=== PATIENT | female | born 1960 | race Caucasian/White ===

== ENCOUNTER 2024-04-04 06:35 | Emergency (ER) | payer MEDICARE, MEDICAID, SELFPAY ==
--- NOTE | ~2024-04-04 | XR_ITS ---
EXAMINATION: XR HIP 1 VIEW RIGHT WITH PELVIS CLINICAL INFORMATION: , rt hip pain COMPARISON: None available at the time of this dictation. TECHNIQUE: Frontal and lateral views of the hip acquired. , AP pelvis FINDINGS: There is no evidence of acute fracture or dislocation. There are mild degenerative arthritic changes of the hip evident by sclerotic changes of the acetabular roof and narrowing of the joint space. Mild degenerative changes of the symphysis pubis. Mild degenerative changes of the SI joints. Adjacent pubic rami are intact. Surrounding soft tissues are unremarkable. XR/XR hip RT w PEL1V IMPRESSION: Mild degenerative arthritis. . Electronically signed by: Tom Croona MD 04/04/2024 09:11 AM PHYLLIS
--- NOTE | ~2024-04-04 | XR_ITS ---
EXAMINATION: XR CHEST CLINICAL INFORMATION: Recent pneumonia follow-up COMPARISON: None available. TECHNIQUE: Frontal view of the chest was obtained. FINDINGS: Bilateral low lung volumes. Slight bibasilar atelectasis. No pneumothorax. Trachea is midline. Cardiac mediastinal silhouette is not enlarged. Tortuosity of the aorta. Trace left pleural effusion versus blunting of the left costophrenic recess. Osseous structures are intact. Soft tissues are unremarkable. XR/XR chest 1V IMPRESSION: 1. Bilateral low lung volumes. 2. Slight bibasilar atelectasis. 3. Trace left pleural effusion versus blunting of the left costophrenic recess. Electronically signed by: Evangelist Vega MD 04/04/2024 08:39 AM PHYLLIS
[2024-04-04 06:38] VITALS: BP 137/73; BP 140/97; PULSE 100; PULSE 98; RESP 16; TEMP 36.6; O2SAT 98; BMI 37.0
[2024-04-04 06:45] VITALS: BP 137/73; PULSE 92; RESP 16; TEMP 36.6; O2SAT 98
--- NOTE | 2024-04-04 06:54 | ED.GENADULT ---
HPI - General Adult General Chief complaint: General Medical Stated complaint: LEG PAIN/ WANTS CHEST XRAY Time Seen by Provider: 04/04/24 06:48 Source: patient and EMS Mode of arrival: EMS Limitations: no limitations History of Present Illness ED Provider: EVANGELISTA Colvin HPI narrative: This is a 63-year-old female history of anxiety, depression, paranoia presenting to the emergency department with multiple complaints she reports she has a headache diffuse in nature with light sensitivity and this headache has been going on for weeks she reports that started because she has not been sleeping for over a week. She states she is not sleeping because her home is invaded with ?black mold?. She states it is ?everywhere?. She states that she tried to go to her primary care provider for this she walked in and demanded to see her primary care however they would not see her that day. I explained to her she would likely has to make an appointment. She also states that she is having right hip pain this has been going on for a while, she reports because of the pain she started using a wheelchair. She is able to move her hip however. She thinks her hip pain is secondary to mold exposure. No recent falls or trauma. Also reporting that she wants a chest x-ray she reports she was recently hospitalized at [facility] for pneumonia, very vague as to when this happened and she reports she wants to make sure she is okay. Upon my history taking patient quite paranoid appears manic, she is not able to have linear speech she has tangential conversations. Denies suicidal and homicidal ideation. Denies hallucinations. Denies fevers, chills, falls, trauma, vision changes, dizziness, weakness, chest pain, shortness of breath, abdominal pain, nausea, vomiting, diarrhea. Related Data Allergies Allergy/AdvReac Type Severity Reaction Status Date / Time cephalexin Allergy Unknown Abdominal Verified 04/04/24 06:49 Pain codeine [CODEINE] Allergy Unknown GI UPSET Verified 04/04/24 06:49 Sulfa (Sulfonamide Allergy Unknown GI UPSET Verified 04/04/24 06:49 Antibiotics) [SULFA (SULFONAMIDE ANTIBIOTICS)] metronidazole [From FLAGYL] AdvReac Unknown GI UPSET Verified 04/04/24 06:49 Codeine Sulfate Allergy Unknown Abdominal Uncoded 04/04/24 06:49 Pain Hydrocodone Allergy Unknown Abdominal Uncoded 04/04/24 06:49 Pain MYCINS Allergy Unknown GI UPSET Uncoded 04/04/24 06:49 Oral mycins Allergy Unknown Gastrointestinal Uncoded 04/04/24 06:49 Upset Review of Systems Review of Systems: Yes all other systems are reviewed and are negative [facility] Past Medical History Attestation statement: The following information was validated with the patient. Source: old records reviewed and nursing notes reviewed Social History Social History Smoked in Last 30 Days: No Use of substances other than those prescribed or required for medical reasons: No Advance Directives: No Advance Directives Information Provided: Yes Do you have a plan to hurt others: No Plan Physical Exam ED Vital Signs: Vital Signs - 24 hr 04/04/24 06:38 04/04/24 06:45 04/04/24 08:08 Temperature 97.8 F 97.8 F 97.7 F Pulse Rate 98 92 95 Respiratory Rate 16 16 16 Blood Pressure 137/73 137/73 133/76 Pulse Oximetry 98 98 99 Oxygen Delivery Method Room Air Room Air Room Air BMI result Body Mass Index 37.0 vss Appearance: Alert.? Oriented X3.? No acute distress.? Head: Normocephalic, atraumatic, no step-offs or deformities Eyes: Pupils equal, round and reactive to light.? CVS: Normal heart rate and rhythm.? Pulses normal.? Respiratory: No respiratory distress.? Breath sounds normal.? Abdomen: Soft and nontender.? Skin: Skin warm and dry.? Normal skin color.? Normal skin turgor.? Extremities: No lower extremity edema.? No calf ttp. Negative Homans bilaterally. 4/5 strength to bilateral upper and lower extremities. Palpable pulses to bilateral lower extremities. Full range of motion to hip. Patient states however that she can not walk. Neuro: Oriented X 3.? No motor deficit.? No sensory deficit. CN 2-12 intact. Normal finger to nose, heel to briggs. Course Reevaluation(s) Reevaluation #1: CBC unremarkable. Chemistry no acute findings needing intervention. UA with no acute findings. Urine tox negative. Patient refusing head CT. She demands an x-ray of her hip she states she thinks the mold is making her hip hurt. I explained to her this is unlikely. Mild degenerative arthritis of the right hip otherwise no acute findings. She is freely moving her hip without difficulty. Normal neurovascular status at and below the level of the hip. Chest x-ray with bilateral low lung volumes. Slight bibasilar atelectasis. Trace left pleural effusions versus blunting of the left costophrenic recess. No respiratory complaints at this time breath sounds clear. Saturating well on room air. Patient very manic and paranoid. Will have care team and psych evaluate her. Time: 11:53 Reevaluation #2: At this time patient to be placed into physician observation to allow more time to be assessed by psych. Time: 11:59 Reevaluation #3: Patient was evaluated by psych who feel as though patient can be discharged home not a threat to self or others. Educated patient on diagnosis and treatment plan, answered all question, patient verbalizes understanding. At this time patient will be discharged home, advised to return with new or worsening symptoms. Educated on worrisome signs and symptoms and when to return. At this time I feel comfortable discharge home. Time: 12:14 Medications Administered Discontinued Medications Generic Name Dose Route Start Last Admin Trade Name Jessy PRN Reason Stop Dose Admin Acetaminophen 650 mg 04/04/24 07:24 04/04/24 07:35 Acetaminophen 325 Mg Tablet PO 04/04/24 07:25 650 mg ONCE ONE Administration Diphenhydramine HCl 50 mg 04/04/24 07:24 04/04/24 07:34 Diphenhydramine Hcl 25 Mg Capsule PO 04/04/24 07:25 50 mg ONCE ONE Administration Metoclopramide HCl 10 mg 04/04/24 07:24 04/04/24 07:35 Metoclopramide Hcl 10 Mg Tablet PO 04/04/24 07:25 10 mg ONCE ONE Administration Medical Decision Making Medical Decision Making [facility] Narrative: 0717 63 year old female presents w/ right leg pain ( atraumatic thinks its from black mold), not sleeping ( X 1 week), headache ( x1 week) . To note very bizzare affect. Requesting CXR states she recently had PNA no sx at this time however. PE- benign Hx and pe concerning for tonie. Some suspicion for OA of hip. Unliikely arterial, venous occlusion. No falls or trauma no signs of fx, dislocation, nv compromise. Normal breathsounds no sings of PNA, PE, ACS, ARDS. I do not suspect ICH, stroke, posterior stroke Plan- labs, imaging Differential Diagnosis Differential Diagnoses: The differential diagnosis associated with the presentation includes (Hx and pe concerning for tonie. Some suspicion for OA of hip. Unliikely arterial, venous occlusion. No falls or trauma no signs of fx, dislocation, nv compromise. Normal breathsounds no sings of PNA, PE, ACS, ARDS. I do not suspect ICH, stroke, posterior stroke) Admission/Observation Consideration of admission/observation: Escalation of care including admission/observation considered Lab Data MDM Lab Attestation statement: I reviewed the patient's lab results. 04/04/24 07:25 04/04/24 07:25 Labs: Lab Results 04/04/24 04/04/24 Range/Units 07:25 07:57 WBC 10.3 (4.8-10.8) X10*3/uL RBC 5.07 (4.20-5.50) X10*6/uL Hgb 14.7 (12.0-16.0) g/dl Hct 44.0 (37.0-47.0) % MCV 86.8 (80.0-98.0) fL MCH 29.0 (27.0-33.0) pg MCHC 33.4 (31.0-35.0) g/dl RDW 14.6 (11.0-16.0) % Plt Count 231 (160-400) X10*3/uL MPV 9.5 (9.4-12.3) fL Immature Gran % (Auto) 0.5 H (0.0-0.4) % Neut % (Auto) 84.9 H (45-73) % Lymph % (Auto) 7.5 L (20-40) % [place] % (Auto) 5.6 (2-11) % Eos % (Auto) 0.9 (0-4) % Baso % (Auto) 0.6 (0-2) % Lymph # (Auto) 0.8 L (1.2-4.9) X10*3/uL [place] # (Auto) 0.6 (0.1-1.2) X10*3/uL Eos # (Auto) 0.1 (0.0-0.4) X10*3/uL Baso # (Auto) 0.1 (0.0-0.2) X10*3/uL Abs Immat Gran (auto) 0.05 H (0.00-0.03) X10*3/uL Absolute Neuts (auto) 8.7 H (2.0-8.3) x10*3/uL Absolute Nucleated RBC 0.000 (0.0-0.012) X10*3/uL Nucleated RBC % (auto) 0.0 (0.0-0.2) /100WBC PT 12.7 H (10.9-12.4) SEC INR 1.1 (0.9-1.1) Sodium 140 (135-145) mmol/L Potassium 3.7 (3.3-5.1) mmol/L Chloride 106 (96-108) mmol/L Carbon Dioxide 24 (22-29) mmol/L Anion Gap 14 (12-20) BUN 11 (9-16) mg/dL Creatinine 0.81 (0.5-1.4) mg/dL Estim Creat Clear Calc 76.8 Estimated GFR > 60 Random Glucose 125 H (60-115) mg/dL Calcium 9.5 (8.4-10.2) mg/dL Magnesium 2.8 H (1.6-2.6) mg/dL Total Bilirubin 0.5 (0.0-1.0) mg/dL AST 20 (5-31) U/L ALT 15 (0-31) U/L Alkaline Phosphatase 87 (39-117) U/L Total Protein 6.9 (6.5-8.0) g/dL Albumin 3.9 (3.5-5.0) g/dL Urine Color Yellow Urine Appearance Clear Urine pH 7.0 (5.0-9.0) Ur Specific [place] 1.015 (1.005-1.025) Urine Protein Negative (Neg-Trace) mg/dL Urine Glucose (UA) Negative (Negative) mg/dL Urine Ketones Negative (Negative) mg/dL Urine Blood Negative (Negative) Urine Nitrite Negative (Negative) Ur Leukocyte Esterase Trace H (Negative) Urine RBC 0-2 (0-2) /HPF Urine WBC 0-5 (0-5) /HPF Ur Squamous Epith Cells 0-2 (0-2) /HPF Urine Bacteria None Seen (None Seen) Hyaline Casts 0-2 (0-2) /LPF Urine Opiates Screen Not Detected (Not Detect) Ur Buprenorphine Scrn Not Detected (Not Detect) ng/mL Ur Oxycodone Screen Not Detected (Not Detect) ng/mL Urine Methadone Screen Not Detected (Not Detect) ng/mL Urine Fentanyl Screen Not Detected (Not Detect) Ur Barbiturates Screen Not Detected (Not Detect) Ur Phencyclidine Scrn Not Detected (Not Detect) Ur Amphetamines Screen Not Detected (Not Detect) U Benzodiazepines Scrn Not Detected (Not Detect) Urine Cocaine Screen Not Detected (Not Detect) U Marijuana (THC) Screen Not Detected (Not Detect) Independent Interpretation I performed an independent interpretation of an: Plain X-Ray (XR/XR chest 1V IMPRESSION: 1. Bilateral low lung volumes. 2. Slight bibasilar atelectasis. 3. Trace left pleural effusion versus blunting of the left costophrenic recess. ) Interpretation: XR/XR hip RT w PEL1V IMPRESSION: Mild degenerative arthritis. Radiology Impression Discussion of test interpretation with radiology: I have reviewed the radiologist's reading. Tests considered The following testing was considered but not selected: No history of DVT or PE, not on blood thinners, no unilateral leg swelling, no calf tenderness negative Nellie bilaterally no indication for DVT study of bilateral lower extremities or right lower extremity. Unlikely arterial occlusion as patient has palpable pulses. Chronic Conditions Patient?s care impacted by: Other Critical Care Time Critical Care Time Critical Care Time: No Discharge Plan Discharge Clinical Impression: Headache, Paranoia, Hip pain, right Patient Disposition: Home, Self-Care Additional Instructions: Take your medications as prescribed. If you were prescribed antibiotics today, it is important that you take your medication to their entirety, do not skip any doses, do not finish them early. Follow-up with your primary care provider this week. Return to the emergency department with new or worsening symptoms. Such as fevers, chills, chest pain, shortness of breath, nausea, vomiting, dizziness, headache, vision changes, lethargy In case of emergency call 911 Please contact your landlord and speak to them about mold you can also reach out to the town. You can take ibuprofen every 6 hours Tylenol every 4 hours as needed for pain or discomfort in the right hip. Follow-up with your PCP. Nothing to be done about it acutely. RT w PEL1V IMPRESSION: Mild degenerative arthritis. XR/XR chest 1V IMPRESSION: 1. Bilateral low lung volumes. 2. Slight bibasilar atelectasis. 3. Trace left pleural effusion versus blunting of the left costophrenic recess. Electronically signed by: Evangelist Vega MD 04/04/2024 08:39 AM EST Referrals: Physician,Unknown J [Primary Care Provider] - 2 days Print Language: Swedish
[2024-04-04 07:31] LABS: MANUAL DIFF FLAG NO
[2024-04-04] MEDS: diphenhydrAMINE HCL 25 MG CAPSULE 50 MG PO (07:34)
[2024-04-04] MEDS: Metoclopramide HCl 10 MG TABLET PO (07:35)
[2024-04-04] MEDS: Acetaminophen 325 MG TABLET 650 MG PO (07:35)
[2024-04-04 07:41] LABS: Basophils Absolute Auto 0.1 X10*3/uL (0.0-0.2); Basophils Percent Auto 0.6 % (0-2); Eosinophils Absolute Auto 0.1 X10*3/uL (0.0-0.4); Eosinophils Percent Auto 0.9 % (0-4); Hemoglobin 14.7 g/dl (12.0-16.0); Imm Gran Abs Auto 0.05 X10*3/uL (0.00-0.03); Imm Gran Pct Auto 0.5 % (0.0-0.4); Lymphocytes Absolute Auto 0.8 X10*3/uL (1.2-4.9); Lymphocytes Percent Auto 7.5 % (20-40); Mean Corpuscular HGB Conc 33.4 g/dl (31.0-35.0); Mean Corpuscular Volume 86.8 fL (80.0-98.0); Mean Platelet Volume 9.5 fL (9.4-12.3); Monocytes Absolute Auto 0.6 X10*3/uL (0.1-1.2); Monocytes Percent Auto 5.6 % (2-11); Neutrophils Absolute Auto 8.7 x10*3/uL (2.0-8.3); Neutrophils Percent Auto 84.9 % (45-73); Platelet Count 231 X10*3/uL (160-400); Red Blood Count 5.07 X10*6/uL (4.20-5.50); Red Cell Distribution Width 14.6 % (11.0-16.0); White Blood Count 10.3 X10*3/uL (4.8-10.8)
[2024-04-04 07:45] LABS: INTERNATIONAL NORM RATIO 1.1 (0.9-1.1); Prothrombin Time 12.7 SEC (10.9-12.4)
[2024-04-04 07:50] LABS: Alanine Aminotransferase 15 U/L (0-31); Albumin Level 3.9 g/dL (3.5-5.0); Alkaline Phosphatase 87 U/L (39-117); Anion Gap 14 (12-20); Aspartate Amino Transferase 20 U/L (5-31); Bilirubin Total 0.5 mg/dL (0.0-1.0); Blood Urea Nitrogen 11 mg/dL (9-16); Calcium 9.5 mg/dL (8.4-10.2); Carbon Dioxide 24 mmol/L (22-29); Chloride 106 mmol/L (96-108); Creatinine Clr Calc Pharmacy 76.8; Estimated Glomerular Filt Rate > 60; Glucose Random 125 mg/dL (60-115); Magnesium 2.8 mg/dL (1.6-2.6); Potassium 3.7 mmol/L (3.3-5.1); Sodium 140 mmol/L (135-145); Total Protein 6.9 g/dL (6.5-8.0)
[2024-04-04 08:08] VITALS: BP 133/76; PULSE 95; RESP 16; TEMP 36.5; O2SAT 99
[2024-04-04 08:10] LABS: Appearance Urine Clear; Color Urine Yellow; Glucose Urine UA Negative (Negative); Leukocyte Esterase Urine Trace (Negative); Nitrite Urine Negative (Negative); Specific Gravity - Urine 1.015 (1.005-1.025); UMIC TRIGGER UACC YES; Urine Blood Negative (Negative); Urine Ketones Negative (Negative); Urine Protein Negative (Neg-Trace)
[2024-04-04 08:15] LABS: Bacteria Urine None Seen (None Seen); Hyaline Casts Urine 0-2 /LPF (0-2); RBC Urine 0-2 /HPF (0-2); Squamous Epithelial Cell Urine 0-2 /HPF (0-2); WBC Urine 0-5 /HPF (0-5)
[2024-04-04 08:28] LABS: Amphetamine Screen Urine Not Detected (Not Detect); Barbiturates, Urine Not Detected (Not Detect); Benzodiazepines Screen Urine Not Detected (Not Detect); Buprenorphine Scr Not Detected (Not Detect); Cannabinoid Screen Urine Not Detected (Not Detect); Cocaine Screen Urine Not Detected (Not Detect); Fentanyl, urine Not Detected (Not Detect); Methadone Screen, Urine Not Detected (Not Detect); Opiate Screen Urine Not Detected (Not Detect); Oxycodone Screen Urine Not Detected (Not Detect); Phencyclidine Screen Urine Not Detected (Not Detect)
[2024-04-04 12:19] VITALS: BP 133/76; PULSE 95; RESP 16; TEMP 36.5; O2SAT 99
--- NOTE | 2024-04-04 12:23 | PM.PSYCN ---
History of Present Illness Chief Complaint: LEG PAIN/ WANTS CHEST XRAY Diagnostics Vital Signs (24Hr): Vital Signs - 24 hr 04/04/24 06:38 04/04/24 06:45 04/04/24 08:08 Temperature 97.8 F 97.8 F 97.7 F Pulse Rate 98 92 95 Respiratory Rate 16 16 16 Blood Pressure 137/73 137/73 133/76 Pulse Oximetry 98 98 99 Oxygen Delivery Method Room Air Room Air Room Air 04/04/24 12:19 Temperature 97.7 F Pulse Rate 95 Respiratory Rate 16 Blood Pressure 133/76 Pulse Oximetry 99 Oxygen Delivery Method Room Air BMI result Body Mass Index 37.0 Labs 04/04/24 07:25 04/04/24 07:25 Labs: Laboratory Results - last 48 hr 04/04/24 04/04/24 07:25 07:57 WBC 10.3 RBC 5.07 Hgb 14.7 Hct 44.0 MCV 86.8 MCH 29.0 MCHC 33.4 RDW 14.6 Plt Count 231 MPV 9.5 Immature Gran % (Auto) 0.5 H Neut % (Auto) 84.9 H Lymph % (Auto) 7.5 L [place] % (Auto) 5.6 Eos % (Auto) 0.9 Baso % (Auto) 0.6 Lymph # (Auto) 0.8 L [place] # (Auto) 0.6 Eos # (Auto) 0.1 Baso # (Auto) 0.1 Abs Immat Gran (auto) 0.05 H Absolute Neuts (auto) 8.7 H Absolute Nucleated RBC 0.000 Nucleated RBC % (auto) 0.0 PT 12.7 H INR 1.1 Sodium 140 Potassium 3.7 Chloride 106 Carbon Dioxide 24 Anion Gap 14 BUN 11 Creatinine 0.81 Estim Creat Clear Calc 76.8 Estimated GFR > 60 Random Glucose 125 H Calcium 9.5 Magnesium 2.8 H Total Bilirubin 0.5 AST 20 ALT 15 Alkaline Phosphatase 87 Total Protein 6.9 Albumin 3.9 Urine Color Yellow Urine Appearance Clear Urine pH 7.0 Ur Specific [place] 1.015 Urine Protein Negative Urine Glucose (UA) Negative Urine Ketones Negative Urine Blood Negative Urine Nitrite Negative Ur Leukocyte Esterase Trace H Urine RBC 0-2 Urine WBC 0-5 Ur Squamous Epith Cells 0-2 Urine Bacteria None Seen Hyaline Casts 0-2 Urine Opiates Screen Not Detected Ur Buprenorphine Scrn Not Detected Ur Oxycodone Screen Not Detected Urine Methadone Screen Not Detected Urine Fentanyl Screen Not Detected Ur Barbiturates Screen Not Detected Ur Phencyclidine Scrn Not Detected Ur Amphetamines Screen Not Detected U Benzodiazepines Scrn Not Detected Urine Cocaine Screen Not Detected U Marijuana (THC) Screen Not Detected Imaging Radiology Impressions: ITS Impressions Chest X-Ray 04/04/24 06:54 IMPRESSION: 1. Bilateral low lung volumes. 2. Slight bibasilar atelectasis. 3. Trace left pleural effusion versus blunting of the left costophrenic recess. Electronically signed by: Evangelist Vega MD 04/04/2024 08:39 AM EST RP Hip/Pelvis X-Ray 04/04/24 08:58 IMPRESSION: Mild degenerative arthritis. . Electronically signed by: Tom Corona MD 04/04/2024 09:11 AM EST RP Medications Allergies Allergies Allergy/AdvReac Type Severity Reaction Status Date / Time cephalexin Allergy Unknown Abdominal Verified 04/04/24 06:49 Pain codeine [CODEINE] Allergy Unknown GI UPSET Verified 04/04/24 06:49 Sulfa (Sulfonamide Allergy Unknown GI UPSET Verified 04/04/24 06:49 Antibiotics) [SULFA (SULFONAMIDE ANTIBIOTICS)] metronidazole [From FLAGYL] AdvReac Unknown GI UPSET Verified 04/04/24 06:49 Codeine Sulfate Allergy Unknown Abdominal Uncoded 04/04/24 06:49 Pain Hydrocodone Allergy Unknown Abdominal Uncoded 04/04/24 06:49 Pain MYCINS Allergy Unknown GI UPSET Uncoded 04/04/24 06:49 Oral mycins Allergy Unknown Gastrointestinal Uncoded 04/04/24 06:49 Upset Assessment & Plan Assessment & Plan (1) Schizophrenia, paranoid type: Status: Acute Code(s): F20.0 - Paranoid schizophrenia Total time managing care of this patient today ____ minutes.
== END 2024-04-04 12:24 | disposition home or self-care (01) ==
PROVIDERS: Physician Assistant; Emergency Provider Emergency Medicine
DX: F20.0 Paranoid schizophrenia (principal); R51.9 Headache, unspecified; M25.551 Pain in right hip; R79.1 Abnormal coagulation profile
CPT/HCPCS: 36415; 71045; 73502; 80053; 80307; 81001; 83735; 85025; 85610; 99284; 99285; S9485

== ENCOUNTER → 2024-04-04 07:15 | Outpatient (BNV) | payer MEDICARE, MEDICAID, SELFPAY | PROVIDERS: Emergency Provider Emergency Medicine; Visit Provider Social Worker | DX: F20.0 Paranoid schizophrenia (principal) | CPT/HCPCS: 99285 ==

== ENCOUNTER 2024-11-04 20:07 | Emergency (ER) | payer MEDICARE, MEDICAID, SELFPAY ==
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
[2024-11-04 20:24] VITALS: BP 147/87; PULSE 91; RESP 21; TEMP 36.9; O2SAT 99; BMI 35.4
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
[2024-11-04 22:05] LABS: MANUAL DIFF FLAG NO
[2024-11-04 22:07] LABS: Basophils Absolute Auto 0.1 X10*3/uL (0.0-0.2); Basophils Percent Auto 0.7 % (0-2); Eosinophils Absolute Auto 0.4 X10*3/uL (0.0-0.4); Eosinophils Percent Auto 3.7 % (0-4); Hematocrit 32.3 % (37.0-47.0); Hemoglobin 10.8 g/dl (12.0-16.0); Imm Gran Abs Auto 0.05 X10*3/uL (0.00-0.03); Imm Gran Pct Auto 0.5 % (0.0-0.4); Lymphocytes Absolute Auto 1.2 X10*3/uL (1.2-4.9); Lymphocytes Percent Auto 12.4 % (20-40); Mean Corpuscular HGB Conc 33.4 g/dl (31.0-35.0); Mean Corpuscular Hemoglobin 30.5 pg (27.0-33.0); Mean Corpuscular Volume 91.2 fL (80.0-98.0); Mean Platelet Volume 8.6 fL (9.4-12.3); Monocytes Absolute Auto 0.7 X10*3/uL (0.1-1.2); Monocytes Percent Auto 7.1 % (2-11); Neutrophils Absolute Auto 7.1 x10*3/uL (2.0-8.3); Neutrophils Percent Auto 75.6 % (45-73); Platelet Count 269 X10*3/uL (160-400); Red Blood Count 3.54 X10*6/uL (4.20-5.50); Red Cell Distribution Width 14.6 % (11.0-16.0); White Blood Count 9.4 X10*3/uL (4.8-10.8)
[2024-11-04 22:22] LABS: Alanine Aminotransferase 9 U/L (0-31); Albumin Level 3.7 g/dL (3.5-5.0); Alkaline Phosphatase 76 U/L (39-117); Anion Gap 9 (12-20); Aspartate Amino Transferase 19 U/L (5-31); Bilirubin Total 1.1 mg/dL (0.0-1.0); Blood Urea Nitrogen 14 mg/dL (9-16); Calcium 8.2 mg/dL (8.4-10.2); Carbon Dioxide 25 mmol/L (22-29); Chloride 109 mmol/L (96-108); Creatinine Clr Calc Pharmacy 89.4; Estimated Glomerular Filt Rate > 60; Glucose Random 110 mg/dL (60-115); Magnesium 2.7 mg/dL (1.6-2.6); Potassium 3.4 mmol/L (3.3-5.1); Sodium 140 mmol/L (135-145); Total Protein 6.3 g/dL (6.5-8.0)
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
[2024-11-04 22:38] LABS: Prothrombin Time 11.7 SEC (10.9-12.4)
[2024-11-04] MEDS: Acetaminophen 325 MG TABLET 975 MG PO (22:39)
[2024-11-04] MEDS: oxyCODONE HCl Immed Release 5 MG TABLET 10 MG PO (22:39)
[2024-11-05 01:00] VITALS: BP 144/89; PULSE 93; RESP 16; TEMP 36.7; O2SAT 97
== END 2024-11-05 01:00 | disposition home or self-care (01) ==
PROVIDERS: Nurse Practitioner Family; Emergency Provider Emergency Medicine
DX: S89.92XA Unspecified injury of left lower leg, initial encounter (principal); V43.52XA Car driver injured in collision with other type car in traffic accident, initial encounter; L03.116 Cellulitis of left lower limb; M79.605 Pain in left leg; Y93.89 Activity, other specified; Y92.414 Local residential or business street as the place of occurrence of the external cause; Y99.9 Unspecified external cause status
CPT/HCPCS: 36415; 80053; 82550; 83735; 85025; 85610; 93971; 99284

== ENCOUNTER → 2024-11-04 21:27 | Outpatient (BNV) | payer MEDICARE, MEDICAID, SELFPAY | PROVIDERS: Emergency Provider Emergency Medicine; Visit Provider Radiology Diagnostic Radiology | DX: R22.42 Localized swelling, mass and lump, left lower limb (principal) | CPT/HCPCS: 93971 ==

== ENCOUNTER 2025-01-14 13:50 | Emergency (ER) | payer MEDICARE, MEDICAID, SELFPAY ==
[2025-01-14 14:00] VITALS: BP 165/92; PULSE 87; RESP 16; TEMP 36.8; O2SAT 99; BMI 35.4
[2025-01-14 14:10] VITALS: BP 190/120; PULSE 90; O2SAT 98
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
--- OUTSIDE RECORDS SUMMARY | 2025-01-14 14:33 | XMS_ITS | Clinical Summary ---
Author Organization [facility] Address [address] [place] [address] Phone Care Team Providers Care Enrollment Representative Name Role Phone Van Paige MD Primary Care Provider [phone] Allergies No known active allergies Immunizations Name Administration Dates Next Due Pfizer SARS-CoV-2 COVID-19, mRNA, LNP-S, preservative free 06/23/2020,06/02/2020 Social History Tobacco Use Types Packs/Day Years Used Date Smoking Tobacco: Never Assessed Comments Unknown Sex and Gender Information Value Date Recorded Sex Assigned at Not on file Legal Sex Female 8:26 PM EST Gender Identity Not on file Sexual Orientation Not on file Obstetrics History Last Filed Vital Signs Vital Sign Reading Time Taken Comments Blood Pressure 137/84 06/21/2024 1:04 PM EST Pulse 80 06/21/2024 1:04 PM EST Temperature 36.8 C (98.2 F) 06/21/2024 1:04 PM EST Respiratory Rate 18 06/21/2024 1:04 PM EST Oxygen Saturation 97% 06/21/2024 1:04 PM EST Inhaled Oxygen Concentration - - Weight 83.5 kg (184 lb) 06/21/2024 9:09 AM EST Height 160 cm (5' 3 ) 06/21/2024 9:09 AM EST Body Mass Index 32.59 06/21/2024 9:09 AM EST Plan of Treatment Health Maintenance Due Date Last Done Comments Breast Cancer Screening 1960 Pneumococcal Vaccine: 50+ Years (1 of 2 - PCV) 10/06/1978 Cervical Cancer Screening: Pap Smear 10/06/1980 Zoster Vaccines (1 of 2) 10/06/2009 RSV Immunization Adult Patients (1 - Risk 60-74 years 1-dose series) 2019 DTaP,Tdap,and Td Vaccines (2 - Td or Tdap) 03/02/2020 03/02/2010 Colorectal Cancer Screening: Colonoscopy 06/21/2023 Hepatitis C Screening 06/21/2023 Medicare Annual Wellness Visit 06/21/2023 Osteoporosis Screening (Bone Density Screening) 06/21/2023 Social Influencers of Health Screening 06/21/2023 COVID-19 Vaccine ( - season) 2024 06/23/2020, 06/02/2020 Depression Screening 05/27/2024 Falls Risk Assessment 10/06/2024 Influenza Vaccine (#1) 2025 04/05/2022, 2020 Hypertension/CHF/CAD Annual BMP Blood Test 06/21/2025 06/21/2024, 08/14/2023, 12/19/2022, Additional history exists Cholesterol Screening (Lipid Panel) 08/13/2028 08/14/2023 HIB Vaccines Aged Out No longer eligi ble based on patient's age to complete this topic HPV Vaccines Aged Out No longer eligi ble based on patient's age to complete this topic Hepatitis A Vaccines Aged Out No long er eligible based on patient's age to complete this topic Hepatitis B Vaccines Aged Out No long er eligible based on patient's age to complete this topic IPV Vaccines Aged Out No longer eligi ble based on patient's age to complete this topic MMR Vaccines Aged Out No longer eligi ble based on patient's age to complete this topic Meningococcal ACWY Vaccine Aged Out N o longer eligible based on patient's age to complete this topic Meningococcal B Vaccine Aged Out No l onger eligible based on patient's age to complete this topic RSV Immunization Patients Under 20 months Aged Out No longer eligible based on patient's age to complete this topic Varicella Vaccines Aged Out No longer eligible based on patient's age to complete this topic Procedures Procedure Name Priority Date/Time Associated Diagnosis Comments COMPREHENSIVE METABOLIC PANEL STAT 06/21/2024 10:46 AM EST from Last 3 Months or Most Recently Relevant to Health Maintenance Results * Comprehensive metabolic panel (06/21/2024 10:46 AM EST) Sodium 139 133 - 145 mmol/L LAB CHEMISTRY METHOD 06/21/2024 11:42 AM [facility] Potassium 4.2 3.5 - 5.5 mmol/L LAB CHEMISTRY METHOD 06/21/2024 11:42 AM [facility] Comment:Hemolysis present Chloride 110 96 - 110 mmol/L LAB CHEMISTRY METHOD 06/21/2024 11:42 AM [facility] CO2 25 21 - 32 mmol/L LAB CHEMISTRY METHOD 06/21/2024 11:42 AM [facility] Anion Gap 4 3 - 11 LAB CHEMISTRY METHOD 06/21/2024 11:42 AM [facility] Glucose 99 70 - 100 mg/dL LAB CHEMISTRY METHOD 06/21/2024 11:42 AM [facility] BUN 14 5 - 25 mg/dL LAB CHEMISTRY METHOD 06/21/2024 11:42 AM [facility] Creatinine 0.78 0.50 - 1.10 mg/dL LAB CHEMISTRY METHOD 06/21/2024 11:42 AM [facility] eGFR 85 >=60 mL/min/1. 73m2 LAB CHEMISTRY METHOD 06/21/2024 11:42 AM [facility] Comment:Calculation based on the Chronic Kidney Disease Epidemiology Collaboration (CKD-EPI) equation refit without adjustment for race. BUN/Creatinine Ratio 17.9 LAB CHEMISTRY METHOD 06/21/2024 11:42 AM [facility] Calcium 9.0 8.5 - 10.5 mg/dL LAB CHEMISTRY METHOD 06/21/2024 11:42 AM [facility] AST (SGOT) 16 10 - 42 unit/L LAB CHEMISTRY METHOD 06/21/2024 11:42 AM [facility] Comment:Hemolysis present ALT (SGPT) 17 10 - 60 unit/L LAB CHEMISTRY METHOD 06/21/2024 11:42 AM [facility] Alkaline Phosphatase 84 42 - 121 unit/L LAB CHEMISTRY METHOD 06/21/2024 11:42 AM [facility] Total Protein 6.7 6.0 - 8.0 g/dL LAB CHEMISTRY METHOD 06/21/2024 11:42 AM EST [facility] Albumin 3.6 3.2 - 5.0 g/dL LAB CHEMISTRY METHOD 06/21/2024 11:42 AM EST [facility] Total Bilirubin 0.6 0.0 - 1.4 mg/dL LAB CHEMISTRY METHOD 06/21/2024 11:42 AM EST [facility] Blood Venous blood specimen / Unknown Venipuncture / Unknown 06/21/2024 10:46 AM EST 06/21/2024 10:52 AM EST Byrontricia Ranjit Juares DO LAB BLOOD ORDERABLES Irena l Result [facility] [address] [place] [address], from Last 3 Months or Most Recently Relevant to Health Maintenance Insurance MEDICAID - [place] MEDICARE Care Teams Enrollment Representative Relationship Specialty Start Date End Date Van Paige MD [address] [place] [phone] PCP - General 09/25/23
--- OUTSIDE RECORDS SUMMARY | 2025-01-14 14:34 | XMS_ITS | Clinical Summary ---
Author Organization Formerly [facility] Address [address] [place] [address] Care Team Providers Care Meat Boner Name Role Phone Unavailable Primary Care Provider Unavailabl e Allergies No known active allergies Encounters Date Type Department Care Team Description 10/15/2024 10:30 PM EDT - 10/16/2024 2:56 AM EDT Emergency [facility] Emergency Department [address] [place] [address] Annika Keyes MD Hypothyroidism (Primary Dx); Headache; Abdominal pain Discharge Disposition: Home or Self Care 10/15/2024 Travel from Last 3 Months Social History Tobacco Use Types Packs/Day Years Used Date Smoking Tobacco: Never Assessed Comments Unknown Sex and Gender Information Value Date Recorded Sex Assigned at Female 10/15/2024 10:37 PM EDT Legal Sex Female 6:42 PM EST Gender Identity Female 10/15/2024 10:37 PM EDT Sexual Orientation Heterosexual (straight) 10/15 10:37 PM EDT Last Filed Vital Signs Vital Sign Reading Time Taken Comments Blood Pressure 142/86 10/15/2024 10:29 PM EDT Pulse 76 10/15/2024 10:29 PM EDT Temperature 37 C (98.6 F) 10/15/2024 10:29 PM EDT Respiratory Rate 16 10/15/2024 10:29 PM EDT Oxygen Saturation 100% 10/15/2024 10:29 PM EDT Inhaled Oxygen Concentration - - Weight - - Height - - Body Mass Index - - Plan of Treatment Health Maintenance Due Date Last Done Comments Hepatitis C Virus Screening 1960 HIV Screening 10/06/1972 DTaP/Tdap/Td Vaccines (1 - Tdap) 10/06/1978 Pap Smear (Ages 21-65) 10/06/1980 Mammogram 1999 Colonoscopy 10/06/2004 Pneumococcal Vaccines 50+ (1 of 1 - PCV) 10/06/2009 Zoster (Shingles) Vaccine (1 of 2) 10/06/2009 COVID-19 Vaccine (3 - 2023-2 5 season) 2024 06/23/2020, 06/02/2020 DXA Bone Density (Females,Ages 65 and older) 10/06/2024 Influenza Vaccine 12/25/2024 04/05/2022, 03/29/2021 RSV Vaccine 60 years and older and Patients (1 - 1-dose 75+ series) 10/06/2034 Hepatitis B Vaccines Aged Out No long er eligible based on patient's age to complete this topic Procedures Procedure Name Priority Date/Time Associated Diagnosis Comments TSH, HIGHLY SENSITIVE Routine 10/16/2024 1:34 AM EDT T4, FREE Routine 10/16/2024 1:34 AM EDT LIPASE STAT 10/16/2024 1:34 AM EDT HEPATIC FUNCTION PANEL STAT 10/16/2024 1:34 AM EDT BASIC METABOLIC PANEL STAT 10/16/2024 1:34 AM EDT COMPLETE BLOOD COUNT, WITH DIFFERENTIAL STAT 10/16/2024 1:34 AM EDT from Last 3 Months Results * Complete Blood Count, with Differential (10/16/2024 1:34 AM EDT) White Blood Cell Count 7.2 4.0 - 11.0 Thou/uL 10/16/2024 2:11 AM T [facility] Platelet Count 198 150 - 450 Thou/uL 10/16/2024 2:11 AM [facility] Hemoglobin 14.5 11.7 - 15.7 g/dL 10/16/2024 2:11 AM [facility] Hematocrit 43.5 35.0 - 47.0 % 10/16/2024 2:11 AM [facility] Red Blood Cell Count 4.87 4.00 - 5.40 Mil/uL 10/16/2024 2:11 AM [facility] MCV 89 80 - 100 fL 10/16/2024 2:11 AM [facility] MCH 29.8 27.0 - 31.0 pg 10/16/2024 2:11 AM [facility] MCHC 33.3 30.0 - 36.0 g/dL 10/16/2024 2:11 AM [facility] RDW 13.8 11.5 - 14.5 % 10/16/2024 2:11 AM [facility] MPV 8.9 7.5 - 12.5 fL 10/16/2024 2:11 AM [facility] Neutrophils Auto 63.0 % 10/17/19 2:11 AM [facility] Immature Granulocytes 0.1 % 10/16/2024 2:11 AM [facility] Lymphocytes Auto 23.2 % 10/17/19 2:11 AM [facility] Monocytes Auto 7.7 % 10/16/2024 2:11 AM [facility] Eosinophils Auto 5.0 % 10/17/19 2:11 AM [facility] Basophils Auto 1.0 % 10/16/2024 2:11 AM [facility] Abs Neutrophils Auto 4.55 2.00 - 7.50 Thou/uL 10/16/2024 2:11 AM [facility] Abs Immature Granulocytes 0.01 0.00 - 0.10 Thou/uL 10/16/2024 2:11 AM [facility] Abs Lymphocytes Auto 1.68 1.50 - 4.50 Thou/uL 10/16/2024 2:11 AM [facility] Abs Monocytes Auto 0.56 0.20 - 1.50 Thou/uL 10/16/2024 2:11 AM [facility] Abs Eosinophils Auto 0.36 0.00 - 0.70 Thou/uL 10/16/2024 2:11 AM [facility] Abs Basophils Auto 0.07 0.00 - 0.20 Thou/uL 10/16/2024 2:11 AM [facility] Blood Blood specimen / Unknown 10/16/2024 1:34 AM EDT 10/16/2024 1:58 AM EDT Francisco M Harman NAIDU LAB BLOOD ORDERABLES Final Re sult Performing Organization Address [facility] Co de Phone Number [address] [address], [address] [address] * (ABNORMAL) TSH, HIGHLY SENSITIVE (10/16/2024 1:34 AM EDT) TSH, Highly Sensitive 9.91(H) 0.27 - 4.20 mIU/L 10/16/2024 2:29 AM EDT [facility] 10/16/2024 1:34 AM EDT 10/16/2024 1:58 AM EDT Francisco Neves Harman NAIDU LAB BLOOD ORDERABLES Final Re sult Performing Organization Address [facility] Co de Phone Number [address] [address], [address] [address] * T4, FREE (10/16/2024 1:34 AM EDT) T4, Free 1.01 0.80 - 1.90 ng/dL 10/16/2024 2:29 AM EDT [facility] 10/16/2024 1:34 AM EDT 10/16/2024 1:58 AM EDT Francisco Neves Harman [place] LAB BLOOD ORDERABLES Final Re sult Performing Organization Address City/[facility] Co de Phone Number [address] [address], [address] [address] * (ABNORMAL) Lipase (10/16/2024 1:34 AM EDT) Lipase 61(H) 13 - 60 U/L 10/16/2024 2:29 AM EDT [facility] Blood Blood specimen / Unknown 10/16/2024 1:34 AM EDT 10/16/2024 1:58 AM EDT Francisco NAIDU LAB BLOOD ORDERABLES Final Re sult [address] [address], [address] [address] * Hepatic Function Panel (10/16/2024 1:34 AM EDT) Alkaline Phosphatase 85 32 - 122 U/L 10/16/2024 2:29 AM EDT [facility] Aspartate Aminotrans (AST) 22 10 - 50 U/L 10/16/2024 2:29 AM EDT [facility] Alanine Aminotrans (ALT) 17 10 - 50 U/L 10/16/2024 2:29 AM EDT [facility] Bilirubin, Total 0.3 0.2 - 1.0 mg/dL 10/16/2024 2:29 AM EDT [facility] Protein, Total 6.5 6.3 - 8.3 g/dL 10/16/2024 2:29 AM EDT [facility] Albumin 3.9 3.4 - 4.8 g/dL 10/16/2024 2:29 AM EDT [facility] Bilirubin, Direct 0.1 0 - 0.2 mg/dL 10/16/2024 2:29 AM EDT [facility] Globulin 2.6 1.5 - 3.9 g/dL 10/16/2024 2:29 AM EDT [facility] Albumin/Globulin Ratio 1.5 1.0 - 3.0 Ratio 10/16/2024 2:29 AM EDT [facility] Blood Blood specimen / Unknown 10/16/2024 1:34 AM EDT 10/16/2024 1:58 AM EDT Francisco NAIDU LAB BLOOD ORDERABLES Final Re sult [address] [address], [address] [address] * (ABNORMAL) Basic Metabolic Panel (10/16/2024 1:34 AM EDT) Glucose 101(H) 65 - 99 mg/dL 10/16/2024 2:29 AM [facility] Comment:Fasting: <100 mg/dL, Non-Fasting: <200 mg/dL (ADA 2005) Blood Urea Nitrogen (BUN) 16 8 - 21 mg/dL 10/16/2024 2:29 AM [facility] Creatinine 0.7 0.4 - 1.1 mg/dL 10/16/2024 2:29 AM [facility] eGFR >90 >59 10/16/2024 2:29 AM [facility] Comment:CKD-EPI (2020) in mL /min/1.73 sq meters. Sodium 141 136 - 145 mmol/L 10/16/2024 2:29 AM [facility] Potassium 3.7 3.4 - 5.3 mmol/L 10/16/2024 2:29 AM [facility] Chloride 105 98 - 107 mmol/L 10/16/2024 2:29 AM [facility] CO2 24 22 - 33 mmol/L 10/16/2024 2:29 AM [facility] Anion Gap 12 7 - 17 10/16/2024 2:29 AM [facility] Calcium 8.6(L) 8.7 - 10.5 mg/dL 10/16/2024 2:29 AM [facility] BUN/Creatinine Ratio 23 10.0 - 25.0 Ratio 10/16/2024 2:29 AM [facility] Blood Blood specimen / Unknown 10/16/2024 1:34 AM EDT 10/16/2024 1:58 AM EDT us Francisco NAIDU LAB BLOOD ORDERABLES Final Re sult [address] [address], [address] [address] from Last 3 Months Insurance MEDICARE PART A & B
--- OUTSIDE RECORDS SUMMARY | 2025-01-14 14:34 | XMS_ITS ---
Author Name [facility] Organization Unknown Results Test Name/Text Value Interpretation Date Range Source TSH SerPl DL<=0.005 mIU/L-aCnc 9.91 mIU/L Above high normal 10/16/2024 0.27 - 4.2 [facility] AST SerPl-cCnc 22.0 U/L 10/16/2024 10 - 50 [facility] T Bilirub SerPl-mCnc 0.3 mg/dL 10/16/2024 0.2 - 1 [facility] Prot SerPl-mCnc 6.5 g/dL 10/16/2024 6.3 - 8.[address] Bilirub Direct SerPl-mCnc 0.1 mg/dL 10/16/2024 0 - 0.2 [facility] ALP SerPl-cCnc 85.0 U/L 10/16/2024 32 - 122 [facility] T Albumin/Glob SerPl 1.5 Ratio 10/16/2024 1 - 3 [facility] ALT SerPl-cCnc 17.0 U/L 10/16/2024 10 - 50 [facility] T Albumin SerPl-mCnc 3.9 g/dL 10/16/2024 3.4 - 4.8 [facility] Globulin Ser Calc-mCnc 2.6 g/dL 10/16/2024 1.5 - 3.9 [facility] T4 Free SerPl-mCnc 1.01 ng/dL 10/16/2024 0.8 - 1.9 [facility] Lipase SerPl-cCnc 61.0 U/L Above high normal 10/16/2024 13 - 60 [facility] Creat SerPl-mCnc 0.7 mg/dL 10/16/2024 0.4 - 1.1 [facility] CO2 SerPl-sCnc 24.0 mmol/L 10/16/2024 22 - 33 [facility] Anion Gap Bld-sCnc 12.0 10/16/2024 7 - 17 [facility] Calcium SerPl-mCnc 8.6 mg/dL Below low normal 10/16/2024 8.7 - 10.5 [facility] Sodium SerPl-sCnc 141.0 mmol/L 10/16/2024 136 - 14 5 [facility] GFR/BSA.pred SerPlBld RBO-JEX-MjOHvx >90.0 10/16/2024 59 - [facility] Chloride SerPl-sCnc 105.0 mmol/L 10/16/2024 98 - 1 07 [facility] Potassium SerPl-sCnc 3.7 mmol/L 10/16/2024 3.4 - 5 .3 [facility] Glucose SerPl-mCnc 101.0 mg/dL Above high normal 10/16/2024 65 - 99 [facility] BUN/Creat SerPl 23.0 Ratio 10/16/2024 10 - 25 [facility] BUN SerPl-mCnc 16.0 mg/dL 10/16/2024 8 - [address] Hct VFr Bld Auto 43.5 % 10/16/2024 35 - 47 [facility] Imm Granulocytes/leuk NFr Bld Auto 0.1 % 10/16/2024 [facility] MCH RBC Qn Auto 29.8 pg 10/16/2024 27 - [address] Lymphocytes num Bld Auto 1.68 Thou/uL 10/16/2024 1.5 - 4.5 [facility] Neutrophils num Bld Auto 4.55 Thou/uL 10/16/2024 2 - 7.5 [facility] WBC num Bld Auto 7.2 Thou/uL 10/16/2024 4 - 11 [facility] Hgb Bld-mCnc 14.5 g/dL 10/16/2024 11.7 - 15.7 [facility] T Lymphocytes/leuk NFr Bld Auto 23.2 % 10/16/2024 [facility] Platelet num Bld Auto 198.0 Thou/uL 10/16/2024 150 - 450 [facility] RBC num Bld Auto 4.87 Mil/uL 10/16/2024 4 - 5.4 [facility] Monocytes num Bld Auto 0.56 Thou/uL 10/16/2024 0.2 - 1.5 [facility] Imm Granulocytes num Bld Auto 0.01 Thou/uL 10/16/2024 0 - 0.1 [facility] Neutrophils/leuk NFr Bld Auto 63.0 % 10/16/2024 [facility] MCV RBC Auto 89.0 fL 10/16/2024 80 - 100 [facility] Basophils/leuk NFr Bld Auto 1.0 % 10/16/2024 [facility] RDW RBC Auto-Rto 13.8 % 10/16/2024 11.5 - 14.5 [facility] MCHC RBC Auto-mCnc 33.3 g/dL 10/16/2024 30 - 36 [facility] Monocytes/leuk NFr Bld Auto 7.7 % 10/16/2024 [facility] Eosinophil/leuk NFr Bld Auto 5.0 % 10/16/2024 [facility] Basophils num Bld Auto 0.07 Thou/uL 10/16/2024 0 - 0.2 [facility] Eosinophil num Bld Auto 0.36 Thou/uL 10/16/2024 0 - 0.7 [facility] PMV Bld Auto 8.9 fL 10/16/2024 7.5 - 12.5 [facility] LIPASE 53.0 U/L Normal 09/17/2024 12 - 53 [facility] GFRE 67.0 Normal 09/17/2024 60 - [facility] AST (SGOT) 18.0 U/L Normal 09/17/2024 0 - 34 [facility] POTASSIUM SERUM 3.7 mmol/L Normal 09/17/2024 3.5 - 5.1 [facility] A/G RATIO 2.2 g/dL Normal 09/17/2024 [facility] GLUCOSE 95.0 mg/dL Normal 09/17/2024 74 - 106 [facility] BILIRUBIN,TOTAL 0.5 mg/dL Normal 09/17/2024 0.3 - 1.2 [facility] SODIUM 142.0 mmol/L Normal 09/17/2024 136 - 145 [facility] MH BUN/CREAT.RATIO 24.4 Normal 09/17/2024 [facility] GLOBULIN 1.9 g/dL Below low normal 09/17/2024 2.2 - 3.5 [facility] BUN 22.0 mg/dL Normal 09/17/2024 9 - 23 [facility] ALT (SGPT) 11.0 U/L Normal 09/17/2024 10 - 49 [facility] PROTEIN, TOTAL 6.1 g/dL Normal 09/17/2024 5.7 - 8.2 [facility] CO2 26.0 mmol/L Normal 09/17/2024 20 - 31 [facility] ALBUMIN 4.2 g/dL Normal 09/17/2024 3.2 - 4.8 [facility] CREATININE 0.9 mg/dL Normal 09/17/2024 0.55 - 1.02 [facility] CHLORIDE 109.0 mmol/L Above high normal 09/17/2024 98 - 107 [facility] ALKALINE PHOSPHATASE 76.0 U/L Normal 09/17/2024 45 - 129 [facility] PATIENT FASTING? UNKNOWN Normal 09/17/2024 [facility] EOSINOPHILS 4.0 % Normal 09/17/2024 0 - 6 [facility] WBC 8.4 K/uL Normal 09/17/2024 3.7 - 10.3 [facility] MPV 9.0 fL Normal 09/17/2024 8 - 12 [facility] ABSOLUTE BASO 0.1 K/uL Normal 09/17/2024 0 - 0.2 [facility] MMH RDW 13.1 % Normal 09/17/2024 11.1 - 13.3 [facility] HCT 45.4 % Normal 09/17/2024 36 - 46 [facility] HGB 15.1 g/dL Normal 09/17/2024 12.1 - 15.7 [facility] BASOPHILS 1.0 % Normal 09/17/2024 0 - 2 [facility] LYMPHS 20.0 % Normal 09/17/2024 16 - 50 [facility] IMMATURE GRANULOCYTES 0.0 % Normal 09/17/2024 0 - 0.4 5 [facility] MONOCYTES 10.0 % Normal 09/17/2024 0 - 12 [facility] ABSOLUTE NUCLEATED RBC 0.0 K/uL Normal 09/17/2024 0 - 0.012 [facility] MCHC 33.3 g/dL Normal 09/17/2024 31 - 36 [facility] NUCLEATED RBC 0.0 % Normal 09/17/2024 0 - 0.2 [facility]H ABSOLUTE GRANULOCYTES 5.4 K/uL Normal 09/17/2024 2.2 - 7 .3 [facility] ABSOLUTE EOS 0.3 K/uL Normal 09/17/2024 0 - 0.7 [facility] MH RBC 5.01 M/uL Normal 09/17/2024 4 - 5.4 [facility] PLATELET COUNT 195.0 K/uL Normal 09/17/2024 150 - 480 [facility] ABSOLUTE IMMATURE GRANULOCYTES 0.0 K/uL Normal 09/17/2024 0 - 0.3 [facility] ABSOLUTE MONOS 0.8 K/uL Normal 09/17/2024 0.2 - 1.5 [facility] MCH 30.0 PG Normal 09/17/2024 27 - 34 [facility] MCV 91.0 fL Normal 09/17/2024 83 - 102 [facility] GRANULOCYTES 65.0 % Normal 09/17/2024 23 - 78 [facility] ABSOLUTE LYMPHS 1.7 K/uL Normal 09/17/2024 1.5 - 4.9 [facility] Encounters Encounter Type Encounter Reason Primary Diagnosis Location Date Emergency Hypothyroidism, unspecified Hypothyroidism, unspecified [employer] 10/15/2024 Emergency ABD PAIN ABD PAIN Formerly [facility] 09/16/2024 Care Team Organization Name Specialty Phone Email Start Date End Da te [employer] 10/16/2024 11/14/2024 [employer] 10/16/2024 [facility] provided,No Primary Care 09/17/2024 12/08/2024 [facility]. No provided Primary Care 09/17/2024
--- OUTSIDE RECORDS SUMMARY | 2025-01-14 14:34 | XMS_ITS | Encounter Summary ---
Author Organization [facility] Address [address] [place] [address] Care Team Providers Care Tennis Net Maker Name Role Phone Van Paige Primary Care Provider [phone] Reason for Referral * MRI/CAT/PET Scan (Routine) - Pending Review Specialty Diagnoses / Procedures Referred By Contbrennon t Referred To Contact Radiology Procedures MRI Angiogram Head WO Contrast Henrik Nelson MD [address] [place] [address] Phone: tel: fax: Referral ID Status Reason Start Date Expiration Date V isits Requested Visits Authorized [id number] Pending Review 01/11/2025 07/13/2026 1 1 Encounter Details Date Type Department Care Team (Late st Contact Info) Description 01/13/2025 Orders Only [facility] Entrance A [address] [place] [id number] Henrik Nelson MD [address] [place] [id number] Social History Tobacco Use Types Packs/Day Years Used Date Smoking Tobacco: Never Smokeless Tobacco: Never Alcohol Use Standard Drinks/Week Comments No 0 (1 standard drink = 0.6 oz pur e alcohol) Comments No Sex and Gender Information Value Date Recorded Sex Assigned at Female 02/11/2024 9:02 PM EDT Legal Sex Female 6:22 AM EDT Gender Identity Female 02/11/2024 9:02 PM EDT Sexual Orientation Not on file Occupation Industry Job Start Date Job End Date Not on file Not on file Not on file Not on file documented as of this encounter Plan of Treatment Scheduled Orders Name Type Priority Associated Diagnoses Orde r Schedule MRI Angiogram Head WO Contrast Imaging Martin Routine 1 Occurrences starting 01/11/2025 until 02/11/2026 documented as of this encounter Visit Diagnoses Not on filedocumented in this encounter Additional Health Concerns Infection Onset Date Last Indicated Resolved Time Multidrug resistant organisms ESBL 08/09/20202020 documented as of this encounter Care Teams Tennis Net Maker Relationship Specialty Start Date End Date Van Paige PCP - General Family Medicine 10/18/23 documented as of this encounter
--- OUTSIDE RECORDS SUMMARY | 2025-01-14 14:34 | XMS_ITS | Clinical Summary ---
Author Organization [facility] Address [address] [place] [address] Care Team Providers Care Commutator Presser Name Role Phone Van Paige MD Primary Care Provider [phone] Allergies No known active allergies Medications Medication Sig Dispensed Refills Start Date End Date Status albuterol 108 (90 Base) MCG/ACT inhaler Inhale 2 puffs into the lungs every 6 (six) hours as needed. 0 03/20/2023 Active baclofen (LIORESAL) 20 MG tablet 0 08/30/2023 Active Cholecalciferol 25 MCG (1000 UT) capsule Take 1,000 Units by mouth. 0 10/03/2020 Active ciclesonide (Omnaris) 50 MCG/ACT nasal spray 0 Activ e cloNIDine (CATAPRES) tablet 0.1 mg 0 08/27/2023 Active DULoxetine (CYMBALTA) DR capsule 20 mg Take 1 capsule (20 mg total) by mouth. 0 09/18/2023 Active Advair Diskus 500-50 MCG/ACT AEPB 0 08/08/2023 Activ e gabapentin (NEURONTIN) 300 MG capsule TAKE 1 CAPSULE BY MOUTH AT BEDTIME-must keep appt 11/11/23 for additional refills. 0 01/16/2021 Active galcanezumab-gnlm (Emgality) 120 MG/ML injection INJECT MONTHLY UNDER THE SKIN FOR MIGRAINE 0 02/23/2023 Active levothyroxine (SYNTHROID) tablet 75 mcg Take 1 tablet (75 mcg total) by mouth. 0 05/18/2021 Active meclizine (ANTIVERT) 25 MG tablet 1 tablet (25 mg total) daily as needed. 0 12/13/2022 Active L-Lysine HCl 500 MG CAPS Take 2 tablets by mouth daily. 0 Active methylPREDNISolone (MEDROL DOSEPACK) 4 MG tablet 0 08/19/2023 Active nitrofurantoin, macrocrystal-monohy drate, (MACROBID) 100 MG capsule Take 1 capsule (100 mg total) by mouth 2 (two) times a day. 0 10/18/2023 Active omeprazole (PriLOSEC) 40 MG capsule 0 08/07/2021 Active rizatriptan (MAXALT) 10 MG tablet Take 1 tablet (10 mg total) by mouth daily as needed. 0 12/07/2022 01/25/2025 Active spironolactone (ALDACTONE) tablet 50 mg Take 1 tablet (50 mg total) by mouth. 0 06/02/2021 Active traZODone (DESYREL) 100 MG tablet 2 tablets (200 mg total). 0 03/06/2022 Active zolpidem (AMBIEN CR) 12.5 MG CR tablet Take 1 tablet (12.5 mg total) by mouth. 0 07/30/2023 Active Social History Tobacco Use Types Packs/Day Years Used Date Smoking Tobacco: Never Assessed Sex and Gender Information Value Date Recorded Sex Assigned at Not on file Gender Identity Not on file Sexual Orientation Not on file Job Start Date Occupation Industry Not on file Not on file Not on file Last Filed Vital Signs Vital Sign Reading Time Taken Comments Blood Pressure 143/99 10/24/2023 10:26 AM EDT Pulse 103 10/24/2023 10:26 AM EDT Temperature - - Respiratory Rate - - Oxygen Saturation - - Inhaled Oxygen Concentration - - Weight 108.9 kg (240 lb) 10/24/2023 10:26 AM EDT Height 160 cm (5' 3 ) 10/24/2023 10:26 AM EDT Body Mass Index 42.51 10/24/2023 10:26 AM EDT Plan of Treatment Health Maintenance Due Date Last Done Comments Hepatitis C Screening 1960 Depression Screening 1971 BMI Counseling 10/06/1977 Preventative Health Evaluation 10/06/1977 Cervical Cancer Screening (Pap Smear) 10/06/1980 Colon Cancer Screening (Colonoscopy) 10/06/2004 Breast Cancer Screening (Mammogram) 10/06/2009 Shingrix-Zoster Vaccine (1 o f 2) 10/06/2009 DTap / Tdap / Td (2 - Td or Tdap) 03/02/2020 03/02/2010 COVID-19 Vaccine (3 - 2023-2 5 season) 2024 06/23/2020, 06/02/2020 Fall Risk Assessment 10/06/2024 Osteoporosis Screening (DEXA Scan) 10/06/2024 Pneumococcal Vaccine (1 of 1 - PCV) 10/06/2024 Influenza Vaccine (#1) 2025 2, 03/29/2021 RSV Adult > 60+ Yrs or (1 - 1-dose 75+ series) 10/06/2034 Hepatitis B Vaccines Aged Out No long er eligible based on patient's age to complete this topic Pneumococcal Vaccine Aged Out No long er eligible based on patient's age to complete this topic RSV Ped < 20 months Aged Out No longe r eligible based on patient's age to complete this topic Care Teams Commutator Presser Relationship Specialty Start Date End Date Van Paige MD [address] [place] [address] PCP - General Family Medicine 09/25/23
--- OUTSIDE RECORDS SUMMARY | 2025-01-14 14:34 | XMS_ITS | Patient Health Record ---
Author Organization [facility] Address [address] [place] [address] Care Team Providers Care Advanced Manufacturing Associate Name Role Phone Sameer Hale Primary Care Provider Reason For Referral No Information Plan Of Treatment No Information Insurance Providers Payer Name Payer Address Payer Phone Subscriber Number Group Number Insured Name Patient Relationship to Insured Coverage Start Date Coverage End Date [facility] [address] [address] [place], [place] [id number] Angela Perez Self - patient is the insured
--- NOTE | 2025-01-14 15:45 | ED_ITS ---
HPI - General Adult General Chief complaint: General Medical Stated complaint: Headache +brain bleed in October,aggiated Time Seen by Provider: 01/14/25 15:07 Source: patient Mode of arrival: EMS Limitations: no limitations History of Present Illness ED Provider: Dr. Juares [facility] narrative: 64-year-old female history of migraine, schizophrenia presented hospital today for evaluation of headaches. Patient stated ?closed the curtain , ?do not open to light , ?I am living in a environment with black mold. ? Patient stated that her headache is chronic. It is associated with photophobia and similar to her migraine. When asked to describe it she stated she can not explain it. She is very nauseous. She is unable to eat. Denies any fever. Patient then went into a conversation about Biblical Job and his trials and Joni. 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 When asked what I can do for her today. Patient states I need a migraine cocktail and IV fluid. Related Data Allergies Allergy/AdvReac Type Severity Reaction Status Date / Time No Known Allergies Allergy Verified 01/14/25 14:07 Review of Systems 2 Review of Systems: Pertinent review of systems as mentioned in HPI. All other system otherwise negative. [facility] Past Medical History [facility] Narrative: Medical history as mentioned in HPI Social History Social History Smoked in Last 30 Days: No Use of substances other than those prescribed or required for medical reasons: No Advance Directives: No Advance Directives Information Provided: Yes Do you have a plan to hurt others: No Plan Physical Exam ED Exam Exam: General: Appears irritable and anxious Head: Normacephalic, atraumatic ENT: oral mucosa moist, neck supple, no tracheal deviation Cardiovascular: regular rate, regular rhythm, no murmurs, rubbing, gallops Respiratory: CTAB, no wheeze, rales, rhonchi Neurological: Awake and alert, no facial droop noted, no focal neurological deficit Skin: Warm and dry Psychiatric: Some tangential thoughts however it conversational, odd affect Vital Signs: Vital Signs - 24 hr 01/14/25 14:00 01/14/25 17:06 Temperature 98.3 F 98.1 F Pulse Rate 87 81 Respiratory Rate 16 16 Blood Pressure 165/92 H 157/82 H Pulse Oximetry 99 100 Oxygen Delivery Method Room Air Room Air BMI result Body Mass Index 35.4 Medications Administered Discontinued Medications Generic Name Dose Route Start Last Admin Trade Name Jessy PRN Reason Stop Dose Admin Diphenhydramine HCl 25 mg 01/14/25 16:02 01/14/25 16:54 Diphenhydramine Hcl 50 Mg/Ml Vial IVPUSH 01/14/25 16:03 25 mg ONCE ONE Administration Magnesium Sulfate 2 gm in 50 mls @ 25 mls/hr 01/14/25 16:02 01/14/25 16:57 Magnesium Sulfate/H2o IV 01/14/25 18:01 25 mls/hr ONCE ONE Administration Sodium Chloride 1,000 mls @ 999 mls/hr 01/14/25 16:15 01/14/25 18:13 Ns IV 01/14/25 17:15 Infused .Q1H1M KARTIK Infusion Ketorolac Tromethamine 15 mg 01/14/25 16:02 01/14/25 16:54 Ketorolac Tromethamine 15 Mg/Ml Vial IVPUSH 01/14/25 16:03 15 mg ONCE ONE Administration Metoclopramide HCl 10 mg 01/14/25 16:02 01/14/25 16:56 Metoclopramide Hcl 10 Mg/2 Ml Vial IVPUSH 01/14/25 16:03 10 mg ONCE ONE Administration Medical Decision Making Medical Decision Making MDM Narrative: 64-year-old female history of schizophrenia, migraines presented hospital today for evaluation of headaches for 10 months. We will plan to give patient a migraine cocktail here in including IV Reglan, IV Benadryl, IV fluid, Toradol and magnesium. Plan to be obtain basic lab work for patient. She does have an odd affect on exam. However this may be consistent with her history of schizophrenia. She states that she is concerned of black mold in her house. She is yelling out loud ?I can not be sitting like this She is irritable and verbally aggressive on exam. CBC chemistry will be obtained for screening laboratory. Patient does not appear to be acutely ill. No significant abnormality on patient lab work. Patient does appear to be comfortable on my exam. Patient will be discharged home. She is requesting to have her ingrown toenail clip by me. I shared with her that I do not clip toenails. 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 Patient will be discharged Differential Diagnosis Differential Diagnoses: The differential diagnosis associated with the presentation includes Migraine, anxiety, dehydration, nausea Lab Data MDM Lab Attestation statement: I reviewed the patient's lab results. 01/14/25 16:43 01/14/25 16:43 Labs: Lab Results 01/14/25 Range/Units 16:43 WBC 9.7 (4.8-10.8) X10*3/uL RBC 5.52 H D (4.20-5.50) X10*6/uL Hgb 16.0 D (12.0-16.0) g/dl Hct 46.4 D (37.0-47.0) % MCV 84.1 (80.0-98.0) fL MCH 29.0 (27.0-33.0) pg MCHC 34.5 (31.0-35.0) g/dl RDW 13.6 (11.0-16.0) % Plt Count 253 (160-400) X10*3/uL MPV 8.8 L (9.4-12.3) fL Immature Gran % (Auto) 0.4 (0.0-0.4) % Neut % (Auto) 92.3 H (45-73) % Lymph % (Auto) 4.8 L (20-40) % Roosevelt % (Auto) 2.2 (2-11) % Eos % (Auto) 0.0 (0-4) % Baso % (Auto) 0.3 (0-2) % Lymph # (Auto) 0.5 L (1.2-4.9) X10*3/uL Roosevelt # (Auto) 0.2 (0.1-1.2) X10*3/uL Eos # (Auto) 0.0 (0.0-0.4) X10*3/uL Baso # (Auto) 0.0 (0.0-0.2) X10*3/uL Abs Immat Gran (auto) 0.04 H (0.00-0.03) X10*3/uL Absolute Neuts (auto) 9.0 H (2.0-8.3) x10*3/uL Absolute Nucleated RBC 0.000 (0.0-0.012) X10*3/uL Nucleated RBC % (auto) 0.0 (0.0-0.2) /100WBC Smear Tech's Comments VERIFIED Sodium 142 (135-145) mmol/L Potassium 3.4 (3.3-5.1) mmol/L Chloride 108 (96-108) mmol/L Carbon Dioxide 23 (22-29) mmol/L Anion Gap 14 (12-20) BUN 10 (9-16) mg/dL Creatinine 0.60 (0.5-1.4) mg/dL Estim Creat Clear Calc 99.9 Estimated GFR > 60 Random Glucose 113 (60-115) mg/dL Calcium 9.1 D (8.4-10.2) mg/dL Total Bilirubin 0.6 (0.0-1.0) mg/dL AST 22 (5-31) U/L ALT 12 (0-31) U/L Alkaline Phosphatase 100 (39-117) U/L Total Protein 7.6 (6.5-8.0) g/dL Albumin 4.5 (3.5-5.0) g/dL Discharge Plan Discharge Clinical Impression: Migraine Qualifiers: Migraine type: unspecified Status migrainosus presence: without status migrainosus Intractability: not intractable Qualified Code(s): G43.909 - Migraine, unspecified, not intractable, without status migrainosus Patient Disposition: Home, Self-Care Additional Instructions: Follow up with podiatry office or primary care doctor in regards to your ingrown toe nail Referrals: [facility] [Provider Group, Podiatry] Print Language: Slovenian
[2025-01-14 16:55] LABS: Hematocrit 46.4 % (37.0-47.0); Hemoglobin 16.0 g/dl (12.0-16.0); Imm Gran Abs Auto 0.04 X10*3/uL (0.00-0.03); Imm Gran Pct Auto 0.4 % (0.0-0.4); Lymphocytes Absolute Auto 0.5 X10*3/uL (1.2-4.9); MANUAL DIFF FLAG SCAN; Mean Corpuscular HGB Conc 34.5 g/dl (31.0-35.0); Mean Corpuscular Hemoglobin 29.0 pg (27.0-33.0); Mean Corpuscular Volume 84.1 fL (80.0-98.0); NRBC Abs Auto 0.000 X10*3/uL (0.0-0.012); NRBC Pct Auto 0.0 /100WBC (0.0-0.2); Platelet Count 253 X10*3/uL (160-400); Red Blood Count 5.52 X10*6/uL (4.20-5.50); SCAN SMEAR FLAG 1; White Blood Count 9.7 X10*3/uL (4.8-10.8)
[2025-01-14] MEDS: Magnesium Sulfate/H2O 2 GM/50 ML PIGGYBACK IV (16:57)
[2025-01-14 17:06] VITALS: BP 157/82; PULSE 81; RESP 16; TEMP 36.7; O2SAT 100
[2025-01-14 17:07] LABS: Alanine Aminotransferase 12 U/L (0-31); Albumin Level 4.5 g/dL (3.5-5.0); Alkaline Phosphatase 100 U/L (39-117); Anion Gap 14 (12-20); Aspartate Amino Transferase 22 U/L (5-31); Blood Urea Nitrogen 10 mg/dL (9-16); Calcium 9.1 mg/dL (8.4-10.2); Carbon Dioxide 23 mmol/L (22-29); Chloride 108 mmol/L (96-108); Creatinine Clr Calc Pharmacy 99.9; Estimated Glomerular Filt Rate > 60; Potassium 3.4 mmol/L (3.3-5.1); Sodium 142 mmol/L (135-145); Total Protein 7.6 g/dL (6.5-8.0)
[2025-01-14 19:04] VITALS: BP 150/90; PULSE 103; RESP 16; TEMP 37.2; O2SAT 100
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
[2025-01-14 19:40] VITALS: BP 150/90; PULSE 103; RESP 16; TEMP 37.2; O2SAT 100
--- NOTE | 2025-01-14 19:40 | PC.NURSE ---
reviewed discharge instructions with pt. pt verbalized understanding, no sign of distress.
== END 2025-01-14 19:41 | disposition home or self-care (01) ==
PROVIDERS: Emergency Provider Student in an Organized Health Care Education/Training Program
DX: G43.909 Migraine, unspecified, not intractable, without status migrainosus (principal); H53.143 Visual discomfort, bilateral; Z79.899 Other long term (current) drug therapy
CPT/HCPCS: 36415; 80053; 85025; 96361; 96365; 96375; 99284; J1200; J1885; J2765; J3475

== ENCOUNTER 2025-02-24 02:44 | Emergency (ER) | payer MEDICARE, MEDICAID, SELFPAY ==
[2025-02-24 02:55] VITALS: BP 160/85; BP 178/106; PULSE 106; PULSE 81; RESP 20; TEMP 36.6; O2SAT 97; O2SAT 98; BMI 36.0
--- NOTE | 2025-02-24 03:35 | ED_ITS ---
HPI - General Adult General Chief complaint: General Medical Stated complaint: MIGRAINE/HASNT SLEPT IN 11 MONTHS Time Seen by Provider: 02/24/25 03:21 Source: patient Limitations: no limitations History of Present Illness ED Provider: Maricruz Loza PA-C HPI narrative: 64F with a past medical history significant for schizophrenia presents for evaluation of a headache. States it has has been present for as long as she can remember, just fluctuates in severity. Rates it a 9/10. Associated with photophobia and nausea. She states this is due to the mold in her home. States she has not slept in 11 months. Asking for a migraine cocktail. Related Data Previous Rx's ?Medication ?Instructions ?Recorded ketorolac 10 mg tablet 10 mg PO Q6H PRN pain #20 ta bs 02/24/25 prochlorperazine maleate 10 mg 10 mg PO Q8H PRN nausea and 02/24/25 tablet (Compazine) vomiting #10 tabs Allergies Allergy/AdvReac Type Severity Reaction Status Date / Time No Known Allergies Allergy Verified 02/24/25 02:59 Review of Systems Review of Systems: Unable to obtain as the patient is quite hostile and belligerent, not answering many of the questions while obtaining history, simply stating ?I need a migraine cocktail?. Yes all other systems are reviewed and are negative Constitutional: Constitutional: Reports difficulty sleeping and Reports headache(s) Eyes: Comments: Endorses photophobia ENT: Reports headache(s) Gastrointestinal: Gastrointestinal: Reports nausea and Denies vomiting Neurologic: Reports headache(s) Psychiatric: Psychiatric: Reports abnormal sleep pattern and Reports paranoia PMFSH Past Medical History Attestation statement: The following information was validated with the patient. Social History Social History Smoked in Last 30 Days: No Use of substances other than those prescribed or required for medical reasons: No Advance Directives: No Advance Directives Information Provided: Yes Do you have a plan to hurt others: No Plan Physical Exam ED Vital Signs: Vital Signs - 24 hr 02/24/25 02:55 02/24/25 05:18 Temperature 97.8 F 97.7 F Pulse Rate 81 81 Respiratory Rate 20 16 Blood Pressure 160/85 H 171/92 H Pulse Oximetry 98 97 Oxygen Delivery Method Room Air Room Air BMI result Body Mass Index 36.0 Const Other: Alert General: no acute distress, alert and awake Nutritional Appearance: obese Orientation/consciousness: patient oriented x3 HENMT Head: Yes normocephalic and Yes atraumatic Neck Neck: Yes full ROM and Yes no meningeal signs Resp Effort & Inspection: normal respiratory effort Cardio Other: Normal peripheral perfusion Rate: regular rate Rhythm: regular rhythm Skin Other: warm well perfused Neuro General: patient oriented x3, gait normal, no meningeal signs, no focal motor deficits and CN's II-XI intact bilaterally Psych Other: Hostile and belligerent Speech and movement: Normal speech and movement present Affect: Irritable affect present Attitude: Avoids eye contact (attititude/behavior) Thought content: Paranoid delusions present Course Course Course Narrative: I Maricruz Loza PA-C have personally performed the exam, history and assessment of the patient. Deisy RUDD helped to formulate the documentation Reevaluation(s) Reevaluation #1: Headache resolved, I will be sending the patient with the same medication she received in the emergency room, I have explained to her she can take the medications concurrently if she develops a headache again at home. Time: 05:21 Medications Administered Discontinued Medications Generic Name Dose Route Start Last Admin Trade Name Freq PRN Reason Stop Dose Admin Diphenhydramine HCl 25 mg 02/24/25 03:41 02/24/25 04:09 Diphenhydramine Hcl 25 Mg Capsule PO 02/24/25 03:42 25 mg ONCE ONE Administration Ketorolac Tromethamine 15 mg 02/24/25 03:41 02/24/25 04:09 Ketorolac Tromethamine 15 Mg/Ml Vial IM 02/24/25 03:42 15 mg ONCE ONE Administration Metoclopramide HCl 10 mg 02/24/25 04:02 02/24/25 04:09 Metoclopramide Hcl 10 Mg Tablet PO 02/24/25 04:03 10 mg ONCE ONE Administration Medical Decision Making Medical Decision Making MDM Narrative: 64F with a past medical history significant for schizophrenia presents for evaluation of a headache. States it has has been present for as long as she can remember, just fluctuates in severity. Rates it a 9/10. Associated with photophobia and nausea. She states this is due to the mold in her home. States she has not slept in 11 months. Asking for a migraine cocktail. Problem: Migraine, psychiatric illness History: Per patient I have considered the following diagnoses: migraine, tension headache, decompensated psychiatric illness, meningitis, intracranial hemorrhage Plan: Sadly, the patient has been seen in the emergency department for similar presentations on multiple occasions. Her presentation is often identical. We will give a migraine cocktail. Thought about meningitis, however there are no meningeal signs on exam, she is not febrile. Thought about intracranial hemorrhage, however her symptoms are consistent with her migraine, she has chronic headaches, there was no trauma, she is not on a blood thinner, she is neurologically intact. No indication for imaging or lab studies. Differential Diagnosis Differential Diagnoses: The differential diagnosis associated with the presentation includes See medical decision-making Admission/Observation Consideration of admission/observation: Escalation of care including admission/observation considered Not applicable Discharge Plan Discharge Clinical Impression: Migraine headache, Insomnia Patient Disposition: Home, Self-Care Instructions: Migraine Headache (ED), Insomnia (ED) Additional Instructions: You presented to the emergency room with a migraine headache. You were given a migraine cocktail, your headache resolved with treatment. I've provided you with some information to help with your insomnia. We encourage you to follow up with your PCP and your neurologist. If you develop another migraine type headache take the following medications together at the same time Compazine 10 mg Ketorolac 10 mg [id number] Benadryl 25 mg Prescriptions: New prochlorperazine maleate [Compazine] 10 mg tablet 10 mg PO Q8H PRN (Reason: nausea and vomiting) Qty: 10 0RF ketorolac 10 mg tablet 10 mg PO Q6H PRN (Reason: pain) Qty: 20 0RF Rx Instructions: maximum total duration of 5 days from all oral, intranasal, or parenteral f ormulations. The patient received an intramuscular dose of Toradol here in the emergency room Print Language: Polish
--- NOTE | 2025-02-24 03:41 | PC.NURSE ---
pt oob to bathroom
--- NOTE | 2025-02-24 03:55 | PC.NURSE ---
providers into assess pt.
--- OUTSIDE RECORDS SUMMARY | 2025-02-24 05:10 | XMS_ITS | Encounter Summary ---
Author Organization [facility] Address [address] [place] [address] Care Team Providers Care Business Job Titles Name Role Phone Shantel Kraft MD Primary Care Provider [phone] Naila Ventura NP Primary Care Provider [phone] Jannette Amezcua MD Primary Care Provider [phone] Marleen Vanessa MD Primary Care Provider [phone] Van Paige MD Primary Care Provider [phone] Reason for Visit * Reason Comments PT-1 Form Encounter Details Date Type Department Care Team (Late st Contact Info) Description 05/14/2018 Telephone [facility] Neurology [address] [phone] Henrik Douglas MD [address] [place] [address] PT-1 Form Social History Tobacco Use Types [...] Hardeep Zambrano - 05/14/2018 3:49 PM EST [facility] PT-1 Request PT-1 Form Summary Filling Hauler Weaving Name: [facility] Tracking #: [id number] Member Name: Angela Hicks Status: Authorized Request Type: New Form Created: 05/14/2018 1:17:00 PM Facility Location: Member Pickup Address: [address] [place] [address] jonokellie douglas md [address] [place] [address] [place] [address] Requested Service: - Neurological Explanation: - Medical [...] documented in this encounter Plan of Treatment Not on file documented as of this encounter Visit Diagnoses [...] documented as of this encounter Care Teams Business Job Titles Relationship Specialty Start Date End Date Shantel Kraft MD PCP - General Internal Medicine 05/09/18 09/09/18 Naila Ventura NP [address] [place] [id number] PCP - General Internal Medicine 09/10/18 08/04/19 Jannette Amezcua MD [address] [place] [id number] PCP - General Internal Medicine 08/05/19 02/28/21 Marleen Vanessa MD [address] [address] PCP - General Internal Medicine 06/27/21 11/19/24 Van Paige MD [address] [address] PCP - General Family Medicine 11/20/24 documented as of this encounter
--- OUTSIDE RECORDS SUMMARY | 2025-02-24 05:10 | XMS_ITS | Encounter Summary ---
Author Organization [facility] Address [address] [place] [address] Care Team Providers Care Assembly Person Name Role Phone Van Paige MD Primary Care Provider [phone] Encounter Details Date Type Department Care Team (Late st Contact Info) Description 02/08/2025 Minor Procedure/Test NON FC SA NON FC UNK Provider, Unknown Social History Tobacco Use Types Packs/Day Years Used Date Smoking Tobacco: Never Smokeless Tobacco: Never Alcohol Use Standard Drinks/Week Comments No 0 (1 standard drink = 0.6 oz pur e alcohol) PHQ-2 Answer Date Recorded PHQ-2 Score 3 02/15/2020 Intimate Partner Violence Answer Date R ecorded Fear of Current or Ex-Partner Not on file Emotionally Abused Not on file 01/04/2023 Physically Abused Not on file 01/04/2023 Sexually Abused Not on file 01/04/2023 Feel Safe at Home Not on file 01/04/2023 Comments No Sex and Gender Information Value Date Recorded Sex Assigned at Not on file Legal Sex Female 11:55 PM EDT Gender Identity Not on file Sexual Orientation Not on file Occupation Industry Job Start Date Job End Date disabled Not on file Not on file Not on file documented as of this encounter Plan of Treatment Not on file documented as of this encounter Goals Goal Patient Goal Type Associated Problems Recent Progress Patient-Stated? Author Blood Pressure < 140/90 Blood Pressure 122/84(2024 2:52 PM EDT) No Maira Kang, RESPIRATORY CARE TECHNICIAN Note: Above is your goal for blood pressure control. You may be able to prevent, reduce or eliminate the medication required for your blood pressure by regular measurement of your blood pressure at home, since home readings are often more reliable than measurements at the doctor s office. You can also improve your blood pressure by getting regular exercise, keeping a normal weight, reducing your sodium/salt intake to 2000 mg/day, reducing caffeine and by limiting your alcohol intake. Men should limit consumption to no more than 2 drinks per day (beer, wine, or mixed drinks) and women should limit to one drink per day. Follow the DASH diet, a diet low in fat, cholesterol, red meat, and sweets. It emphasizes fruits, vegetables, and low-fat dairy foods. The DASH diet also includes whole-grain products, fish, poultry, and nuts. documented as of this encounter Procedures * Due to [place] law, this organization might not be sharing negative HIV tests. Procedure Name Priority Date/Time Associated Diagnosis Comments MRI OF BRAIN W/WO CONTRAST 02/08/2025 MRI OF BRAIN W/WO CONTRAST 02/08/2025 documented in this encounter Results * Due to [place] law, this organization might not be sharing negative HIV tests. * MRI OF BRAIN W/WO CONTRAST (02/08/2025) 02/08/2025 Narrative 02/08/2025 Ordered by an unspecified provider. us Unknown Provider CONTRAST STUDY- OTHER Final Res ult * MRI OF BRAIN W/WO CONTRAST (02/08/2025) 02/08/2025 Narrative 02/08/2025 Ordered by an unspecified provider. us Unknown Provider CONTRAST STUDY- OTHER Final Res ult documented in this encounter Visit Diagnoses Not on filedocumented in this encounter Care Teams Assembly Person Relationship Specialty Start Date [place] [address] PCP - General Family Medicine 11/20/24 documented as of this encounter
--- OUTSIDE RECORDS SUMMARY | 2025-02-24 05:10 | XMS_ITS | Encounter Summary ---
Author Organization [facility] Address [address] [place] [address] Care Team Providers Care Belt Cutter Name Role Phone Shantel Kraft MD Primary Care Provider [phone] Naila Ventura NP Primary Care Provider [phone] Jannette Amezcua MD Primary Care Provider [phone] Marleen Vanessa MD Primary Care Provider [phone] Van Paige MD Primary Care Provider [phone] Encounter Details Date Type Department Care Team (Late st Contact Info) Description 06/24/2018 Orders Only [facility] [address] [place] [phone] Shantel Kraft MD [address] [place] [id number] Social History Tobacco Use Types Packs/Day Years [...] on file documented as of this encounter Progress Notes * Shantel Kraft MD - 06/25/2018 1:17 PM EST Juli, For some reason this came to me. I think this is yours. documented in this encounter Plan of Treatment Not on file documented as of this encounter Goals Goal Patient Goal Type Associated Problems Recent Progress Patient-Stated? Author Blood Pressure < 140/90 Blood Pressure 122/84(2024 2:52 PM EDT) Maira Beauchamp, [facility] Note: Above is your goal for blood [...] of this encounter Procedures * Due to [place] [employer] law, this organization might not be sharing negative HIV tests. Procedure Name Priority Date/Time Associated Diagnosis Comments VITAMIN D, 25-HYDROXY, TOTAL, IMMUNOASSAY Routine 06/24/2018 12:10 PM EST Vitamin D deficiency documented in this encounter Results * Due to [place] [employer] law, this organization might not be sharing negative HIV tests. * VITAMIN D, 25-HYDROXY, TOTAL, IMMUNOASSAY (06/24/2018 12:10 PM EST) Vitamin D, 25-OH, Total 42 30 - 100 ng/mL [employer] Comment: Vitamin D Status 25-OH Vitamin D: Deficiency: <20 ng/mL Insufficiency: 20 - 29 ng/mL Optimal: > or = 30 ng/mL For 25-OH Vitamin D testing on patients on D2-supplementation and patients for whom quantitation of D2 and D3 fractions is required, the QuestAssureD(TM) 25-OH VIT D, (D2,D3), LC/MS/MS is recommended: order code 60231 (patients >2yrs). For more information on this test, go to: http://education.[employer]/faq/JSV267 (This link is being provided for informational/educational purposes only.) 06/24/2018 12:1 0 PM EST 06/25/2018 12:05 AM EST Narrative Resulting Agency Comment [id number] us Juli [facility] Final Resu lt [facility] [address] [place] [address] documented in this encounter Visit Diagnoses Diagnosis Vitamin D deficiency documented in this encounter Additional Health Concerns Infection [...] documented as of this encounter Care Teams Belt Cutter Relationship Specialty Start Date End Date Shantel Kraft MD PCP - General Internal Medicine 05/09/18 09/09/18 Naila Ventura NP [address] [place] [address] PCP - General Internal Medicine 09/10/18 08/04/19 Jannette Amezcua MD [address] [place] [address] PCP - General Internal Medicine 08/05/19 02/28/21 Marleen Vanessa MD [address] [address] PCP - General Internal Medicine 06/27/21 11/19/24 Van Paige MD [address] [address] PCP - General Family Medicine 11/20/24 documented as of this encounter
--- OUTSIDE RECORDS SUMMARY | 2025-02-24 05:10 | XMS_ITS | Encounter Summary ---
Author Organization [facility] Address [address] [place] [address] Care Team Providers Care Mechanical Meter Tester Name Role Phone Shantel Kraft MD Primary Care Provider [phone] Naila Ventura NP Primary Care Provider [phone] Jannette Amezcua MD Primary Care Provider [phone] Marleen Vanessa MD Primary Care Provider [phone] Van Paige MD Primary Care Provider [phone] Encounter Details Date Type Department Care Team (Late st Contact Info) Description 06/24/2018 Orders Only [facility] Neurology [address] [facility] [address] [place] [address] Henrik Nelson MD [address] [place] [address] Social History Tobacco Use Types Packs/Day Years [...] Pressure 122/84(2024 2:52 PM EDT) Maira Beauchamp, [facility] Note: Above is your goal for blood [...] of this encounter Procedures * Due to [place] law, this organization might not be sharing negative HIV tests. Procedure Name Priority Date/Time Associated Diagnosis Comments CREATININE WITH GLOMERULAR FILTRATION RATE, ESTIMATED (EGFR) Routine 06/24/2018 12:10 PM EST Pain in extremity, unspecified extremity documented in this encounter Results * Due to [place] [employer] law, this organization might not be sharing negative HIV tests. * CREATININE WITH GLOMERULAR FILTRATION RATE, ESTIMATED (EGFR) (06/24/2018 12:10 PM EST) Creatinine 0.78 0.50 - 1.05 mg/dL [facility] Comment: For patients >49 years of age, the reference limit for Creatinine is approximately 13% higher for people identified as -Cambodian. EGFR 84 > OR = 60 mL/min/1. 73m2 [facility] GFR () 97 > OR = 60 mL/min/1. 73m2 [facility] 06/24/2018 12:1 0 PM EST 06/25/2018 12:05 AM EST Narrative [facility] - 06/25/2018 3:04 AM EST Please note that this estimated GFR does not include an adjustment for the patient's height or weight, and can therefore, be viewed as reliable only for patients with heights between 60 and 72 . More precise quantification using a 24-hour urine sample or height-based algorithm is recommended for patients outside of this range of height and for those individuals with more precise needs for GFR calculation. Resulting Agency Comment [id number] Henrik Nelson MD LAB SAME DAY RESULT Final Result [facility] [address] [place] [address] documented in this encounter Visit Diagnoses Diagnosis Pain in extremity, unspecified extremity documented in this encounter Additional Health Concerns [...] documented as of this encounter Care Teams Mechanical Meter Tester Relationship Specialty Start Date End Date Shantel Kraft MD PCP - General Internal Medicine 05/09/18 09/09/18 Naila Ventura NP [address] [place] [address] PCP - General Internal Medicine 09/10/18 08/04/19 Jannette Amezcua MD [address] [place] [address] PCP - General Internal Medicine 08/05/19 02/28/21 Marleen Vanessa MD [address] [address] PCP - General Internal Medicine 06/27/21 11/19/24 Van Paige MD [address] [address] PCP - General Family Medicine 11/20/24 documented as of this encounter
--- OUTSIDE RECORDS SUMMARY | 2025-02-24 05:10 | XMS_ITS | Encounter Summary ---
Author Organization [facility] Address [address] [place] [address] Care Team Providers Care Rigger Up Name Role Phone Shantel Kraft MD Primary Care Provider [phone] Naila Ventura NP Primary Care Provider [phone] Jannette Amezcua MD Primary Care Provider [phone] Marleen Vanessa MD Primary Care Provider [phone] Van Paige MD Primary Care Provider [phone] Encounter Details Date Type Department Care Team (Late st Contact Info) Description 06/24/2018 [facility] Only [facility] [address] [place] [phone] Juli Carey PA Social History Tobacco Use Types Packs/Day Years [...] as of this encounter Progress Notes * Juli Carey PA - 06/26/2018 1:20 PM EST Started on nitrofurantoin. She has sulfa allergy. * Juli Carey PA - 06/25/2018 6:33 PM EST See TM documented in this encounter Plan of Treatment Not on file documented as of this encounter Goals Goal Patient Goal Type Associated Problems Recent Progress Patient-Stated? Author Blood Pressure < 140/90 Blood Pressure 122/84(2024 2:52 PM EDT) Maira Beauchamp, [facility] Note: Above is your goal for [...] of this encounter Procedures * Due to [place] state law, this organization might not be sharing negative HIV tests. Procedure Name Priority Date/Time Associated Diagnosis Comments URINALYSIS, DIP ONLY STAT (All results called to provider) 06/24/2018 12:28 PM EST Urinary frequency CULTURE, URINE, ROUTINE Routine 06/24/2018 12:10 PM EST Urinary frequency CBC INCLUDES DIFFERENTIAL AND PLATELET COUNT Routine 06/24/2018 12:10 PM EST Abdominal pain, unspecified abdominal location THYROID STIMULATING HORMONE (TSH) WITH FREE T4 REFLEX, SERUM Routine 06/24/2018 12:10 PM EST Hypothyroidism, unspecified type URINALYSIS, MICROSCOPIC Routine 06/24/2018 12:10 PM EST Urinary frequency HEPATIC FUNCTION PANEL (ALT,AST,ALK PH,BILI'S,TP,ALB) Routine 06/24/2018 12:10 PM EST Abdominal pain, unspecified abdominal location LIPID PANEL WITH REFLEX TO DIRECT LDL Routine 06/24/2018 12:10 PM EST Hyperlipidemia, unspecified hyperlipidemia type BASIC METABOLIC PANEL WITH (GFR) Routine 06/24/2018 12:10 PM EST Hypertension, unspecified type Abdominal pain, unspecified abdominal location documented in this encounter Results * Due to [place] state law, this organization might not be sharing negative HIV tests. * (ABNORMAL) URINALYSIS, DIP ONLY ( SITE STAT ONLY) (06/24/2018 12:28 PM EST) COLOR (URINE) yellow [facility] (CLIA# [id number]) APPEARANCE (URINE) clear Clear [facility] (CLIA# [id number]) SPECIFIC GRAVITY 1.025 1.001 - 1.035 [facility] (CLIA# [id number]) PH (URINE) 6.0 5.0 - 8.0 [facility] (CLIA# [id number]) PROTEIN (URINE) negative Neg [facility] (CLIA# [id number]) GLUCOSE (URINE) negative Neg [facility] (CLIA# [id number]) Ketones (Urine) negative Neg [facility] (CLIA# [id number]) BILIRUBIN (URINE) negative Neg [facility] (CLIA# [id number]) BLOOD (URINE) negative Neg [facility] (CLIA# [id number]) Leukocyte esterase (Urine) 1+(A) Neg [facility] (CLIA# [id number]) NITRITE (URINE) negative Neg [facility] (CLIA# [id number]) Urine specimen (specimen) 06/24/2018 12:28 PM EST Narrative [facility] (CLIA# [id number]) - 06/24/2018 12:29 PM EST Micro and culture already ordered per provider. us [facility] SAME DAY RESULT Final Result Performing Organization Address City/[facility]/ZIP Co de Phone Number [facility] (CLIA# [id number]) [address] [place] [address] * (ABNORMAL) LIPID PANEL WITH REFLEX TO DIRECT LDL (06/24/2018 12:10 PM EST) Cholesterol 175 <200 mg/dL [facility] HDL Cholesterol 29(L) >50 mg/dL [facility] Triglyceride 209(H) <150 mg/dL [facility] LDL Cholesterol 113(H) mg/dL (calc) [facility] Comment: Reference range: <100 Desirable range <100 mg/dL for primary prevention; <70 mg/dL for patients with CHD or diabetic patients with > or = 2 CHD risk factors. LDL-C is now calculated using the Chidi-Tawanna calculation, which is a validated novel method providing better accuracy than the Friedewald equation in the estimation of LDL-C. Chidi PEREZ et al. HYACINTH. 2013;310(19): 9580-4024 (http://education.[employer].AllSchoolStuff.com/faq/FTM262) CHOL/HDL Ratio 6.0(H) <5.0 (calc) [facility] Cholesterol Non-HDL 146(H) <130 mg/dL (calc) [facility] Comment: For patients with diabetes plus 1 major ASCVD risk factor, treating to a non-HDL-C goal of <100 mg/dL (LDL-C of <70 mg/dL) is considered a therapeutic option. 06/24/2018 12:1 0 PM EST 06/25/2018 12:05 AM EST Narrative Resulting Agency Comment [id number] [facility] Final Resu lt Performing Organization Address City/[facility]/ZIP Co de Phone Number [facility] [address] [place] [address] * (ABNORMAL) THYROID STIMULATING HORMONE (TSH) WITH FREE T4 REFLEX, SERUM (06/24/2018 12:10 PM EST) FT4 1.6 0.8 - 1.8 ng/dL [facility] TSH 0.04(L) 0.40 - 4.50 mIU/L [facility] 06/24/2018 12:1 0 PM EST 06/25/2018 12:05 AM EST Narrative Resulting Agency Comment [id number] us [facility] Final Resu lt Performing Organization Address City/State/[facility] [[email or web address]] Co de Phone Number [facility] [address] [place] [address] * (ABNORMAL) CULTURE, URINE, ROUTINE (06/24/2018 12:10 PM EST) Bacteria culture (Urine) SEE NOTE(A) [facility] Comment: CULTURE, URINE, ROUTINE MICRO NUMBER: [id number] TEST STATUS: FINAL SPECIMEN SOURCE: URINE SPECIMEN QUALITY: ADEQUATE RESULT: 10,000-50,000 CFU/mL of Escherichia coli (ESBL) E.coli (ESBL) INT FUAD AMOX/CLAVULANATE I 16 AMPICILLIN R >=32 1 AMP/SULBACTAM R >=32 CEFAZOLIN R >=64 2 CEFEPIME R >=64 CEFTRIAXONE R >=64 CIPROFLOXACIN R >=4 ERTAPENEM S <=0.5 GENTAMICIN R >=16 IMIPENEM S <=0.25 LEVOFLOXACIN R >=8 NITROFURANTOIN S <=16 PIP/TAZOBACTAM I 64 TOBRAMYCIN R >=16 TRIMETHOPRIM/SULFA S <=20 ESBL RESULT: * 3 S=Susceptible I=Intermediate R=Resistant * = Not Tested NR = Not Reported NN = See Therapy Comments THERAPY COMMENTS Note 1: Extended spectrum beta-lactamase (ESBL) producing organisms demonstrate decreased activity with penicillins, cephalosporins and aztreonam. Note 2: For uncomplicated UTI caused by E. coli, K. pneumoniae or P. mirabilis: Cefazolin is susceptible if FUAD <32 mcg/mL and predicts susceptible to the oral agents cefaclor, cefdinir, cefpodoxime, cefprozil, cefuroxime, cephalexin and loracarbef. Note 3: The organism has been confirmed as an ESBL record producer. 06/24/2018 12:1 0 PM EST 06/25/2018 12:05 AM EST Narrative Resulting Agency Comment [id number] [facility] Final Resu lt Performing Organization Address [facility] [[email or web address]] Co de Phone Number [facility] [address] [place] [address] * (ABNORMAL) URINALYSIS, MICROSCOPIC (06/24/2018 12:10 PM EST) WBC (Urine) > OR = 60(A) < OR = 5 /HPF [facility] RBC (Urine Sed) 0-2 < OR = 2 /HPF [facility] Epithelial cells.squamous (Urine sed) NONE SEEN < OR = 5 /HPF [facility] Bacteria (Urine) NONE SEEN NONE SEEN /HPF [facility] Calcium oxalate crystals (Urine sed) MANY(A) NONE OR FEW /HPF [facility] Hyaline casts (Urine sed) NONE SEEN NONE SEEN /LPF [facility] 06/24/2018 12:1 0 PM EST 06/25/2018 12:05 AM EST Narrative Resulting Agency Comment [id number] [facility] SAME DAY RESULT Final Result Performing Organization Address [facility] de Phone Number [facility] [address] [place] [address] * HEPATIC FUNCTION PANEL (ALT,AST,ALK PH,BILI'S,TP,ALB) (06/24/2018 12:10 PM EST) Protein Total (Serum) 6.7 6.1 - 8.1 g/dL [facility] Albumin 4.4 3.6 - 5.1 g/dL [facility] Globulin 2.3 1.9 - 3.7 g/dL (calc) [facility] Albumin/Globulin 1.9 1.0 - 2.5 (calc) [facility] Bilirubin Total 0.4 0.2 - 1.2 mg/dL [facility] Bilirubin Direct 0.1 < OR = 0.2 mg/dL [facility] Bilirubin Indirect 0.3 0.2 - 1.2 mg/dL (calc) [facility] Alkaline phosphatase 79 33 - 130 U/L [facility] AST (SGOT) 16 10 - 35 U/L [facility] ALT (SGPT) 15 6 - 29 U/L [facility] 06/24/2018 12:1 0 PM EST 06/25/2018 12:05 AM EST Narrative Resulting Agency Comment [id number] us [facility] Final Resu lt Performing Organization Address City/[facility]/ZIP Co de Phone Number [facility] [address] [place] [address] * (ABNORMAL) BASIC METABOLIC PANEL WITH (GFR) (06/24/2018 12:10 PM EST) Pathologist [facility] Glucose 79 65 - 99 mg/dL [facility] Comment:Fasting reference in terval Urea Nitrogen Blood (BUN) 11 7 - 25 mg/dL [facility] Creatinine 0.78 0.50 - 1.05 mg/dL [facility] Comment: For patients >49 years of age, the reference limit for Creatinine is approximately 13% higher for people identified as -Albanian. EGFR 84 > OR = 60 mL/min/1 .73m2 [facility] GFR () 97 > OR = 60 mL/min/1 .73m2 [facility] BUN/Creatinine Ratio NOT APPLICABLE 6 - 22 (calc) [facility] Sodium 142 135 - 146 mmol/L [facility] Potassium 3.4(L) 3.5 - 5.3 mmol/L [facility] Chloride 111(H) 98 - 110 mmol/L [facility] Carbon dioxide 20 20 - 32 mmol/L [facility] Calcium 9.1 8.6 - 10.4 mg/dL [facility] 06/24/2018 12:1 0 PM EST [...] needs for GFR calculation. Resulting Agency Comment [id number] [facility] Final Resu lt Performing Organization Address City/[facility]/ZIP Co de Phone Number [facility] [address] [place] [address] * (ABNORMAL) CBC INCLUDES DIFFERENTIAL AND PLATELET COUNT (06/24/2018 12:10 PM EST) WBC 9.6 3.8 - 10.8 Thousand/u L [facility] RBC 4.44 3.80 - 5.10 Million/uL [facility] Hemoglobin 14.3 11.7 - 15.5 g/dL [facility] Hematocrit 40.4 35.0 - 45.0 % [facility] MCV 91.0 80.0 - 100.0 fL [facility] MCH 32.2 27.0 - 33.0 pg [facility] MCHC 35.4 32.0 - 36.0 g/dL [facility] RDW 13.9 11.0 - 15.0 % [facility] PLT 254 140 - 400 Thousand/u L [facility] MPV 10.1 7.5 - 12.5 fL [facility] Neutrophils # 6912 1500 - 7800 cells/uL [facility] Lymphocytes # 1459 850 - 3900 cells/uL [facility] Monocytes # 624 200 - 950 cells/uL [facility] Eosinophils # 509(H) 15 - 500 cells/uL [facility] Basophils # 96 0 - 200 cells/uL [facility] Neutrophils % 72 % [facility] Lymphocytes % 15.2 % [facility] Monocytes % 6.5 % [facility] Eosinophils % 5.3 % [facility] Basophils % 1.0 % [facility] 06/24/2018 12:1 0 PM EST 06/25/2018 12:05 AM EST Narrative Resulting Agency Comment [id number] [facility] SAME DAY RESULT Final Result Performing Organization Address City/State/[facility] [[email or web address]] Co de Phone Number [facility] [address] [place] [address] documented in this encounter Visit Diagnoses Diagnosis Abdominal pain, unspecified abdominal location Hypertension, unspecified type Urinary frequency Hypothyroidism, unspecified type Hyperlipidemia, unspecified hyperlipidemia type documented in this encounter Additional Health Concerns [...] documented as of this encounter Care Teams Rigger Up Relationship Specialty Start Date End Date Shantel Kraft MD PCP - General Internal Medicine 05/09/18 09/09/18 Naila Ventura NP [address] [place] [address] PCP - General Internal Medicine 09/10/18 08/04/19 Jannette Amezcua MD [address] [place] [address] PCP - General Internal Medicine 08/05/19 02/28/21 Marleen Vanessa MD [address] [address] PCP - General Internal Medicine 06/27/21 11/19/24 Van Paige MD [address] [address] PCP - General Family Medicine 11/20/24 documented as of this encounter
--- OUTSIDE RECORDS SUMMARY | 2025-02-24 05:10 | XMS_ITS | Data Portability ---
Author Organization [facility], [facility] Address [address] [place] [address] Assessment No assessment recorded. Plan of Treatment Reminders Order Date Submit Date Provider Last Modified By Organization Details Last Modified Time Details Appointments None recorded . Lab None recorded . Referral physical therapis t referral - [facility]an [facility] 2023 024 [email or web address] [facility] (Pawan Murillo), [address], [place], [address], 4 14:10:48 Procedures None recorded . Surgeries None recorded . Imaging None recorded . Medication Orders None recorded . Patient TargetsNo targets recorded. Patient InstructionsNo instructions recorded. Reason for Referral Physical Therapist Referral for Peroneal tendinitis bilateral ankle rehab Referring Physician: Lucita Aparicio, Orthopedic Surgery, [id number] Encounter Date: 09/30/2023 Problems Name Problem SNOMED Code Status Onset Date Resolution Date Notes Provider Name and Address Organization Details Recorded Time No complaints 961074766 Active Status : 'A'; Not Available [facility] 4 09:25:48 Osteoarthriti s of knee 549950494 Active 2023 Jacobo Armenta DPT [address], [place], [address] , [facility] 4 09:16:02 Problem Notes None recorded. Procedures Surgical History Date Name Laterality Status Provider Name and Address Organization Details Recorded Time 4 Ankle Lidocaine 1% Injection, Bilateral completed Lucita Aparicio PA-C [address], [place], [address], [facility] 09/30/2023 12:21:56 4 04215 Therapeutic Exercise (1:1) cancelled Jacobo Geovany, DPT [address], [place], [address], [facility] 09/11/2023 09:12:36 4 47485: Low complexity PT Eval cancelled Jacobowayne Armenta, DPT [address], [place], [address], [facility] 09/11/2023 09:12:40 4 G8417 BMI Above Upper Parameters, F/U Documented cancelled Jacobo Catlinda, DPT [address], [place], [address], [facility] 09/11/2023 09:12:25 4 G8427 Current Medication Documented cancelled Jacobo Geovany, DPT [address], [place], [address], [facility] 09/11/2023 09:12:33 Imaging Results None recorded. Procedure Notes None recorded. Medical Equipment None Reported. Allergies Allergen ID Allergen Name Allergen Category Reaction Reaction Severity Criticality Documentation Date Start Date Code Code System Note Provider Name and Address Organization Details Recorded Time 302331 erythromy zuleyka medicatio n Not available Not available Not available 01/01/2024 4053 RxNorm LIOR mcelroy [facility] 4 11:22:54 050243 Flagyl medicatio n Not available Not available Not available 01/01/202479427 6 RxNorm LIOR mcelroy [facility] 4 11:23:08 89225 codeine sulfate medicatio n Not available Not available Not available 07/29/20232022 44548 RxNorm Not Available [facility] 12:08:45 59650 Substance with sulfonami de structure and antibacte rial mechanism of action (substanc e) medicatio n Not available Not available Not available 07/29/20232022 07049 8003 SNOMED Not Available [facility] 12:08:45 Medications Name Sig Start Date Stop Date Status Note LastModified by Organization Details LastModified Time amoxicillin 500 mg capsule active Not Available Not Available Not Available terconazole 0.4 % vaginal cream INSERT 1 APPLICATO RFUL VAGINALLY EVERY NIGHT AT BEDTIME 09/29 completed Not Available Not Available Not Available clonidine HCl 0.1 mg tablet active Not Available Not Available Not Available oxybutynin chloride ER 15 mg tablet,exte nded release 24 hr active Not Available Not Available Not Available fluconazole 150 mg tablet TAKE 1 TABLET ONCE FOR 1 DOSE. TAKE IF NEEDED FOR CANDIDAL VULVOVAGI NITIS AFTER ANTIBIOTI C THERAPY active Not Available Not Available No t Available meloxicam 15 mg tablet active Not Available Not Available Not Available rizatriptan 10 mg tablet PLEASE SEE ATTACHED FOR DETAILED DIRECTION S active Not Available Not Available No t Available omeprazole 40 mg capsule,del ayed release TAKE 1 CAPSULE BY MOUTH EVERY DAY FOR GERD active Not Available Not Available No t Available baclofen 20 mg tablet active Not Available Not Available No t Available levothyroxi ne 75 mcg tablet active Not Available Not Available Not Available trazodone 100 mg tablet TAKE 3 TABLET AT NIGHT NEEDED. REDUCE DOSE TO 250MG WHEN NIGHTMARE S OCCUR. RESUME TO 300MG AFTER NIGHTMARE S RESLOVE active Not Available Not Available No t Available meclizine 25 mg tablet active Not Available Not Available Not Available baclofen 10 mg tablet TAKE 1 TABLET BY MOUTH EVERY 8 HOURS FOR PAIN active Not Available Not Available No t Available prednisone 50 mg tablet active Not Available Not Available Not Available Advair Diskus 250 mcg-50 mcg/dose powder for inhalation INHALE 1 PUFF INTO THE LUNGS TWICE DAILY active Not Available Not Available No t Available Advair Diskus 500 mcg-50 mcg/dose powder for inhalation INHALE 1 PUFF INTO THE LUNGS TWICE DAILY active Not Available Not Available No t Available gabapentin 300 mg capsule TAKE 1 CAPSULE BY MOUTH AT BEDTIME active Not Available Not Available No t Available diclofenac sodium 75 mg tablet,shana yed release TAKE 1 TABLET BY MOUTH TWICE DAILY DIRECTED active Not Available Not Available No t Available mirtazapine 15 mg tablet active Not Available Not Available Not Available methylpredn isolone 4 mg tablets in a dose pack FOLLOW PACKAGE DIRECTION S active Not Available Not Available No t Available albuterol sulfate HFA 90 mcg/actuati on aerosol inhaler INHALE 2 PUFFS INTO THE LUNGS EVERY 6 HOURS NEEDED FOR WHEEZING active Not Available Not Available No t Available ipratropium bromide 42 mcg (0.06 %) nasal spray USE 2 SPRAYS IN EACH NOSTRIL THREE TIMES DAILY active Not Available Not Available No t Available spironolact one 50 mg tablet active Not Available Not Available Not Available amoxicillin 875 mg-potassiu m clavulanate 125 mg tablet TAKE 1 TABLET BY MOUTH EVERY 12 HOURS FOR 10 DAYS 09/29 completed Not Available Not Available Not Available mirtazapine 7.5 mg tablet active Not Available Not Available Not Available nitrofurant oin monohydrate /macrocryst als 100 mg capsule TAKE 1 CAPSULE BY MOUTH TWICE A DAY active Not Available Not Available No t Available duloxetine 20 mg capsule,del ayed release active Not Available Not Available Not Available duloxetine 60 mg capsule,del ayed release TAKE ONE CAPSULE BY MOUTH EVERY DAY active Not Available Not Available No t Available [facility] 100,000 unit/gram topical powder active Not Available Not Available Not Available zolpidem ER 6.25 mg tablet,exte nded release,mul tiphase active Not Available Not Available Not Available zolpidem ER 12.5 mg tablet,exte nded release,mul tiphase TAKE 1 TABLET BY MOUTH EVERY NIGHT AT BEDTIME NEEDED active Not Available Not Available No t Available Aimovig Autoinjecto r 70 mg/mL subcutaneou s auto-inject or active Not Available Not Available Not Available Emgality Pen 120 mg/mL subcutaneou s pen injector INJECT MONTHLY UNDER THE SKIN FOR MIGRAINE active Not Available Not Available No t Available Aimovig Autoinjecto r 140 mg/mL subcutaneou s auto-inject or active Not Available Not Available Not Available Nurtec ODT 75 mg disintegrat ing tablet active Not Available Not Available N ot Available Paxlovid 300 mg (150 mg x 2)-100 mg tablets in a dose pack TAKE 3 TABLETS BY MOUTH TWICE DAILY DIRECTED ON DOSE PACK FOR 5 DAYS DO NOT TAKE WITH TRAZODONE WHILE TAKING THIS MEDICATIO N 05/06 /2024 completed Not Available Not Available Not Available Xdemvy 0.25 % eye drops active Not Available Not Available Not Available Vitals Date Recorded Body height Body mass index (BMI) Body weight Provider Name and Address Organization Details Last Updated DateTime 08/29/2023 160.02 cm 41.6 kg/m2 868197.21 g Christiano Bermeo PA-C [address] [place] [address], [address], [facility] 08/29/2023 15:29:16 Date Recorded Body height Body mass index (BMI) Body weight Provider Name and Address Organization Details Last Updated DateTime 09/11/2023 160.02 cm 41.6 kg/m2 225963.21 g Jacobo Armenta DPT [address], [address], [facility] 09/11/2023 09:11:16 Date Recorded Body height Body mass index (BMI) Body weight Provider Name and Address Organization Details Last Updated DateTime 09/30/2023 160.02 cm 41.6 kg/m2 151993.21 g Bita hernandez [facility] 09/30/2023 11:23:39 Social History None recorded. Functional Status None recorded. Mental Status None recorded. Family History Nothing Reported. Medical History No medical history recorded. Gynecological HistoryNo gynecological history recorded. Obstetrics History GPAL:G 0 P 0 0 0 0 Past Encounters Encounter ID Performer Location Encounter Start Date Encounter Closed Date Diagnosis/Indication Diagnosis SNOMED-CT Code Diagnosis ICD10 Code Diagnosis IMO Codes Diagnosis Note [id number] SONAL Holt [address] [place] [address] 08/29/2023 15:19:27 08/29/2023 15:57:37 Bilateral osteoarthritis of knees 2053817073 47419 M17.0 [id number] SONAL Patel [address] [place] [address] 09/30/2023 10:52:56 10/22/2023 15:43:05 Peroneal tendinitis 08563349 M76.70 Health Concerns Section Related Observation LastModified by Organization Detai ls LastModified Time None Recorded Concern Status LastModified by Organization Details LastModified Time None Recorded Advance Directives Directive None Recorded Payers Insurance Date Sequence Insurance Name Policy Number Policy Sotelo Covered Member ID Sotelo Member ID Guarantor Name 12/29/2023 1 [place] [employer] [employer] Angela Hicks [id number] Angela Hicks 12/29/2023 2 [place] [facility] Angela Hicks [id number] Angela Hicks Notes Date Note Type Note Provider Name and Address Organization Details Recorded Time 08/29/2023 text/html I am seeing the patient today under the supervision of Dr. Rick who was available but who did not see the patient.HPI:Colleen juarez returns for follow-up of bilateral knee arthritis. History is outlined by previous note. Last January gave her bilateral cortisone injections which helped her pain. She sewing some weakness in the legs. She does not complain of significant discomfort.Past family, medical, social history and review of systems has been reviewed, updated and is located in the patient s chart.Examination :The patient is well appearing and in no apparent distress. Alert and oriented x3. Gait is symmetric. No significant swelling, warmth, erythema in either knee. There is mild tenderness of the medial joint lines of the knees. Range of motion knees are full extension and flexion to 120 . 4/5 strength of the knees. Peripheral, vascular, lymphatic examination, skin, neurological, coordination, reflexes, sensation are within normal limits.Impression: Bilateral knee arthritisPlan:I reviewed the previous x-rays and diagnosed with the patient. We discussed conservative options for her knee arthritis. Activity modification discussed. P.r.n. NSAIDs can use. We discussed risks associated with NSAID use. We discussed role of further injection therapies. However, pain is not much of an issue for her currently. She more complains of weakness. We discussed all exercise program and formal physical therapy. I prescribed formal therapy for her. She will follow up as needed. Christiano Bermeo PA-C [address] [facility] [address], [place], [address], [facility] [place] 08/29/2023 15:56:59 09/30/2023 text/html I am seeing this patient under the supervision of Dr. Tan who was available but who did not see the patient.HPI: The patient presents for follow-up regarding with chronic worsening left ankle pain. Today c/o left posterior lateral ankle pain more localized to the peroneals and over the front medial aspect of the left ankle. Suffered a left ankle fracture of the distal fibular many years ago. We recall she is homeless. Currently now has an apartment where she is mostly sedentary. Worse with ambulation. The patient cannot obtain orthotics for financial reasons. Her insurance doesn't cover them.PFMSH, Meds and ROS reviewed, updated and signed by me, and is located in the patient's chart.PHYSICAL EXAMINATION: The patient is well appearing and in no apparent distress. Alert and oriented x 3. Increased BMI. Examination of her left ankle revealed mild edema about the lateral ankle with no evidence of erythema warmth. Minimally tender to palpation at the distal fibula. Tender across the tibiotalar joint and at the retrofibular groove/peroneal tendons on on the left. Nontender to palpation about the medial ankle or proximal fibula. Ankle motion limited due to discomfort. Calf soft, nontender. Sensation intact light touch in the left lower extremity. Feet well perfused with good pedal pulses.No new imagingIMPRESSION: Chronic left ankle synovitis previous healed distal fibula fracture with peroneal tendinitisPLAN: She would like to try an injection again for left side only today. After going over the risks and benefits, 1cc Celestone and 2cc Lidocaine 1% were administered at the _anterior medial portal site tibiotalar joint left side and peroneal tendon sheath using aseptic technique. The patient tolerated the procedure well. Post-injection precautions reviewed. Follow-up will be arranged 3 months. Lucita [facility]paricio [facility]-C [address] [facility] [address], [place], [address], [facility] 09/30/2023 12:29:52 OBGyn Episode No OBEpisode recorded.
--- OUTSIDE RECORDS SUMMARY | 2025-02-24 05:11 | XMS_ITS | Encounter Summary ---
Author Organization [facility] Address [address] [place] [address] Phone Care Team Providers Care Wood Treating Inspector Name Role Phone Marleen Vanessa MD Primary Care Provider [phone] Van Paige MD Primary Care Provider [phone] Van Paige MD Primary Care Provider [phone] Pcp, Not Required Primary Care Provider Unavaila ble Van Paige MD Primary Care Provider [phone] Van Paige MD Unavailable Reason for Visit * Reason Onset Date Comments Medication Refill 04/01/2023 Encounter Details Date Type Department Care Team (Late st Contact Info) Description 04/01/2023 Refill [facility] [address] [place] [address] Opal Boyle MA [email or web address] Medication Refill Social History Tobacco Use Types Packs/Day Years Used Date Smoking Tobacco: Never Smokeless Tobacco: Never Alcohol Use Standard Drinks/Week Comments No 0 (1 standard drink = 0.6 oz pur e alcohol) Education Answer Date Recorded Are you interested in more education? Not on nikolas e 09/21/2022 Are you concerned about learning? Not on file 09/21/2022 No 09/21/2022 No 09/21/2022 Digital Access Answer Date Recorded No 10/22/2022 No 10/22/2022 Reliable internet access at home? Not on file 10/22/2022 Device with a working camera? Not on file Comments No Sex and Gender Information Value Date Recorded Sex Assigned at Female 02/16/2024 10:23 PM EDT Legal Sex Female 6:33 AM EST Gender Identity Female 02/16/2024 10:23 PM EDT Sexual Orientation Straight 02/16/2024 10 :23 PM EDT documented as of this encounter Progress Notes * Opal Boyle MA - 04/01/2023 3:56 PM EST Pt walked requesting Advair 500/50 to be sent to her pharmacy [facility]. Please Advice documented in this encounter Plan of Treatment Not on file documented as of this encounter Visit Diagnoses Not on filedocumented in this encounter Additional Health Concerns Infection Onset Date Last Indicated Resolved Time CoV-Risk 02/17/2024 02/17/2024 02/28/2024 1:22 AM EDT CoV-Risk 08/10/2024 08/11/2024 08/22/2024 1:21 AM EDT Assessment Noted Time PHQ-2 Depression Total Score: 1 12/14/19 23 12:01 PM EDT documented as of this encounter Care Teams Wood Treating Inspector Relationship Specialty Start Date End Date Marleen Vanessa MD [address] [place] [phone] [email or web address] PCP - General Family Medicine 03/21/21 10/28/23 Van Paige MD [address] [place] [phone] [email or web address] PCP - General Family Medicine 10/29/23 10/31/23 Van Paige MD [address] [place] [phone] [email or web address] PCP - General Family Medicine 11/05/23 11/18/23 Pcp, Not Required [address] [place] [address] PCP - General 02/15/24 03/26/24 Van Paige MD [address] [place] [address] [address] [place] [address] [email or web address] PCP - General Family Medicine 03/27/24 Van Paige MD [address] [facility] [address] [place] [address] [email or web address] Insurance Assigned Provider 08/30/24 documented as of this encounter Additional Source Comments The information contained in this document represents components of the legal health record. It is not the complete legal health record.[facility]
--- OUTSIDE RECORDS SUMMARY | 2025-02-24 05:11 | XMS_ITS | Data Portability ---
Author Organization [facility] [place], [facility], [facility] Address [address] [place] [address] Care Team Providers Care Autism Teacher Name Role Phone GLADYS BRADLEY Primary Care Provider GLADYS BRADLEY Referring Provider JAYSON HOLLOWAY Primary Care Provider [phone] Assessment No assessment recorded. Plan of Treatment Reminders Order Date Submit Date Provider Last Modified By Organization Details Last Modified Time Details Appointments None record ed. Lab None record ed. Referral None record ed. Procedures None record ed. Surgeries None record ed. Imaging None record ed. Medication Orders None record ed. Patient TargetsNo targets recorded. Patient Instructions Encounter Date Encounter Id Patient Instructions Last Modified By Organization Details Last Modified Time 09/30/2023 [id number] I reviewed my findings with this pleasant patient. I performed a slant back procedure to the distal medial border of the bilateral second digit nails. I applied bilateral bacitracin dressings. I advised her to soak her feet in warm water with epsom salts. She will avoid tight fitting shoes and socks. She may wear a toe spacer in the first interspace to reduce pressure on the medial nail border. She will monitor the toes for any signs of infection. I do not currently see any signs of infection so I am not starting her on antibiotics. The patient will follow up in 1-2 weeks for further evaluation, or sooner if needed. The patient was comfortable with this plan and all questions were answered. [email or web address] Not available 09/30/2023 14:54:49 10/15/2023 [id number] ingrown toenail: care instructions [email or web address] Not available 10/15/2023 12:25:24 Reason for Referral None Reported. Problems Name Problem SNOMED Code Status Onset Date Resolution Date Notes Provider Name and Address Organization Details Recorded Time Arthritis 3654661 Active 2018 Tara mcelroy MA - [facility], [facility] 9 10:56:31 Asthma 149364420 Active 2018 Tara mcelroy, MA - [facility], [facility] 9 10:56:36 Blood coagulation disorder 85368324 Active 2018 Tara mcelroy, MA - [facility], [facility] 9 10:56:54 Blood pressure above reference range 84077516 Active 2018 Tara mcelroy, MA - [facility], [facility] 9 10:57:03 Cholesterol/hi gh density lipoprotein ratio above reference range 888764461 Active 2018 Tara mcelroy MA - [facility], [facility] 9 10:57:12 Migraine 60834913 Active 2018 Tarakellie mcelroy, MA - [facility], [facility] 9 10:57:18 Fibromyalgia 902766153 Active 2018 Tara mcelroy, MA - [facility], [facility] 9 10:57:26 Problem Notes None recorded. Procedures Surgical History Date Name Laterality Status Provider Name and Address Organization Details Recorded Time 4 Nail Debridement completed BOBBY GRONDIN DPM [address], [phone], [facility], [facility] 10/15/2023 12:25:06 4 Temporary Nail Removal completed BOBBY GRONDIN DPM [address], [address], [facility], [facility] 10/15/2023 12:23:44 4 Nail Debridement completed BOBBY GRONDIN DPM [address], [address], [facility], [facility] 08/09/2023 13:58:19 3 Nail Debridement completed BOBBY GRONDIN DPM [address], [address], [facility], [facility] 05/22/2023 13:25:20 3 Nail Debridement completed BOBBY GRONDIN DPM [address], [address], [facility] [place], [facility] 03/20/2023 13:51:22 3 Nail Debridement completed BOBBY GRONDIN DPM [address], [address], [facility] [place], [facility] 01/11/2023 13:48:38 3 Temporary Nail Removal completed BOBBY GRONDIN DPM [address], [address], [facility] [place], [facility] 01/11/2023 13:51:10 3 Nail Debridement completed BOBBY GRONDIN DPM [address], [address], [facility] [place], [facility] 11/02/2022 13:35:07 3 Nail Debridement completed BOBBY GRONDIN DPM [address], [address], [facility] [place], [facility] 08/15/2022 13:21:34 2 Nail Debridement completed BOBBY GRONDIN DPM [address], [address], [facility] [place], [facility] 04/06/2022 14:11:11 2 Nail Debridement completed BOBBY GRONDIN DPM [address], [address], [facility] [place], [facility] 12/26/2021 10:01:57 2 Nail Debridement completed BOBBY GRONDIN DPM [address], [address], [facility] [place], [facility] 07/25/2021 11:07:51 1 Nail Debridement completed BOBBY GRONDIN DPM [address], [address], [facility] [place], [facility] 05/16/2021 12:07:07 1 Nail Debridement completed BOBBY GRONDIN DPM [address], [address], [facility] [place], [facility] 01/16/2021 11:06:12 0 Nail Debridement completed BOBBY GRONDIN DPM [address], [address], [facility] [place], [facility] 12/21/2019 12:07:09 0 Nail Debridement completed BOBBY GRONDIN DPM [address], [address], [facility] [place], [facility] 07/03/2019 11:58:50 9 Nail Debridement completed BOBBYSHIVAM ZELAYANDIN DPM [address], [address], [facility] [place], [facility] 04/22/2019 11:10:38 9 Nail Debridement completed BOBBYSHIVAM ZELAYANDIN DPM [address], [address], [facility] [place], [facility] 01/27/2019 11:49:56 9 Temporary Nail Removal completed BOBBYSHIVAM ZELAYANDIN DPM [address], [address], [facility] [place], [facility] 01/27/2019 11:52:52 open reduction of nasal fracture completed Tara Mueller [facility] [place], [facility] 01/27/2019 10:58:42 Ankle arthroscopy/patience christopher completed Tara Mueller [facility] [place], [facility] 01/27/2019 10:58:55 repair of uterus completed Tara Mueller [facility] [place], [facility] 01/27/2019 10:59:16 Imaging Results None recorded. Procedure Notes None recorded. Medical Equipment None Reported. Allergies Allergen ID Allergen Name Allergen Category Reaction Reaction Severity Criticality Documentation Date Start Date Code Code System Note Provider Name and Address Organization Details Recorded Time 90393 codeine medicatio n Not available Not available Not available 01/27/2019 2670 RxNorm Tara mcelroy [facility] 9 10:55:40 09223 Substance with sulfonami de structure and antibacte rial mechanism of action (substanc e) medicatio n Not available Not available Not available 01/27/2019 09161 8003 SNOMED Tara mcleroy [facility] 9 10:55:48 29161 epinephri ne medicatio n chest pain Not available Not available 01/27/2019 3992 RxNorm Tara mcelroy [facility] 9 10:56:14 Medications Name Sig Start Date Stop Date Status Note LastModified by Organization Details LastModified Time amoxicillin 500 mg capsule active Not Available Not Available Not Available buspirone 5 mg tablet active Not Available Not Available No t Available terconazole 0.4 % vaginal cream INSERT 1 APPLICATO RFUL VAGINALLY EVERY NIGHT AT BEDTIME active Not Available Not Available No t Available clonidine HCl 0.1 mg tablet active Not Available Not Available Not Available oxybutynin chloride ER 15 mg tablet,exte nded release 24 hr active Not Available Not Available Not Available naproxen 375 mg tablet active Not Available Not Available Not Available haloperidol 5 mg tablet active Not Available Not Available Not Available tizanidine 2 mg tablet TAKE 1 TABLET BY MOUTH EVERY NIGHT active Not Available Not Available No t Available trazodone 50 mg tablet active Not Available Not Available Not Available oxybutynin chloride ER 10 mg tablet,exte nded release 24 hr active Not Available Not Available Not Available tizanidine 4 mg tablet active Not Available Not Available Not Available fluconazole 150 mg tablet TAKE 1 TABLET BY MOUTH FOR 1 DOSE. MAY REPEAT IN 72 HOURS IF SYMPTOMS PERSIST active Not Available Not Available No t Available hydrochloro thiazide 50 mg tablet active Not Available Not Available No t Available ketotifen 0.025 % (0.035 %) eye drops active Not Available Not Available No t Available cephalexin 250 mg capsule active Not Available Not Available Not Available Nystop 100,000 unit/gram topical powder APPLY TWICE DAILY FOR 21 DAYS . USE AFTER DONE WITH KETOCONAZ OLE MEDICAITO N active Not Available Not Available No t Available meloxicam 15 mg tablet active Not Available Not Available Not Available ondansetron HCl 4 mg tablet active Not Available Not Available Not Available prednisone 20 mg tablet TAKE 2 TABLETS BY MOUTH EVERY DAY WITH FOOD OR MILK FOR 5 DAYS active Not Available Not Available No t Available rizatriptan 10 mg tablet active Not Available Not Available Not Available gabapentin 400 mg capsule TAKE 1 CAPSULE BY MOUTH EVERY NIGHT AT BEDTIME FOR MOOD active Not Available Not Available No t Available olanzapine 5 mg tablet TAKE 3 TABLETS BY MOUTH EVERY NIGHT AT BEDTIME FOR RACING THOUGHTS active Not Available Not Available No t Available tiagabine 4 mg tablet active Not Available Not Available No t Available olanzapine 10 mg tablet active Not Available Not Available Not Available meclizine 12.5 mg tablet TAKE 1 TABLET BY MOUTH TWICE DAILY NEEDED FOR DIZZINESS active Not Available Not Available No t Available ciprofloxac in 500 mg tablet 12/21 completed Not Available Not Available Not Available omeprazole 40 mg capsule,del ayed release TAKE 1 CAPSULE BY MOUTH EVERY DAY FOR GERD active Not Available Not Available No t Available olanzapine 7.5 mg tablet active Not Available Not Available Not Available triamcinolo ne acetonide 0.1 % topical cream active Not Available Not Available Not Available spironolact one 25 mg tablet active Not Available Not Available Not Available lamotrigine 25 mg tablet TAKE 2 TABLETS BY MOUTH DAILY FOR MOOD active Not Available Not Available No t Available baclofen 20 mg tablet active Not Available Not Available No t Available levothyroxi ne 75 mcg tablet TAKE 1 TABLET BY MOUTH EVERY DAY AT 6 AM active Not Available Not Available No t Available ciclopirox 8 % topical solution APPLY TO THE AFFECTED TOENAILS BY TOPICAL ROUTE ONCE DAILY PREFERABL Y AT BEDTIME OR 8 HOURS BEFORE WASHING 2021 active Not Available Not Available Not Avai lable levothyroxi ne 100 mcg tablet active Not Available Not Available Not Available tamsulosin 0.4 mg capsule TAKE ONE CAPSULE BY MOUTH EVERY DAY FRO HYPERTENS ION active Not Available Not Available No t Available trazodone 100 mg tablet active Not Available Not Available Not Available lorazepam 2 mg tablet active Not Available Not Available No t Available meclizine 25 mg tablet active Not Available Not Available Not Available baclofen 10 mg tablet TAKE 1 TABLET BY MOUTH EVERY 8 HOURS FOR PAIN active Not Available Not Available No t Available flunisolide 25 mcg (0.025 %) nasal spray active Not Available Not Available Not Available erythromyci n 5 mg/gram (0.5 %) eye ointment active Not Available Not Available Not Available trazodone 150 mg tablet TAKE 1 TABLET BY MOUTH EVERY NIGHT AT BEDTIME FOR SLEEP active Not Available Not Available No t Available triamcinolo ne acetonide 0.1 % topical ointment active Not Available Not Available Not Available buspirone 10 mg tablet active Not Available Not Available Not Available clotrimazol e-betametha sone 1 %-0.05 % topical cream APPLY ONE APPLICATI ON EXTERNAL THREE TIMES A DAY FOR 14 DAYS active Not Available Not Available No t Available prednisone 50 mg tablet active Not Available Not Available Not Available polymyxin B sulfate 10,000 unit-trimet hoprim 1 mg/mL eye drops INT 1 GTT BOTH EYES QID FOR DRY EYES active Not Available Not Available No t Available ibuprofen 400 mg tablet active Not Available Not Available Not Available Advair Diskus 250 mcg-50 mcg/dose powder for inhalation INHALE 1 PUFF INTO THE LUNGS TWICE DAILY active Not Available Not Available No t Available Advair Diskus 500 mcg-50 mcg/dose powder for inhalation INHALE 1 PUFF INTO THE LUNGS TWICE DAILY active Not Available Not Available No t Available trazodone 300 mg tablet active Not Available Not Available Not Available gabapentin 300 mg capsule TAKE 1 CAPSULE BY MOUTH AT BEDTIME active Not Available Not Available No t Available omeprazole 20 mg capsule,del ayed release active Not Available Not Available Not Available diclofenac sodium 75 mg tablet,shana yed release TAKE 1 TABLET BY MOUTH TWICE DAILY DIRECTED active Not Available Not Available No t Available olanzapine 15 mg tablet active Not Available Not Available Not Available hydrochloro thiazide 25 mg tablet TAKE 1 TO 2 TABLETS BY MOUTH ONCE DAILY active Not Available Not Available No t Available mupirocin 2 % topical ointment active Not Available Not Available Not Available zolpidem 5 mg tablet TAKE 1 TABLET (5 MG TOTAL) BY MOUTH NIGHTLY AT BEDTIME NEEDED. active Not Available Not Available No t Available furosemide 20 mg tablet active Not Available Not Available Not Available mirtazapine 15 mg tablet active Not Available Not Available Not Available sodium chloride 0.9 % intravenous solution active Not Available Not Available Not Available metoprolol succinate ER 25 mg tablet,exte nded release 24 hr active Not Available Not Available Not Available azelastine 137 mcg (0.1 %) nasal spray active Not Available Not Available Not Available zolpidem 10 mg tablet TAKE 1 TABLET BY MOUTH EVERY DAY AT BEDTIME NEEDED FOR INSOMNIA active Not Available Not Available No t Available methylpredn isolone 4 mg tablets in [...] Not Available Not Available No t Available ketoconazol e 2 % topical cream APPLY THIN LAYER TOPICALLY TO THE AFFECTED AREA TWICE DAILY FOR 21 DAYS active Not Available Not Available No t Available fluocinonid e 0.05 % topical cream active Not Available Not Available Not Available clotrimazol e 1 % topical cream active Not Available Not Available Not Available doxycycline hyclate 100 mg tablet PLEASE SEE ATTACHED FOR DETAILED DIRECTION S active Not Available Not Available No t Available spironolact one 50 mg tablet active Not Available Not Available Not Available amoxicillin 875 mg-potassiu m clavulanate 125 mg tablet TAKE 1 TABLET BY MOUTH EVERY 12 HOURS FOR 10 DAYS 12/21 completed Not Available Not Available Not Available olanzapine 5 mg disintegrat ing tablet active Not Available Not Available N ot Available neomycin-po lymyxin-hyd rocort 3.5 mg-10,000 unit/mL-1 % ear drops,susp active Not Available Not Available N ot Available ertapenem 1 gram solution for injection active Not Available Not Available No t Available ciclopirox 0.77 % topical cream active Not Available Not Available Not Available cholestyram ine (with sugar) 4 gram powder for susp in a packet active Not Available Not Available Not Available memantine 10 mg tablet active Not Available Not Available Not Available mirtazapine 7.5 mg tablet TAKE 1 TABLET BY MOUTH EVERY NIGHT AT BEDTIME FOR SLEEP active Not Available Not Available No t Available nitrofurant oin monohydrate /macrocryst als 100 mg capsule active Not Available Not Available Not Available duloxetine 20 mg capsule,del ayed release active Not Available Not Available Not Available duloxetine 60 mg capsule,del ayed release TAKE ONE CAPSULE BY MOUTH EVERY DAY active Not Available Not Available No t Available eszopiclone 2 mg tablet active Not Available Not Available Not Available ramelteon 8 mg tablet active Not Available Not Available No t Available zolpidem ER 6.25 mg tablet,exte nded release,mul tiphase active Not Available Not Available Not Available zolpidem ER 12.5 mg tablet,exte nded release,mul tiphase TAKE 1 TABLET BY MOUTH EVERY NIGHT AT BEDTIME NEEDED active Not Available Not Available No t Available Omnaris 50 mcg nasal spray active Not Available Not Available Not Available diclofenac 1 % topical gel APPLY 2 GRAMS TOPICALLY TO THE AFFECTED AREA FOUR TIMES DAILY active Not Available Not Available No t Available memantine 28 mg capsule sprinkle,ex tended release 24hr active Not Available Not Available Not Available Belsomra 10 mg tablet TAKE 1 TABLET BY MOUTH AT BEDTIME. TAKE WITHIN 30 MINUTES OF GOING TO BEDTIME. active Not Available Not Available No t Available Aimovig Autoinjecto r 70 mg/mL subcutaneou s auto-inject or active Not Available Not Available Not Available Emgality Pen 120 mg/mL subcutaneou s pen injector INJECT MONTHLY UNDER THE SKIN FOR MIGRAINE active Not Available Not Available No t Available Aimovig Autoinjecto r 140 mg/mL subcutaneou s auto-inject or active Not Available Not Available Not Available [facility] ODT 75 mg disintegrat ing tablet active Not Available Not Available N ot Available Paxlovid 300 mg (150 mg x 2)-100 mg tablets in a dose pack TAKE 3 TABLETS BY MOUTH TWICE DAILY DIRECTED ON DOSE PACK FOR 5 DAYS DO NOT TAKE WITH TRAZODONE WHILE TAKING THIS MEDICATIO N active Not Available Not Available No t Available Vitals Date Recorded Body height Body mass index (BMI) Body weight Provider Name and Address Organization Details Last Updated DateTime 10/15/2023 160.02 cm 42.5 kg/m2 391592.17 g Magaly Lima MA [employer] [facility] 10/15/2023 11:34:31 Date Recorded Body height Body mass index (BMI) Body weight Provider Name and Address Organization Details Last Updated DateTime 03/20/2023 160.02 cm 42.5 kg/m2 915030.17 g Magaly [facility]ima [facility] [place] 03/20/2023 13:27:08 Social History Question Answer Notes LastModified by [email or web address] Details LastModified Time Tobacco Smoking Status Never Smoker Tara mcelroy MA - [facility] [place], [facility] 01/27/2019 10:58:20 Which Illicit Or Recreational Drugs Have You Used? None Information not available 01/11/2020 Marital Status Single [email or web address] Informatio n not available 01/27/2019 What Was The Date Of Your Most Recent Tobacco Screening? 01/11/2020 Information not available 01/11/2020 How Much Tobacco Do You Smoke? No [email or web address] Information not available 01/27/2019 How Many Years Have You Smoked Tobacco? 0 Information not available 12/21/2019 Sex: Unknown Functional Status Question Answer Note LastModified by [email or web address] Details LastModified Time What is your level of alcohol consumption? None [email or web address] Information not available 01/27/2019 Do you or have you ever used smokeless tobacco? Never used smokeless tobacco [email or web address] Information not available 01/27/2019 What is your occupation? disabled [email or web address] Information not available 01/27/2019 Do you or have you ever used e-cigarettes or vape? Never used electronic cigarettes [email or web address] Information not available 01/27/2019 Mental Status None recorded. Family History Relationship Description Onset Age of this Age Resolved Age Notes LastModified by Organization Details LastModified Time Mother Arthritis [email or web address] Not availa ble 01/27/2019 10:57:37 Maternal Grandmother Stroke in the puerperium [email or web address] Not available 07/2018 10:57:47 Paternal Grandmother Heart disease [email or web address] Not available 01/27 10:58:00 Paternal Grandmother Blood pressure outside reference range Not available 01/27 10:58:14 Medical History Condition Response Coronary Artery Disease N Dyslipidemia N Gout N Hernia N Artificial Joints N Thyroid Problems N Lung Disease N Pacemaker N Anemia N Edema N Back Pain N Deep Vein Thrombosis N Varicose Veins N Diabetes N Bleeding Disorder Y Arthritis Y Seizures/Epilepsy N Blood Clot N Tuberculosis N AIDS/HIV N Lino Bite N Cancer N Stroke N Asthma Y Leg or Foot Ulcers N Raynaud's Disease N Substance Abuse N Peripheral Vascular Disease N Polio N Hepatitis N Liver Disease N Organ Transplant N Heart Disease N Rheumatoid Arthritis N Pulmonary Embolism N Headaches Y Foot Deformity N Fibromyalgia Y Dialysis N Hypertension N Osteoporosis N Kidney Disease N Gynecological HistoryNo gynecological history recorded. Obstetrics History GPAL:G 0 P 0 0 0 0 Past Encounters Encounter ID Performer Location Encounter Start Date Encounter Closed Date Diagnosis/Indication Diagnosis SNOMED-CT Code Diagnosis ICD10 Code Diagnosis IMO Codes Diagnosis Note [id number] BOBBY WILLIAM DPM [facility]_Main_ Office [address] [place] [phone] 01/27/2019 10:02:24 01/27/2019 13:29:09 Ingrowing toenail 361367553 L60.0 Peripheral vascular disease 161402787 I70.91 Onychomycosis 213166557 B35.1 Pain in toe 231373099 M7 9.674 M79.675 [id number] BOBBY WILLIAM DPM [facility]Main_ Office [address] [place] [phone] 04/22/2019 10:42:58 04/22/2019 11:08:32 Peripheral vascular disease 103988256 I70.91 Onychomycosis 193096350 B35.1 Pain in toe 427829705 M7 9.674 M79.675 [id number] [facility] [address] [place] [id number] 07/03/2019 11:09:27 07/03/2019 12:00:52 Peripheral vascular disease 847039930 I70.91 Onychomycosis 465993638 B35.1 Pain in toe 612015167 M7 9.674 M79.675 [id number] [facility] [address] [place] [id number] 07/24/2019 10:31:06 07/24/2019 11:21:28 Peripheral vascular disease 969274189 I70.91 Onychomycosis 305607059 B35.1 Pain in toe 393325916 M7 9.674 M79.675 [id number] [facility] [address] [place] [id number] 12/21/2019 11:05:09 12/21/2019 11:38:50 Peripheral vascular disease 668788613 I70.91 Onychomycosis 869595150 B35.1 Pain in toe 618132537 M7 9.674 M79.675 Ingrowing toenail 392891 009 L60.0 [id number] [facility] [address] [place] [id number] 01/11/2020 11:06:22 01/11/2020 11:26:59 Peripheral vascular disease 203372149 I70.91 Pain in toe 685545800 M7 9.674 M79.675 Ingrowing toenail 581776 009 L60.[id number] [address] 01/16/2021 10:42:18 01/16/2021 11:29:32 Peripheral vascular disease 707596203 I70.91 Onychomycosis 180916564 B35.1 Pain in toe 354434910 M7 9.674 M79.[id number] [address] 02/17/2021 14:04:46 02/17/2021 17:23:57 Peripheral vascular disease 133342690 I70.91 Plantar fa sciitis of left foot 1647728322 4689995 M72.2 Pain in left foot 376151 1757 29646 M79.672 [id number] [address] 05/16/2021 11:52:04 05/16/2021 18:44:48 Peripheral vascular disease 921559776 I70.91 Onychomycosis 403200253 B35.1 Pain in toe 947168710 M7 9.674 M79.[id number] [address] 06/14/2021 13:54:08 06/14/2021 14:44:43 Ingrowing toenail 574780674 L60.0 Peripheral vascular disease 438091031 I70.91 Pain in toe 800809659 M7 9.675 [id number] BOBBY GARCIANDIN DPM [place] [facility] [address] [place] [id number] 07/25/2021 10:27:32 07/25/2021 11:03:23 Peripheral vascular disease 360680044 I70.91 Onychomycosis 292248515 B35.1 Pain in toe 372322045 M7 9.674 M79.675 [id number] BOBBY GARCIANDIN DPM [place] [facility] [address] [place] [id number] 12/26/2021 09:30:35 12/26/2021 21:09:52 Peripheral vascular disease 415710765 I70.91 Onychomycosis 127575953 B35.1 Pain in toe 804280619 M7 9.674 M79.675 [id number] BOBBY GARCIANDIN DPM [facility] [address] [place] [address] 64967-889 6 04/06/2022 13:37:55 04/06/2022 16:13:52 Peripheral vascular disease [id number] I70.91 Onychomycosis 828151644 B35.1 Pain in toe 172747325 M7 9.674 M79.675 [id number] BOBBY GARCIANDIN DPM [facility] [address] [place] [address] 92934-966 6 05/01/2022 11:34:13 05/01/2022 18:08:25 Ingrowing toenail 819173957 L60.0 Peripheral vascular disease 787144520 I70.91 Pain in toe 746693056 M7 9.675 [id number] BOBBY GARCIANDIN DPM [facility] [address] [place] [address]37-542 6 06/08/2022 09:20:11 06/08/2022 14:26:20 Ingrowing toenail 946797579 L60.0 Mild ingrown second digit nails, distal medial nail borders. Peripheral vascular disease 573234761 I70.91 Pain in toe 060761547 M7 9.675 [id number] BOBBY GARCIANDIN DPM [facility] [address] [place] [address] 78593-092 6 08/15/2022 12:46:28 08/15/2022 16:25:19 Peripheral vascular disease 808565335 I70.91 Onychomycosis 914119751 B35.1 Pain in toe 633407964 M7 9.674 M79.675 71048 BOBBY GROVTIN [address] [address] 6 09/05/2022 15:10:34 09/05/2022 16:13:47 Ingrowing toenail 721707474 L60.0 Mild ingrown left second digit nail, distal medial nail border. Pain of to e of left foot 3538830217 08127 M79.675 Open wound of foot 14199 3008 S91.312A [address] 9[address]16-985 6 09/19/2022 14:08:19 09/19/2022 15:31:58 Contusion of right foot 4369046795 7013905 S90.31XA Pain of to e of right foot 3232225959 86144 M79.[address] [address]102-523 6 10/08/2022 10:43:57 10/08/2022 15:00:36 Contusion of right foot 4855422746 2380856 S90.31XA Pain of to e of right foot 4918745250 30478 M79.674 Pain of to e of left foot 5725492514 34014 M79.[id number] [address]772-100 6 11/02/2022 13:10:42 11/02/2022 14:07:01 Peripheral vascular disease 237535373 I70.91 Onychomycosis 520133219 B35.1 Pain in toe 350477256 M7 9.674 M79.675 [id number] [facility] [address] [address] 6 12/21/2022 11:09:15 12/21/2022 17:37:46 Ingrowing toenail 250657388 L60.0 Mild ingrown left second digit nail, distal medial nail border. Pain of to e of left foot 6755024880 94770 M79.675 [id number] BOBBY WILLIAM [facility] [address] [place] [address] 26[address]-223 6 01/11/2023 13:16:32 01/11/2023 17:09:22 Peripheral vascular disease 276303239 I70.91 Onychomycosis 897597355 B35.1 Pain in toe 767615419 M7 9.674 M79.675 Ingrowing toenail 403204 009 L60.0 Ingrown bilateral second digit nail, distal medial nail border. [id number] BOBBY LADDIN [address] [address]72-[address] 6 03/20/2023 13:06:18 03/20/2023 17:49:23 Pain in toe 994093914 M79.674 M79.675 Peripheral vascular disease 396010160 I70.91 Onychomycosis 584265164 B35.1 [id number] BOBBY LADDIN [address] [address]70-213 6 05/22/2023 13:04:12 05/22/2023 18:08:28 Peripheral vascular disease 711339222 I70.91 Onychomycosis 192353841 B35.1 Pain in toe 512728920 M7 9.674 M79.675 [id number] BOBBY LADDIN [facility] [address] [place] [address] 38[address]-756 6 08/09/2023 13:25:44 08/09/2023 16:10:58 Peripheral vascular disease 470603662 I70.91 Onychomycosis 988963030 B35.1 Pain in toe 849886540 M7 9.674 M79.675 [id number] BOBBY LADDIN [address] [address]69-892 6 09/30/2023 14:23:45 09/30/2023 17:44:08 Ingrowing toenail 692593630 L60.0 Ingrown bilateral second digit nail, distal medial nail border. Pain in toe 418713227 M7 9.674 M79.675 Peripheral vascular disease 991016009 I70.91 Onychomycosis 899250413 B35.1 [id number] BOBBY WILLIAM DPM [facility] [address] [facility] [address] [place] [address] 10/15/2023 11:21:14 10/15/2023 19:50:00 Peripheral vascular disease 280013336 I70.91 Onychomycosis 975661486 B35.1 Pain in toe 306239443 M7 9.674 M79.675 Ingrowing toenail 653256 009 L60.0 Ingrown bilateral second digit nail medial nail borders. Health Concerns Section Related Observation LastModified by Organization Detai ls LastModified Time None Recorded Concern Status LastModified by Organization Details LastModified Time None Recorded Advance Directives Directive None Recorded Payers Insurance Date Sequence Insurance Name Policy Number Policy Sotelo Covered Member ID Sotelo Member ID Guarantor Name 08/08/2022 1 [facility] (MEDICARE REPLACEMENT /ADVANTAGE - [place]) [id number] Angela Hicks [id number] Angela Hicks 01/30/2025 1 [place] [employer] Angela Neves Kurt [id number] Angela Hicks 12/30/2021 1 [place] [employer] Angela M Kurt [id number] Angela Hicks 01/30/2025 2 [place] [facility] Angela Neves Kurt [id number] Angela Hicks Notes Date Note Type Note Provider Name and Address Organization Details Recorded Time 03/20/2023 text/html ROS as noted in the HPI Angela presents today for her foot exam and nail care. She states that both of her second digit nails have been bothering her. BOBBY WILLIAM DPM [address] [place] [address], [phone], [facility], [facility] 03/20/2023 13:51:51 05/22/2023 text/html ROS as noted in the HPI Angela presents today for her foot evaluation and nail care. She states that she has been having some pain in both of her second digit nails. BOBBY WILLIAM DPM [address], [address], [facility], [facility] 05/22/2023 13:25:46 08/09/2023 text/html ROS as noted in the [facility] Angela presents today for her foot evaluation and nail care. She states that she has been doing well but both of her second digit nails have been sore. BOBBY WILLIAM DPM [address], [address], [facility], [facility] 08/09/2023 13:58:44 09/30/2023 text/html Ingrown NailReported by Josse presents today for evaluation of pain in both of her second digit nails. She states that she has been having pain in both of her second digit nails for the past few weeks. She points to the medial nail borders of both second digit nails as being the main areas of pain. Sh has not treated them with anything at this time. BOBBY WILLIAM DPM [address], [address], [facility] [place], [employer] 09/30/2023 14:55:05 10/15/2023 text/html ROS as noted in the [facility] Angela presents today for her foot exam and nail care. She states that both of her second digit nails have been sore. She is requesting that both second digits are anesthetized to have the medial nail borders full removed today. BOBBY WILLIAM DPM [address], [address], [facility], [facility] 10/15/2023 12:26:37 OBGyn Episode No OBEpisode recorded.
--- OUTSIDE RECORDS SUMMARY | 2025-02-24 05:11 | XMS_ITS | Patient Health Record ---
Author Organization [facility] Address [address] [place] [address] Care Team Providers Care Cancer Genetics Assistant Name Role Phone Sameer Hale Primary Care Provider [phone] Reason For Referral No Information Plan Of Treatment No Information Insurance Providers Payer Name Payer Address Payer Phone Subscriber Number Group Number Insured Name Patient Relationship to Insured Coverage Start Date Coverage End Date [facility] [address] [address] [place], [place] [id number] Angela Perez Self - patient is the insured
--- OUTSIDE RECORDS SUMMARY | 2025-02-24 05:11 | XMS_ITS | Clinical Summary ---
Author Organization [facility] Address [address] [place] [address] Care Team Providers Care Bundle Collector Name Role Phone Unavailable Primary Care Provider Unavailabl e Allergies No known active allergies Social History Tobacco Use Types Packs/Day Years [...] Health Maintenance Due Date Last Done Comments Advance Care Planning 1960 Hepatitis C Virus Screening 1960 HIV Screening 10/06/1972 DTaP/Tdap/Td Vaccines (1 - Tdap) 10/06/1978 Pap Smear (Ages 21-65) 10/06/1980 Mammogram 1999 Colonoscopy 10/06/2004 Pneumococcal Vaccines 50+ (1 of 1 - PCV) 10/06/2009 Zoster (Shingles) Vaccine (1 of 2) 10/06/2009 DXA Bone Density (Females,Ages 65 and older) 10/06/2024 Influenza Vaccine 12/25/2024 04/05/2022, 03/29/2021 COVID-19 Vaccine (3 - 2024-2 6 season) 2025 06/23/2020, 06/02/2020 RSV Vaccine 60 years and older and Patients (1 - 1-dose 75+ series) 10/06/2034 Hepatitis B Vaccines Aged Out No long er eligible based on patient's age to complete this topic Insurance MEDICARE PART A & B
--- OUTSIDE RECORDS SUMMARY | 2025-02-24 05:11 | XMS_ITS | Encounter Summary ---
Author Organization [facility] Address [address] [place] [address] Care Team Providers Care Nitrocellulose Maker Name Role Phone Naila Ventura NP Primary Care Provider [phone] Jannette Amezcua MD Primary Care Provider [phone] Marleen Vanessa MD Primary Care Provider [phone] Van Paige MD Primary Care Provider [phone] Encounter Details Date Type Department Care Team (Late st Contact Info) Description 02/11/2019 Orders Only [facility] [address] [place] [phone] Dhara Rob MD [address] [place] [address] Social History Tobacco Use Types Packs/Day Years [...] 122/84(2024 2:52 PM EDT) No Maira Kang, FBI INVESTIGATOR Note: Above is your goal for blood [...] of this encounter Procedures * Due to [place] docBeat law, this organization might not be sharing negative HIV tests. Procedure Name Priority Date/Time Associated Diagnosis Comments CBC INCLUDES DIFFERENTIAL AND PLATELET COUNT Routine 02/11/2019 2:49 PM EDT Fatigue, unspecified type Hypothyroidism, unspecified type THYROID STIMULATING HORMONE (TSH) WITH FREE T4 REFLEX, SERUM Routine 02/11/2019 2:49 PM EDT Fatigue, unspecified type Hypothyroidism, unspecified type MAGNESIUM, SERUM Routine 02/11/2019 2:49 PM EDT Fatigue, unspecified type Hypothyroidism, unspecified type CORTISOL, BASELINE SPECIMEN, SERUM Routine 02/11/2019 2:49 PM EDT Fatigue, unspecified type Hypothyroidism, unspecified type BASIC METABOLIC PANEL WITH (GFR) Routine 02/11/2019 2:49 PM EDT Fatigue, unspecified type Hypothyroidism, unspecified type documented in this encounter Results * Due to [place] docBeat law, this organization might not be sharing negative HIV tests. * CORTISOL, BASELINE SPECIMEN, SERUM (02/11/2019 2:49 PM EDT) Cortisol 8.8 mcg/dL [facility] Comment: Reference Range: For 8 a.m.(7-9 a.m.) Specimen: 4.0-22.0 Reference Range: For 4 p.m.(3-5 p.m.) Specimen: 3.0-17.0 * Please interpret above results accordingly * 02/11/2019 2:49 PM EDT 02/12/2019 12:15 AM EDT Narrative Resulting Agency Comment [id number] Dhara Rob MD LABORATORY Final Result Performing Organization Address City/[facility]/ZIP Co de Phone Number [facility] [address] [place] [address] * THYROID STIMULATING HORMONE (TSH) WITH FREE T4 REFLEX, SERUM (02/11/2019 2:49 PM EDT) Pathologist [facility] TSH 1.99 0.40 - 4.50 mIU/L [facility] 02/11/2019 2:49 PM EDT 02/12/2019 12:15 AM EDT Narrative Resulting Agency Comment [id number] Dhara Rob MD LABORATORY Final Result Performing Organization Address [facility] de Phone Number [facility] [address] [place] [address] * CBC INCLUDES DIFFERENTIAL AND PLATELET COUNT (02/11/2019 2:49 PM EDT) Pathologist [facility] WBC 7.6 3.8 - 10.8 Thousand/u L [facility] RBC 4.63 3.80 - 5.10 Million/uL [facility] Hemoglobin 13.8 11.7 - 15.5 g/dL [facility] Hematocrit 40.4 35.0 - 45.0 % [facility] MCV 87.3 80.0 - 100.0 fL [facility] MCH 29.8 27.0 - 33.0 pg [facility] MCHC 34.2 32.0 - 36.0 g/dL [facility] RDW 13.7 11.0 - 15.0 % [facility] PLT 279 140 - 400 Thousand/u L [facility] MPV 9.6 7.5 - 12.5 fL [facility] Neutrophils # 5472 1500 - 7800 cells/uL [facility] Lymphocytes # 1239 850 - 3900 cells/uL [facility] Monocytes # 509 200 - 950 cells/uL [facility] Eosinophils # 312 15 - 500 cells/uL [facility] Basophils # 68 0 - 200 cells/uL [facility] Neutrophils % 72 % [facility] Lymphocytes % 16.3 % [facility] Monocytes % 6.7 % [facility] Eosinophils % 4.1 % [facility] Basophils % 0.9 % [facility] 02/11/2019 2:49 PM EDT 02/12/2019 12:15 AM EDT Narrative Resulting Agency Comment [id number] Dhara Rob MD LAB SAME DAY RESULT Final Result Performing Organization Address [facility]/ZIP Co de Phone Number [facility] [address] [place] [address] * (ABNORMAL) MAGNESIUM, SERUM (02/11/2019 2:49 PM EDT) Magnesium 2.7(H) 1.5 - 2.5 mg/dL [facility] 02/11/2019 2:49 PM EDT 02/12/2019 12:15 AM EDT Narrative Resulting Agency Comment [id number] Dhara Rob MD LABORATORY Final Result Performing Organization Address [facility] de Phone Number [facility] [address] [place] [address] * BASIC METABOLIC PANEL WITH (GFR) (02/11/2019 2:49 PM EDT) Glucose 92 65 - 99 mg/dL [facility] Comment:Fasting reference in terval Urea Nitrogen Blood (BUN) 21 7 - 25 mg/dL [facility] Creatinine 0.86 0.50 - 1.05 mg/dL [facility] Comment: For patients >49 years of age, the reference limit for Creatinine is approximately 13% higher for people identified as -Malian. EGFR 74 > OR = 60 mL/min/1 .73m2 [facility] GFR () 86 > OR = 60 mL/min/1 .73m2 [facility] BUN/Creatinine Ratio NOT APPLICABLE 6 - 22 (calc) [facility] Sodium 141 135 - 146 mmol/L [facility] Potassium 3.7 3.5 - 5.3 mmol/L [facility] Chloride 108 98 - 110 mmol/L [facility] Carbon dioxide 24 20 - 32 mmol/L [facility] Calcium 8.8 8.6 - 10.4 mg/dL [facility] 02/11/2019 2:49 PM EDT 02/12/2019 12:15 AM EDT Narrative [facility] - 02/12/2019 6:31 AM EDT Please note that this estimated GFR does [...] needs for GFR calculation. Resulting Agency Comment [id number] Dhara Rob MD LABORATORY Final Result [facility] [address] [place] [address] documented in this encounter Visit Diagnoses Diagnosis Fatigue, unspecified type Hypothyroidism, unspecified type documented in this encounter Additional Health [...] documented as of this encounter Care Teams Nitrocellulose Maker Relationship Specialty Start Date End Date Naila Ventura NP [address] [place] [address] PCP - General Internal Medicine 09/10/18 08/04/19 Jannette Amezcua MD [address] [place] [address] PCP - General Internal Medicine 08/05/19 02/28/21 Marleen Vanessa MD [address] [address] PCP - General Internal Medicine 06/27/21 11/19/24 Van Paige MD [address] [address] PCP - General Family Medicine 11/20/24 documented as of this encounter
--- OUTSIDE RECORDS SUMMARY | 2025-02-24 05:11 | XMS_ITS | Encounter Summary ---
Author Organization [facility] Address [address] [place] [address] [place] [address] Phone Care Team Providers Care Associate Professor Of Economics Name Role Phone Marleen Vanessa MD Primary Care Provider [phone] [facility] Unavailable [phone] Van Paige MD Primary Care Provider Van Paige MD Primary Care Provider Pcp, Not Required Primary Care Provider Unavaila ble Van Paige MD Primary Care Provider [phone] Van Paige MD Unavailable Encounter Details Date Type Department Care Team (Late st Contact Info) Description 08/16/2021 Transcribe Orders [facility] [address] [place] [address] Marleen Vanessa MD [address] [place] [address], [address] [place] [address] Social History Tobacco Use Types Packs/Day Years [...] PM EDT documented as of this encounter Plan of Treatment Not on file documented as of this encounter Visit Diagnoses Not on filedocumented in this encounter Additional Health Concerns Infection Onset Date Last Indicated Resolved Time CoV-Risk 02/17/2024 02/17/2024 02/28/2024 1:22 AM EDT CoV-Risk 08/10/2024 08/11/2024 08/22/2024 1:21 AM EDT documented as of this encounter Care Teams Associate Professor Of Economics Relationship Specialty Start Date End Date Marleen Vanessa MD [address] [place] [address] 7 [place] [phone] [email or web address] PCP - General Family Medicine 03/21/21 10/28/23 Van Paige MD [address] [place] [address] [place] [address] [email or web address] PCP - General Family Medicine 10/29/23 10/31/23 Van Paige MD [address] [place] [address] [place] [phone] [email or web address] PCP - General Family Medicine 11/05/23 11/18/23 Pcp, Not Required [address] [place] [address] PCP - General 02/15/24 03/26/24 Van Paige MD [address] [place] [address] [place] [address] PCP - General Family Medicine 03/27/24 Laureen Richards, [address] [address] [email or web address] [facility] Social Work 08/30/21 09/24/21 Van Paige MD [address] [place] [address] [place] [phone] [email or web address] Insurance Assigned Provider 08/30/24 documented as of this encounter Additional Source Comments The information contained in this document represents components of the legal health record. It is not the complete legal health record.[facility]
--- OUTSIDE RECORDS SUMMARY | 2025-02-24 05:11 | XMS_ITS | Clinical Summary ---
Author Organization [facility] Address [address] [place] [address] Care Team Providers Care Veneer Puller Name Role Phone No, Pcp MD Primary Care Provider Unavailabl e Allergies No known active allergies Social History Tobacco Use Types Packs/Day Years Used Date Smoking Tobacco: Never Assessed Comments Unknown Sex and Gender Information Value Date Recorded Sex Assigned at Not on file Legal Sex Female 8:29 PM EDT Gender Identity Not on file Sexual Orientation Not on file Last Filed Vital Signs Vital Sign Reading Time Taken Comments Blood Pressure 173/98 02/22/2024 11:21 PM EDT Pulse 78 02/22/2024 11:21 PM EDT Temperature 36.5 C (97.7 F) 02/22/2024 11:21 PM EDT Respiratory Rate 18 02/22/2024 11:21 PM EDT Oxygen Saturation 98% 02/22/2024 11:21 PM EDT Inhaled Oxygen Concentration - - Weight - - Height - - Body Mass Index - - Plan of Treatment Health Maintenance Due Date Last Done Comments Bone Density (DXA) Scan 1960 MEDICARE INITIAL PHYSICAL (IPPE) 1960 HEPATITIS C SCREENING 10/06/1976 PNEUMOCOCCAL VACCINE: 50+ YEARS (1 of 2 - PCV) 10/06/1978 MAMMOGRAM 1999 COLONOSCOPY (CRC) 10/06/2004 COLORECTAL CANCER SCREENING (CRC) 10/06/2004 CT COLONOGRAPHY (CRC) 10/06/2004 FIT-DNA (CRC) 10/06/2004 FIT/iFOBT (CRC) 10/06/2004 SIGMOIDOSCOPY (CRC) 10/06/2004 ZOSTER VACCINE (1 of 2) 10/06/2009 RSV IMMUNIZATION (1 - Risk 60-74 years 1-dose series) 2019 DTAP/TDAP/TD VACCINES (2 - T d or Tdap) 03/02/2020 03/02/2010 INFLUENZA VACCINE (#1) 2024 2, 03/29/2021 COVID-19 IMMUNIZATION ( season) 2025 06/23/2020, 06/02/2020 IPV VACCINES Aged Out No longer eligi ble based on patient's age to complete this topic MENINGOCOCCAL B VACCINE Aged Out No l onger eligible based on patient's age to complete this topic Insurance MEDICARE PART A AND B [facility] Care Teams Veneer Puller Relationship Specialty Start Date End Date NoMaricarmen MD No Address [place] [address] PCP - General Internal Medicine 02/22/24
--- OUTSIDE RECORDS SUMMARY | 2025-02-24 05:11 | XMS_ITS | Encounter Summary ---
Author Organization [facility] Address [address] [place] [address] [place] [address] Phone Care Team Providers Care Take Up Supervisor Name Role Phone Marleen Vanessa MD Primary Care Provider [phone] [facility] Unavailable Van Paige MD Primary Care Provider Van Paige MD Primary Care Provider Pcp, Not Required Primary Care Provider Unavaila ble Van Paige MD Primary Care Provider Van Paige MD Unavailable Encounter Details Date Type Department Care Team (Late st Contact Info) Description 08/17/2021 Ancillary Orders [facility] [address] [place] [address] Marleen Vanessa MD [address] [facility], [address] [place] [address] [email or web address] Chronic bronchitis, unspecified chronic bronchitis type Social History Tobacco Use Types Packs/Day Years [...] documented as of this encounter Visit Diagnoses Diagnosis Chronic bronchitis, unspecified chronic bronchitis type documented in this encounter Additional Health Concerns Infection Onset Date Last Indicated Resolved Time CoV-Risk 02/17/2024 02/17/2024 02/28/2024 1:22 AM EDT CoV-Risk 08/10/2024 08/11/2024 08/22/2024 1:21 AM EDT documented as of this encounter Care Teams Take Up Supervisor Relationship Specialty Start Date End Date Marleen Vanessa MD [address] [place] [address] 7 [place] [phone] [email or web address] PCP - General Family Medicine 03/21/21 10/28/23 Van Paige MD [address] [place] [address] [place] [address] [email or web address] PCP - General Family Medicine 10/29/23 10/31/23 Van Paige MD [address] [place] [address] [place] [address] [email or web address] PCP - General Family Medicine 11/05/23 11/18/23 Pcp, Not Required [address] [place] [address] PCP - General 02/15/24 03/26/24 Van Paige MD [address] [place] [address] [place] [address] [email or web address] PCP - General Family Medicine 03/27/24 Laureen Richards, [address] [address] [email or web address] Work 08/30/21 09/24/21 Van Paige MD [address] [place] [address] [place] [address] [email or web address] Insurance Assigned Provider 08/30/24 documented as of this encounter Additional Source Comments The information contained in this document represents components of the legal health record. It is not the complete legal health record.[facility]
--- OUTSIDE RECORDS SUMMARY | 2025-02-24 05:11 | XMS_ITS | Encounter Summary ---
Author Organization [facility] Address [address] [place] [address] Care Team Providers Care Manager Community Outreach Name Role Phone Marleen Vanessa MD Primary Care Provider [phone] Van Paige MD Primary Care Provider [phone] Encounter Details Date Type Department Care Team ([facility] st Contact Info) Description 10/15/2023 Orders Only [facility] Neurology [address] [facility] [address] [place] [address] Henrik Nelson MD [address] [place] [address] Social History Tobacco Use Types Packs/Day Years [...] as of this encounter Miscellaneous Notes * Result Encounter Note - Henrik Nelson MD - 10/15/2023 4:25 PM EDT Elevated WBC,abnormal UA, culture is pending; she likely has UTI, pl let her know and fax to PCP; PCP may consider starting antibiotics pending culture report and modify treatment once results are available. I do not prescribe antibiotics for UTI * Result Encounter Note - Anjali Miller RN - 10/15/2023 4:25 PM EDT See 10/16/23 tm patient informed and info faxed as requested * Result Encounter Note - Henrik Nelson MD - 10/15/2023 4:[address] inform urine culture confirms UTI, needs antibiotics from PCP please call PCPs office and let them know.. [place] - pl also fax the report to PCP. l. FUP is as planned. * Result Encounter Note - Anjali Miller RN - 10/15/2023 4:25 PM EDT See 10/16/23 tm's results were faxed to PCP - on antibiotics documented in this encounter Plan of Treatment Not on file documented as of this encounter Goals Goal Patient Goal Type Associated Problems Recent Progress Patient-Stated? Author Blood Pressure < 140/90 Blood Pressure 122/84(2024 2:52 PM EDT) Maira Beauchamp, [facility] Note: Above is your goal for [...] of this encounter Procedures * Due to [place] [employer] law, this organization might not be sharing negative HIV tests. Procedure Name Priority Date/Time Associated Diagnosis Comments URINALYSIS DIP W/ REFLEX TO MICROSCOPIC+CULTURE Routine 10/15/2023 4:25 PM EDT Abnormal finding on MRI of brain CULTURE, URINE, ROUTINE Routine 10/15/2023 4:25 PM EDT CBC INCLUDES DIFFERENTIAL AND PLATELET COUNT Routine 10/15/2023 4:25 PM EDT Abnormal finding on MRI of brain URINALYSIS, MICROSCOPIC Routine 10/15/2023 4:25 PM EDT BASIC METABOLIC PANEL WITH (GFR) Routine 10/15/2023 4:25 PM EDT Abnormal finding on MRI of brain documented in this encounter Results * Due to [place] [employer] law, this organization might not be sharing negative HIV tests. * (ABNORMAL) CULTURE, URINE, ROUTINE (10/15/2023 4:25 PM EDT) Bacteria culture (Urine) SEE NOTE(A) [employer] Comment: CULTURE, URINE, ROUTINE Micro Number: [id number] Test Status: Final Specimen Source: Urine Specimen Quality: Adequate Result: Greater than 100,000 CFU/mL of Escherichia coli E.coli INT FUAD AMOX/CLAVULANATE S 8 AMPICILLIN R >=32 AMP/SULBACTAM I 16 CEFAZOLIN NR <=4 2 CEFEPIME S <=1 CEFTAZIDIME S <=1 CEFTRIAXONE S <=1 CIPROFLOXACIN S <=0.25 GENTAMICIN S <=1 IMIPENEM S <=0.25 LEVOFLOXACIN S <=0.12 NITROFURANTOIN S <=16 PIP/TAZOBACTAM S <=4 TOBRAMYCIN S <=1 TRIMETHOPRIM/SULFA R >=320 S=Susceptible I=Intermediate R=Resistant * = Not Tested NR = Not Reported NN = See Therapy Comments THERAPY COMMENTS Note 1: For infections other than uncomplicated UTI caused by E. coli, K. pneumoniae or P. mirabilis: Cefazolin is resistant if FUAD > or = 8 mcg/mL. (Distinguishing susceptible versus intermediate for isolates with FUAD < or = 4 mcg/mL requires additional testing.) Note 2: For uncomplicated UTI caused by E. coli, K. pneumoniae or P. mirabilis: Cefazolin is susceptible if FUAD <32 mcg/mL and predicts susceptible to the oral agents cefaclor, cefdinir, cefpodoxime, cefprozil, cefuroxime, cephalexin and loracarbef. 10/15/2023 4:25 PM EDT 10/16/2023 2:45 AM EDT Henrik Nelson MD LABORATORY Fin al Result [facility] [address] [place] [address] * (ABNORMAL) URINALYSIS, MICROSCOPIC (10/15/2023 4:25 PM EDT) WBC (Urine) 10-20(A) < OR = 5 /HPF [facility] RBC (Urine Sed) NONE SEEN < OR = 2 /HPF [facility] Epithelial cells.squamous (Urine sed) 0-5 < OR = 5 /HPF [facility] Bacteria (Urine) MANY(A) NONE SEEN /HPF [facility] Hyaline casts (Urine sed) NONE SEEN NONE SEEN /LPF [facility] Service comment 01 See Below [facility] Comment: This urine was analyzed for the presence of WBC, RBC, bacteria, casts, and other formed elements. Only those elements seen were reported. 10/15/2023 4:25 PM EDT 10/16/2023 2:45 AM EDT Henrik Nelson MD LAB SAME DAY RESULT Final Result Performing Organization Address [facility] de Phone Number [facility] [address] [place] [address] * BASIC METABOLIC PANEL WITH (GFR) (10/15/2023 4:25 PM EDT) Glucose 74 65 - 99 mg/dL [facility] Comment:Fasting reference in terval Urea Nitrogen Blood (BUN) 17 7 - 25 mg/dL [facility] Creatinine 0.86 0.50 - 1.05 mg/dL [facility] EGFR 75 > OR = 60 mL/min/1. 73m2 [facility] BUN/Creatinine Ratio SEE NOTE: (calc) [facility] Comment: Not Reported: BUN and Creatinine are within reference range. Sodium 139 135 - 146 mmol/L [facility] Potassium 4.3 3.5 - 5.3 mmol/L [facility] Chloride 101 98 - 110 mmol/L [facility] Carbon dioxide 27 20 - 32 mmol/L [facility] Calcium 9.6 8.6 - 10.4 mg/dL [facility] 10/15/2023 4:25 PM EDT 10/16/2023 2:45 AM EDT Narrative [facility] - 10/16/2023 7:05 AM EDT Please note that this estimated [...] needs for GFR calculation. Resulting Agency Comment [id number] Henrik Nelson MD LABORATORY Fin al Result Performing Organization Address [facility] Co de Phone Number [facility] [address] [place] [address] * (ABNORMAL) CBC INCLUDES DIFFERENTIAL AND PLATELET COUNT (10/15/2023 4:25 PM EDT) WBC 13.5(H) 3.8 - 10.8 Thousand/u L [facility] RBC 5.50(H) 3.80 - 5.10 Million/uL [facility] Hemoglobin 16.3(H) 11.7 - 15.5 g/dL [facility] Hematocrit 49.6(H) 35.0 - 45.0 % [facility] MCV 90.2 80.0 - 100.0 fL [facility] MCH 29.6 27.0 - 33.0 pg [facility] MCHC 32.9 32.0 - 36.0 g/dL [facility] RDW 14.5 11.0 - 15.0 % [facility] PLT 325 140 - 400 Thousand/u L [facility] MPV 9.8 7.5 - 12.5 fL [facility] Neutrophils # 99364(H) 1500 - 7800 cells/uL [facility] Lymphocytes # 1836 850 - 3900 cells/uL [facility] Monocytes # 1107(H) 200 - 950 cells/uL [facility] Eosinophils # 135 15 - 500 cells/uL [facility] Basophils # 108 0 - 200 cells/uL [facility] Neutrophils % 76.4 % [facility] Lymphocytes % 13.6 % [facility] Monocytes % 8.2 % [facility] Eosinophils % 1.0 % [facility] Basophils % 0.8 % [facility] 10/15/2023 4:25 PM EDT 10/16/2023 2:45 AM EDT Narrative Resulting Agency Comment [id number] Henrik Nelson MD LAB SAME DAY RESULT Final Result Performing Organization Address City/State/[facility] Co de Phone Number [facility] [address] [place] [address] * (ABNORMAL) URINALYSIS DIP W/ REFLEX TO MICROSCOPIC+CULTURE (10/15/2023 4:25 PM EDT) Color (Urine) YELLOW YELLOW [facility] Appearance (Urine) CLEAR CLEAR [facility] Specific gravity (Urine) 1.018 1.001 - 1.035 [facility] pH (Urine) 6.0 5.0 - 8.0 [facility] Glucose (Urine) NEGATIVE NEGATIVE [facility] Bilirubin (Urine) NEGATIVE NEGATIVE [facility] Ketones (Urine) NEGATIVE NEGATIVE [facility] Hemoglobin (Urine) NEGATIVE NEGATIVE [facility] Protein (Urine) NEGATIVE NEGATIVE [facility] Nitrite (Urine) POSITIVE(A) NEGATIVE [facility] Leukocyte esterase (Urine) 1+(A) NEGATIVE [facility] 10/15/2023 4:25 PM EDT 10/16/2023 2:45 AM EDT Narrative Resulting Agency Comment [id number] us Henrik Nelson MD LABORATORY Fin al Result Performing Organization Address City/State/[facility] Co de Phone Number [facility] [address] [place] [address] documented in this encounter Visit Diagnoses Diagnosis Abnormal finding on MRI of brain Nonspecific (abnormal) findings on radiological and other examination of skull and head documented in this encounter Care Teams Manager Community Outreach Relationship Specialty Start Date End Date Marleen Vanessa MD [address] [address] PCP - General Internal Medicine 06/27/21 11/19/24 Van Paige MD [address] [address] PCP - General Family Medicine 11/20/24 documented as of this encounter
--- OUTSIDE RECORDS SUMMARY | 2025-02-24 05:11 | XMS_ITS | Encounter Summary ---
Author Organization [facility] Address [address] [place] [address] Care Team Providers Care Office Mover Name Role Phone Naila Ventura NP Primary Care Provider [phone] Jannette Amezcua MD Primary Care Provider [phone] Marleen Vanessa MD Primary Care Provider [phone] Van Paige MD Primary Care Provider [phone] Reason for Visit * Reason Comments Sinus Problem Headache Sinusitis Encounter Details Date Type Department Care Team (Late st Contact Info) Description 05/21/2019 Telephone [facility] [address] [place] [id number] Naila Ventura NP [address] [place] [phone] Sinus Problem ; Headache ; Sinusitis Social History Tobacco Use Types Packs/Day Years Used Date Smoking Tobacco: Never Smokeless Tobacco: Never Alcohol Use Standard Drinks/Week Comments No 0 (1 standard drink = 0.6 oz pur e alcohol) PHQ-2 Answer Date Recorded PHQ-2 Score 0 02/16/2019 Comments No Sex and Gender Information Value Date Recorded Sex Assigned at Not on file Legal Sex Female 11:55 PM EDT Gender Identity Not on file Sexual Orientation Not on file Occupation Industry Job Start Date Job End Date disabled Not on file Not on file Not on file documented as of this encounter Miscellaneous Notes * Telephone Encounter - Abbi Stafford LPN - 05/21/2019 4:54 PM EST I left a message for the pt to return my call. * Telephone Encounter - Naila Ventura NP - 05/21/2019 4:50 PM EST Okay for an antibiotic. She has multiple allergies. Please find out if she can take doxycycline or is there another antibiotic that she generally uses. * Telephone Encounter - Abbi Stafford LPN - 05/21/2019 4:12 PM EST Disposition/Plan: Message to provider for orders. PLEASE ADVISE on pt asking if PCP can send in an antibiotic for her or if an xray is necessary. . Chief complaint: Patient, Angela Hicks 58 y.o. 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 Onset: a few day(s) ago Emergent/urgent: none Associated symptoms/ROS: rhinorrhea - green, facial discomfort- frontal present for a few day(s), cough/chest congestion, fatigue, and headache LMP: N/A Pertinent hx: hx of asthma Allergies: Cephalosporins; Chlorpheniramine-hydrocodone; Clindamycin; Codeine; Environmental; Epinephrine; Erythromycin; Flagyl [metronidazole]; Food; Hc tussive; Mold; Penicillins; Sulfa antibiotics; Sulfasalazine; and Troleandomycin ;details for food: Hazelnuts Current home tx: none Effectiveness of current home tx: n/a * Telephone Encounter - Brayden Peace - 05/21/2019 1:34 PM EST Pt calling asking to come in tomorrow for sinus xray States she is having a flare up on right side of face down to her jaw- Also having headache Asking for call back before 4:30 confirmed call back number Please advise documented in this encounter Plan of Treatment Not on file documented as of this encounter Goals Goal Patient Goal Type Associated Problems Recent Progress Patient-Stated? Author Blood Pressure < 140/90 Blood Pressure 122/84(2024 2:52 PM EDT) Maira Beauchamp, [facility] Note: Above is your goal for [...] and nuts. documented as of this encounter Visit Diagnoses [...] documented as of this encounter Care Teams Office Mover Relationship Specialty Start Date End Date Naila Ventura NP [address] [place] [address] PCP - General Internal Medicine 09/10/18 08/04/19 Jannette Amezcua MD [address] [place] [address] PCP - General Internal Medicine 08/05/19 02/28/21 Marleen Vanessa MD [address] [address] PCP - General Internal Medicine 06/27/21 11/19/24 Van Paige MD [address] [address] PCP - General Family Medicine 11/20/24 documented as of this encounter
--- OUTSIDE RECORDS SUMMARY | 2025-02-24 05:11 | XMS_ITS | Clinical Summary ---
Author Organization [facility] Address [address] [place] [address] Phone Care Team Providers Care Sensor Specialist Name Role Phone Van Paige MD Primary Care Provider [phone] Van Paige MD Unavailable Allergies Active Allergy Reactions Criticality Noted Date Comments Cephalosporins 05/12/2012 Clindamycin Nausea And Vomiting 12/10/2016 Codeine Nausea And Vomiting 11/30/2016 Severe upset stomach per pt Epinephrine Other (See Comments),Angina High 12/10/2016 tachycardia Erythromycin Nausea And Vomiting 12/10/2016 GI distress Metronidazole Nausea And Vomiting 11/30/2016 Upset stomach per pt Mold 01/19/2016 Penicillins 10/27/2020 Per outside records Sulfa (Sulfonamide Antibiotics) 09/23/2017 Sulfasalazine Nausea And Vomiting 11/30/2016 Upset stomach per pt Tree Nuts 01/19/2016 Hazelnuts Troleandomycin Nausea And Vomiting 12/01/2016 Severe stomach upset per pt Medications ibuprofen (MOTRIN) 600 mg tablet (To-Go) Take 1 tablet by mouth every 6 hours as needed for pain. 08/11/2024 Active Active Problems Patient Care Coordination No te Formatting of this note migh t be different from the original. Please do not reschedule with Divya Rocha Problem Noted Date Diagnosed Date Numbness 04/06/2024 Assessment & Plan (04/06/2024 4:28 PM EST): Difficult to do accurate MSK/neuro assessment. Sounds like radiculopathy. Will get XR of low back and start a burst of prednisone. She reports she stopped most of her medications but it is unclear what she is currently taking. No contraindication to current steroid burst. 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 On physical exam, patient does have blepharitis over both upper eyelids. She suggested that we send in a medication called Xdemvy to specific pharmacy in [place] that has agreed to cover the cost for the patient. A prescription was printed and faxed to the pharmacy as requested by the patient. Overactive bladder 07/17/2023 Assessment & Plan (10/31/2023 12:16 AM EDT): Patient has history of overactive bladder and is recovering from her recent UTI. Patient would like to have a repeat urine test to see if the antibiotic worked as she has recently finished a course of Macrobid and fluconazole. Personal history of tobacco use 07/17/2023 Peripheral venous insufficiency 05/15/2023 PND (paroxysmal nocturnal dyspnea) 03/19/2023 Vertigo 06/27/2021 12/13/2022 Overview (12/18/2022): [place] [facility] Dr Candido Woodward (12/2020): I explained the patient I suspect that her vertigo and dizziness are multifactorial. ENG testing cannot be done because of her multiple psychiatric medications which can affect the results. It may be that some of this is medication side effect. MRI scan has already been ordered by Dr. Nelson, her neurologist. I ordered an audiogram for assessment of her tinnitus and vertigo. She may benefit from vestibular rehabilitation therapy. She is amenable to this. Physical medicine consultation was requested. I discussed with her dietary triggers of vertigo and recommend avoidance of these. The list was given to the patient and reviewed with her: Vertigo Counseling: Avoid Salt, MSG (MonoSodium Gultamate - Present in [place] food and some prepared foods, such as frozen dinners, frozen vegetables and frozen appetizers.), caffeine, alcohol, sharp cheeses and chocolate. Follow Up: After audiogram. Vestibular rehabilitation therapy consultation requested. Patient will follow up with Dr. Nelson after her MRI scan. Assessment & Plan (12/18/2022 10:04 AM EDT): Reviewed chart. Angela has a lengthy history of vertigo. Has consulted with ENT in 2020, recommended vestibular PT. I have recently placed a referral to vestibular PT which will be done via Di starting in Dec 2022. Tinnitus, bilateral 06/27/2021 12/13/2022 Sensorineural hearing loss (SNHL), bilateral 05/202112/13/2022 Other headache syndrome 06/09/2021 Assessment & Plan (12/18/2022 10:10 AM EDT): See migraines Assessment & Plan (06/09/2021 10:47 PM EST): Keep well-hydrated. Avoid noise, loud music and other known triggers. Keep a diary of headaches to look for patterns. Class 3 severe obesity due t o excess calories with serious comorbidity and body mass index (BMI) of 40.0 to 44.9 in adult 06/09/2021 Assessment & Plan (06/09/2021 10:39 PM EST): Portion control. She reports about 50 pounds gain since she [facility] [place] [facility] where she gets unhealthy food . Limit concentrated sugars, saturated fats and calories in the diet. Keep well-hydrated. If unable to achieve expected goal consider formal dietary/nutritional support. Intrinsic eczema 05/18/2021 Vitamin D deficiency 10/03/2020 Calcification of aorta 02/09/2020 Overview (10/27/2020): See 12/07/2019 cxr: Calcification of the thoracic aorta. Other constipation 09/27/2019 Overview (09/27/2019): History of IBS with constipation per patient reports worsened by change in routine diet. Assessment & Plan (10/20/2019 11:01 AM EDT): Ongoing issue, reports hx of IBS-C. Received mag citrate and fleets enema here at her request. Now c/o moving bowels regularly but with some straining. Of note she has refused miralax the past 3 days. -encouraged her to take a 1/2 dose of miralax 8.5 g today -cont colace bid prn -would avoid using mag citrate unless the above meds are ineffective. Venous stasis dermatitis of left lower extremity 09/16/2019 Overview (09/16/2019): 09/16/19: 1+ pitting edema b/l lower legs with hyperpigmentation of R briggs c/w venous stasis. Pt attributes her venous stasis dermatitis to mold exposure. She was advised to ambulate every couple of hours and elevate feet when sitting for prolonged periods. Assessment & Plan (09/25/2019 9:34 AM EDT): stable Assessment & Plan (10/05/2019 10:46 AM EDT): Encouraged elevation and ambulation Housing situation unstable 09/15/2019 Overview (09/15/2019): 09/14: Pt was in a skilled nursing prior to COVID admission, refuses to return d/t concern that she was exposed to mold, attributes many of her physical/health complaints to mold exposure. CM trying to arrange for pt to go to [facility] for recovering Covid pts, pt refuses, states she cannot live in a group setting, cannot share a bathroom. Pt was advised that we will do our best, but may have limited options for placement at this time. Needs CM f/u. Assessment & Plan (06/09/2021 10:50 PM EST): Patient [place] about [place] at the [place] [facility] she stayed in [place] and understands limitations in getting independent housing due to lack of income. Assessment & Plan (09/25/2019 9:34 AM EDT): Biggest challenge. Reports mold exposure at prior residence. Will not move back to prior facitlity. Per pt history has had chronic housing issues. Confrontation relationships with family and is not able to live with any of them. Pt reports multiple formal complaints filled with state over prior homes and shelters for various reasons - mold, unsanitary conditions per pt. Reports inability to tolerate loud sounds/light. Pt states she should never have been sent to this facility but is also unwilling to leave at this point. 09/22 COVID + Rpt COVID testing sched 09/25 Assessment & Plan (10/21/2019 11:31 AM EDT): Ongoing issue. CM is following. Pt was in a skilled nursing prior to COVID admission, refuses to return d/t concern that she was exposed to mold, attributes many of her physical/health complaints to mold exposure. CM trying to arrange for pt [facility] for recovering Covid pts, pt refuses, states she cannot live in a group setting, cannot share a bathroom. Unfortunately, she has no other options. [facility] in [place] ([phone]) will accept Angela back once she has 2 neg swabs. 10/20: covid swab 10/19 - px refused - thinks it will be positive. CM waiting to hear if skilled nursing will accept her w/o covid test. COVID-19 09/12/2019 Overview (09/13/2019): Admitted to [facility] from ED 09/03, xray showed opacity in left lung lower and mid lobe. Treated with Ceftriaxone and Doxycycline, completed course. Was given course of Hydroxychloroquine x 5 days. Required oxygen during part of her hospital stay, was on RA by time of discharge. Assessment & Plan (09/17/2019 9:05 AM EDT): Appears resolved Assessment & Plan (10/20/2019 11:00 AM EDT): Stable. Remains afebrile, on RA. Has cleared PT. Has had multiple positive covid swabs here. Will need 2 neg swabs in order to discharge to a skilled nursing or congregate living. [ ] f/u covid swab 10/19 Edema of lower extremity 10/11/2018 Mold exposure 03/28/2018 Essential hypertension 10/30/2017 Assessment & Plan (12/27/2020 9:12 AM EDT): RF sent to local pharmacy. Assessment & Plan (09/17/2019 9:06 AM EDT): controlled Assessment & Plan (10/19/2019 11:49 AM EDT): Stable, well controlled. Continue current meds, though not clear why she is on spironolactone alone as opposed to a more commonly used antihypertensive -cont spironolactone 50 mg daily Assessment & Plan (11/14/2017 1:30 PM EDT): Her blood pressure is normal today. She independently decided to stop her HCTZ and double her spironolactone. We will need to monitor her potassium levels and her blood pressure Assessment & Plan (10/30/2017 1:36 PM EDT): Continue HCTZ. Await prior records. Allergic rhinitis 10/30/2017 Assessment & Plan (11/14/2017 1:32 PM EDT): We'll do prior authorization for Omnaris Anxiety disorder 10/30/2017 Assessment & Plan (12/27/2020 9:10 AM EDT): Continue Buspar 10mg BID. This was decreased from TID as her QHS dose worsened her insomnia. Depression 10/30/2017 Fibromyalgia 10/30/2017 Assessment & Plan (10/31/2023 12:13 AM EDT): Patient has history of fibromyalgia and has seen rheumatology in the past for it. Assessment & Plan (06/09/2021 10:46 PM EST): Based on the patient's history, physical, and review of the available laboratory and imaging results, I believe that fibromyalgia is the most accurate diagnosis. There is no evidence of an inflammatory arthritis or other connective tissue disease in this case. We discussed the diagnosis of fibromyalgia, its natural history, and treatment. Specifically, we discussed that treatment requires many interventions and recognition that we are often unable to get patients completely pain free. Management of fibromyalgia requires patient engagement to address any underlying depression, anxiety, or sleep disorder. Further, patients are encouraged to engage in regular physical activity. Some studies have suggested that Shin Chi is effective. Other physical activity may including water-based aerobics, cane, biking, swimming, gentle yoga, Pilates etc. In terms of pharmacotherapy, there are many options, including tricyclic antidepressants, duloxetine, gabapentin or pregabalin, and cyclobenzaprine as well as other similar medications to those listed. In this case, the patient might try to focus on nonpharmacologic measures since she reports sensitivity to medications. She would benefit from reading book written by Dr Carlos Stearns [facility] describing mindfulness approach to deal with chronic pain related to fibromyalgia She recalls participating in the past and workshops organized by him in [place] in late Assessment & Plan (02/02/2021 10:50 AM EDT): Worsening fibromyalgia. Refer to rheumatology. Hyperlipidemia 10/30/2017 Assessment & Plan (10/31/2023 12:11 AM EDT): Patient has history of hyperlipidemia and her latest lipid profile obtained in July shows a total cholesterol of 261 with an LDL of 188. Based on guidelines, she should be started on cholesterol medication but patient is very hesitant to use statins. It has been documented in the chart that she has refused statin therapy in the past. Lab Results Component Value Date CHOL 261 (H) 08/14/2023 HDL 41 08/14/2023 LDL 188 (H) 08/14/2023 TRIG 162 (H) 08/14/2023 CHOLHDL 6.4 (H) 08/14/2023 Assessment & Plan (12/18/2022 10:11 AM EDT): Due for repeat lipid check. She has refused statin therapy in the past. Assessment & Plan (10/30/2017 1:36 PM EDT): Labs ordered. She states she will not take a statin even if the cholesterol is high Hypothyroid 10/30/2017 Assessment & Plan (10/31/2023 12:12 AM EDT): TSH Date Value Ref Range Status 08/14/2023 2.24 0.27 - 4.20 uIU/mL Final Patient has history of hypothyroidism and does take 75 mcg of levothyroxine daily. Her latest TSH was in the normal range. Plan is for patient to continue taking the medication as prescribed. Assessment & Plan (12/18/2022 10:09 AM EDT): Will recheck TSH today. Assessment & Plan (10/05/2019 10:35 AM EDT): Stable on levothyroxine Assessment & Plan (11/14/2017 1:32 PM EDT): The plan is to continue her on the 100 g levothyroxine. Recheck TSH today Assessment & Plan (10/30/2017 1:36 PM EDT): Continue levothyroxine. Labs ordered Insomnia 10/30/2017 Overview (09/11/2021): Poor sleep due to PTSD, also has OMAR and declines CPAP. Assessment & Plan (08/02/2022 2:03 PM EST): Willing to start trazodone at 300mg per her request. Will defer adding zyprexa unless the trazodone is inadequate for sleep due to polypharmacy. Assessment & Plan (02/02/2021 10:49 AM EDT): Stop Trazodone d/t dizziness. Trial Rozerem 8mg QHS PRN. Side effects reviewed. Assessment & Plan (12/27/2020 9:11 AM EDT): Improved with stopping QHS dose of Buspar. Zyprexa has been causing drowsiness, which helps her sleep. She is no longer on Ambien. Urinary incontinence 10/30/2017 Personality disorder 10/30/2017 Assessment & Plan (01/20/2021 4:09 PM EDT): Advised close monitoring of changes in mood. Will decrease to 10mg,. If no change in dizziness, would recommend increasing back to 15mg daily. Assessment & Plan (10/21/2019 11:31 AM EDT): Ongoing issue. Remains delusional, perseverative, tangential and convinced we are exposing her to black mold here and at her last skilled nursing. Wants to live alone. Refusing to eat certain foods b/c fear of mold and it being unhealthy: She will not accept Ensure or glucerna supplementation due to the chemicals and toxins in them. Psychiatry has been following. Started on Haldol and Ativan prn here by Psychiatry but has declined to take these. Psych did add olanzapine 7.5 mg nightly on 09/28 and she has been accepting of this. -f/u Psych recs -cont olanzapine 7.5 mg nightly 10/20: stable Assessment & Plan (10/30/2017 1:34 PM EDT): Complex patient with apparent psychiatric and medical comorbidities. My overwhelming impression is of a personality disorder, likely borderline. I recommended a referral to psychiatrist which she refused. She does not show signs of being unsafe with herself or others. Intertrigo 09/24/2017 Overview (09/13/2019): Uses powder under breasts as needed. Assessment & Plan (10/20/2019 11:04 AM EDT): Worse. C/o itching under breasts and in inguinal folds. Reports that the miconazole 2% is no longer working. She has tried nystatin powder in the past without relief and does not want this. Requests Tinactin rx. --start Tinactin powder Assessment & Plan (09/24/2017 11:01 AM EDT): No yeast/bacteria on wet mount; culture sent Cervical spondylosis 12/10/2016 Assessment & Plan (06/09/2021 10:41 PM EST): Carefully continue proper posture, neck support during the day and night time. Avoid prolonged bending or extending in her neck. Use cooling pack as needed for increasing pain. Gentle, regular ROM, stretching and muscle strengthening exercises Consider gentle massage Irritable bowel syndrome 12/10/2016 Assessment & Plan (06/09/2021 10:48 PM EST): 8 4-5 smaller meals daily rather than 2-3 larger ones. Proper hydration and fiber content in her daily diet PTSD (post-traumatic stress disorder) 12/10/2016 Mild intermittent asthma without complication Overview (09/11/2021): chronic bronchitis as well. Managed via Dr Diaz, recently reduced advair from 500 to 250 + as needed albuterol. Assessment & Plan (09/17/2019 9:06 AM EDT): controlled Assessment & Plan (10/19/2019 11:47 AM EDT): Stable, remains asymptomatic. She reports she was cured of this. -cont albuterol prn Assessment & Plan (10/30/2017 1:35 PM EDT): Refilled current inhalers, seems to be stable. Referred to pulmonology per her request Migraine 12/01/2016 Overview (12/18/2022): Used to see Sheba Teixeira NP at [facility] in [place]. Now Dr Nelson at [facility]. Long and complex hx of migraine/chronic daily headache. Assessment & Plan (12/18/2022 10:09 AM EDT): Given Angela's headaches are so extensive, prevalent, and complex, I defer all headache management to her neurologist, who has an MRI pending. She has also asked for a third(?, likely more than this) opinion with Dr Rinaldi in the area as she cannot get ahold of Dr Michelle's office in [place]. She has cPTSD, is on many medications, and is just recently on a higher dose of aimovig with ongoing headaches and so I am not sure the current plan is going to help much. Assessment & Plan (08/02/2022 2:02 PM EST): 2/2 no sleep and recent sleep med trials. rx'd sleep med as noted above and she is working w/ her neurologist on migraine tx. She is taking prednisone to break the migraine, I've rx'd fluconazole to take as needed if pred gives her a yeast infection. Assessment & Plan (10/18/2019 9:50 AM EDT): Pt uses fioricet prn with good effect. 10/17/19: Reporting PAYNE that started last night which is somewhat relieved with Fioricet. Wearing her sunglasses today. Denies any fever, vomiting, changes in speech, gait, or mood. 10/18/19: PAYNE resolved this morning. No longer wearing her sunglasses. Chronic bronchitis 11/30/2016 GERD (gastroesophageal reflux disease) 7 Overview (10/30/2017): Overview: Dr. Dickinson Assessment & Plan (12/18/2022 10:12 AM EDT): Has new onset pain in stomach which is different from her usual GERD, despite omeprazole. Also has nausea. Recommend fresh GI eval [facility]. She agrees. Assessment & Plan (06/09/2021 10:47 PM EST): Avoid late, large, spicy meals. Keep headboard elevated at 45 angle for nighttime. Assessment & Plan (10/05/2019 10:32 AM EDT): Stable on PPI. 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 I informed Angela that I will need documentation from the [place] [facility] directly regarding what they are looking for in a letter, if this letter is not accepted by the [facility] [place] [facility]. OMAR (obstructive sleep apnea) 11/30/2016 Overview (09/11/2021): Followed by Dr Diaz, pt would never use cpap per office notes Assessment & Plan (10/31/2023 12:10 AM EDT): Patient follows with a specialist for sleep medicine. Has an appointment scheduled in November. Peripheral neuropathy 11/30/2016 Hx of smoking 05/12/2012 Resolved Problems Problem Noted Date Diagnosed Date Resolved Date Prediabetes 02/13/2023 04/01/2023 Cough 10/03/2022 04/01/2023 Assessment & Plan (10/03/2022 11:29 AM EDT): Angela presents for an ongoing cough-8 weeks now. I will have her go for an x-ray and I will update her with the results. I will start her on an antibiotic if there is pneumonia present. I wrote for prednisone burst-to be taken as directed and side effects discussed. I also advised her to take [id number] cough suppressant at night as needed. She will call if her symptoms get worse at which point she should follow-up with her PCP. Advised her to continue with her inhalers as directed. She will call if there are any other issues or concerns. She understands and agrees. Snoring 08/28/2021 08/02/2022 Daytime sleepiness 08/28/2021 3 Left foot pain 10/16/2019 08/02/2022 Assessment & Plan (10/20/2019 11:04 AM EDT): Ongoing issue. She c/o tendonitis in her ankles, L>R. Saw PT yesterday. -cont PT -cont voltaren gel prn Tinea corporis 09/15/2019 10/02/2019 Assessment & Plan (09/25/2019 9:33 AM EDT): improving Cont antifungal crm Assessment & Plan (09/27/2019 10:41 AM EDT): 09/15/19: Developed itchy rash on upper abdomen overnight, itch improved with cold compresses. Pt reports antifungal cream has been ineffective. Fluocinonide topical was ordered ON and pt to begin using today once received from [facility]. 09/16/19: Reports rash no longer itchy, did not need fluocinonide cream this morning. Rash appears more deeply erythematous today with annular appearance and central clearing, 3 distinct patches noted. Pt reports she tried miconazole cream for a couple of days with no effect. Ketoconazole cream ordered, advised to apply BID and discussed may take a few weeks for rash to resolve. OK to use fluocinonide prn for itch with the ketoconazole. 09/18/19: Rash unchanged, ketoconazole cream was delivered, but pt has not started using yet. Advised to begin using BID until rash is gone. OK to use small amount of fluocinonide with the ketoconazole if rash is itchy, advised that steroid cream alone will make rash worse. 09/21/19: Rash and itching improved, patient instructed to continue ketoconazole. 09/23/19: Pt states that itching has resolved. Still applying ketoconazole. Rash on abdomen appears improved. 09/26: improved with Ketoconazole denies pruritis. Leg cramping 09/15/2019 10/02/2019 Assessment & Plan (09/28/2019 9:04 AM EDT): 09/15/19: Pt reports woke with leg cramps, resolved now. Pt attributes to not currently taking her magnesium supplement. Reports she is drinking water throughout the day, adds pink salt to her water to help retain fluid, as she believes mold exposure at most recent residence causes her to lose fluid. No recent magnesium results, but reviewed mild magnesium elevation at 2.7 in Jan 2019. 09/27: Left leg cramps/pain upon waking. States has resolved. Attributes to Mold exposure. UTI (urinary tract infection) 09/13/2019 09/25/2019 Assessment & Plan (09/17/2019 9:05 AM EDT): Finish course keflex - will add 2nd dose diflucan tomorrow Assessment & Plan (09/19/2019 12:00 PM EDT): UA = 3+ Leuk, 1+ Ki Started Keflex 250 mg po q6h x 5d 1st dose 09/14/19 09/14/19-starting keflex today;diflucan pre and post abx per pt s request. 09/15/19: Pt reports no further dysuria or urgency. Will continue Keflex with second dose of diflucan due 09/17 with last dose of Keflex. 09/18/19: Will finish Keflex today, UTI sxs resolved. Will need second dose of diflucan with last dose of Keflex today. 09/19/19: treatment completed. Denies sx. Using bedside commode. Blood coagulation disorder 01/27/2019 0 09/07/2024 Elevated ratio of cholestero l to high density lipoprotein (HDL) 01/27/2019 12/13/2022 Finding of above normal blood pressure 01/27/2019 05/02/2021 Chronic obstructive lung disease 03/28/2018 12/13/2022 Noncompliance with medication regimen 11/14/2017 08/02/2022 Assessment & Plan (11/14/2017 1:30 PM EDT): She stopped her hydrochlorothiazide 50 mg and doubled her spironolactone without consulting. She was informed of the risk of hyperkalemia especially because she has at least sometimes been taking a potassium supplement. 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 Bipolar disorder 12/26/2016 11/24/2017 Bipolar disorder 12/26/2016 08/02/2022 Assessment & Plan (01/20/2021 4:09 PM EDT): Advised close monitoring of changes in mood. Will decrease to 10mg,. If no change in dizziness, would recommend increasing back to 15mg daily. Assessment & Plan (12/27/2020 9:10 AM EDT): Started on Zyprexa 15mg QHS by inpatient psychiatrist. Encouraged pt to find outpatient psychiatrist for ongoing management given her complex history. Will obtain records from [facility]. Osteoarthritis 12/10/2016 05/02/2021 Memory impairment 11/30/2016 09/07/2024 Overview (10/30/2017): Overview: On namenda, prescriped by neurologist in [place] who she hasn't seen in a while Assessment & Plan (10/30/2017 1:37 PM EDT): I recommend she see a neurologist. I listed multiple options for referrals and she states she dislikes all of them. She refuses referral. I do not see the indication for Namenda, she will need to see a neurologist if she wants to restart it Tachycardia 11/30/2016 09/25/2019 Osteoarthritis of lumbar spine 01/28/2014 08/02/2022 Overview (10/27/2020): Chronic back pain Assessment & Plan (06/09/2021 10:43 PM EST): Joint protection, energy conservation. Gentle, regular exercise routine after warm pack versus warm shower. Avoid falls, injuries, overuse bending, stooping, heavy lifting, sudden turns. Work diligently on bringing her body weight into an ideal range for her height. He may benefit from topical cream such as Arnica, Biofreeze, Aspercreme versus medicated patches such as salonpas, icy hot patch 2-3 times daily and if necessary at bedtime x 3 weeks. Obesity, unspecified 05/12/2012 021 Fibromyositis 09/12/2009 12/13/2022 Asthma 03/07/2007 05/02/2021 Overview (10/27/2020): Stable on inhalers Myalgia and myositis 03/07/2007 023 Overview (10/27/2020): IMO update Tachycardia 03/07/2007 09/07/2024 Overview (10/27/2020): 11/04 30 day loop recorder did not show any evidence of any arrhythmias despite multiple pt submissions, Max HR was 112 BPM 11/04 30 day loop recorder did not show any evidence of any arrhythmias despite multiple pt submissions, Max HR was 112 BPM Encounters Date Type Department Care Team Description 12/08/2024 Telephone [employer] [facility] [address] [place] [address], [place] [id number] Van Paige MD Appointment from Last 3 Months Immunizations Immunization Administration Dates Next Due COVID-19 (Pre-03/18) Pfizer Vaccine, mRNA, PF ,06/02/2020 Influenza Quadrivalent Preservative Free IM 03/27,03/29/2021 Tdap 03/02/2010 Social History Tobacco Use Types Packs/Day Years Used Date Smoking Tobacco: Never Smokeless Tobacco: Never Tobacco Cessation:Counseling Given: Not Answered Alcohol Use Standard Drinks/Week Comments No 0 (1 standard drink = 0.6 oz pur e alcohol) Education Answer Date Recorded Are you interested in more education? Not on nikolas e 09/21/2022 Are you concerned about learning? Not on file 09/21/2022 No 09/21/2022 No 09/21/2022 Food Answer Date Recorded Within the past 6 months we worried whether our food would run out before we got money to buy more. Never True 10/20/2024 Within the past 6 months the food we bought just didn't last and we didn't have enough money to get more. Never True Residential Stability Answer Date Recor ded What is your housing situation today? I have [place] [place] 10/20/2024 How many times have you moved in the past 12 sat ths? One time 10/20/2024 Paying for Meds Answer Date Recorded Do you have trouble paying for medicines? No 10/20/2024 Paying Utility Bills Answer Date Record ed Do you have trouble paying your heating or elect ricity bill? No 10/20/2024 Transportation Answer Date Recorded Has the lack of transportati on kept you from medical appointments or from getting medications? No 10/20/2024 Digital Access Answer Date Recorded No 10/20/2024 Yes 10/20/2024 Do you have reliable internet access at home? Ye s 10/20/2024 Do you have a device (e.g., phone, tablet, computer) with a working camera? Yes 10/20/2024 Intimate Partner Violence Answer Date R ecorded Are you denied basic needs s uch as food, clothing, or medical care? No 10/20/2024 In the past 12 months have y ou been in a relationship with a person who hurts, threatens, or tries to control you? No 10/20/2024 Are you denied basic needs s uch as food, clothing, or medical care? No 10/20/2024 In the past 12 months have y ou been in a relationship with a person who hurts, threatens, or tries to control you? No 10/20/2024 Comments No Sex and Gender Information Value Date Recorded Sex Assigned at Female 02/16/2024 10:23 PM EDT Legal Sex Female 6:33 AM EST Gender Identity Female 02/16/2024 10:23 PM EDT Sexual Orientation Straight 02/16/2024 10 :23 PM EDT Last Filed Vital Signs Vital Sign Reading Time Taken Comments Blood Pressure 150/91 10/21/2024 1:26 AM EDT Pulse 79 10/21/2024 1:26 AM EDT Temperature 35.9 C (96.7 F) 10/21/2024 1:28 AM EDT Respiratory Rate 17 10/21/2024 1:26 AM EDT Oxygen Saturation 100% 10/21/2024 1:26 AM EDT Inhaled Oxygen Concentration - - Weight 91.1 kg (200 lb 14.4 oz) 025 10:47 PM EDT Height 160 cm (5' 2.99 ) 10/20/2024 10: 47 PM EDT Body Mass Index 35.6 10/20/2024 10:47 PM EDT Plan of Treatment Health Maintenance Due Date Last Done Comments HIV ONE-TIME SCREENING (18-65 YEARS) 10/06/1977 PNEUMOCOCCAL VACCINES (50+ years) (1 of 2 - PCV) 10/06/1978 MAMMOGRAM 1999 COLOGUARD 10/06/2004 COLONOSCOPY 10/06/2004 COLORECTAL CANCER SCREENING 10/06/2004 FIT TEST 10/06/2004 FOBT 10/06/2004 SIGMOIDOSCOPY 10/06/2004 VIRTUAL COLONOSCOPY 10/06/2004 ZOSTER VACCINES (1 of 2) 10/06/2009 RSV VACCINE (1 - Risk 60-74 years 1-dose series) 2019 Adult Td,Tdap Booster 03/02/2020 03/02/2010 OSTEOPOROSIS SCREENING INITIAL (ONE-TIME) 10/06/2024 DEPRESSION SCREENING 10/28/2024 10/29/2023 INFLUENZA VACCINE (#1) 2024 04/05/2022, 2020 COVID-19 VACCINE ( - season) 2025 06/23/2020, 06/02/2020 BLOOD PRESSURE 03/31/2025 09/28/2024 SCREENING FOR DIABETES 09/29/2027 09/28/2024, 2023 LIPID PANEL 08/13/2028 08/14/2023, 11/25, 05/12/2018, Additional history exists HEPATITIS C SCREENING Completed 08/25/2018, 019 SMOKING STATUS SCREENING (Once After 26 Yrs) Completed 09/28/2024 HEPATITIS A VACCINES Aged Out No long er eligible based on patient's age to complete this topic HIB VACCINES Aged Out No longer eligi ble based on patient's age to complete this topic MENINGOCOCCAL VACCINES (ACWY) Aged Out No longer eligible based on patient's age to complete this topic MENINGOCOCCAL VACCINES (B) Aged Out N o longer eligible based on patient's age to complete this topic Medical Devices Not on file Procedures Procedure Name Priority Date/Time Associated Diagnosis Comments LIPID PANEL Routine 08/14/2023 11:51 AM EDT Mixed hyperlipidemia Other specified hypothyroidism from Last 3 Months or Most Recently Relevant to Health Maintenance Results * (ABNORMAL) Lipid panel (08/14/2023 11:51 AM EDT) HDL 41 mg/dL [facility] Comment: Interpretation <40 mg/dL: Low HDL cholesterol (major risk factor for CHD) Greater than or equal to 60 mg/dL: High HDL cholesterol ( negative risk factor for CHD) HDL - cholesterol is affected by a number of factors, e.g. smoking, excerise, hormones, sex and age. CHOLESTEROL 261(H) 0 - 240 mg/dL [facility] TRIGLYCERIDES 162(H) 30 - 160 mg/dL [facility] LDL 188(H) 50 - 129 mg/dL [facility] Comment: LDL levels in terms of risk for coronary heart disease: <100 mg/dL: Optimal 100-129 mg/dL: Near or above optimal 130-159 mg/dL: Borderline high 160-189 mg/dL: High >190 mg/dL: Very High CARDIAC RISK RATIO 6.4(H) 3.3 - 4.4 C [facility] Blood 08/14/2023 11:5 1 AM EDT 08/14/2023 11:54 AM EDT us Marleen Vanessa MD LAB BLOOD ORDERABLES Irena hurt Result [address] [id number] from Last 3 Months or Most Recently Relevant to Health Maintenance Insurance [address] [place] [id number] MEDICARE PART A & B MEDICARE PART A & B MEDICARE PART A & B [address] [place] [id number] MEDICARE PART A & B MEDICARE PART A & B MEDICARE PART A & B [address] [place] [address] MEDICARE PART A & B MEDICARE PART A & B MEDICARE PART A & B Advance Directives For more information, please contact: [phone] (9AM - 5PM [facility], Saturday-Saturday) * Full Code (Confirmed) (Latest Code Status on File) Date Activated Date Inactivated Comments 09/12/2019 9:46 PM Question Answer Comments Code Status Confirmed With: Patient Care Teams Sensor Specialist Relationship Specialty Start Date End Date Van Paige MD [address] [facility] [address] [place] [address] [email or web address] PCP - General Family Medicine 03/27/24 Van Paige MD [address] [facility] [address] [place] [address] [email or web address] Insurance Assigned Provider 08/30/24 Additional Source Comments The information contained in this document represents components of the legal health record. It is not the complete legal health record.[facility]
--- OUTSIDE RECORDS SUMMARY | 2025-02-24 05:11 | XMS_ITS | Encounter Summary ---
Author Organization [facility] Address [address] [place] [phone] Phone Care Team Providers Care Shoulder Joiner Name Role Phone Pcp, Not Required Primary Care Provider Unavaila ble Van Paige MD Primary Care Provider [phone] Van Paige MD Unavailable Encounter Details Date Type Department Care Team (Late st Contact Info) Description 02/16/2024 Procedure [facility] Emergency Department, [facility] [address] [place] [address] Social History Tobacco Use Types Packs/Day Years [...] with a working camera? Not on file Intimate Partner Violence Answer Date R ecorded Are you denied basic needs s uch as food, clothing, or medical care? No 02/15/2024 In the past 12 months have y ou been in a relationship with a person who hurts, threatens, or tries to control you? No 02/15/2024 Are you denied basic needs s uch as food, clothing, or medical care? No 02/15/2024 In the past 12 months have y ou been in a relationship with a person who hurts, threatens, or tries to control you? No 02/15/2024 Comments No Sex and Gender Information Value Date Recorded Sex Assigned at Female 02/16/2024 10:23 PM EDT Legal Sex Female 6:33 AM EST Gender Identity Female 02/16/2024 10:23 PM EDT Sexual Orientation Straight 02/16/2024 10 :23 PM EDT documented as of this encounter Functional Status * Calculated C-SSRS Risk Score (Lifetime/Recent) Answer Date of Assessment Author No Risk Indicated 02/16/2024 10:07 PM EDT Lj Laura RN * [place] Suicide Severity Rating Scale (Screener/Recent Self-Report) Question Answer Date of Assessment Author 1. Wish to be (Past 1 Month) No 02/16/2024 10:07 PM EDT Lj Laura RN 2. Non-Specific Active Suicidal Thoughts (Past 1 Month) No 02/16/2024 10:07 PM EDT Lj Laura RN 6. Suicidal Behavior (Lifetime) No 02/16/2024 10:07 PM EDT Lj Laura RN documented as of this encounter Plan of Treatment Not on file documented as of this encounter Visit Diagnoses Not on filedocumented in this encounter Additional Health Concerns Infection Onset Date Last Indicated Resolved Time CoV-Risk 02/17/2024 02/17/2024 02/28/2024 1:22 AM EDT CoV-Risk 08/10/2024 08/11/2024 08/22/2024 1:21 AM EDT Assessment Noted Time PHQ-2 Depression Total Score: 0 10/29/19 1:56 PM EDT documented as of this encounter Care Teams Shoulder Joiner Relationship Specialty Start Date End Date Pcp, Not Required [address] [place] [id number] PCP - General 02/15/24 03/26/24 Van Paige MD [address] [facility] [address] [place] [phone] [email or web address] PCP - General Family Medicine 03/27/24 Van Paige MD [address] [facility] [address] [place] [phone] [email or web address] Insurance Assigned Provider 08/30/24 documented as of this encounter Additional Source Comments The information contained in this document represents components of the legal health record. It is not the complete legal health record.[facility]
--- OUTSIDE RECORDS SUMMARY | 2025-02-24 05:11 | XMS_ITS | Encounter Summary ---
Author Organization [facility] Address [address] [place] [address] Care Team Providers Care Special Needs Child Caregiver Name Role Phone Jannette Amezcua MD Primary Care Provider [phone] Marleen Vanessa MD Primary Care Provider [phone] Van Paige MD Primary Care Provider [phone] Encounter Details Date Type Department Care Team (Late st Contact Info) Description 11/19/2019 Orders Only [facility] Neurology [address] [facility] [address] [place] [address] Henrik Nelson MD [address] [place] [address] Social History Tobacco Use Types Packs/Day Years [...] file Not on file Not on file COVID-19 Exposure Response Date Recorded In the last month, have you been in contact with someone who was confirmed or suspected to have Coronavirus / COVID-19? No / Unsure 11/19/2019 1:59 PM EDT documented as of this encounter Progress Notes * Henrik Nelson MD - 11/19/2019 2:[address] call and inform the lab for inflammation is normal. FUP is as planned. * Gisell Simpson RN - 11/19/2019 2:04 PM EDT See tms documented in this encounter Plan of Treatment [...] of this encounter Procedures * Due to [place] state law, this organization might not be sharing negative HIV tests. Procedure Name Priority Date/Time Associated Diagnosis Comments C-REACTIVE PROTEIN (CRP) - INFLAMMATION Routine 11/19/2019 2:04 PM EDT Chronic intractable headache, unspecified headache type ERYTHROCYTE SEDIMENTATION RATE (ESR) Routine 11/19/2019 2:04 PM EDT Chronic intractable headache, unspecified headache type documented in this encounter Results * Due to [place] state law, this organization might not be sharing negative HIV tests. * ERYTHROCYTE SEDIMENTATION RATE (ESR), [place] (11/19/2019 2:04 PM EDT) Sedimentation Rate [place] (ESR) 14 < OR = 30 mm/h [facility] 11/19/2019 2:04 PM EDT 11/20/2019 1:38 AM EDT Narrative Resulting Agency Comment [id number] Henrik Nelson MD LAB SAME DAY RESULT Final Result [facility] [address] [place] [address] * C-REACTIVE PROTEIN (CRP) - INFLAMMATION (11/19/2019 2:04 PM EDT) C reactive protein 5.0 <8.0 mg/L [facility] 11/19/2019 2:04 PM EDT 11/20/2019 1:38 AM EDT Narrative Resulting Agency Comment [id number] Henrik Nelson MD LABORATORY Fin al Result Performing Organization Address City/[facility]/ZIP Co de Phone Number [facility] [address] [place] [address] documented in this encounter Visit Diagnoses Diagnosis Chronic intractable headache, unspecified headache type documented in this encounter Additional Health Concerns Infection Onset Date Last Indicated Resolved Time COVID-19 Rule-Out 02/24/2020 02/24/2020 07/11/2020 8:12 PM EST COVID-19 Rule-Out 02/25/2020 02/25/2020 02/26/2020 5:11 PM EDT COVID-19 Rule-Out 03/01/2020 03/01/2020 03/03/2020 12:13 PM EDT COVID-19 Rule-Out 03/08/2020 03/08/2020 03/08/2020 7:00 PM EDT COVID-19 Rule-Out 03/09/2020 03/09/2020 03/09/2020 2:21 PM EDT COVID-19 Rule-Out 03/23/2020 03/23/202003/24/2020 7:16 AM EDT COVID-19 Rule-Out 08/10/2020 08/10/2020 08/10/2020 6:30 AM EDT documented as of this encounter Care Teams Special Needs Child Caregiver Relationship Specialty Start Date End Date Jannette Amezcua MD [address] [place] [address] PCP - General Internal Medicine 08/05/19 02/28/21 Marleen Vanessa MD [address] [address] PCP - General Internal Medicine 06/27/21 11/19/24 Van Paige MD [address] [address] PCP - General Family Medicine 11/20/24 documented as of this encounter
--- OUTSIDE RECORDS SUMMARY | 2025-02-24 05:11 | XMS_ITS | Clinical Summary ---
Author Organization [facility] Address [address] [place] [address] Care Team Providers Care Conical Mixer Name Role Phone Van Paige MD Primary Care Provider [phone] Allergies Active Allergy Reactions Criticality Noted Date Comments Cephalosporins 05/12/2012 Chlorpheniramine-Hydrocodo ne Chlorphen-phenyleph- hydrocodon per outside record Clindamycin Nausea/GI Upset Vomiting and abdominal pain per outside record Codeine 01/19/2016 Environmental 01/19/2016 Pollen, mold, dust, dander Epinephrine Tachycardia per outside record Erythromycin 01/19/2016 All mycins Metronidazole 01/19/2016 Food 01/19/2016 Hazelnuts Hc Tussive 05/12/2012 Mold 01/19/2016 Penicillins Per outside records Sulfa Antibiotics 01/19/2016 Oral drugs Sulfasalazine Nausea/GI Upset And vomiting per outside record Troleandomycin Nausea/GI Upset And vomiting per outside record Medications * This document contains information received from the source organization and may not represent a complete record from that organization. Artificial Saliva (Biotene Dry Mouth Moisturizing) Solution Take 1 application by mouth if needed 0 Active Cholecalciferol (VITAMIN D-3) 25 MCG (1000 UT) capsule Take one capsule (1,000 Units total) by mouth 1 (one) time each day 1 Active Levothyroxine Sodium (SYNTHROID, LEVOTHROID) 75 MCG tablet Take 75 mcg by mouth 1 Active Omeprazole (PriLOSEC) [address] capsule 2 Active Oxybutynin Chloride (DITROPAN-XL) 15 MG 24 hr tablet Take 15 mg by mouth 1 Active Spironolactone (ALDACTONE) 50 MG tablet Take 50 mg by mouth 1 (one) time each day 2 Active Baclofen (LIORESAL) 20 MG tablet 20 mg if needed. 4 Active Meclizine HCl (ANTIVERT) 25 MG tablet 25 mg if needed. 3 Active Atogepant (Qulipta) 30 MG TabIndications: Intractable chronic migraine without aura and without status migrainosus Take 1 tablet by mouth 1 (one) time each day. 30 tablet 1 4 Active Additional Information Patient not taking.Reported on 11/20/2024 Gabapentin (NEURONTIN) 300 MG capsule take 1 capsule by mouth at bedtime. 30 capsule 3 4 Active Additional Information Patient not taking.Reported on 11/20/2024 Rizatriptan Benzoate (MAXALT) 10 MG tabletIndicatio ns:Intractable chronic migraine without aura and without status migrainosus Take one tablet (10 mg total) by mouth 1 (one) time if needed for migraine May repeat in 2 hours if unresolved. Do not exceed 30 mg in 24 hours.. 9 tablet 5 4 01/26/20 25 Additional Information Patient not taking.Reported on 11/20/2024 Active Problems Problem Noted Date Diagnosed Date Intractable chronic migraine without aura and without status migrainosus 03/26/2022 Vertigo 06/27/2021 Imbalance 06/27/2021 Sensorineural hearing loss (SNHL), bilateral 05/2021 Tinnitus, bilateral 06/27/2021 Vitamin D deficiency 10/03/2020 Calcification of aorta 02/09/2020 Overview (02/09/2020): See 12/07/2019 cxr: Calcification of the thoracic aorta. Hypothyroidism 02/11/2019 Overview (11/19/2019): 11/19/2019 Pharmacologically managed on Levothyroxine 75 mcg. Check TSH today. Noncompliance with medication regimen 11/14/2017 Overview (06/09/2018): Last Assessment & Plan: She stopped her hydrochlorothiazide 50 mg and doubled her spironolactone without consulting. She was informed of the risk of hyperkalemia especially because she has at least sometimes been taking a potassium supplement. She will go for follow-up labs today Anxiety disorder 10/30/2017 Overview (02/11/2019): On med prn Chronic fatigue syndrome 10/30/2017 Hyperlipidemia 10/30/2017 Overview (02/11/2019): Declines statin Personality disorder 10/30/2017 Overview (06/09/2018): Last Assessment & Plan: Complex patient with apparent psychiatric and medical comorbidities. My overwhelming impression is of a personality disorder, likely borderline. I recommended a referral to psychiatrist which she refused. She does not show signs of being unsafe with herself or others. Urinary incontinence 10/30/2017 Overview (02/11/2019): On med Varicose veins of both legs with edema 8 Overview (06/09/2018): Last Assessment & Plan: We'll complete PT 1 form. Hopefully records will be sent from vascular after she sees them Bipolar disorder 12/26/2016 IBS (irritable bowel syndrome) 12/10/2016 Overview (11/19/2019): 11/19/2019 Predominantly constipation. Manages with diet. Will utilize colace as needed. Continue. PTSD (post-traumatic stress disorder) 12/10/2016 GERD (gastroesophageal reflux disease) 7 Overview (11/19/2019): 11/19/2019 Pharmacologically managed on Omeprazole 40 mg daily. Continue. OMAR (obstructive sleep apnea) 11/30/2016 Overview (02/11/2019): On CPAP Peripheral neuropathy 11/30/2016 Overview (02/11/2019): On Gabapentin Insomnia 01/19/2016 Fibromyalgia 01/28/2014 Overview (02/11/2019): chronic Osteoarthritis of lumbar spine 01/28/2014 Overview (02/11/2019): Chronic back pain HTN (hypertension) 05/12/2012 Overview (11/19/2019): 11/19/2019 Pharmacologically managed on Spironolactone 50 mg daily. BP controlled in the office today. Check CMP today. Continue. Obesity, unspecified 05/12/2012 Resolved Problems Problem Noted Date Diagnosed Date Resolved Date Mold exposure 03/28/2018 02/15/2020 Hypokalemia 10/31/2017 09/30/2020 Overview (11/19/2019): 11/19/2019 Check CMP today. 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 Otherwise no significant exacerbations. Continue. Chronic bronchitis 11/30/2016 1 Pain in extremity 11/09/2016 09/30/2020 Paresthesia 02/09/2016 02/11/2019 Overview (02/11/2019): On Gabapentin Chronic migraine 01/19/2016 09/30/2020 Overview (02/24/2021): Stable on med prn Memory impairment 01/19/2016 09/30/2020 Overview (07/28/2018): On namenda in the past Tachycardia 05/12/2012 09/30/2020 Overview (06/09/2018): Overview: 11/04 30 day loop recorder did not show any evidence of any arrhythmias despite multiple pt submissions, Max HR was 112 BPM Encounters Date Type Department Care Team Description 02/09/2025 Telephone [facility] Neurology [address] [place] [address] Henrik Nelson MD Results (MRI) 02/08/2025 Minor Procedure/Test NON FC SA NON FC UNK Provider, Unknown 12/02/2024 Telephone [facility] Neurology [address] [facility] [address] [place] [address] Henrik Nelson MD FYI 11/30/2024 Telephone [facility] Neurology [address] [facility] [address] [place] [address] Henrik Nelson MD Imaging Study (MRI/MRA) from Last 3 Months Immunizations Immunization Administration Dates Next Due COVID-19, mRNA (Pfizer Pre F all 2022) Monovalent, 30 mcg/0.3 ml 06/23/2020,06/02/2020 Influenza,injectable,quad,Prsrv Fr 04/05/2022, Tdap 03/02/2010 Family History Medical History Relation Name Comments Heart Disorder Father elderly Hypertension Mother Other Mother Parkinsons Relation Name Status Comments Father Mother Alive Social History Tobacco Use Types Packs/Day Years [...] Sign Reading Time Taken Comments Blood Pressure 122/84 11/20/2024 2:52 PM EDT Pulse 102 11/20/2024 2:52 PM EDT Temperature 36.4 C (97.5 F) 10/29/2020 1:31 PM EDT Respiratory Rate 16 10/29/2020 1:31 PM EDT Oxygen Saturation 98% 10/29/2020 1:31 PM EDT Inhaled Oxygen Concentration - - Weight 113 kg (250 lb) 01/15/2023 8:52 AM EDT Height 155.6 cm (5' 1.25 ) 11/19/2019 12:52 PM E DT Body Mass Index 46.85 11/19/2019 12:52 PM EDT Plan of Treatment Health Maintenance Due Date Last Done Comments Mammogram/Breast Imaging 1999 Colon Cancer Screening 10/06/2004 Pneumococcal 50+ years (1 of 1 - PCV) 10/06/2009 Zoster (Shingrix) (1 of 2) 10/06/2009 RSV (1 - Risk 60-74 years 1-dose series) 2019 DTaP/Tdap/Td (2 - Td or Tdap) 03/02/2020 03/02/2010 Bone Density 10/06/2024 COVID-19 Vaccine (3 - season) 2025 06/23/2020, 06/02/2020 Influenza (#1) 2025 04/05/2022, 07/2020, 04/08/2020 Eye/Retina Exam Discontinued 03/30/2015 Hepatitis C Screening Completed 08/25/2018, 019 LDL Cholesterol Discontinued 08/14/2023, 07/26, 12/19/2022, Additional history exists EKG Discontinued 09/28/2024, 05/28, 07/27/2019, Additional history exists Chest Imaging Discontinued 10/28/2024, 06/0 08/2024, 10/28/2024, Additional history exists HPV Vaccine (No Doses Required) Completed Hep A Aged Out No longer eligi ble based on patient's age to complete this topic Hep B Aged Out No longer eligi ble based on patient's age to complete this topic Hib Aged Out No longer eligi ble based on patient's age to complete this topic Meningococcal ACWY Aged Out No longer eligible based on patient's age to complete this topic Pap Smear Discontinued Zoster (Zostavax) Discontinued Goals Goal Patient Goal Type Associated Problems Recent Progress Patient-Stated? Author Blood Pressure < 140/90 Blood Pressure 122/84(2024 2:52 PM EDT) Maira Beauchamp, [employer] Note: Above is your goal for blood [...] includes whole-grain products, fish, poultry, and nuts. Procedures * Due to [place] state law, this organization might not be sharing negative HIV tests. Procedure Name Priority Date/Time Associated Diagnosis Comments MRI OF BRAIN W/WO CONTRAST 02/08/2025 MRI OF BRAIN W/WO CONTRAST 02/08/2025 LIPID PANEL WITH REFLEX TO DIRECT LDL Routine 09/30/2020 10:20 AM EDT Calcification of aorta XR CHEST PORTABLE 1 VW 03/09/2020 2:11 PM EDT HEPATITIS C ANTIBODY W/REFLEX TO HCV RNA, QUANTITATIVE PCR Routine 08/25/2018 6:55 PM EDT EKG-USE ONLY IN READYMED/OCC MED/CARDIO Routine 06/04/2018 10:42 AM EST Hypokalemia from Last 3 Months or Most Recently Relevant to Health Maintenance Results * Due to [place] state law, this organization might not be sharing negative HIV tests. * MRI OF BRAIN W/WO CONTRAST (02/08/2025) Only the most recent of2 resultswithin the time period is included. 02/08/2025 Narrative 02/08/2025 Ordered by an unspecified provider. us Unknown Provider CONTRAST STUDY- OTHER Final Res ult * (ABNORMAL) LIPID PANEL WITH REFLEX TO DIRECT LDL (09/30/2020 10:20 AM EDT) Cholesterol 215(H) <200 mg/dL [facility] HDL Cholesterol 52 > OR = 50 mg/dL [facility] Triglyceride 107 <150 mg/dL [facility] LDL Cholesterol 141(H) mg/dL (calc) [facility] Comment: Reference range: [...] LDL-C. Chidi PEREZ et al. HYACINTH. 2013;310(19): 4705-6128 (http://education.[employer]/faq/JMY539) CHOL/HDL Ratio 4.1 <5.0 (calc) [facility] Cholesterol Non-HDL 163(H) <130 mg/dL (calc) [facility] Comment: For patients with diabetes plus 1 major ASCVD risk factor, treating to a non-HDL-C goal of <100 mg/dL (LDL-C of <70 mg/dL) is considered a therapeutic option. 09/30/2020 10:2 0 AM EDT 09/30/2020 5:35 PM EDT Narrative Resulting Agency Comment [id number] us Jannette Amezcua MD LABORATORY Final Result [facility] [address] [place] [address] * XR CHEST PORTABLE 1 VW (03/09/2020 2:11 PM EDT) Anatomical Region Laterality Modality Other 03/09/2020 2:11 PM EDT Narrative 03/09/2020 2:11 PM EDT COMPARISON: 03/08/2020 FINDINGS: Lines/Tubes/Devices: Telemetry leads project over the thorax. Lungs: The lungs are markedly hypoaerated. There are patchy bibasilar airspace opacities, most notable in the left lower lobe. Pleura: No pleural effusion or pneumothorax. Heart and Mediastinum: The cardiac and mediastinal contours are normal for technique. Bones: The included skeleton is unchanged. IMPRESSION: Hypoaerated lungs with bibasilar airspace opacities that may represent atelectasis or aspiration/pneumonia in the appropriate clinical context. [id number] Procedure Note [facility], Unknown Provider - 03/09/2020 COMPARISON: 03/08/2020 FINDINGS: Lines/Tubes/Devices: Telemetry leads project over the thorax. Lungs: The lungs are markedly hypoaerated. There are patchy bibasilarairspace opacities, most notable in the left lower lobe. Pleura: No pleural effusion or pneumothorax. Heart and Mediastinum: The cardiac and mediastinal contours are normal fortechnique. Bones: The included skeleton is unchanged. IMPRESSION: Hypoaerated lungs with bibasilar airspace opacities that may representatelectasis or aspiration/pneumonia in the appropriate clinical context. [id number] us Unknown Provider [facility] Final Resu lt * HEPATITIS C ANTIBODY W/REFLEX TO HCV RNA, QUANTITATIVE PCR (08/25/2018 6:55 PM EDT) Hepatitis C virus Ab NON-REACTI VE NON-REACT SNADRA [facility] Hepatitis C virus Ab Signal/Cutoff 0.01 <1.00 [facility] Comment: HCV antibody was non-reactive. There is no laboratory evidence of HCV infection. In most cases, no further action is required. However, if recent HCV exposure is suspected, a test for HCV RNA (test code 66077) is suggested. For additional information please refer to http://education.[employer]/faq/DXH74k0 (This link is being provided for informational/ educational purposes only.) 08/25/2018 6:55 PM EDT Narrative [facility] - 08/26/2018 3:40 PM EDT [facility] Received Date: us Unknown Provider [facility] LABORATORY Final Resu lt Performing Organization Address [facility] Co de Phone Number [facility] [employer] [address] [place] [address] * EKG-USE ONLY IN READYMED/OCC MED/CARDIO OR AGE <18 (06/04/2018 10:42 AM EST) VENTRICULAR RATE 61 BPM MUS E EKG SYSTEM ATRIAL RATE 61 BPM MUSE EKG SYSTEM P-R INTERVAL 136 ms MUSE EK G SYSTEM QRS DURATION 78 ms MUSE EK G SYSTEM QT 434 ms MUSE EKG SYSTEM QTC 436 ms MUSE EKG SYSTEM P AXIS 11 degrees MUSE EKG SYSTEM R AXIS 10 degrees MUSE EKG SYSTEM T AXIS 50 degrees MUSE EKG SYSTEM EKG INTERPRETATION Normal sinus rhythm Normal ECG No previous ECGs available Confirmed by KYLIE PACHECO ([id number]) on 06/04/2018 12:38:44 PM MUSE EKG SYSTEM 06/04/2018 10:4 2 AM EST 06/04/2018 12:38 PM EST us Glenn [facility] CARDIOVASCULAR-WITH INBSKT RTG F inal Result Performing Organization Address City/[facility] Co de Phone Number MUSE EKG SYSTEM from Last 3 Months or Most Recently Relevant to Health Maintenance Insurance MEDICARE PART B MEDICAID MEDICARE PART B Care Teams Conical Mixer Relationship Specialty Start Date End Date Van Paige MD [address] [address] PCP - General Family Medicine 11/20/24
--- OUTSIDE RECORDS SUMMARY | 2025-02-24 05:11 | XMS_ITS | Encounter Summary ---
Author Organization [facility] Address [address] [place] [phone] Phone Care Team Providers Care Bottle Inspector Name Role Phone Marleen Vanessa MD Primary Care Provider [phone] Van Paige MD Primary Care Provider [phone] Van Paige MD Primary Care Provider [phone] Pcp, Not Required Primary Care Provider Unavaila ble Van Paige MD Primary Care Provider [phone] Van Paige MD Unavailable Encounter Details Date Type Department Care Team (Late st Contact Info) Description 07/26/2023 Procedure Pass [facility] Endoscopy Admitting Dept Virtual Department [address] [place] [address] [phone] Social History Tobacco Use Types Packs/Day Years [...] Time PHQ-2 Depression Total Score: 1 12/14/19 12:01 PM EDT documented as of this encounter Care Teams Bottle Inspector Relationship Specialty Start Date End Date Marleen Vanessa MD [address] [place] [address] JOSE MARTIN [place] [phone] [email or web address] PCP - General Family Medicine 03/21/21 10/28/23 Van Paige MD [address] [place] [address] JOSE MARTIN [place] [phone] [email or web address] PCP - General Family Medicine 10/29/23 10/31/23 Van Paige MD [address] [place] [address] JOSE MARTIN [place] [phone] [email or web address] PCP - General Family Medicine 11/05/23 11/18/23 Pcp, Not Required [address] [place] [address] PCP - General 02/15/24 03/26/24 Van Paige MD [address] [place] [address] JOSE MARTIN [place] [phone] [email or web address] PCP - General Family Medicine 03/27/24 Van Paige MD [address] [place] [address] JOSE MARTIN [place] [phone] [email or web address] Insurance Assigned Provider 08/30/24 documented as of this encounter Additional Source Comments The information contained in this document represents components of the legal health record. It is not the complete legal health record.[facility]
--- OUTSIDE RECORDS SUMMARY | 2025-02-24 05:11 | XMS_ITS | Encounter Summary ---
Author Organization [facility] Address [address] [place] [address] [place] [address] Phone Care Team Providers Care Graphic Design Assistant Name Role Phone Van Paige MD Primary Care Provider Van Paige MD Unavailable Reason for Visit * Reason Onset Date Comments Appointment 12/08/2024 Encounter Details Date Type Department Care Team ([facility] st Contact Info) Description 12/08/2024 Telephone [facility] [address] [place], [place] [phone] Van Paige MD [address] [facility] [address] [place] [address] [email or web address] Appointment Social History Tobacco Use Types Packs/Day Years [...] your housing situation today? I have concepcion sing 10/20/2024 How many times have you moved [...] as of this encounter Progress Notes * Femi Corbin - 12/08/2024 1:44 PM EDT Pt called to rescheduled her discharge follow up appt on 12/09, she take sthe bus and the heat willbe too much for her. She is asking to reschedule to earlier in the day, or for tor [id number]. Pt declined an AM appt on 12.15 and other PM appts. Please contact and advise. See 11/18 REDtriage encounter. Central Support [employer] (Please do not reply to this user; this inbox is not monitored.) Thank you. documented in this encounter Plan of Treatment Not on file documented as of this encounter Visit Diagnoses Not on filedocumented in this encounter Additional Health Concerns Assessment Noted Time PHQ-2 Depression Total Score: 0 10/29/19 1:56 PM EDT documented as of this encounter Care Teams Graphic Design Assistant Relationship Specialty Start Date End Date Van Paige MD [address] [facility] [address] [place] [address] PCP - General Family Medicine 03/27/24 Van Paige MD [address] [facility] [address] [place] [address] Insurance Assigned Provider 08/30/24 documented as of this encounter Additional Source Comments The information contained in this document represents components of the legal health record. It is not the complete legal health record.[facility]
--- OUTSIDE RECORDS SUMMARY | 2025-02-24 05:11 | XMS_ITS | Encounter Summary ---
Author Organization [facility] Address [address] [place] [address] Care Team Providers Care Director Cpg Name Role Phone Naila Ventura NP Primary Care Provider [phone] Jannette Amezcua MD Primary Care Provider [phone] Marleen Vanessa MD Primary Care Provider [phone] Van Paige MD Primary Care Provider [phone] Encounter Details Date Type Department Care Team (Late st Contact Info) Description 02/11/2019 Orders Only [facility] [address] [place] [phone] Juli Carey PA Social History Tobacco Use [...] Progress Notes * Juli Carey PA - 02/12/2019 7:55 AM EDT Forwarding result to PCP documented in this encounter Plan of Treatment Not on file documented as of this encounter Goals Goal Patient Goal Type Associated Problems Recent Progress Patient-Stated? Author Blood Pressure < 140/90 Blood Pressure 122/84(2024 2:52 PM EDT) aMira Beauchamp, [facility] Note: Above is your goal for blood [...] encounter Procedures * Due to [place] state law, this organization might not be sharing negative HIV tests. Procedure Name Priority Date/Time Associated Diagnosis Comments POTASSIUM, SERUM Routine 02/11/2019 2:49 PM EDT Hypokalemia documented in this encounter Results * Due to [place] [employer] law, this organization might not be sharing negative HIV tests. * POTASSIUM, SERUM (02/11/2019 2:49 PM EDT) Potassium 3.8 3.5 - 5.3 mmol/L [facility] 02/11/2019 2:49 PM EDT 02/12/2019 12:14 AM EDT Narrative Resulting Agency Comment [id number] Juli [facility] SAME DAY RESULT Final Result [facility] [address] [place] [address] documented in this encounter Visit Diagnoses Diagnosis Hypokalemia Hypopotassemia documented in this encounter Additional Health Concerns [...] documented as of this encounter Care Teams Director Cpg Relationship Specialty Start Date End Date Naila Ventura NP [address] [place] [id number] PCP - General Internal Medicine 09/10/18 08/04/19 Jannette Amezcua MD [address] [place] [id number] PCP - General Internal Medicine 08/05/19 02/28/21 Marleen Vanessa MD [address] [address] PCP - General Internal Medicine 06/27/21 11/19/24 Van Paige MD [address] [address] PCP - General Family Medicine 11/20/24 documented as of this encounter
--- OUTSIDE RECORDS SUMMARY | 2025-02-24 05:11 | XMS_ITS | Encounter Summary ---
Author Organization [facility] Address [address] [place] [address] Care Team Providers Care Lamp Tester And Inspector Name Role Phone Jannette Amezcua MD Primary Care Provider [phone] Marleen Vanessa MD Primary Care Provider [phone] Van Paige MD Primary Care Provider [phone] Reason for Visit * Reason Comments Follow Up Encounter Details Date Type Department Care Team (Late st Contact Info) Description 10/16/2019 Telephone [facility] Neurology [address] [address] Henrik Nelson MD [address] [place] [address] Follow Up Social History Tobacco Use Types Packs/Day Years [...] encounter Miscellaneous Notes * Telephone Encounter - Thais Whittaker RN - 10/26/2019 9:39 AM EDT Gave exact message below from Dr. Contreras. Angela understands the plan below and thanked Dr. Contreras for being so concerned. NEW PROBLEM: Had nerve block in past for Sciatica per patient. Still having sx of sciatica; left side; midway between her hip and knee. Left side started 2 months ago when she was leaning over her bed to change sheet. She believes it's definitely sciatica and intermittent at that time. Recent symptoms left side worsening. Has nerve block when age 31. Asking if she should get a nerve block? She would be willing to have physical therapy. She is not currently taking anything for the pain. She takes Naproxen for her headaches and when taking this the sciatica pain is still there. At one time she was taking Fioricet for the pain of sciatica and said did not help. Please advise. * Telephone Encounter - Gisell Simpson RN - 10/23/2019 9:29 AM EDT Pt is to call back * Telephone Encounter - Thais Whittaker RN - 10/22/2019 12:04 PM EDT Ca#1; left vm for patient to return call. * Telephone Encounter - Henrik Nelson MD - 10/22/2019 10:06 AM EDT When she calls back, please inform: I reviewed [facility] admission records. Her (patient) coronavirus PCR was positive, hence she was diagnosed with COVID-19. She was diagnosed with pneumonia secondary to key virus which was treated. Her treating physicians will contact other doctors if they need more information. Me calling them and discussing further especially when I did not make a referral or send her there, is not acceptableand hence I apologize I can not make the call. I am unable to influence their management plan. As for getting a new PCP, she will have to call [facility] and ask. I am sorry I cant be of much help. I wish her and her mother well. * Telephone Encounter - Gisell Simpson RN - 10/22/2019 9:16 AM EDT FYI: Pt has been in the [facility] in [place]. She has been there for 5 1/2 weeks States the doctor is not beliving her that mold can cross the blood - brain barrier and is trying to put her on depakote She is asking that Dr Nelson call the doctor there. She will call back with the phone number She is asking for a referral [facility]. They are giving her Olansoprine for sleep. 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 She is upset that she is not on a mold free diet while she is there. States the food is giving her diarrhea She is afraid that the mold is going to kill her States she is going to be homeless once discharged because she cannot go back to the house she was living in due to mold States she was in [facility] with fungal pneumonia caused by mold and they treated her with antibiotic which will not cure the fungal pneumonia- notes are in epic. Her mother is in [facility] with COVID and not doing well. She is upset with this as well. Spent several minutes on the phone with her * Telephone Encounter - Gisell Simpson RN - 10/21/2019 10:38 AM EDT 2nd Message left for patient to return my call. * Telephone Encounter - Anjali Miller RN - 10/16/2019 4:55 PM EDT LMOM for call back * Telephone Encounter - Francy Maldonado - 10/16/2019 4:30 PM EDT Angela is in a field house in [place] and they are trying to give her psych pills. She's desperate fora call back. Call vikash documented in this encounter Plan of Treatment Not on file documented as of this encounter Goals Goal Patient Goal Type Associated Problems Recent Progress Patient-Stated? Author Blood Pressure < 140/90 Blood Pressure 122/84(2024 2:52 PM EDT) Maira Beauchamp, [facility] Note: Above is your goal for blood [...] documented as of this encounter Care Teams Lamp Tester And Inspector Relationship Specialty Start Date End Date Jannette Amezcua MD [address] [place] [id number] PCP - General Internal Medicine 08/05/19 02/28/21 Marleen Vanessa MD [address] [address] PCP - General Internal Medicine 06/27/21 11/19/24 Van Paige MD [address] [address] PCP - General Family Medicine 11/20/24 documented as of this encounter
--- OUTSIDE RECORDS SUMMARY | 2025-02-24 05:11 | XMS_ITS | Encounter Summary ---
Author Organization [facility] Address [address] [place] [address] [place] [address] Phone Care Team Providers Care White Sugar Syrup Operator Name Role Phone Van Paige MD Primary Care Provider [phone] Van Paige MD Unavailable Reason for Visit * Reason Onset Date Comments Leg Pain 03/27/2024 Red Call Encounter Details Date Type Department Care Team ([facility] st Contact Info) Description 03/27/2024 Nurse Triage [address] [address] Van Paige MD [address] [place] [address] [address] [place] [address] [email or web address] Leg Pain (Red Call) Social History Tobacco Use Types Packs/Day Years [...] as of this encounter Progress Notes * Van Paige MD - 03/30/2024 3:28 PM EST Please see general practice note in chart from November 20, 2023 informing patient that I will not be her PCP moving forward. It should have been switched in the computer at that time (and it was) but itlooks like somebody switched it back to me without my knowledge on March 27. Please advise. * Alanna Myers RN - 03/30/2024 2:53 PM EST Nurse Triage Encounter Note Reason for Triage Angela Hicks contacted office for Leg Pain Red Call Spoke with Angela, she c/o Right leg/hip pain, fell 2 weeks ago, lost balance in parking lot, fell onbutt, now has to move in a special way to get in & out of the car. Needs a new PT1 form as well. Appointment scheduled for 04/[address] Paige. Call Disposition Schedule Visit With 3 Business Days Disposition Comments: Patient/caregiver understands and will follow disposition: Yes Initial Symptom Screening and Assessment IA Symptom Onset More than a week Symptom Pattern Constant/continuous Aggravating factors or triggers Fall Extremities Neck/Back Symptoms (Musculoskeletal) Musculoskeletal Symptoms Joint pain; Mobility problems Musculoskeletal Injury? Yes Did you fall? Yes Date 03/16/24 Recurrant symptom or condition? No Does the pain radiate to elsewhere? No Weakness? No Numbness or loss of sensation? No Care Advice Patient/Caregiver understands and will follow care advice?: Yes, plans to follow advice Leg [id number] Alanna Myers RN Mon Mar 30, 2024 03:09 PM Disposition and First Aid SEE IN OFFICE WITHIN 3 DAYS: * You need to be examined. * Let me give you an appointment. Leg Pain - General Care Advice REASSURANCE AND EDUCATION - LEG PAIN: * Usually leg pain is not serious. You have told me that there is no redness, numbness, or swelling. * Causes of leg pain can include a strained muscle, a forgotten minor injury, and tendonitis. * Here is some care advice that should help. PAIN MEDICINES: * For pain relief, you can take either acetaminophen, ibuprofen, or naproxen. * They are kkha-kef-ihmyuam (OTC) pain drugs. You can buy them at the drugstore. * ACETAMINOPHEN - REGULAR STRENGTH TYLENOL: Take 650 mg (two 325 mg pills) by mouth every 4 to 6 hours as needed. Each Regular Strength Tylenol pill has 325 mg of acetaminophen. The most you should take each day is 3,250 mg (10 pills a day). * ACETAMINOPHEN - EXTRA STRENGTH TYLENOL: Take 1,000 mg (two 500 mg pills) every 8 hours as needed.Each Extra Strength Tylenol pill has 500 mg of acetaminophen. The most you should take each day is 3,000 mg (6 pills a day). * IBUPROFEN (E.G., MOTRIN, ADVIL): Take 400 mg (two 200 mg pills) by mouth every 6 hours. The most you should take each day is 1,200 mg (six 200 mg pills), unless your doctor has told you to take more. * NAPROXEN (E.G., ALEVE): Take 220 mg (one 220 mg pill) by mouth every 8 to 12 hours as needed. Youmay take 440 mg (two 220 mg pills) for your first dose. The most you should take each day is 660 mg(three 220 mg pills a day), unless your doctor has told you to take more. CALL BACK IF: * Moderate pain (e.g., limping) lasts more than 3 days * Mild pain lasts more than 7 days * Signs of infection occur (e.g., spreading redness, warmth, fever) * You become worse Muscle Strain and Overuse USE A COLD PACK FOR PAIN: * Put a cold pack or an ice bag (wrapped in a moist towel) on the area for 20 minutes. * Repeat in 1 hour, then every 4 hours while awake. * Continue this for the first 48 hours (2 days). * This will help decrease pain. * Caution: avoid frostbite. USE HEAT ON AREA AFTER 48 HOURS: * If pain or swelling last more than 48 hours (2 days), then use heat on the area. * Use a heat pack, heating pad, or warm wet washcloth. * Do this for 10 minutes three times a day. * This will help increase blood flow and improve healing. * Caution: Burn. Do not sleep on a heating pad. REST: * You should try to avoid any exercise or activity that caused this pain for the next 3 days. PAIN MEDICINES: * For pain relief, you can take either acetaminophen, ibuprofen, or naproxen. * They are oygr-bsi-icimssv (OTC) pain drugs. You can buy them at the drugstore. * ACETAMINOPHEN - REGULAR STRENGTH TYLENOL: Take 650 mg (two 325 mg pills) by mouth every 4 to 6 hours as needed. Each Regular Strength Tylenol pill has 325 mg of acetaminophen. The most you should take each day is 3,250 mg (10 pills a day). * ACETAMINOPHEN - EXTRA STRENGTH TYLENOL: Take 1,000 mg (two 500 mg pills) every 8 hours as needed.Each Extra Strength Tylenol pill has 500 mg of acetaminophen. The most you should take each day is 3,000 mg (6 pills a day). * IBUPROFEN (E.G., MOTRIN, ADVIL): Take 400 mg (two 200 mg pills) by mouth every 6 hours. The most you should take each day is 1,200 mg (six 200 mg pills), unless your doctor has told you to take more. * NAPROXEN (E.G., ALEVE): Take 220 mg (one 220 mg pill) by mouth every 8 to 12 hours as needed. Youmay take 440 mg (two 220 mg pills) for your first dose. The most you should take each day is 660 mg(three 220 mg pills a day), unless your doctor has told you to take more. CALL BACK IF: * Moderate pain (e.g., limping) lasts more than 3 days * Mild pain lasts more than 7 days * You become worse Patient will call back with additional questions or if symptoms change or worsen Alanna Myers RN Reason for Disposition and Assessment Reason for Disposition MODERATE pain (e.g., interferes with normal activities, limping) and present > 3 days Protocols used: Leg Dwep-IMIJE-VS * Jennifer Madera - 03/30/2024 12:28 PM EST Pt reached out please call pt at [phone]. [employer] Support Mortgage Lender (Please do not reply to this user; this inbox is not monitored.) Thank you. * Charlie Joe RN - 03/30/2024 9:07 AM EST Pt left message, requesting call back. * Omar Hernandez RN - 03/27/2024 4:32 PM EDT Left message with Angela * Ta Collins - 03/27/2024 4:02 PM EDT Pt stated that she is currently using a temporary phone, and is reachable at [phone]. Pt requested a call back and disconnected. Central Support Mortgage Lender (Please do not reply to this user; this inbox is not monitored.) Thank you. * Ta Collins - 03/27/2024 3:48 PM EDT Telephone Triage and Same-day Visit Scheduling Is this the first time the patient is calling in about this: yes or no or NA: No A. If note, ensure your TE is attached to the first TE message by adding an addendum. When the TE message is within 2 weeks of the call. Chief Complaint: Leg Pain Onset of symptom:Time; days: 1.5 weeks Comments: Pt stated that she is experiencing a shooting pain in her leg. Pt stated that she would need another PT1 form to attend any appt. Pt stated numerous other issues regarding recent health issues. Pt stated she also needs other paperwork completed. Patient Request: Appt [facility] Call Center CSS Agent (Please do not reply to this user, as this inbox is not monitored.) Thank you, documented in this encounter Plan of Treatment Not on file documented as of this encounter Visit Diagnoses Not on filedocumented in this encounter Additional Health Concerns Infection Onset Date Last Indicated Resolved Time CoV-Risk 08/10/2024 08/11/2024 08/22/2024 1:21 AM EDT Assessment Noted Time PHQ-2 Depression Total Score: 0 10/29/19 1:56 PM EDT documented as of this encounter Care Teams White Sugar Syrup Operator Relationship Specialty Start Date End Date Van Paige MD [address] [facility] [address] [place] [address] [email or web address] PCP - General Family Medicine 03/27/24 Van Paige MD [address] [facility] [address] [place] [address] [email or web address] Insurance Assigned Provider 08/30/24 documented as of this encounter Additional Source Comments The information contained in this document represents components of the legal health record. It is not the complete legal health record.[facility]
--- OUTSIDE RECORDS SUMMARY | 2025-02-24 05:11 | XMS_ITS | Clinical Summary ---
Author Organization [facility] Address [address] [place] [address] Care Team Providers Care Family Service Worker Name Role Phone Van Paige MD Primary Care Provider [phone] Allergies No known active allergies Medications Medication [...] (PriLOSEC) 40 MG capsule 0 08/07/2021 Active spironolactone (ALDACTONE) tablet 50 mg Take 1 tablet (50 mg total) by mouth. 0 06/02/2021 Active traZODone (DESYREL) 100 MG tablet 2 tablets (200 mg total). 0 03/06/2022 Active zolpidem (AMBIEN CR) 12.5 MG CR tablet Take 1 tablet (12.5 mg total) by mouth. 0 07/30/2023 Active rizatriptan (MAXALT) 10 MG tablet Take 1 tablet (10 mg total) by mouth daily as needed. 0 12/07/2022 01/25/2025 Social History Tobacco Use Types Packs/Day Years [...] (2 - Td or Tdap) 03/02/2020 03/02/2010 Fall Risk Assessment 10/06/2024 Osteoporosis Screening (DEXA Scan) 10/06/2024 Pneumococcal Vaccine (1 of 1 - PCV) 10/06/2024 COVID-19 Vaccine (3 - 2024-2 6 season) 2025 06/23/2020, 06/02/2020 Influenza Vaccine (#1) 2025 2, 03/29/2021 RSV [...] age to complete this topic Care Teams Family Service Worker Relationship Specialty Start Date End Date Van Paige MD [address] [place] [address] PCP - General Family Medicine 09/25/23
--- OUTSIDE RECORDS SUMMARY | 2025-02-24 05:11 | XMS_ITS | Encounter Summary ---
Author Organization [facility] Address [address] [place] [address] Phone Care Team Providers Care Shoe Worker Name Role Phone Van Paige MD Primary Care Provider Van Paige MD Unavailable Encounter Details Date Type Department Care Team ([facility] st Contact Info) Description 04/09/2024 Telephone [facility] [address] [place], [place] [id number] Dustin Garcia [place] [address] [place] [address] [email or web address] Social History Tobacco Use Types Packs/Day Years [...] documented as of this encounter Care Teams Shoe Worker Relationship Specialty Start Date End Date Van Paige MD [address] [facility] [address] [place] [address] [email or web address] PCP - General Family Medicine 03/27/24 Van Paige MD [address] [facility] [address] [place] [address] [email or web address] Insurance Assigned Provider 08/30/24 documented as of this encounter Additional Source Comments The information contained in this document represents components of the legal health record. It is not the complete legal health record.[facility]
--- OUTSIDE RECORDS SUMMARY | 2025-02-24 05:11 | XMS_ITS | Encounter Summary ---
Author Organization [facility] Address [address] [place] [address] Care Team Providers Care Sql Analyst Name Role Phone Naila Ventura NP Primary Care Provider [phone] Jannette Amezcua MD Primary Care Provider [phone] Marleen Vanessa MD Primary Care Provider [phone] Van Paige MD Primary Care Provider [phone] Encounter Details Date Type Department Care Team (Late st Contact Info) Description 07/27/2019 Orders Only [facility] [address] [place] [address] Naila Ventura NP [address] [place] [address] Social History Tobacco Use Types Packs/Day Years [...] EDT) Maira Beauchamp, [facility] Note: Above is your goal for blood [...] as of this encounter Visit Diagnoses Diagnosis Palpitations documented in this encounter Additional Health Concerns [...] documented as of this encounter Care Teams Sql Analyst Relationship Specialty Start Date End Date Naila Ventura NP [address] [place] [address] PCP - General Internal Medicine 09/10/18 08/04/19 Jannette Amezcua MD [address] [place] [address] PCP - General Internal Medicine 08/05/19 02/28/21 Marleen Vanessa MD [address] [id number] PCP - General Internal Medicine 06/27/21 11/19/24 Van Paige MD [address] [address] PCP - General Family Medicine 11/20/24 documented as of this encounter
--- OUTSIDE RECORDS SUMMARY | 2025-02-24 05:11 | XMS_ITS | Clinical Summary ---
Author Organization [facility] Address [address] [place] [address] Care Team Providers Care Jack Machine Operator Name Role Phone Van Paige Primary Care Provider [phone] Allergies Active Allergy Reactions Criticality Noted Date Comments Cephalosporins Unknown 05/12/2012 Eipafckty-Vldfehrku-Ljnca codon Unknown 05/12/2012 Clindamycin Nausea And Vomiting,Abdominal Pain,Indigestion,Vo miting 12/10/2016 Codeine Nausea And Vomiting,Abdominal Pain,Indigestion,Vo miting 11/30/2016 Severe upset stomach per pt Epinephrine Other (see comments),Tachycard ia 12/10/2016 tachycardia tachycardia Erythromycin Nausea And Vomiting 12/10/2016 GI distress GI distress Macrolide Antibiotics Nausea And Vomiting 12/01 Severe stomach upset per pt Metronidazole Abdominal Pain,Nausea,Vomitin g,Nausea And Vomiting 11/30/2016 Upset stomach per pt Mold Other (see comments) 03/13/2018 Upset stomach per pt. No Known Drug Allergies Unknown 05/12/2012 Penicillins Unknown 05/01/2018 Sulfa (Sulfonamide Antibiotics) Nausea,Nausea And Vomiting 05/12/2012 Upset stomach per pt Sulfasalazine Nausea And Vomiting 11/30/2016 Upset stomach per pt Upset stomach per pt Troleandomycin Nausea And Vomiting 12/01/2016 Severe stomach upset per pt Severe stomach upset per pt Medications * This document contains information received from the source organization and may not represent a complete record from that organization. triamcinolone acetonide (KENALOG) 0.1% creamIndications :Eczema, unspecified type Apply topically to the affected area 2 times a day. 85.2 g 1 8 Active senna (SENOKOT) 8.6 mg tablet Take 2 tablets (17.2 mg total) by mouth daily. 0 Active polyethylene glycol 3350 (MIRALAX) 17 gram packet Take 1 packet (17 g total) by mouth daily. Mix powder in 4 to 8 oz of water, juice, coffee, or tea. 0 Active miconazole 2% powder Apply topically to the affected area 2 times a day as needed for itching (rash). 0 Active lamoTRIgine (LaMICtal) 25 mg tablet Take 2 tablets (50 mg total) by mouth daily. 0 Active docusate sodium (COLACE) 100 mg capsule Take 1 capsule (100 mg total) by mouth 2 times a day. 0 Active acetaminophen (TYLENOL) 325 mg tablet Take 2 tablets (650 mg total) by mouth every 6 hours as needed for fever or pain. 0 Active levothyroxine (SYNTHROID, LEVOTHROID) 75 mcg tablet Take 1 tablet (75 mcg total) by mouth daily. 0 Active omeprazole (PriLOSEC) 20 mg capsule Take 20 mg by mouth daily. Active busPIRone (BUSPAR) 5 mg tablet Take 5 mg by mouth 3 times a day. Active melatonin 3 mg tablet Take 6 mg by mouth nightly. Active tamsulosin (FLOMAX) 0.4 mg capsule Take 0.4 mg by mouth nightly. Active traZODone (DESYREL) 150 mg tablet Take 150 mg by mouth nightly as needed for sleep (anxiety). Active ibuprofen (MOTRIN) 400 mg tablet Take 400 mg by mouth daily as needed for pain. Active simethicone (MYLICON) 80 mg chewable tablet Chew and swallow 80 mg by mouth every 8 hours as needed for flatulence. Active bisacodyL (DULCOLAX) 10 mg suppository Insert 10 mg into the rectum daily as needed for constipation. Active levETIRAcetam (KEPPRA) 500 mg tablet Take 1 tablet (500 mg total) by mouth 2 times a day for 6 days. 12 tablet 5 Active Active Problems Problem Noted Date Diagnosed Date SAH (subarachnoid hemorrhage) 10/28/2024 Assessment & Plan (10/28/2024 12:15 AM EDT): [facility] with small R frontal lobe SAH, no midline shift -NSGY c/s -rCTH 6 hrs -Keppra per NSGY recs -Completion panel II imaging Neck abrasion 10/28/2024 Assessment & Plan (10/28/2024 12:16 AM EDT): Seatbelt sign present, negative FAST -Completion panel II -CTA neck UTI due to extended-spectrum beta lactamase (ESBL) producing Escherichia coli 08/10/2020 Assessment & Plan (08/10/2020 12:39 AM EDT): 08/10/2020 Patient presents from [facility] for resistant UTI. Patient stated that a few days prior while at [place], she developed dysuria with no associated frequency or abdominal pain. She had a urinalysis performed there and was discharged to [facility]. She states she was called and informed that her urinalysis grew ESBL. Per review of paperwork, patient had urine culture performed 08/07 that showed positive nitrite, 3+ LE, 1+ bacteria, 27 WBC. Culture grew ESBL E.coli, resistant to all penicillin, cephalosporins, and aztreonam. Culture also grew <10,000 streptococcus. UA here showed positive nitrite, 3+ LE, 142 WBC and moderate bacteria. She was started on IV Meropenem -Continue IV Meropenem -Follow Urinary Cx -Tylenol PRN fever -ID Consult Abnormal urinalysis 08/09/2020 Assessment & Plan (08/10/2020 12:00 AM EDT): 08/09/2020 Patient presents from [facility] for resistant UTI. Patient stated that a few days prior while at [place], she developed dysuria with no associated frequency or abdominal pain. She had a urinalysis performed there and was discharged to [facility]. She states she was called and informed that her urinalysis grew ESBL. Per review of paperwork, patient had urine culture performed 08/07 that showed positive nitrite, 3+ LE, 1+ bacteria, 27 WBC. Culture grew ESBL E.coli, resistant to all penicillin, cephalosporins, and aztreonam. Culture also grew <10,000 streptococcus. UA here showed positive nitrite, 3+ LE, 142 WBC and moderate bacteria. She was started on IV Meropenem -Continue IV Meropenem -Follow Urinary Cx -Tylenol PRN fever -ID Consult Bipolar disorder 08/09/2020 Assessment & Plan (08/10/2020 12:39 AM EDT): 08/09/2020 Patient has a history of Bipolar disorder on Lamictal 50 mg daily, Buspar 5 mg TID -Continue Lamictal 50 mg daily -Continue Buspar 5 mg TID Urinary retention 03/13/2020 Assessment & Plan (08/10/2020 12:42 AM EDT): 08/10/2020 Patient has a history of urinary retention on Flomax 0.4 mg nightly -Continue Flomax 0.4 mg nightly Assessment & Plan (03/23/2020 7:06 PM EDT): Patient with overractive bladder on oxybutynin. 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 Required straight caths and pina placement on 03/12. Likely as patient has been in bed and not been up to bedpan given her malignant catatonia. Patient had L-spine MRI obtained 03/17 that was unremarkable and could not explain urinary retention. Her pina was removed 03/22, however several hours later she had not yet voided, though had no urge and failed bed anderson attempts. A follow up bladder scan revealed >700cc urine in bladder that was drained with straight cath once. She began to have spontaneous voids with bladder scan <200cc (03/23) - Monitor urinary retention -If 3 straight caths required, will insert pina (1 so far) -Flomax 0.4 once daily. - as condition improves will encourage out of bed to chair and commode with assistance Weakness 03/08/2020 Assessment & Plan (03/23/2020 7:05 PM EDT): Patient presented with weakness and AMS. Rigidity and clonus on exam initially. Given benzos with steady improvement. Still with some LE weakness and rigidity but improved compared to admission. Patient had MRI L-spine 03/17 with readings that could not explain weakness. She stopped the remainder of her exam C-spine, Brain for discomfort. Neurology consulted for continued lower extremity weakness and felt this is likely explained best by ongoing malignant catatonia however also recommend completing work up with MRI cervical spine without contrast. Psychiatry however felt symptoms could not be explained by improving catatonia. Symptoms improving with PT. - MRI C-spine - DJD with no evidence of cord compression. - PT eval Anxiety 01/28/2014 Assessment & Plan (08/10/2020 12:41 AM EDT): 08/09/2020 Patient has a history of Anxiety on Trazodone 150 mg nightly PRN, Buspar 5 mg TID -Continue Trazodone PRN -Continue Buspar 5 mg TID Migraine headache 01/28/2014 Assessment & Plan (03/18/2020 7:30 PM EDT): Patient with long hx of migraines for which she takes fioricet prn. Initially without PAYNE. Did develop very mild PAYNE, bilateral, no photophobia, neck stiffness, changes in vision, nausea, vomiting on 03/13/20 - will attempt to avoid fioricet - consider tylenol first line, motrin second line Obesity 01/28/2014 Osteoarthritis of lumbar spine 01/28/2014 Asthma 01/28/2014 Assessment & Plan (08/10/2020 12:40 AM EDT): 08/09/2020 Patient has a history of Asthma -Maintain O2 sats >92% Assessment & Plan (06/08/2018 6:27 PM EST): Likely COPD. Pt concerned for mold exposure, will discuss with her landlord Encouraged to keep PFT appointment as scheduled on 05/22/19. Follow up with pulmonary. Esophageal reflux 01/28/2014 Assessment & Plan (08/10/2020 12:39 AM EDT): 08/09/2020 Patient has a history of GERD on Prilosec 20 mg daily -Continue Prilosec 20 mg daily Hypothyroidism 01/28/2014 Assessment & Plan (08/09/2020 11:50 PM EDT): 08/09/2020 Patient has a history of Hypothyroidism on Levothyroxine 75 mcg daily -Continue Levothyroxine 75 mcg daily Assessment & Plan (03/13/2020 6:53 PM EDT): Chronic issue on synthroid 75mcg daily. TSH wnl - cont home med Assessment & Plan (06/08/2018 6:18 PM EST): Stable at this time. Continue with levothyroxine 100 mcg 1 tablet p.o. daily Hypertension 01/28/2014 Assessment & Plan (08/10/2020 12:38 AM EDT): 08/09/2020 Patient has a history of HTN previously on Spironolactone 50 mg daily. No longer on any AntiHTN medications -Monitor VS Q4H Assessment & Plan (03/13/2020 6:51 PM EDT): Patient has a history of HTN on spironolactone 50mg daily. Unclear why she is aldactone; possibly hx of hypokalemia. - cont spironolactone - monitor BMP Assessment & Plan (06/08/2018 6:17 PM EST): Continue on spironolactone as ordered. Potassium rich food is encouraged. Fibromyalgia 01/28/2014 Allergic rhinitis 01/11/2014 Myalgia and myositis 10/13/2012 Overweight 10/13/2012 Resolved Problems Problem Noted Date Diagnosed Date Resolved Date Encephalopathy 03/11/2020 03/24/2020 Assessment & Plan (03/22/2020 7:09 PM EDT): Patient with a history of severe depression presented with AMS, rigidity in setting of increasing zyprexa and trazodone doses. Initially concern for NMS vs serotonin syndrome vs malignant catatonia. Encephalitis/meningitis felt to be less likely. CT head negative on arrival. Covered empirically for meningitis/encephalitis initially. Given ativan in ED with improvement of rigidity. Admitted to neuro ICU. LP without findings consistent with infectious process with normal protein, normal glucose, and 1 WBC. Vit B12, folate, TSH wnl. CSF syphilis negative. EEG with diffuse slowing; no epileptiform activity noted. Continued on ativan scheduled with steady improvement in mental status and rigidity. Etiology felt to be 2/2 malignant catatonia, Now resolved with Section 12 status ended on 03/22/2020. Patient is medically clear for discharge and is awaiting social work and case management recommendations. - Continue ativan 1mg BID PO - Lamotrigine 50 daily - Trazadone 50 mg qhs plus 50 mg prn insomnia. - Negative HSV PCR for spinal fluid - MRI brain L-, C-spines w/ w/o contrast - neg for any actie findings. - neuro has since signed off - Encourage PO intake - psych following - PT involved Cholelithiasis 03/11/2020 03/24/2020 Assessment & Plan (03/13/2020 6:52 PM EDT): RUQ shows large gallstone impacted adjacent to the gallbladder neck resulting in mild distention of the gallbladder lumen. No abd complaints and exam benign. LFT's stable - Monitor abdominal symptoms - Regular diet - likely outpatient follow up for consideration of cholecystectomy Positive blood culture 03/11/202003/24 Assessment & Plan (03/11/2020 5:43 PM EDT): 03/08 blood cultures growing Staph epi in 1/2 bottles. Likely contaminant. No signs of infection. - No antibiotics indicated at this time Encounters Date Type Department Care Team Description 02/06/2025 Orders Only [facility] [address] [place] [address] Henrik Nelson MD 02/06/2025 Orders Only [facility] [address] [facility] [place] [address] Henrik Nelson MD Nontraumatic subarachnoid hemorrhage, unspecified (HCC) 01/13/2025 Orders Only [facility] [address] [facility] [place] [address] Henrik Nelson MD 01/13/2025 Orders Only [facility] Entrance A [address] [place] [address] Henrik Nelson MD Nontraumatic subarachnoid hemorrhage, unspecified (HCC) 01/13/2025 Orders Only [facility] Entrance A [address] [place] [address] Henrik Nelson MD 01/13/2025 Orders Only [facility] Entrance A [address] [place] [address] Henrik Nelson MD Nontraumatic subarachnoid hemorrhage, unspecified (HCC) 11/24/2024 Telephone [facility] [address] [place] [address] [phone] Shannon Zuñiga MD PhD from Last 3 Months Immunizations Immunization Administration Dates Next Due Influenza, Injectable, Quadr ivalent, Preservative Free 03/19/2020(Deferred: Patient Refused) Family History Medical History Relation Name Comments Coronary artery disease Father Depression Father Heart failure Father Hypertension Father Hyperlipidemia Mother Relation Name Status Comments Father Mother Social History Tobacco Use Types Packs/Day Years [...] Sign Reading Time Taken Comments Blood Pressure 102/65 10/28/2024 7:00 AM EDT Pulse 79 10/28/2024 8:02 AM EDT Temperature 36.7 C (98.1 F) 10/28/2024 8:02 AM EDT Respiratory Rate 17 10/28/2024 8:02 AM EDT Oxygen Saturation 98% 10/28/2024 8:02 AM EDT Inhaled Oxygen Concentration - - Weight 82.6 kg (182 lb) 02/10/2024 12:10 AM EDT Height 160 cm (5' 3 ) 08/10/2020 2:24 AM EDT Body Mass Index 32.24 08/10/2020 2:24 AM EDT Plan of Treatment Health Maintenance Due Date Last Done Comments Cologuard 1959 Colon Cancer Screening 1959 Colonoscopy 1959 FOBT / Fit Test 1959 HIV Screening 1959 HPV and Pap Smear 1959 Sigmoidoscopy 1959 Pneumococcal Vaccine: 50+ Years (1 of 2 - PCV) 10/06/1978 Mammogram 1999 Cervical Cancer Screening 01/20/2008 Pap Smear 01/20/2008 01/19/2005 Osteoporosis Screening 10/06/2009 Zoster Vaccines (1 of 2) 10/06/2009 RSV Vaccine (60+ years old and patients) (1 - Risk 60-74 years 1-dose series) 2019 DTaP,Tdap,and Td Vaccines (2 - Td or Tdap) 03/02/2020 03/02/2010 Alcohol/Substance Use Screening 05/27/2024 Depression Screening and Follow-Up 05/27/2024 Health Care Proxy Review 05/27/2024 Social Drivers of Health Annual Screening 05/27/2024 COVID-19 Vaccine ( season) 2025 06/23/2020, 06/02/2020 Influenza Vaccine (#1) 2025 , 03/29/2021, 04/08/2020 Basic Metabolic Panel 10/27/2025 10/27/2024 , 10/16/2024, 09/28/2024, Additional history exists Hepatitis C Screening Completed 08/25/2018 Hepatitis B Vaccines Aged Out No long er eligible based on patient's age to complete this topic Procedures * Due to [place] state law, this organization might not be sharing negative HIV tests. Procedure Name Priority Date/Time Associated Diagnosis Comments BASIC METABOLIC PANEL STAT 10/27/2024 11:49 PM EDT HEPATITIS C ANTIBODY W/REFLEX TO HCV RNA, QUANTITATIVE PCR STAT 08/25/2018 6:55 PM EDT PAP NO HPV, CONVERSION Routine 01/19/2005 10:40 AM EDT from Last 3 Months or Most Recently Relevant to Health Maintenance Results * Due to [place] state law, this organization might not be sharing negative HIV tests. * (ABNORMAL) Basic Metabolic Panel (10/27/2024 11:49 PM EDT) NA 138 135 - 145 mmol/L 10/28/2024 12:23 AM EDT [facility] K 4.1 3.5 - 5.3 mmol/L 10/28/2024 12:23 AM EDT [facility] Cl 107 98 - 107 mmol/L 10/28/2024 12:23 AM EDT [facility] CO2 21(L) 22 - 32 mmol/L 10/28/2024 12:23 AM EDT [facility] BUN 24(H) 7 - 23 mg/dL 10/28/2024 12:23 AM EDT [facility] Creatinine 0.83 0.50 - 1.20 mg/dL 10/28/2024 12:23 AM EDT [facility] Glucose 111(H) 65 - 99 mg/dL 10/28/2024 12:23 AM EDT [facility] Calcium 8.6 8.6 - 10.5 mg/dL 10/28/2024 12:23 AM EDT [facility] Anion Gap 10 5 - 15 10/28/2024 12:23 AM EDT [facility] eGFR 78 >=60 mL/min/1. 73m2 10/28/2024 12:23 AM EDT [facility] Comment:The estimated glomer ular filtration rate (eGFR) is calculated using a new formula developed by the NKF-ASN task force to eliminate race-based correction factors. The new formula uses serum/plasma creatinine, age, and gender to determine eGFR. A value below 60mls/min might indicate kidney disease and will be flagged. For additional information, see John et al, Am J Kidney Dis. 2021;79(2):268- 288, A Unifying Approach for GFR estimation: Recommendations of the NKF-ASN Task Force on Reassessing the Inclusion of Race in Diagnosing Kidney Disease . Blood Structure of peripheral vein / Unknown Venipuncture / Unknown 10/27/2024 11:49 PM EDT 10/27/2024 11:49 PM EDT Cecilia Cuellar MD LAB BLOOD ORDERABLES Final Re sult Performing Organization Address [facility]/ZIP Co de Phone Number [facility] [address] [place] [address], * Hepatitis C Antibody w/Reflex to HCV RNA, Quantitative PCR (08/25/2018 6:55 PM EDT) Hepatitis C Antibody NON-REACT SANDRA NON-REACT SANDRA 08/26/2018 3:40 PM EDT [facility] Signal To Cut-Off 0.01 <1.00 08/26/2018 3:40 PM EDT [facility] Comment: HCV antibody was non-reactive. There is no laboratory evidence of HCV infection. In most cases, no further action is required. However, if recent HCV exposure is suspected, a test for HCV RNA (test code 00804) is suggested. For additional information please refer to http://education.MobileSpaces/faq/CZO22l9 (This link is being provided for informational/ educational purposes only.) Blood specimen (specimen) Structure of peripheral vein / Unknown Venipuncture / Unknown 08/25/2018 6:55 PM EDT 08/25/2018 7:02 PM EDT Narrative [facility] - 08/26/2018 3:40 PM EDT [facility] Received Date: Alden Omer MD LAB BLOOD ORDERABLES Final R esult Performing Organization Address City/[facility]/ZIP Co de Phone Number SANDRO YAN [address] [place] [address] [address] Floor, [place] [address], [place] [phone] [facility] [address], [place] [address], * Pap no HPV (01/19/2005 10:40 AM EDT) Path Procedure TPGA ([id number]) 1 Edited by: [id number] LETHA [facility] Specimen Labeled As: 1 CERVICAL/ENDOCERVI DIANA CYTO MATERIAL - Edited by: [id number] NESHARE [facility] Diagnosis ThinPrep Pap Test Adequacy: Satisfactory for evaluation Interpretation: Negative for Intraepithelial Lesion or Malignancy Remarks/Recommenda tions: This is the result of a screening test with an inherent, but low, probability of false negative interpretation. Additional studies may be indicated in spite of a normal Pap test result. This Pap test was examined by the [facility], [employer], [place], [place]. This report was signed out at the [facility]. Edited by: [id number] NIKKI [facility] Gynecologic Clinical Data Specimen source:, THINPREP (CERVICAL ONLY) [facility] Gynecologic Clinical Data First date of LMP:, 4 MONTHS [facility] Gynecologic Clinical Data Months/years post menopause:, Y [facility] Marker 1 KELECHI GONZALES [facility] Marker 2 NILM,NILM [facility] Cc Results To JODEE BENJAMIN [id number] [facility] Signature REPORT SIGNED: KELECHI ALEMAN 01/24/05 [facility] Sign Out Audit KELECHI ALEMAN [id number] [place] [place] [id number] [facility] Cytology / Unknown 10:40 AM EDT 01/22/2005 10:40 AM EDT us Gisell Ceballos MD LAB HISTORICAL RESULTS Final Result [facility] [address] [place] [id number], from Last 3 Months or Most Recently Relevant to Health Maintenance Additional Health Concerns Infection Onset Date Last Indicated Multidrug resistant organisms ESBL 08/09/2020 08/09/2020 Insurance MEDICARE [employer]BI[employer] MEDICARE Advance Directives Documents on File Type Date Recorded Patient Automation Lead Expl anation MOLST/POLST 08/10/2020 8:18 AM 03-25-2020 MOLST/POLST 03/28/2020 4:09 PM 02/26/20 Health Care Proxy 03/15/2020 3:05 PM 02/25 * Full Code (Latest Code Status on File) Date Activated Date Inactivated Comments 08/10/2020 12:35 AM 08/12/2020 1:24 PM * Full Code Date Activated Date Inactivated Comments 03/09/2020 1:04 PM 03/24/2020 9:16 PM * Presumed Full Code Date Activated Date Inactivated Comments 03/08/2020 11:12 PM 03/09/2020 1:04 PM Healthcare Agents on File Name Relationship Healthcare Agent [facility] Zaki Hicks [facility] Health Care Agent Care Teams Jack Machine Operator Relationship Specialty Start Date End Date Van Paige PCP - General Family Medicine 10/18/23
--- OUTSIDE RECORDS SUMMARY | 2025-02-24 05:11 | XMS_ITS | Clinical Summary ---
Author Organization [facility] Address [address] [place] [address] Phone Care Team Providers Care Railroad Car Truck Builder Name Role Phone Van Paige MD Primary Care Provider [phone] Allergies No known active allergies Immunizations Immunization Administration Dates Next Due Pfizer SARS-CoV-2 COVID-19, [...] 06/21/2023 Social Influencers of Health Screening 06/21/2023 Depression Screening 05/27/2024 Falls Risk Assessment 10/06/2024 COVID-19 Vaccine (3 - season) 2025 06/23/2020, 06/02/2020 Influenza Vaccine (#1) 2025 04/05/2022, 2020 Hypertension/CHF/CAD [...] mmol/L LAB CHEMISTRY METHOD 06/21/2024 11:42 AM [facility] Potassium 4.2 3.5 - 5.5 mmol/L LAB CHEMISTRY METHOD 06/21/2024 11:42 AM [facility] Comment:Hemolysis present Chloride 110 96 - 110 mmol/L LAB CHEMISTRY METHOD 06/21/2024 11:42 AM [facility] CO2 25 21 - 32 mmol/L LAB CHEMISTRY METHOD 06/21/2024 11:42 AM [facility] Anion Gap 4 3 - 11 LAB CHEMISTRY METHOD 06/21/2024 11:42 AM [facility] Glucose 99 70 - 100 mg/dL LAB CHEMISTRY METHOD 06/21/2024 11:42 AM [facility] BUN 14 5 - 25 mg/dL LAB CHEMISTRY METHOD 06/21/2024 11:42 AM [facility] Creatinine 0.78 0.50 - 1.10 mg/dL LAB CHEMISTRY METHOD 06/21/2024 11:42 AM [facility] eGFR 85 >=60 mL/min/1. 73m2 LAB CHEMISTRY METHOD 06/21/2024 11:42 AM [facility] Comment:Calculation based on the Chronic Kidney Disease Epidemiology Collaboration (CKD-EPI) equation refit without adjustment for race. BUN/Creatinine Ratio 17.9 LAB CHEMISTRY METHOD 06/21/2024 11:42 AM [facility] Calcium 9.0 8.5 - 10.5 mg/dL LAB CHEMISTRY METHOD 06/21/2024 11:42 AM [facility] AST (SGOT) 16 10 - 42 unit/L LAB CHEMISTRY METHOD 06/21/2024 11:42 AM [facility] Comment:Hemolysis present ALT (SGPT) 17 10 - 60 unit/L LAB CHEMISTRY METHOD 06/21/2024 11:42 AM [facility] Alkaline Phosphatase 84 42 - 121 unit/L LAB CHEMISTRY METHOD 06/21/2024 11:42 AM [facility] Total Protein 6.7 6.0 - 8.0 g/dL LAB CHEMISTRY METHOD 06/21/2024 11:[address] [facility] Albumin 3.6 3.2 - 5.0 g/dL LAB CHEMISTRY METHOD 06/21/2024 11:[address] [facility] Total Bilirubin 0.6 0.0 - 1.4 mg/dL LAB CHEMISTRY METHOD 06/21/2024 11:42 AM EST [facility] Blood Venous blood specimen / Unknown Venipuncture / Unknown 06/21/2024 10:46 AM EST 06/21/2024 10:52 AM EST Byrontricia Ranjit Juares DO LAB BLOOD ORDERABLES Irena l Result [facility] [address] [place] [address], from Last 3 Months or Most Recently Relevant to Health Maintenance Insurance MEDICAID - [place] MEDICARE Care Teams Railroad Car Truck Builder Relationship Specialty Start Date End Date Van Paige MD [address] [place] [id number] PCP - General 09/25/23
--- OUTSIDE RECORDS SUMMARY | 2025-02-24 05:11 | XMS_ITS | Encounter Summary ---
Author Organization [facility] Address [address] [place] [address] Care Team Providers Care Terminal Superintendent Name Role Phone Ary Brunner MD Primary Care Provider [phone] Shantel Kraft MD Primary Care Provider [phone] Naila Ventura NP Primary Care Provider [phone] Jannette Amezcua MD Primary Care Provider [phone] Marleen Vanessa MD Primary Care Provider [phone] Van Paige MD Primary Care Provider [phone] Encounter Details Date Type Department Care Team ([facility] st Contact Info) Description 02/09/2016 Orders Only [facility] Neurology [address] [facility] [address] [place] [address] Henrik Nelson MD [address] [place] [address] Social History Tobacco Use Types Packs/Day Years [...] as of this encounter Progress Notes * Anita Hansen - 03/05/2016 1:06 PM EDTQuick Note: . * Henrik Nelson MD - 02/13/2016 5:50 PM EDTQuick Note: PL FAX THIS RESULT TO PCP * Henrik Nelson MD - 02/10/2016 4:29 PM EDTQuick Note: Pl fax this rusult to PCP documented in this encounter Plan of Treatment Not on file documented as of this encounter Procedures * Due to [place] [employer] law, this organization might not be sharing negative HIV tests. Procedure Name Priority Date/Time Associated Diagnosis Comments SYPHILIS (FTA) ANTIBODY CASCADING REFLEX TO RPR/TITER (*PREFERRED SCREEN*) Routine 02/09/2016 1:59 PM EDT Paresthesia IMMUNOFIXATION, SERUM Routine 02/09/2016 1:59 PM EDT Paresthesia THYROID STIMULATING HORMONE (TSH) WITH FREE T4 REFLEX, SERUM Routine 02/09/2016 1:59 PM EDT Paresthesia FOLATE, SERUM Routine 02/09/2016 1:59 PM EDT Paresthesia VITAMIN B12 (CYANOCOBALAMIN), SERUM Routine 02/09/2016 1:59 PM EDT Paresthesia documented in this encounter Results * Due to [place] [employer] law, this organization might not be sharing negative HIV tests. * SYPHILIS (FTA) ANTIBODY CASCADING REFLEX TO RPR/TITER (*PREFERRED SCREEN*) (02/09/2016 1:59 PM EDT) Treponema pallidum Ab NEGATIVE NEGATIVE [facility] Comment: {T. PALLIDUM AB {[id number]) No antibodies to T. pallidum (the agent causing syphilis) were detected in the specimen. This result, however, does not exclude very recent T. pallidum infection; testing of a second specimen, collected 2-4 weeks after this specimen, is recommended if the index of suspicion for recent infection is high. 02/09/2016 1:59 PM EDT 02/09/2016 10:34 PM EDT Narrative Resulting Agency Comment [id number] Henrik Nelson MD LABORATORY Fin al Result Performing Organization Address [facility] de Phone Number [facility] [address] [place] [address] * IMMUNOFIXATION, SERUM (02/09/2016 1:59 PM EDT) Interpretation SEE NOTE [facility] Comment: {INTERPRETATION {[id number]) Normal pattern. No monoclonal proteins detected. 02/09/2016 1:59 PM EDT 02/09/2016 10:34 PM EDT Narrative Resulting Agency Comment [id number] Henrik Nelson MD LABORATORY Fin al Result Performing Organization Address [facility] de Phone Number [facility] [address] [place] [address] * (ABNORMAL) THYROID STIMULATING HORMONE (TSH) WITH FREE T4 REFLEX, SERUM (02/09/2016 1:59 PM EDT) FT4 1.4 0.8 - 1.8 ng/dL [facility] Comment:{T4, FREE {[id number]) TSH 0.36(L) 0.40 - 4.50 mIU/L [facility] Comment:{TSH W/REFLEX TO FT4 {[id number]) 02/09/2016 1:59 PM EDT 02/09/2016 10:34 PM EDT Narrative Resulting Agency Comment [id number] Henrik Nelson MD LABORATORY Fin al Result Performing Organization Address [facility]/ZIP Co de Phone Number [facility] [address] [place] [address] * FOLATE, SERUM (02/09/2016 1:59 PM EDT) Folate >24.0 ng/mL [facility] Comment: {FOLATE, SERUM {[id number]) Reference Range Low: <3.4 Borderline: 3.4-5.4 Normal: >5.4 02/09/2016 1:59 PM EDT 02/09/2016 10:34 PM EDT Narrative Resulting Agency Comment [id number] Henrik Nelson MD LABORATORY Fin al Result Performing Organization Address City/[facility] Co de Phone Number [facility] [address] [place] [address] * VITAMIN B12 (CYANOCOBALAMIN), SERUM (02/09/2016 1:59 PM EDT) Vitamin B12 (Cobalamins) 877 200 - 1100 pg/mL [facility] Comment:{VITAMIN B12 {[id number]) 02/09/2016 1:59 PM EDT 02/09/2016 10:34 PM EDT Narrative Resulting Agency Comment [id number] Henrik Nelson MD LABORATORY Fin al Result Performing Organization Address City/[facility] Co de Phone Number [facility] [address] [place] [address] documented in this encounter Visit Diagnoses Diagnosis Paresthesia Disturbance of skin sensation documented in this encounter Additional Health Concerns [...] documented as of this encounter Care Teams Terminal Superintendent Relationship Specialty Start Date End Date Ary Brunner MD [address] [address] PCP - General Internal Medicine 09/14/15 01/28/18 Shantel Kraft MD [address] [address] PCP - General Internal Medicine 05/09/18 09/09/18 Naila Ventura NP [address] [place] [address] PCP - General Internal Medicine 09/10/18 08/04/19 Jannette Amezcua MD [address] [place] [address] PCP - General Internal Medicine 08/05/19 02/28/21 Marleen Vanessa MD [address] [address] PCP - General Internal Medicine 06/27/21 11/19/24 Van Paige MD [address] [address] PCP - General Family Medicine 11/20/24 documented as of this encounter
--- OUTSIDE RECORDS SUMMARY | 2025-02-24 05:12 | XMS_ITS | Encounter Summary ---
Author Organization [facility] Address [address] [place] [address] Care Team Providers Care Silk Examiner Name Role Phone Marleen Vanessa MD Primary Care Provider [phone] Van Paige MD Primary Care Provider [phone] Encounter Details Date Type Department Care Team (Late st Contact Info) Description 11/29/[address] [facility] Neurology [address] [facility] [address] [place] [address] Henrik Nelson MD [address] [place] [address] Social History Tobacco Use Types Packs/Day Years Used Date Smoking Tobacco: Never Smokeless Tobacco: Never Alcohol Use Standard Drinks/Week Comments No 0 (1 standard drink = 0.6 oz pur e alcohol) PHQ-2 Answer Date Recorded PHQ-2 Score 3 02/15/2020 Comments No Sex and Gender Information Value [...] Encounter Note - Henrik Nelson MD - 11/29/2022 3:19 PM EDT Stable kidney functions. FUP is as planned. Please fax results to PCP * Result Encounter Note - Anjali Miller RN - 11/29/2022 3:19 PM EDT Lab work faxed to PCP * Result Encounter Note - Anjali Miller RN - 11/29/2022 3:19 PM EDT See 12/05/22 tm documented in this encounter Plan of Treatment Not on file documented as of this encounter Goals Goal Patient Goal Type Associated Problems Recent Progress Patient-Stated? Author Blood Pressure < 140/90 Blood Pressure 122/84(2024 2:52 PM EDT) Maira Beauchamp, [facility] Note: Above is your goal for blood [...] this encounter Procedures * Due to [place] state law, this organization might not be sharing negative HIV tests. Procedure Name Priority Date/Time Associated Diagnosis Comments CBC INCLUDES DIFFERENTIAL AND PLATELET COUNT Routine 11/29/2022 3:19 PM EDT Paresthesia CREATINE KINASE (CK), SERUM Routine 11/29/2022 3:19 PM EDT Elevated CPK ALDOLASE Routine 11/29/2022 3:19 PM EDT Elevated CPK COMPREHENSIVE METABOLIC PANEL WITH GFR Routine 11/29/2022 3:19 PM EDT Paresthesia documented in this encounter Results * Due to [place] state law, this organization might not be sharing negative HIV tests. * (ABNORMAL) CREATINE KINASE (CK), SERUM (11/29/2022 3:19 PM EDT) CPK 180(H) 29 - 143 U/L [facility] 11/29/2022 3:19 PM EDT 11/29/2022 9:47 PM EDT Narrative Resulting Agency Comment [id number] Henrik Nelson MD LAB SAME DAY RESULT Final Result Performing Organization Address [facility] de Phone Number [facility] [address] [place] [address] * ALDOLASE (11/29/2022 3:19 PM EDT) Aldolase 6.0 <=8.1 U/L [facility] 11/29/2022 3:19 PM EDT 11/29/2022 9:47 PM EDT Narrative Resulting Agency Comment [id number] Henrik Nelson MD LABORATORY Fin al Result Performing Organization Address [facility] de Phone Number [facility] [address] [place] [address] * (ABNORMAL) CBC INCLUDES DIFFERENTIAL AND PLATELET COUNT (11/29/2022 3:19 PM EDT) WBC 9.0 3.8 - 10.8 Thousand/u L [facility] RBC 5.13(H) 3.80 - 5.10 Million/uL [facility] Hemoglobin 14.2 11.7 - 15.5 g/dL [facility] Hematocrit 43.2 35.0 - 45.0 % [facility] MCV 84.2 80.0 - 100.0 fL [facility] MCH 27.7 27.0 - 33.0 pg [facility] MCHC 32.9 32.0 - 36.0 g/dL [facility] RDW 15.7(H) 11.0 - 15.0 % [facility] PLT 270 140 - 400 Thousand/u L [facility] MPV 9.5 7.5 - 12.5 fL [facility] Neutrophils # 7056 1500 - 7800 cells/uL [facility] Lymphocytes # 1233 850 - 3900 cells/uL [facility] Monocytes # 630 200 - 950 cells/uL [facility] Eosinophils # 18 15 - 500 cells/uL [facility] Basophils # 63 0 - 200 cells/uL [facility] Neutrophils % 78.4 % [facility] Lymphocytes % 13.7 % [facility] Monocytes % 7.0 % [facility] Eosinophils % 0.2 % [facility] Basophils % 0.7 % [facility] 11/29/2022 3:19 PM EDT 11/29/2022 9:47 PM EDT Narrative Resulting Agency Comment [id number] Henrik Nelson MD LAB SAME DAY RESULT Final Result [facility] [address] [place] [address] * (ABNORMAL) COMPREHENSIVE METABOLIC PANEL WITH GFR (11/29/2022 3:19 PM EDT) Glucose 87 65 - 99 mg/dL [facility] Comment:Fasting reference in terval Urea Nitrogen Blood (BUN) 15 7 - 25 mg/dL [facility] Creatinine 1.10(H) 0.50 - 1.05 mg/dL [facility] EGFR 56(L) > OR = 60 mL/min/1. 73m2 [facility] Comment: The eGFR is based on the CKD-EPI 2020 equation. To calculate the new eGFR from a previous Creatinine or Cystatin C result, go to https://www.kidney.org/professionals/ kdoqi/gfr%5Fcalculator BUN/Creatinine Ratio 14 6 - 22 (calc) [facility] Sodium 136 135 - 146 mmol/L [facility] Potassium 3.8 3.5 - 5.3 mmol/L [facility] Chloride 100 98 - 110 mmol/L [facility] Carbon dioxide 26 20 - 32 mmol/L [facility] Calcium 9.2 8.6 - 10.4 mg/dL [facility] Protein Total (Serum) 7.2 6.1 - 8.1 g/dL [facility] Albumin 4.3 3.6 - 5.1 g/dL [facility] Globulin 2.9 1.9 - 3.7 g/dL (calc) [facility] Albumin/Globulin 1.5 1.0 - 2.5 (calc) [facility] Bilirubin Total 0.5 0.2 - 1.2 mg/dL [facility] Alkaline phosphatase 63 37 - 153 U/L [facility] AST (SGOT) 27 10 - 35 U/L [facility] ALT (SGPT) 31(H) 6 - 29 U/L [facility] 11/29/2022 3:19 PM EDT 11/29/2022 9:47 PM EDT Narrative [facility] - 11/30/2022 2:53 AM EDT Please note that this estimated [...] needs for GFR calculation. Resulting Agency Comment [id number] us Henrik Nelson MD LABORATORY Fin al Result [facility] [address] [place] [address] documented in this encounter Visit Diagnoses Diagnosis Paresthesia Disturbance of skin sensation Elevated CPK Other nonspecific abnormal serum enzyme levels documented in this encounter Care Teams Silk Examiner Relationship Specialty Start Date End Date Marleen Vanessa MD [address] [address] PCP - General Internal Medicine 06/27/21 11/19/24 Van Paige MD [address] [address] PCP - General Family Medicine 11/20/24 documented as of this encounter
--- OUTSIDE RECORDS SUMMARY | 2025-02-24 05:12 | XMS_ITS | Encounter Summary ---
Author Organization [facility] Address [address] [place] [address] Care Team Providers Care Special Machine Operator Name Role Phone Marleen Vanessa MD Primary Care Provider [phone] Van Paige MD Primary Care Provider [phone] Encounter Details Date Type Department Care Team ([facility] st Contact Info) Description 06/19/2021 Telephone CALL CENTER [facility] [address] [place] [address] Henrik Nelson MD [address] [place] [address] Social History Tobacco Use Types Packs/Day Years [...] 122/84(2024 2:52 PM EDT) No Maira Kang, [employer] Note: Above is your goal for blood [...] on filedocumented in this encounter Care Teams Special Machine Operator Relationship Specialty Start Date End Date Marleen Vanessa MD [address] [address] PCP - General Internal Medicine 06/27/21 11/19/24 Van Paige MD [address] [address] PCP - General Family Medicine 11/20/24 documented as of this encounter
--- OUTSIDE RECORDS SUMMARY | 2025-02-24 05:12 | XMS_ITS | Encounter Summary ---
Author Organization [facility] Address [address] [place] [address] Care Team Providers Care Guard Dance Hall Name Role Phone Marleen Vanessa MD Primary Care Provider [phone] Van Paige MD Primary Care Provider Encounter Details Date Type Department Care Team (Late st Contact Info) Description 08/15/2021 Orders Only [facility] Neurology [address] [facility] [address] [place] [address] Henrik Nelson MD [address] [place] [address] Social History Tobacco Use Types Packs/Day Years [...] Miscellaneous Notes * Result Encounter Note - Gisell Simpson RN - 08/15/2021 3:02 PM EDT Please review * Result Encounter Note - Henrik Nelson MD - 08/15/2021 3:[address] call and inform minimally elevated muscle enzymes. Should drink plenty of fluids. take baclofen as. FUP is as planned. documented in this encounter Plan of Treatment Not on file documented as of this encounter Goals Goal Patient Goal Type Associated Problems Recent Progress Patient-Stated? Author Blood Pressure < 140/90 Blood Pressure 122/84(2024 2:52 PM EDT) Maira Beauchamp [facility] Note: Above is your goal for [...] of this encounter Procedures * Due to [employer] law, this organization might not be sharing negative HIV tests. Procedure Name Priority Date/Time Associated Diagnosis Comments VENIPUNCTURE Routine 08/15/2021 3:02 PM EDT Leg pain, bilateral documented in this encounter Results * Due to [place] [employer] law, this organization might not be sharing negative HIV tests. * (ABNORMAL) CREATINE KINASE (CK), SERUM (08/15/2021 3:02 PM EDT) CPK 188(H) 29 - 143 U/L [facility] 08/15/2021 3:02 PM EDT 08/16/2021 2:56 AM EDT Narrative Resulting Agency Comment [id number] us Henrik Nelson MD LAB SAME DAY RESULT Final Result [facility] [address] [place] [address] documented in this encounter Visit Diagnoses Diagnosis Leg pain, bilateral Pain in limb documented in this encounter Care Teams Guard Dance Hall Relationship Specialty Start Date End Date Marleen Vanessa MD [address] [address] PCP - General Internal Medicine 06/27/21 11/19/24 Van Paige MD [address] [address] PCP - General Family Medicine 11/20/24 documented as of this encounter
--- OUTSIDE RECORDS SUMMARY | 2025-02-24 05:12 | XMS_ITS | Encounter Summary ---
Author Organization [facility] Address [address] [place] [address] Care Team Providers Care Wax Pumper Name Role Phone Naila Ventura NP Primary Care Provider [phone] Jannette Amezcua MD Primary Care Provider + [phone] Marleen Vanessa MD Primary Care Provider [phone] Van Paige MD Primary Care Provider [phone] Reason for Visit * Reason Comments E-prescribing Refill Request Encounter Details Date Type Department Care Team (Late st Contact Info) Description 11/09/2018 Refill [facility] [address] [place] [phone] Naila Ventura NP [address] [place] [phone] E-prescribing Refill Request Social History Tobacco Use Types Packs/Day Years [...] encounter Miscellaneous Notes * Telephone Encounter - Jacobo Ramirez MA - 11/10/2018 11:57 AM EDT Any special requests or concerns? none Faxed/E-prescribed medication renewal request(s) for Angela Hicks 58 y.o. female received [employer]. Verified and Confirmed pharmacy for patient. Last CPE with this specialty: 10/02/2018 Last OV with this specialty: 10/02/2018 Next OV: Future Appointments Date Time Provider Department Phone 12/22/18 1:00 PM Maira Aguilar MD [facility] [address] 04/03/19 10:45 AM Henrik Nelson MD [facility] [address] Pertinent lab results: No labs suggested for any medication orders signed or pended in this encounter. Refresh if any orders changed. Allergies: Cephalosporins; Chlorpheniramine-hydrocodone; Clindamycin; Codeine; Environmental; Epinephrine; Erythromycin; Flagyl [metronidazole]; Food; Hc tussive; Mold; Penicillins; Sulfa antibiotics; Sulfasalazine; and Troleandomycin ;details for food: Hazelnuts BP Readings from Last 1 Encounters: 10/02/18 104/70 Patient Active Problem List Diagnosis Date Noted ??? Mold exposure 03/28/2018 ??? Noncompliance with medication regimen 11/14/2017 Last Assessment & Plan: She stopped her hydrochlorothiazide 50 mg and doubled her spironolactone without consulting. She was informed of the risk of hyperkalemia especially because she has at least sometimes been taking a potassium supplement. She will go for follow-up labs today ??? Hypokalemia 10/31/2017 Last Assessment & Plan: According to patient at this time she is only taking spironolactone 50 mg and is not taking HCTZ orpotassium supplement ??? Anxiety disorder 10/30/2017 ??? Allergic rhinitis 10/30/2017 Last Assessment & Plan: We'll do prior authorization for Omnaris ??? Chronic fatigue syndrome 10/30/2017 ??? Depression 10/30/2017 ??? Herniation of cervical intervertebral disc without myelopathy 10/30/2017 ??? Hyperlipidemia 10/30/2017 Last Assessment & Plan: Labs ordered. She states she will not take a statin even if the cholesterol is high ??? Hypothyroid 10/30/2017 Last Assessment & Plan: The plan is to continue her on the 100 ??g levothyroxine. Recheck TSH today ??? Personality disorder (HCC) 10/30/2017 Last Assessment & Plan: Complex patient with apparent psychiatric and medical comorbidities. My overwhelming impression is of a personality disorder, likely borderline. I recommended a referral to psychiatrist which she refused. She does not show signs of being unsafe with herself or others. ??? Sinusitis, chronic 10/30/2017 ??? Urinary incontinence 10/30/2017 ??? Varicose veins of both legs with edema 10/30/2017 Last Assessment & Plan: We'll complete PT 1 form. Hopefully records will be sent from vascular after she sees them ??? Bipolar disorder (HCC) 12/26/2016 ??? Cervical spondylosis 12/10/2016 ??? IBS (irritable bowel syndrome) 12/10/2016 ??? PTSD (post-traumatic stress disorder) 12/10/2016 ??? Asthma 12/01/2016 Overview: Followed by Dr. Aguilar Eldridge for chronic bronchitis as well. ??? Chronic bronchitis (HCC) 11/30/2016 ??? GERD (gastroesophageal reflux disease) 11/30/2016 Overview: Overview: Dr. Dickinson ??? OMAR (obstructive sleep apnea) 11/30/2016 Overview: Overview: ??? Peripheral neuropathy 11/30/2016 ??? Pain in extremity 11/09/2016 ??? Paresthesia 02/09/2016 ??? Chronic migraine 01/19/2016 ??? Memory impairment 01/19/2016 On namenda in the past ??? Insomnia 01/19/2016 ??? Fibromyalgia 01/28/2014 ??? Osteoarthritis of lumbar spine 01/28/2014 ??? HTN (hypertension) 05/12/2012 Overview: 11/04 echo revealed normal LVSF with EF 55-60%, diastolic dysfunction, trace aortic and mitral regurgitation ??? Obesity, unspecified 05/12/2012 ??? Tachycardia 05/12/2012 Overview: 11/04 30 day loop recorder did not show any evidence of any arrhythmias despite multiple pt submissions, Max HR was 112 BPM Current Outpatient Prescriptions on File Prior to Visit Medication Sig Dispense Refill ??? Olopatadine HCl (PATANOL) 0.1 % Solution Instill 1 drop in affected eye twice daily for allergic symptoms 1 Bottle 0 ??? Ciclesonide (OMNARIS) 50 MCG/ACT Suspension one spray each nostril daily 1 Inhaler 1 ??? Omeprazole 40 MG CAPSULE DELAYED RELEASE 1 CAPSULE DAILY 90 Cap 0 ??? Clotrimazole 1 % Cream Apply to affected area twice a day 60 g 1 ??? Econazole Nitrate 1 % Cream Apply to affected area twice daily as needed 30 g 0 ??? Naproxen Sodium 550 MG Tab 1 TABLET TWICE DAILY if needed. Take with food. 60 Tab 0 ??? Gabapentin 300 MG Cap 1 by mouth at bedtime, 30 Cap 0 ??? Spironolactone 50 MG Tab TAKE 1 TABLET BY MOUTH EVERY DAY IN THE MORNING 30 Tab 5 ??? Oxybutynin Chloride 15 MG TABLET SR 24 HR TAKE 1 TABLET BY MOUTH EVERY DAY 30 Tab 5 ??? Triamcinolone Acetonide 0.1 % Cream None Entered ??? Ondansetron HCl 4 MG Tab 1 tab as needed ??? Clotrimazole 1 % Cream Uses on ski when she gets an outbreak of fungas ??? Levothyroxine Sodium 75 MCG Tab 1 by mouth daily 30 Tab 3 ??? Fluticasone-Salmeterol (ADVAIR DISKUS) 500-50 MCG/DOSE AEROSOL POWDER, BREATH ACTIVATED Inhale 1 puff twice daily 1 Inhaler 0 ??? ALBUTEROL SULFATE 108 (90 BASE) MCG/ACT Aero Soln 1-2 puffs 4 x daily as needed for wheeze 1 Inhaler 0 documented in this encounter Plan of Treatment Not on file documented as of this encounter Goals Goal Patient Goal Type Associated Problems Recent Progress Patient-Stated? Author Blood Pressure < 140/90 Blood Pressure 122/84(2024 2:52 PM EDT) No Maira Kang, [facility] Note: Above is your goal for [...] documented as of this encounter Care Teams Wax Pumper Relationship Specialty Start Date End Date Naila Ventura NP [address] [place] [address] PCP - General Internal Medicine 09/10/18 08/04/19 Jannette Amezcua MD [address] [place] [address] PCP - General Internal Medicine 08/05/19 02/28/21 Marleen Vanessa MD [address] [address] PCP - General Internal Medicine 06/27/21 11/19/24 Van Paige MD [address] [address] PCP - General Family Medicine 11/20/24 documented as of this encounter
--- OUTSIDE RECORDS SUMMARY | 2025-02-24 05:12 | XMS_ITS | Encounter Summary ---
Author Organization [facility] Address [address] [place] [address] Care Team Providers Care Hull Builder Name Role Phone Jannette Amezcua MD Primary Care Provider [phone] Marleen Vanessa MD Primary Care Provider [phone] Van Paige MD Primary Care Provider [phone] Reason for Visit * Reason Onset Date Comments Labs/orders 01/20/2021 Creatinine Order for Radiology with Contrast Encounter Details Date Type Department Care Team (Late st Contact Info) Description 01/20/2021 Telephone CALL CENTER [facility] [address] [place] [address] Henrik Nelson MD [address] [place] [address] Labs/orders (Creatinine Order for Radiology with Contrast) Social History Tobacco Use Types Packs/Day Years [...] Telephone Encounter - Thais Whittaker RN - 01/20/2021 2:11 PM EDT Order signed. Confirm this is what you want please. Usually the order is sent to us. * Telephone Encounter - Colin Kashmir - 01/20/2021 2:03 PM EDT Henrik Nelson MD In compliance with established guidelines for the appropriate administration of intravenous contrast media during MRI studies, the Department of Radiology will require a Serum Creatinine within 30 days prior to the study date on all patients who meet the criteria. A creatinine order has been pended and attached for the patient in the appropriate time frame. Please sign the order. documented in this encounter Plan of Treatment Not on file documented as of this encounter Goals Goal Patient Goal Type Associated Problems Recent Progress Patient-Stated? Author Blood Pressure < 140/90 Blood Pressure 122/84(2024 2:52 PM EDT) Maira Beauchamp, [facility] Note: Above is your goal for [...] and nuts. documented as of this encounter Results * Due to [place] state law, this organization might not be sharing negative HIV tests. * CREATINE KINASE (CK), SERUM (01/24/2021 10:56 AM EDT) CPK 139 29 - 143 U/L [facility] 01/24/2021 10:5 6 AM EDT 01/24/2021 11:06 PM EDT Narrative Resulting Agency Comment [id number] Henrik Nelson MD LAB SAME DAY RESULT Final Result [facility] [address] [place] [address] documented in this encounter Visit Diagnoses Diagnosis Chronic intractable headache, unspecified headache type- Primary documented in this encounter Care Teams Hull Builder Relationship Specialty Start Date End Date Jannette Amezcua MD [address] [place] [address] PCP - General Internal Medicine 08/05/19 02/28/21 Marleen Vanessa MD [address] [address] PCP - General Internal Medicine 06/27/21 11/19/24 Van Paige MD [address] [address] PCP - General Family Medicine 11/20/24 documented as of this encounter
--- OUTSIDE RECORDS SUMMARY | 2025-02-24 05:12 | XMS_ITS | Encounter Summary ---
Author Organization [facility] Address [address] [place] [address] Care Team Providers Care Shopper Marketing Manager Name Role Phone Marleen Vanessa MD Primary Care Provider [phone] Van Paige MD Primary Care Provider [phone] Reason for Visit * Reason Comments Imaging Study Encounter Details Date Type Department Care Team (Late st Contact Info) Description 01/07/2023 [facility] [address] [facility] [address] [place] [address] Henrik Nelson MD [address] [place] [address] Imaging Study Social History Tobacco Use Types Packs/Day Years [...] encounter Miscellaneous Notes * Telephone Encounter - Anjali Miller RN - 01/22/2023 11:10 AM EDT Patient informed Advised to reschedule the MRI and let the office know when it is scheduled so PT 1 form can be filled out Last Saturday she went to [facility] in [facility] for migraine tx The treatment dulled the migraine Baclofen was prescribed which is causing dizziness Advised to stop baclofen because she is not tolerating it and dizziness increases her fall risk She has not picked up Emgality from the pharmacy * Telephone Encounter - Steffany Hutchins - 01/21/2023 4:58 PM EDT PT-1 Forms needs to be entered by the [place] team at least 72 hours prior to a patients appointment/test to process This MRI has been cancelled by the patient with radiology due to inconvienance /viewed in EPIC * Telephone Encounter - More Quirso NP - 01/21/2023 4:48 PM EDT Patient sees me for PAYNE and also sees Dr Dias * Telephone Encounter - Anjali Miller RN - 01/21/2023 4:46 PM EDT MA's can you please assist with this Patient last saw More Calles Please advise - * Telephone Encounter - Jennifer Velásquez - 01/21/2023 12:34 PM EDT Her pcp is an outside provider but the ordering physician is Dr. Nelson. I called PCP office they disconnected the call. Thank you, Jennifer Dial Radiology Benefit Coordinator Referral Management [id number] * Telephone Encounter - Concepcion Marsh LPN - 01/21/2023 12:06 PM EDT Not a patient at [facility] * Telephone Encounter - Delmy Estrada LPN - 01/07/2023 11:46 AM EDT Please send to pcp. This is not a [place] Pt. * Telephone Encounter - Jennifer Velásquez - 01/07/2023 11:36 AM EDT This patient has missed two scheduled appointments for an MRI due to the missing PT1 form being completed and sent for her transportation. Her next MRI is scheduled for 01/22/2023 at 11:15 for a 11:00 arrival. Thank you, Jennifer Dial Radiology Benefit Coordinator Referral Management [id number] documented in this encounter Plan of Treatment Not on file documented as of this encounter Goals Goal Patient Goal Type Associated Problems Recent Progress Patient-Stated? Author Blood Pressure < 140/90 Blood Pressure 122/84(2024 2:52 PM EDT) Maira Beauchamp, [facility] Note: Above is your goal for [...] on filedocumented in this encounter Care Teams Shopper Marketing Manager Relationship Specialty Start Date End Date Marleen Vanessa MD [address] [address] PCP - General Internal Medicine 06/27/21 11/19/24 Van Paige MD [address] [address] PCP - General Family Medicine 11/20/24 documented as of this encounter
--- OUTSIDE RECORDS SUMMARY | 2025-02-24 05:12 | XMS_ITS | Encounter Summary ---
Author Organization [facility] Address [address] [place] [address] Phone Care Team Providers Care Geodetic Survey Director Name Role Phone Marleen Vanessa MD Primary Care Provider [phone] Van Paige MD Primary Care Provider [phone] Van Paige MD Primary Care Provider [phone] Pcp, Not Required Primary Care Provider Unavaila ble Van Paige MD Primary Care Provider [phone] Van Paige MD Unavailable Encounter Details Date Type Department Care Team (Late st Contact Info) Description 10/19/2021 Telephone [facility] [address] [place], [place] [id number] Nancy Sotelo MA [email or web address] Social History Tobacco Use Types Packs/Day Years [...] documented as of this encounter Care Teams Geodetic Survey Director Relationship Specialty Start Date End Date Marleen Vanessa MD [address] [place] [address] [address] [place] [place] [address] PCP - General Family Medicine 03/21/21 10/28/23 Van Paige MD [address] [place] [address] [address] [place] [address] PCP - General Family Medicine 10/29/23 10/31/23 Van Paige MD [address] [place] [address] [address] [place] [address] PCP - General Family Medicine 11/05/23 11/18/23 Pcp, Not Required [address] [place] [address] PCP - General 02/15/24 03/26/24 Van Paige MD [address] [place] [address] [address] [place] [address] PCP - General Family Medicine 03/27/24 Van Paige MD [address] [place] [address] [address] [place] [address] Insurance Assigned Provider 08/30/24 documented as of this encounter Additional Source Comments The information contained in this document represents components of the legal health record. It is not the complete legal health record.[facility]
--- OUTSIDE RECORDS SUMMARY | 2025-02-24 05:12 | XMS_ITS | Encounter Summary ---
Author Organization [facility] Address [address] [place] [address] Care Team Providers Care Park Police Name Role Phone Marleen Vanessa MD Primary Care Provider [phone] Van Paige MD Primary Care Provider [phone] Encounter Details Date Type Department Care Team (Late st Contact Info) Description 06/27/2021 Orders Only CALL CENTER [facility] [address] [place] [address] Henrik Nelson MD [address] [place] [address] Social History Tobacco Use Types Packs/Day Years [...] Miscellaneous Notes * Result Encounter Note - Anjali Miller RN - 06/27/2021 11:22 AM EST Brain MRI with contrast ordered Ok to continue with this? TY * Result Encounter Note - Henrik Nelson MD - 06/27/2021 11:22 AM EST Ok to get brain MRI with contrast. Simon gonzalez fax this to PC; inform mildly impaired renal functions. * Result Encounter Note - Gisell Simpson RN - 06/27/2021 11:22 AM EST MRI scheduled for 07/05/21 Results sent to PCP documented in this encounter Plan of Treatment Not on file documented as of this encounter Goals Goal Patient Goal Type Associated Problems Recent Progress Patient-Stated? Author Blood Pressure < 140/90 Blood Pressure 122/84(2024 2:52 PM EDT) Maira Beauchamp, [facility] Note: Above is your goal for blood [...] this encounter Procedures * Due to [place] Zindigo law, this organization might not be sharing negative HIV tests. Procedure Name Priority Date/Time Associated Diagnosis Comments VENIPUNCTURE Routine 06/27/2021 11:22 AM EST Facial pain Chronic idiopathic anal pain documented in this encounter Results * Due to [place] Zindigo law, this organization might not be sharing negative HIV tests. * (ABNORMAL) CREATININE WITH GLOMERULAR FILTRATION RATE, ESTIMATED (EGFR) (06/27/2021 11:22 AM EST) Creatinine 1.09(H) 0.50 - 0.99 mg/dL [facility] Comment: For patients >49 years of age, the reference limit for Creatinine is approximately 13% higher for people identified as -Iraqi. EGFR 55(L) > OR = 60 mL/min/1. 73m2 [facility] GFR () 63 > OR = 60 mL/min/1. 73m2 [facility] 06/27/2021 11:2 2 AM EST 06/28/2021 4:03 AM EST Narrative [facility] - 06/28/2021 7:47 AM EST Please note that this estimated [...] needs for GFR calculation. Resulting Agency Comment [id number] us Henrik Nelson MD LAB SAME DAY RESULT Final Result [facility] [address] [place] [address] documented in this encounter Visit Diagnoses Diagnosis Facial pain Headache Chronic idiopathic anal pain Stenosis of rectum and anus documented in this encounter Care Teams Park Police Relationship Specialty Start Date End Date Marleen Vanessa MD [address] [address] PCP - General Internal Medicine 06/27/21 11/19/24 Van Paige MD [address] [address] PCP - General Family Medicine 11/20/24 documented as of this encounter
--- OUTSIDE RECORDS SUMMARY | 2025-02-24 05:12 | XMS_ITS | Encounter Summary ---
Author Organization [facility] Address [address] [place] [address] Care Team Providers Care Sandstone Splitter Name Role Phone Jannette Amezcua MD Primary Care Provider [phone] Marleen Vanessa MD Primary Care Provider [phone] Van Paige MD Primary Care Provider [phone] Encounter Details Date Type Department Care Team (Late st Contact Info) Description 01/24/2021 Orders Only CALL [facility]ENTER [facility] [address] [place] [address] Henrik Nelson MD [address] [place] [address] Social History Tobacco Use Types Packs/Day Years [...] Encounter Note - Henrik Nelson MD - 01/24/2021 10:56 AM EDT Normal. documented in this encounter Plan of Treatment Not on file documented as of this encounter Goals Goal Patient Goal Type Associated Problems Recent Progress Patient-Stated? Author Blood Pressure < 140/90 Blood Pressure 122/84(2024 2:52 PM EDT) Maira Beauchamp, [facility] Note: Above is your goal for [...] of this encounter Procedures * Due to [place] ActiveO law, this organization might not be sharing negative HIV tests. Procedure Name Priority Date/Time Associated Diagnosis Comments VENIPUNCTURE Routine 01/24/2021 10:56 AM EDT Chronic intractable headache, unspecified headache type documented in this encounter Results * Due to [place] ActiveO law, this organization might not be sharing negative HIV tests. * CREATINE KINASE (CK), SERUM (01/24/2021 10:56 AM EDT) CPK 139 29 - 143 U/L [facility] 01/24/2021 10:5 6 AM EDT 01/24/2021 11:06 PM EDT Narrative Resulting Agency Comment [id number] Henrik Nelson MD LAB SAME DAY RESULT Final Result Performing Organization Address City/State/[facility] Co de Phone Number [facility] [address] [place] [address] documented in this encounter Visit Diagnoses Diagnosis Chronic intractable headache, unspecified headache type documented in this encounter Care Teams Sandstone Splitter Relationship Specialty Start Date End Date Jannette Amezcua MD [address] [place] [address] PCP - General Internal Medicine 08/05/19 02/28/21 Marleen Vanessa MD [address] [address] PCP - General Internal Medicine 06/27/21 11/19/24 Van Paige MD [address] [address] PCP - General Family Medicine 11/20/24 documented as of this encounter
--- OUTSIDE RECORDS SUMMARY | 2025-02-24 05:12 | XMS_ITS | Patient Health Record ---
Author Organization [facility] Address [address] [facility] [address] [place] [address] Care Team Providers Care Diesel Fleet Mechanic Name Role Phone KENNEY CROFT Unavailable [phone] Reason For Referral No Information Plan Of Treatment No Information Insurance Providers Payer Name Payer Address Payer Phone Subscriber Number Group Number Insured Name Patient Relationship to Insured Coverage Start Date Coverage End Date MEDICARE [address] [place] [address] [id number] GAGLIAST RE, TAMARA Self - patient is the insured [facility] [address] [place] [address] [id number] GAGLIAST RE, TAMARA Self - patient is the insured
--- OUTSIDE RECORDS SUMMARY | 2025-02-24 05:12 | XMS_ITS | Encounter Summary ---
Author Organization [facility] Address [address] [place] [address] Care Team Providers Care Clerk Secretary Name Role Phone Marleen Vanessa MD Primary Care Provider [phone] Van Paige MD Primary Care Provider [phone] Encounter Details Date Type Department Care Team ([facility] st Contact Info) Description 06/19/2021 Telephone [facility] [address] [place] [address] Henrik Nelson MD [address] [place] [address] Social History Tobacco Use Types Packs/Day Years [...] encounter Miscellaneous Notes * Telephone Encounter - Gisell Simpson RN - 06/19/2021 12:47 PM EST fyi * Telephone Encounter - Toni Dong - 06/19/2021 12:43 PM EST Good Afternoon, Pt cancelled MRI BRAIN W AND W/O CONTRAST due to illness and will call back to reschedule. Thank you. Radiology Scheduling Department documented in this encounter Plan of Treatment Not on file documented as of this encounter Goals Goal Patient Goal Type Associated Problems Recent Progress Patient-Stated? Author Blood Pressure < 140/90 Blood Pressure 122/84(2024 2:52 PM EDT) Maira Beauchamp, [employer] [facility] Note: Above is your goal for blood [...] on filedocumented in this encounter Care Teams Clerk Secretary Relationship Specialty Start Date End Date Marleen Vanessa MD [address] [address] PCP - General Internal Medicine 06/27/21 11/19/24 Van Paige MD [address] [address] PCP - General Family Medicine 11/20/24 documented as of this encounter
--- OUTSIDE RECORDS SUMMARY | 2025-02-24 05:12 | XMS_ITS | Encounter Summary ---
Author Organization [facility] Address [address] [place] [address] Care Team Providers Care Block Inspector Name Role Phone Jannette Amezcua MD Primary Care Provider [phone] Marleen Vanessa MD Primary Care Provider [phone] Van Paige MD Primary Care Provider [phone] Encounter Details Date Type Department Care Team (Late st Contact Info) Description 09/30/2020 Orders Only [facility] [address] [place] [address] Jannette Amezcua MD [address] [place] [address] Social History Tobacco Use Types Packs/Day Years [...] have Coronavirus / COVID-19? No / Unsure 09/30/2020 9:50 AM EDT documented as of this encounter Miscellaneous Notes * Result Encounter Note - Jannette Amezcua MD - 09/30/2020 10:20 AM EDT Her labs shows anemia. We should repeat blood work in 3 weeks time to make sure it is improving. Cholesterol is high. I strongly recommend you take atorvastatin 20 mg daily. This will prevent plaque buildup in your arteries and reduce the future risk of heart attack and stroke. Other labs are normal/stable. Vitamin D levels are slightly low. Please take additional vitamin D 1000 international unit daily to see if it helps with her myalgia symptoms. Nothing concerning noted to explain your symptoms. Inform pt. If agreeable, call in atorvastatin 20 mg daily. Send letter. * Result Encounter Note - Jannette Amezcua MD - 09/30/2020 10:20 AM EDT Repeat CBC, folic acid, ferritin, iron/tibc in 3-4 weeks. * Result Encounter Note - Petty Villalba RN - 09/30/2020 10:20 AM EDT Tms initiated 10/03/20 documented in this encounter Plan of Treatment Not on file documented as of this encounter Goals Goal Patient Goal Type Associated Problems Recent Progress Patient-Stated? Author Blood Pressure < 140/90 Blood Pressure 122/84(2024 2:52 PM EDT) Maira Beauchamp, [facility] Note: Above is your goal [...] of this encounter Procedures * Due to [place] [employer] law, this organization might not be sharing negative HIV tests. Procedure Name Priority Date/Time Associated Diagnosis Comments CBC INCLUDES DIFFERENTIAL AND PLATELET COUNT Routine 09/30/2020 10:20 AM EDT Closed fracture of left ankle with routine healing, subsequent encounter Calcification of aorta THYROID STIMULATING HORMONE (TSH) WITH FREE T4 REFLEX, SERUM Routine 09/30/2020 10:20 AM EDT Acquired hypothyroidism Calcification of aorta VENIPUNCTURE Routine 09/30/2020 10:20 AM EDT Leg swelling HEMOGLOBIN A1C Routine 09/30/2020 10:20 AM EDT Calcification of aorta VITAMIN B12 (CYANOCOBALAMIN), SERUM Routine 09/30/2020 10:20 AM EDT Closed fracture of left ankle with routine healing, subsequent encounter Calcification of aorta VITAMIN D, 25-HYDROXY, TOTAL, IMMUNOASSAY Routine 09/30/2020 10:20 AM EDT Closed fracture of left ankle with routine healing, subsequent encounter Calcification of aorta LIPID PANEL WITH REFLEX TO DIRECT LDL Routine 09/30/2020 10:20 AM EDT Calcification of aorta COMPREHENSIVE METABOLIC PANEL WITH GFR Routine 09/30/2020 10:20 AM EDT Closed fracture of left ankle with routine healing, subsequent encounter Calcification of aorta documented in this encounter Results * Due to [place] [employer] law, this organization might not be sharing negative HIV tests. * (ABNORMAL) CBC INCLUDES DIFFERENTIAL AND PLATELET COUNT (09/30/2020 10:20 AM EDT) WBC 7.4 3.8 - 10.8 Thousand/u L [facility] RBC 3.86 3.80 - 5.10 Million/uL [facility] Hemoglobin 10.8(L) 11.7 - 15.5 g/dL [facility] Hematocrit 32.9(L) 35.0 - 45.0 % [facility] MCV 85.2 80.0 - 100.0 fL [facility] MCH 28.0 27.0 - 33.0 pg [facility] MCHC 32.8 32.0 - 36.0 g/dL [facility] RDW 15.2(H) 11.0 - 15.0 % [facility] PLT 280 140 - 400 Thousand/u L [facility] MPV 9.8 7.5 - 12.5 fL [facility] Neutrophils # 5520 1500 - 7800 cells/uL [facility] Lymphocytes # 969 850 - 3900 cells/uL [facility] Monocytes # 555 200 - 950 cells/uL [facility] Eosinophils # 296 15 - 500 cells/uL [facility] Basophils # 59 0 - 200 cells/uL [facility] Neutrophils % 74.6 % [facility] Lymphocytes % 13.1 % [facility] Monocytes % 7.5 % [facility] Eosinophils % 4.0 % [facility] Basophils % 0.8 % [facility] 09/30/2020 10:2 0 AM EDT 09/30/2020 5:35 PM EDT Narrative Resulting Agency Comment [id number] Jannette Amezcua MD LAB SAME DAY RESULT Final Re sult [facility] [address] [place] [address] * COMPREHENSIVE METABOLIC PANEL WITH GFR (09/30/2020 10:20 AM EDT) Glucose 98 65 - 99 mg/dL [facility] Comment:Fasting reference in terval Urea Nitrogen Blood (BUN) 14 7 - 25 mg/dL [facility] Creatinine 0.83 0.50 - 0.99 mg/dL [facility] Comment: For patients >49 years of age, the reference limit for Creatinine is approximately 13% higher for people identified as -[place]. EGFR 77 > OR = 60 mL/min/1 .73m2 [facility] GFR () 89 > OR = 60 mL/min/1 .73m2 [facility] BUN/Creatinine Ratio NOT APPLICABLE 6 - 22 (calc) [facility] Sodium 140 135 - 146 mmol/L [facility] Potassium 3.7 3.5 - 5.3 mmol/L [facility] Chloride 106 98 - 110 mmol/L [facility] Carbon dioxide 23 20 - 32 mmol/L [facility] Calcium 8.6 8.6 - 10.4 mg/dL [facility] Protein Total (Serum) 6.2 6.1 - 8.1 g/dL [facility] Albumin 3.9 3.6 - 5.1 g/dL [facility] Globulin 2.3 1.9 - 3.7 g/dL (calc) [facility] Albumin/Globulin 1.7 1.0 - 2.5 (calc) [facility] Bilirubin Total 0.4 0.2 - 1.2 mg/dL [facility] Alkaline phosphatase 69 37 - 153 U/L [facility] AST (SGOT) 13 10 - 35 U/L [facility] ALT (SGPT) 10 6 - 29 U/L [facility] 09/30/2020 10:2 0 AM EDT 09/30/2020 5:35 PM EDT Narrative [facility] - 09/30/2020 7:46 PM EDT Please note that this estimated GFR [...] needs for GFR calculation. Resulting Agency Comment [id number] Jannette Amezcua MD LABORATORY Final Result Performing Organization Address City/State/[facility] Co de Phone Number [facility] [address] [place] [address] * (ABNORMAL) LIPID PANEL WITH REFLEX TO [...] factors. LDL-C is now calculated using the Deniz calculation, which is a validated novel method providing better accuracy than the Friedewald equation in the estimation of LDL-C. Chidi SS et al. HYACINTH. 2013;310(19): 7850-3564 (http://education.brands4friends/faq/RQZ931) CHOL/HDL Ratio 4.1 <5.0 (calc) [facility] Cholesterol Non-HDL 163(H) <130 mg/dL (calc) [facility] Comment: For patients with diabetes plus 1 major ASCVD risk factor, treating to a non-HDL-C goal of <100 mg/dL (LDL-C of <70 mg/dL) is considered a therapeutic option. 09/30/2020 10:2 0 AM EDT 09/30/2020 5:35 PM EDT Narrative Resulting Agency Comment [id number] Jannette Amezcua MD LABORATORY Final Result Performing Organization Address [facility] de Phone Number [facility] [address] [place] [address] * HEMOGLOBIN A1C (09/30/2020 10:20 AM EDT) Hemoglobin A1C 4.9 <5.7 % of total Hgb [facility] Comment: For the purpose of screening for the presence of diabetes: <5.7% Consistent with the absence of diabetes 5.7-6.4% Consistent with increased risk for diabetes (prediabetes) > or =6.5% Consistent with diabetes This assay result is consistent with a decreased risk of diabetes. Currently, no consensus exists regarding use of hemoglobin A1c for diagnosis of diabetes in children. According to [place] Diabetes Association (ADA) guidelines, hemoglobin A1c <7.0% represents optimal control in non- diabetic patients. Different metrics may apply to specific patient populations. Standards of Medical Care in Diabetes(ADA). Estimated Average Glucose 97 mg/dL (calc) [facility] 09/30/2020 10:2 0 AM EDT 09/30/2020 5:35 PM EDT Narrative Resulting Agency Comment [id number] Jannette Amezcua MD LABORATORY Final Result [facility] [address] [place] [address] * THYROID STIMULATING HORMONE (TSH) WITH FREE T4 REFLEX, SERUM (09/30/2020 10:20 AM EDT) TSH 2.62 0.40 - 4.50 mIU/L [facility] 09/30/2020 10:2 0 AM EDT 09/30/2020 5:35 PM EDT Narrative Resulting Agency Comment [id number] Jannette Amezcua MD LABORATORY Final Result Performing Organization Address [facility] Co de Phone Number [facility] [address] [place] [address] * (ABNORMAL) VITAMIN D, 25-HYDROXY, TOTAL, IMMUNOASSAY (09/30/2020 10:20 AM EDT) Pathologist [facility] Vitamin D, 25-OH, Total 27(L) 30 - 100 ng/mL [facility] Comment: Vitamin D Status 25-OH Vitamin D: Deficiency: <20 ng/mL Insufficiency: 20 - 29 ng/mL Optimal: > or = 30 ng/mL For 25-OH Vitamin D testing on patients on D2-supplementation and patients for whom quantitation of D2 and D3 fractions is required, the QuestAssureD(TM) 25-OH VIT D, (D2,D3), LC/MS/MS is recommended: order code 50726 (patients >2yrs). COMMENT SEE NOTE [facility] Comment: See Note 1 Note 1 For additional information, please refer to http://education.brands4friends/faq/OGK868 (This link is being provided for informational/ educational purposes only.) 09/30/2020 10:2 0 AM EDT 09/30/2020 5:35 PM EDT Narrative Resulting Agency Comment [id number] Jannette Amezcua MD LABORATORY Final Result Performing Organization Address [facility] Co de Phone Number [facility] [address] [place] [address] * VITAMIN B12 (CYANOCOBALAMIN), SERUM (09/30/2020 10:20 AM EDT) Vitamin B12 (Cobalamins) 358 200 - 1100 pg/mL [facility] Comment: Please Note: Although the reference range for vitamin B12 is 200-1100 pg/mL, it has been reported that between 5 and 10% of patients with values between 200 and 400 pg/mL may experience neuropsychiatric and hematologic abnormalities due to occult B12 deficiency; less than 1% of patients with values above 400 pg/mL will have symptoms. 09/30/2020 10:2 0 AM EDT 09/30/2020 5:35 PM EDT Narrative Resulting Agency Comment [id number] Jannette Amezcua MD LABORATORY Final Result Performing Organization Address [facility] Co de Phone Number [facility] [address] [place] [address] * B-TYPE NATRIURETIC PEPTIDE (BNP) ([facility] (09/30/2020 10:20 AM EDT) Pathologist [facility] Natriuretic peptide.B 13 <100 pg/mL [facility] Comment: BNP levels increase with age in the general population with the highest values seen in individuals greater than 75 years of age. Reference: J. Am. Salvador. Cardiol. 2002; 40:976-982. 09/30/2020 10:2 0 AM EDT 09/30/2020 5:35 PM EDT Narrative Resulting Agency Comment [id number] Jannette Amezcua MD LAB SAME DAY RESULT Final Re sult Performing Organization Address City/[facility] Co de Phone Number [facility] [address] [place] [address] documented in this encounter Visit Diagnoses Diagnosis Leg swelling Swelling of limb Closed fracture of left ankle with routine healing, subsequent encounter Calcification of aorta Atherosclerosis of aorta Acquired hypothyroidism Unspecified hypothyroidism documented in this encounter Care Teams Block Inspector Relationship Specialty Start Date End Date Jannette Amezcua MD [address] [place] [address] PCP - General Internal Medicine 08/05/19 02/28/21 Marleen Vanessa MD [address] [address] PCP - General Internal Medicine 06/27/21 11/19/24 Van Paige MD [address] [address] PCP - General Family Medicine 11/20/24 documented as of this encounter
--- OUTSIDE RECORDS SUMMARY | 2025-02-24 05:12 | XMS_ITS | Encounter Summary ---
Author Organization [facility] Address [address] [place] [address] Care Team Providers Care Lace Paper Machine Operator Name Role Phone Naila Ventura NP Primary Care Provider [phone] Jannette Amezcua MD Primary Care Provider [phone] Marleen Vanessa MD Primary Care Provider [phone] Van Paige MD Primary Care Provider [phone] Encounter Details Date Type Department Care Team (Late st Contact Info) Description 09/10/2018 Orders Only [facility] [address] [place] [phone] Juli Carey PA Social History Tobacco Use [...] Progress Notes * Juli Carey PA - 09/11/2018 9:27 AM EDT See TM documented in this encounter Plan of Treatment Not on file documented as of this encounter Goals Goal Patient Goal Type Associated Problems Recent Progress Patient-Stated? Author Blood Pressure < 140/90 Blood Pressure 122/84(2024 2:52 PM EDT) Maira Beauchamp, [facility] Note: Above is your goal for [...] of this encounter Procedures * Due to [place] [employer] law, this organization might not be sharing negative HIV tests. Procedure Name Priority Date/Time Associated Diagnosis Comments TSH, 3RD GENERATION Routine 09/10/2018 1 2:09 PM EDT Hypothyroidism, unspecified type HEMOGLOBIN A1C Routine 09/10/2018 12:09 PM EDT Elevated glucose Screening for diabetes mellitus documented in this encounter Results * Due to [place] [employer] law, this organization might not be sharing negative HIV tests. * TSH, 3RD GENERATION (09/10/2018 12:09 PM EDT) TSH 0.88 0.40 - 4.50 mIU/L [facility] 09/10/2018 12:0 9 PM EDT 09/10/2018 10:11 PM EDT Narrative Resulting Agency Comment [id number] Juli [facility] Final Resu lt [facility] [address] [place] [address] * HEMOGLOBIN A1C (09/10/2018 12:09 PM EDT) Hemoglobin A1C 5.1 <5.7 % of total Hgb [facility] Comment: For the purpose of screening for the presence of diabetes: <5.7% Consistent with the absence of diabetes 5.7-6.4% Consistent with increased risk for diabetes (prediabetes) > or =6.5% Consistent with diabetes This assay result is consistent with a decreased risk of diabetes. Currently, no consensus exists regarding use of hemoglobin A1c for diagnosis of diabetes in children. According to [place] Diabetes Association (ADA) guidelines, hemoglobin A1c <7.0% represents optimal control in non- diabetic patients. Different metrics may apply to specific patient populations. Standards of Medical Care in Diabetes(ADA). Estimated Average Glucose 104 mg/dL (calc) [facility] 09/10/2018 12:0 9 PM EDT 09/10/2018 10:11 PM EDT Narrative Resulting Agency Comment [id number] us Juli [facility] Final Resu lt Performing Organization Address City/State/[facility] Co de Phone Number [facility] [address] [place] [address] documented in this encounter Visit Diagnoses Diagnosis Elevated glucose Other abnormal glucose Screening for diabetes mellitus Hypothyroidism, unspecified type documented in this encounter [...] documented as of this encounter Care Teams Lace Paper Machine Operator Relationship Specialty Start Date End Date Naila Ventura NP [address] [place] [address] PCP - General Internal Medicine 09/10/18 08/04/19 Jannette Amezcua MD [address] [place] [address] PCP - General Internal Medicine 08/05/19 02/28/21 Marleen Vanessa MD [address] [address] PCP - General Internal Medicine 06/27/21 11/19/24 Van Paige MD [address] [address] PCP - General Family Medicine 11/20/24 documented as of this encounter
[2025-02-24 05:18] VITALS: BP 171/92; PULSE 81; RESP 16; TEMP 36.5; O2SAT 97
[2025-02-24 05:35] VITALS: BP 165/85; PULSE 81; RESP 16; TEMP 36.7; O2SAT 96
--- NOTE | 2025-02-24 05:35 | PC.NURSE ---
reviewed discharge instructions with pt. pt verbalized understanding, no sign of distress, paper scripts given a discharge.
== END 2025-02-24 05:36 | disposition home or self-care (01) ==
PROVIDERS: Emergency Provider Emergency Medicine
DX: G43.909 Migraine, unspecified, not intractable, without status migrainosus (principal); G47.00 Insomnia, unspecified
CPT/HCPCS: 96372; 99284; J1885

== ENCOUNTER 2025-03-18 09:23 | Emergency (ER) | payer MEDICARE, MEDICAID, SELFPAY ==
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
--- NOTE | 2025-03-18 09:29 | ED_ITS ---
HPI - Headache General Chief Complaint: Headache Stated Complaint: MIGRAINE,MULTI W/ER VISITS PAST 2 W PER EMS Time Seen by Provider: 03/18/25 09:28 Source: patient, EMS, RN notes reviewed and old records reviewed Mode of arrival: EMS Limitations: no limitations History of Present Illness ED Provider: Kelly Louis PA-C HPI Narrative: Patient with PMH sig for schizophrenia paranoid type, insomnia, and migraines presenting to the ED for evaluation of headache that has been present for a year. She lives in a [place]. She was last seen here for headache three weeks ago here on 02/24/2025 and [facility] ED 2 weeks ago. While here she was given 25 mg PO diphenhydramine, 15 mg IM ketoralac, and metoclopramide 10 mg tablet. She was then given an RX for ketoralac and compazine. Patient is reporting today that her headache got worse yesterday due to worsening insomnia is not the worst she has ever experienced. She reports seeing a neurologist who placed her on a medication but she does not feel that is helping in any way because her insomnia has never addressed she feels more bothered by her insomnia rather than a headache itself. She is denying any SI HI or AVH. She has baseline light sensitivity. She denies any falls or trauma. She has no neck pain or back pain denying any respiratory symptoms no chest pain paresthesias or weakness no abdominal pain. She reports that she is eating and drinking and voiding regularly. She is without any visual changes. She expresses strong discussed with where she lives and feels that is the route of her problems but she is not homeless and has access to food and clothes and place a shower in safety. She has no fevers and no chills denying any dizziness no pain with neck movement or eye movement. This feels like the same headache that she always has no change. She reports last time in the ED the medicine we gave her helped but she was not able to find the prescription that we sent home for her. MD elicited complaint: migraine Location: band-like Severity: moderate Quality & Timing: aching Exacerbating factors: noise and other (light) Relieving factors: dark room and sleep Related Data Previous Rx's ?Medication ?Instructions ?Recorded ketorolac 10 mg tablet 10 mg PO Q6H PRN pain #20 ta bs 10/01/25 prochlorperazine maleate 10 mg 10 mg PO Q8H PRN nausea and 02/24/25 tablet (Compazine) vomiting #10 tabs ketorolac 10 mg tablet 10 mg PO Q6H PRN headache #2 0 tabs 03/18/25 prochlorperazine maleate 10 mg 10 mg PO Q8H PRN nausea and 03/18/25 tablet (Compazine) vomiting #10 tabs Allergies Allergy/AdvReac Type Severity Reaction Status Date / Time No Known Allergies Allergy Verified 03/18/25 09:39 Review of Systems Review of Systems: Yes all other systems are reviewed and are negative PMFSH Past Medical History Attestation statement: The following information was validated with the patient. Source: old records reviewed, nursing notes reviewed and other (EMS) Social History Social History Advance Directives: No Advance Directives Information Provided: No Physical Exam Exam: Exam: General: Appears in no acute distress, appears well nourished body habitus is obese, appears stated age. No septic or ill-appearing. Vitals reviewed normal, PMH/Social and Surgical hx reviewed including allergies and current medications. - reviewed for prior visits here and red as it pertains to similar chief complaint. Head: Normocephalic, no obvious trauma or skin lesions noted. Eyes: EOMI, PERRLA no photophobia ENMT: moist oral mucosa, uvula midline no trismus Neck: trachea midline no nuchal rigidity moves neck 50 degrees in each direction without any pain no midline tenderness step-offs or deformities of entire spine Cardiovascular: peripheral perfusion normal, Regular heart rate regular rhythm Respiratory: no respiratory distress Abdomen: nondistended Extremities: warm and moving without difficulty cap refill less than 3 seconds distal pulses 2+ Psych: Cooperative flat and depressed affect Neuro: Alert and oriented. Vital Signs: Vital Signs: Last Vital Signs Temp 97.6 F 03/18/25 09:34 Pulse 70 03/18/25 09:34 Resp 18 03/18/25 09:34 BP 163/117 H 03/18/25 09:34 Pulse Ox 97 03/18/25 09:34 O2 Del Method Room Air 03/18/25 09:34 BMI result Body Mass Index 36.1 Medications Administered Discontinued Medications Generic Name Dose Route Start Last Admin Trade Name Freq PRN Reason Stop Dose Admin Diphenhydramine HCl 25 mg 03/18/25 09:40 03/18/25 09:49 Diphenhydramine Hcl 25 Mg Capsule PO 03/18/25 09:41 25 mg ONCE ONE Administration Ketorolac Tromethamine 15 mg 03/18/25 09:40 03/18/25 09:50 Ketorolac Tromethamine 15 Mg/Ml Vial IM 03/18/25 09:41 15 mg ONCE ONE Administration Metoclopramide HCl 10 mg 03/18/25 09:40 03/18/25 09:49 Metoclopramide Hcl 10 Mg Tablet PO 03/18/25 09:41 10 mg ONCE ONE Administration Medical Decision Making Medical Decision Making MDM Narrative: Patient with PMH significant for schizophrenia paranoid type and migraines and insomnia presenting to the ED today for evaluation of headache. She arrives via EMS reporting be at her baseline for migraine but slightly exacerbated from yesterday from less sleep. Mildly hypertensive at 163/117 she does not report this as the worst of her life does not feel it thunderclap in nature no visual changes. DDx include but not limited to: Migraine headache Tension headache Intracranial hemorrhage - unlikely, no hx of trauma, the onset was gradual, no blood thinners Meningitis - unlikely, no fever, no neck pain/stiffness moves neck side to side without any nuchal rigidity negative meningeal signs Temporal arteritis -unlikely clinical presentation is not consistent from this diagnosis. Pseudotumor cerebri -unlikely, symptoms are not consistent Upon presentation the patient is hemodynamically stable, she is alert and oriented x3, afebrile, not ill or toxic appearing, no acute distress.? Her physical exam is reassuring. There is no photophobia noted with exam and neuro exam is nonfocal, sunglasses placed back on the head Clinical presentation is consistent with diagnosis of migraine.? Symptoms are similar to those she usually experiences with episodes of migraine. Patient was given Toradol, Compazine, and Benadryl.? She reported that the combination of those medications worked for her previously. Upon reassessment the patient reported improvement of symptoms.? States that her pain improved- sunglasses now off, she is in more pleasant appearing mood. Discussed her BP, she refuses to acknowledge. No headache, dizziness, cp, or sob. no changes in urinary output. I discussed with the patient her diagnosis of migraine and advised her to drink plenty of fluids to stay hydrated, eat a nutritious diet, get adequate amount of sleep and rest.? Advised her to take her migraine medications as prescribed.? Follow-up with the PCP within 5 to 7 days for observation and management recommended along with her neurologist.? Discussed with the patient when to seek immediate medical attention and to go to the emergency department for reevaluation.? Patient expressed understanding and agreed to the treatment plan. Differential Diagnosis Differential Diagnoses: The differential diagnosis associated with the presentation includes See MDM Admission/Observation Consideration of admission/observation: Escalation of care including admission/observation considered Patient would have been admitted to the hospital had her work up had any findings where hospital admission was appropriate and her clinical presentation warranted hospital admission. Tests considered The following testing was considered but not selected: Would consider CT of the head had patient shown any signs of focal deficits are stated that her headache was the worst it has ever been Prescription Management I considered prescription management with: Pain Medication Chronic Conditions Patient?s care impacted by: Other Social Determinants Patient?s care significantly limited by Social Determinants of Health including: Problems related to primary support group and Other Social Determinant of Health Discharge Plan Discharge Clinical Impression: Elevated blood pressure reading Headache Qualifiers: Headache type: tension-type Headache chronicity pattern: episodic headache Intractability: not intractable Qualified Code(s): G44.219 - Episodic tension- type headache, not intractable Insomnia Qualifiers: Insomnia type: unspecified Qualified Code(s): G47.00 - Insomnia, unspecified Patient Disposition: Home, Self-Care Additional Instructions: You were seen and evaluated for a headache.? Your history and physical is most consistent with a diagnosis of a migraine headache. A migraine headache is an intense, throbbing pain on one side or both sides of the head. Migraine headaches may also cause other symptoms, such as nausea, vomiting, and sensitivity to light and noise. Other types such as ocular, are associated with vision changes. A migraine can last from 4 hours to 3 days.? The exact causes of this condition are not completely known. A migraine may be caused when nerves in the brain become irritated and release chemicals that cause inflammation of blood vessels. This inflammation causes pain. This condition may be triggered or caused by: drinking alcohol, smoking, control pills, estrogen, certain blood pressure medications, nitroglycerin, eating or drinking products that contain nitrates, glutamate, aspartame, or tyramine, aged cheeses, chocolate, or caffeine., doing physical activity. Other activities such as menstruation, , hunger, stress, lack of sleep or too much, weather changes and fatigue may also contribute. You are more likely to experience a migraine if you are female, between the ages of 25-55, family history of migraine, , depression, or anxiety, and obese. Sometimes before a headache starts, you may get warning signs, called (an aura), such as: seeing flashing lights or having blind spots, halos, zig zag lines, tunnel vision or blurred vision, having numbness or tingling, have trouble talking, or have muscle weakness. Some people experience a feeling of fatigue or difficulty concentrating after their headache abides. Avoid known triggers. You may also consider discussing with your primary care provider: acupuncture, biofeedback and cognitive behavior therapy. Find ways to manage stress, such as meditation, deep breathing or yoga. Go to ER immediately if you develop a migraine that becomes severe, lasts greater than 72 hours, have a fever, stiff neck, vision loss, you feel off balance, you have trouble walking, you faint, or have a seizure. Prescriptions: New prochlorperazine maleate [Compazine] 10 mg tablet 10 mg PO Q8H PRN (Reason: nausea and vomiting) Qty: 10 0RF ketorolac 10 mg tablet 10 mg PO Q6H PRN (Reason: headache) Qty: 20 0RF Rx Instructions: maximum total duration of 5 days from all oral, intranasal, or parenteral formulations No Action prochlorperazine maleate [Compazine] 10 mg tablet 10 mg PO Q8H PRN (Reason: nausea and vomiting) Qty: 10 0RF ketorolac 10 mg tablet 10 mg PO Q6H PRN (Reason: pain) Qty: 20 0RF Rx Instructions: maximum total duration of 5 days from all oral, intranasal, or parenteral formulations. The patient received an intramuscular dose of Toradol here in the emergency room Referrals: [facility] Neuro/Sleep [Provider Group] Referral Note: insomnia and migraines Clinical Impression: Headache; Insomnia Print Language: Tuvaluan
[2025-03-18 09:34] VITALS: BP 116/104; BP 163/117; PULSE 70; PULSE 90; RESP 18; TEMP 36.4; O2SAT 97; BMI 36.1
[2025-03-18 10:43] VITALS: BP 172/94; PULSE 72; RESP 18; O2SAT 100
[2025-03-18 11:09] VITALS: BP 172/94; PULSE 72; RESP 18; TEMP 36.4; O2SAT 100
--- OUTSIDE RECORDS SUMMARY | 2025-03-18 11:19 | XMS_ITS | Encounter Summary ---
Author Organization [facility] Address [address] [place] [address] Care Team Providers Care Marine Biologist Name Role Phone Shantel Kraft MD Primary Care Provider [phone] Naila Ventura NP Primary Care Provider [phone] Jannette Amezcua MD Primary Care Provider [phone] Marleen Vanessa MD Primary Care Provider [phone] Van Paige MD Primary Care Provider [phone] Encounter Details Date Type Department Care Team (Late st Contact Info) Description 06/24/2018 Orders Only [facility] Neurology [address] [facility] [address] [place] [address] Henrik Nelson MD [address] [place] [address] Social History Tobacco Use Types Packs/Day Years [...] Pressure 122/84(2024 2:52 PM EDT) Maira Beauchamp, [facility] Note: Above is your goal for [...] this encounter Procedures * Due to [place] [employer] law, this organization might not be sharing negative HIV tests. Procedure Name Priority Date/Time Associated Diagnosis Comments CREATININE WITH GLOMERULAR FILTRATION RATE, ESTIMATED (EGFR) Routine 06/24/2018 12:10 PM EST Pain in extremity, unspecified extremity documented in this encounter Results * Due to [place] [employer] law, this organization might not be sharing negative HIV tests. * CREATININE WITH GLOMERULAR FILTRATION RATE, ESTIMATED (EGFR) (06/24/2018 12:10 PM EST) Creatinine 0.78 0.50 - 1.05 mg/dL [facility] Comment: For patients >49 years of age, the reference limit for Creatinine is approximately 13% higher for people identified as -[place]. EGFR 84 > OR = 60 mL/min/1. [...] needs for GFR calculation. Resulting Agency Comment [id number] Henrik Nelson MD LAB SAME DAY RESULT Final Result [facility] [address] [place] [address] documented in this encounter Visit Diagnoses Diagnosis [...] documented as of this encounter Care Teams Marine Biologist Relationship Specialty Start Date End Date Shantel Kraft MD PCP - General Internal Medicine 05/09/18 09/09/18 Naila Ventura NP [address] [place] [address] PCP - General Internal Medicine 09/10/18 08/04/19 Jannette Amezcua MD [address] [place] [address] PCP - General Internal Medicine 08/05/19 02/28/21 Marleen Vanessa MD [address] [address] PCP - General Internal Medicine 06/27/21 11/19/24 Van Paige MD [address] [address] PCP - General Family Medicine 11/20/24 documented as of this encounter
--- OUTSIDE RECORDS SUMMARY | 2025-03-18 11:19 | XMS_ITS | Clinical Summary ---
Author Organization [facility] Address [address] [place] [address] Phone Care Team Providers Care Hooker Laster Name Role Phone Physician, Pcp Unknown Primary Care Provider Hanh vailable Allergies No known active allergies Medications Qulipta 30 mg tablet Take 1 tablet by mouth 1 (one) time each day. Active Encounters Date Type Department Care Team Description 03/16/2025 4:15 AM EDT - 03/16/2025 4:35 AM EDT Emergency [facility] Emergency [address] [place] [id number] Right leg pain (Primary Dx) Discharge Disposition: Home or Self Care 02/26/2025 5:04 AM EDT - 02/26/2025 9:58 AM EDT Emergency [facility] Emergency [address] [place] [address] Gonzalo Hill MD Other migraine without status migrainosus, not intractable (Primary Dx) Discharge Disposition: Home or Self Care from Last 3 Months Immunizations Immunization Administration Dates Next Due Pfizer SARS-CoV-2 COVID-19, mRNA, LNP-S, preservative free 06/23/2020,06/02/2020 Medical History Medical History Date Comments HTN (hypertension) Fibromyalgia Social History Tobacco Use Types Packs/Day Years Used Date Smoking Tobacco: Never Smokeless Tobacco: Never Tobacco Cessation:Counseling Given: Not Answered Alcohol Use Standard Drinks/Week Comments Never 0 [...] Mass Index 36.14 03/16/2025 12:35 AM EDT Plan of Treatment Health Maintenance Due Date Last Done Comments Breast Cancer Screening 1960 Colorectal Cancer Screening: Colonoscopy 1960 Pneumococcal Vaccine: 50+ Years (1 of 2 - PCV) 10/06/1978 Cervical Cancer Screening: Pap Smear 10/06/1980 RSV Immunization Adult Patients (1 - Risk 50-74 years 1-dose series) 10/06/2009 Zoster Vaccines (1 of 2) 10/06/2009 DTaP,Tdap,and Td Vaccines (2 - Td or Tdap) 03/02/2020 03/02/2010 Medicare Annual Wellness Visit 06/25/2023 Osteoporosis Screening (Bone Density Screening) 06/25/2023 Social Influencers of Health Screening 06/25/2023 Depression Screening 05/27/2024 Falls Risk Assessment 10/06/2024 COVID-19 Vaccine ( season) 2025 06/23/2020, 06/02/2020 Influenza Vaccine (#1) 2025 04/05/2022, 2020 Hypertension/CHF/CAD Annual BMP Blood Test 10/27/2025 10/27/2024, 10/16/2024, 10/16/2024, Additional history exists Cholesterol Screening (Lipid Panel) 08/13/2028 08/14/2023 Hepatitis C Screening Completed 08/25/2018 HIB Vaccines Aged Out No longer eligi [...] mmol/L LAB CHEMISTRY METHOD 06/21/2024 11:42 AM [facility] Potassium 4.2 3.5 - 5.5 mmol/L LAB CHEMISTRY METHOD 06/21/2024 11:42 AM [facility] Comment:Hemolysis present Chloride 110 96 - 110 mmol/L LAB CHEMISTRY METHOD 06/21/2024 11:42 AM [facility] CO2 25 21 - 32 mmol/L LAB CHEMISTRY METHOD 06/21/2024 11:42 AM [facility] Anion Gap 4 3 - 11 LAB CHEMISTRY METHOD 06/21/2024 11:42 AM [facility] Glucose 99 70 - 100 mg/dL LAB CHEMISTRY METHOD 06/21/2024 11:42 AM [facility] BUN 14 5 - 25 mg/dL LAB CHEMISTRY METHOD 06/21/2024 11:42 AM [facility] Creatinine 0.78 0.50 - 1.10 mg/dL LAB CHEMISTRY METHOD 06/21/2024 11:42 AM [facility] eGFR 85 >=60 mL/min/1. 73m2 LAB CHEMISTRY METHOD 06/21/2024 11:42 AM [facility] Comment:Calculation based on the Chronic Kidney Disease Epidemiology Collaboration (CKD-EPI) equation refit without adjustment for race. BUN/Creatinine Ratio 17.9 LAB CHEMISTRY METHOD 06/21/2024 11:42 AM [facility] Calcium 9.0 8.5 - 10.5 mg/dL LAB CHEMISTRY METHOD 06/21/2024 11:42 AM [facility] AST (SGOT) 16 10 - 42 unit/L LAB CHEMISTRY METHOD 06/21/2024 11:42 AM [facility] Comment:Hemolysis present ALT (SGPT) 17 10 - 60 unit/L LAB CHEMISTRY METHOD 06/21/2024 11:42 AM [facility] Alkaline Phosphatase 84 42 - 121 unit/L LAB CHEMISTRY METHOD 06/21/2024 11:42 AM [facility] Total Protein 6.7 6.0 - 8.0 g/dL LAB CHEMISTRY METHOD 06/21/2024 11:42 AM [facility] Albumin 3.6 3.2 - 5.0 g/dL LAB CHEMISTRY METHOD 06/21/2024 11:42 AM [facility] Total Bilirubin 0.6 0.0 - 1.4 mg/dL LAB CHEMISTRY METHOD 06/21/2024 11:42 AM [facility] Blood Venous blood specimen / Unknown Venipuncture / Unknown 06/21/2024 10:46 AM EST 06/21/2024 10:52 AM EST us Yady Juares DO LAB BLOOD ORDERABLES Irena l Result [facility] [address] [place] [address], [place] [phone] from Last 3 Months or Most Recently Relevant to Health Maintenance Insurance MEDICARE MEDICAID - [place] MEDICARE Care Teams Hooker Laster Relationship Specialty Start Date End Date Physician, Pcp Unknown PCP - General 03/16/25
--- OUTSIDE RECORDS SUMMARY | 2025-03-18 11:19 | XMS_ITS | Clinical Summary ---
Author Organization [facility] Address [address] [place] [phone] Phone Care Team Providers Care Railway Head Tender Name Role Phone Van Paige MD Primary Care Provider [phone] Van Paige MD Unavailable Allergies Active Allergy [...] that we send in a medication called Xzulema to specific pharmacy in [place] that has agreed to cover the cost [...] dyspnea) 03/19/2023 Vertigo 06/27/2021 12/13/2022 Overview (12/18/2022): [place] [facility] Dr Candido Woodward (12/2020): I explained [...] Salt, MSG (MonoSodium Gultamate - Present in [place] food and some prepared foods, such as [...] vestibular PT which will be done via [place] starting in Dec 2022. Tinnitus, bilateral 06/27/2021 [...] [facility] unhealthy food . Limit [...] Overview (09/15/2019): 09/14: Pt was in a detention prior to COVID admission, refuses to return d/t concern that she was exposed to mold, attributes many of her physical/health complaints to mold exposure. CM trying to arrange for pt to go to [facility] for recovering Covid pts, pt refuses, states she cannot live in a group setting, cannot share a bathroom. Pt was advised that we will do our best, but may have limited options for placement at this time. Needs CM f/u. Assessment & Plan (06/09/2021 10:50 PM EST): Patient complains about cold water at the intermediate that she stayed in [place] and understands limitations in getting independent housing [...] CM is following. Pt was in a detention prior to COVID admission, refuses to return d/t concern that she was exposed to mold, attributes many of her physical/health complaints to mold exposure. CM trying to arrange for pt to go to new [facility] facility for recovering Covid pts, pt refuses, states she cannot live in a group setting, cannot share a bathroom. Unfortunately, she has no other options. [facility] ([facility]) in [place] ([phone]) will accept Angela back once she has 2 neg swabs. 10/20: covid swab 10/19 - px refused - thinks it will be positive. CM waiting to hear if detention will accept her w/o covid test. COVID-19 09/12/2019 Overview (09/13/2019): Admitted to [facility] from ED 09/03, xray showed opacity in [...] swabs in order to discharge to a detention or congregate living. [ ] f/u covid [...] past and workshops organized by him in [place] in late Assessment & Plan (02/02/2021 10:50 [...] black mold here and at her last detention. Wants to live alone. Refusing to eat [...] Used to see Sheba Teixeira NP at [facility] in [place]. Now Dr Nelson at [facility]. Long and complex hx of [...] get ahold of Dr Michelle's office in [place]. She has cPTSD, is on many medications, [...] Also has nausea. Recommend fresh GI eval [facility]. She agrees. Assessment & Plan [...] that I will need documentation from the intermediate directly regarding what they are looking for in a letter, if this letter is not accepted by the [facility]. OMAR (obstructive sleep apnea) 11/30/2016 Overview (09/11/2021): [...] discussed. I also advised her to take acxw-knk-hqbimct cough suppressant at night as needed. She [...] to begin using today once received from [facility]. 09/16/19: Reports rash no longer itchy, did [...] applying ketoconazole. Rash on abdomen appears improved. 5: improved with Ketoconazole denies pruritis. Leg cramping [...] her complex history. Will obtain records from [facility]. Osteoarthritis 12/10/2016 05/02/2021 Memory impairment 11/30/2016 09/07/2024 Overview (10/30/2017): Overview: On [place], prescriped by neurologist in [place] who she hasn't seen in a while [...] Encounters Date Type Department Care Team Description 03/10/2025 9:22 PM EDT - 03/10/2025 11:45 PM EDT Emergency [facility] [address] [place] [address] Yosi Duncan MD Discharge Disposition: Home or Self Care from [...] as food, clothing, or medical care? No 03/10/2025 In the past 12 months have y ou been in a relationship with a person who hurts, threatens, or tries to control you? No 03/10/2025 Are you denied basic needs s uch as food, clothing, or medical care? No 03/10/2025 In the past 12 months have y ou been in a relationship with a person who hurts, threatens, or tries to control you? No 03/10/2025 Comments No Sex and Gender Information Value Date Recorded Sex Assigned at Female 02/16/2024 10:23 PM EDT Legal Sex Female 6:33 AM EST Gender Identity Female 02/16/2024 10:23 PM EDT Sexual Orientation Straight 02/16/2024 10 :23 PM EDT Last Filed Vital Signs Vital Sign Reading Time Taken Comments Blood Pressure 136/70 03/10/2025 9:01 PM EDT Pulse 78 03/10/2025 9:01 PM EDT Temperature 36.6 C (97.9 F) 03/10/2025 9:01 PM EDT Respiratory Rate 16 03/10/2025 9:01 PM EDT Oxygen Saturation 100% 03/10/2025 9:01 PM EDT Inhaled Oxygen Concentration - - Weight 92.5 kg (204 lb) 03/10/2025 9:01 PM EDT Height 160 cm (5' 3 ) 03/10/2025 9:01 PM EDT Body Mass Index 36.14 03/10/2025 9:01 PM EDT Plan of Treatment Health Maintenance Due Date Last Done Comments HIV ONE-TIME SCREENING (18-65 YEARS) 10/06/1977 PNEUMOCOCCAL VACCINES (50+ years) (1 of 2 - PCV) 10/06/1978 MAMMOGRAM 1999 COLOGUARD 10/06/2004 COLONOSCOPY 10/06/2004 COLORECTAL CANCER SCREENING 10/06/2004 FIT TEST 10/06/2004 FOBT 10/06/2004 SIGMOIDOSCOPY 10/06/2004 VIRTUAL COLONOSCOPY 10/06/2004 RSV VACCINE (1 - Risk 50-74 years 1-dose series) 10/06/2009 ZOSTER VACCINES (1 of 2) 10/06/2009 Adult Td,Tdap Booster 03/02/2020 03/02/2010 OSTEOPOROSIS SCREENING INITIAL (ONE-TIME) 10/06/2024 DEPRESSION SCREENING 10/28/2024 10/29/2023 INFLUENZA VACCINE (#1) 2024 04/05/2022, 2020 COVID-19 VACCINE ( - season) 2025 06/23/2020, 06/02/2020 BLOOD PRESSURE 03/31/2025 09/28/2024 SCREENING FOR DIABETES 09/29/2027 09/28/2024, 2023 LIPID PANEL 08/13/2028 08/14/2023, 0710/2022, 05/12/2018, Additional history exists HEPATITIS C SCREENING Completed 08/25/2018, 019 SMOKING STATUS SCREENING (Once After 26 Yrs) Completed 03/10/2025 HEPATITIS A VACCINES Aged Out No long [...] (08/14/2023 11:51 AM EDT) HDL 41 mg/dL [facility] Comment: Interpretation <40 mg/dL: Low HDL cholesterol (major risk factor for CHD) Greater than or equal to 60 mg/dL: High HDL cholesterol ( negative risk factor for CHD) HDL - cholesterol is affected by a number of factors, e.g. smoking, excerise, hormones, sex and age. CHOLESTEROL 261(H) 0 - 240 mg/dL [facility] TRIGLYCERIDES 162(H) 30 - 160 mg/dL [facility] LDL 188(H) 50 - 129 mg/dL [facility] Comment: LDL levels in terms of risk for coronary heart disease: <100 mg/dL: Optimal 100-129 mg/dL: Near or above optimal 130-159 mg/dL: Borderline high 160-189 mg/dL: High >190 mg/dL: Very High CARDIAC RISK RATIO 6.4(H) 3.3 - 4.4 [facility] Blood 08/14/2023 11:5 1 AM EDT 08/14/2023 11:54 AM EDT us Marleen Vanessa MD LAB BLOOD ORDERABLES Irena hurt Result [address] [address] from Last 3 Months or Most Recently Relevant to Health Maintenance Insurance [facility] [address] [place] [id number] MEDICARE PART A & B MEDICARE PART A & B MEDICARE PART A & B MEDICARE PART A & B MEDICARE PART A & B MEDICARE PART A & B [facility] MEDICARE PART A & B [facility] Advance Directives For more information, please contact: [phone] (9AM - 5PM [facility], Saturday-Saturday) * Full Code (Confirmed) (Latest Code Status on File) Date Activated Date Inactivated Comments 09/12/2019 9:46 PM Question Answer Comments Code Status Confirmed With: Patient Care Teams Railway Head Tender Relationship Specialty Start Date End Date Van Paige MD [address] [facility] [address] [place] [address] PCP - General Family Medicine 03/27/24 Van Paige MD [address] [facility], [facility] [address] [place] [address] Insurance Assigned Provider 08/30/24 Additional Source Comments The information contained in this document represents components of the legal health record. It is not the complete legal health record.[facility]
--- OUTSIDE RECORDS SUMMARY | 2025-03-18 11:19 | XMS_ITS | Encounter Summary ---
Author Organization [facility] Address [address] [place] [address] Care Team Providers Care Bridge Toll Collector Name Role Phone Shantel Kraft MD Primary Care Provider [phone] Naila Ventura NP Primary Care Provider [phone] Jannette Amezcua MD Primary Care Provider [phone] Marleen Vanessa MD Primary Care Provider [phone] Van Paige MD Primary Care Provider [phone] Encounter Details Date Type Department Care Team (Late st Contact Info) Description 06/24/2018 [facility] Only [facility] [address] [place] [phone] Juli Carey PA Social History Tobacco Use [...] Pressure 122/84(2024 2:52 PM EDT) Maira Beauchamp, [facility] Note: Above is your goal for [...] of this encounter Procedures * Due to [place] state law, this organization might not be [...] in this encounter Results * Due to [place] state law, this organization might not be sharing negative HIV tests. * (ABNORMAL) URINALYSIS, DIP ONLY ( SITE STAT ONLY) (06/24/2018 12:28 PM EST) COLOR (URINE) yellow [facility] (CLIA# [id number]) APPEARANCE (URINE) clear Clear [facility] (CLIA# [id number]) SPECIFIC GRAVITY 1.025 1.001 - 1.035 [facility] (CLIA# [id number]) PH (URINE) 6.0 5.0 - 8.0 [facility] (CLIA# [id number]) PROTEIN (URINE) negative Neg [facility] (CLIA# [id number]) GLUCOSE (URINE) negative Neg [facility] (CLIA# [id number]) Ketones (Urine) negative Neg [facility] (CLIA# [id number]) BILIRUBIN (URINE) negative Neg [facility] (CLIA# [id number]) BLOOD (URINE) negative Neg [facility] (CLIA# [id number]) Leukocyte esterase (Urine) 1+(A) Neg [facility] (CLIA# [id number]) NITRITE (URINE) negative Neg [facility] (CLIA# [id number]) Urine specimen (specimen) 06/24/2018 12:28 PM EST Narrative [facility] (CLIA# [id number]) - 06/24/2018 12:29 PM EST Micro and culture already ordered per provider. us [facility] SAME DAY RESULT Final Result Performing Organization Address City/[facility]/ZIP Co de Phone Number [facility] (CLIA# [id number]) [address] [place] [address] * (ABNORMAL) LIPID PANEL WITH REFLEX TO [...] LDL-C. Chidi PEREZ et al. HYACINTH. 2013;310(19): 7542-9094 (http://education.Cook Angels.TastingRoom.com/faq/IKA884) CHOL/HDL Ratio 6.0(H) <5.0 (calc) [facility] Cholesterol Non-HDL 146(H) <130 mg/dL (calc) [facility] Comment: For patients with diabetes plus 1 major ASCVD risk factor, treating to a non-HDL-C goal of <100 mg/dL (LDL-C of <70 mg/dL) is considered a therapeutic option. 06/24/2018 12:1 0 PM EST 06/25/2018 12:05 AM EST Narrative Resulting Agency Comment [id number] [facility] Final Resu lt Performing Organization Address City/[facility]/ZIP Co de Phone Number [facility] [address] [place] [address] * (ABNORMAL) THYROID STIMULATING HORMONE (TSH) WITH FREE T4 REFLEX, SERUM (06/24/2018 12:10 PM EST) FT4 1.6 0.8 - 1.8 ng/dL [facility] TSH 0.04(L) 0.40 - 4.50 mIU/L [facility] 06/24/2018 12:1 0 PM EST 06/25/2018 12:05 AM EST Narrative Resulting Agency Comment [id number] us [facility] Final Resu lt Performing Organization Address City/State/[facility] Co de Phone Number [facility] [address] [place] [address] * (ABNORMAL) CULTURE, URINE, ROUTINE (06/24/2018 12:10 PM EST) Bacteria culture (Urine) SEE NOTE(A) [facility] Comment: CULTURE, URINE, ROUTINE MICRO NUMBER: [id number] TEST STATUS: FINAL SPECIMEN SOURCE: URINE SPECIMEN [...] 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 06/24/2018 12:1 0 PM EST 06/25/2018 12:05 AM EST Narrative Resulting Agency Comment [id number] [facility] Final Resu lt Performing Organization Address [facility] Co de Phone Number [facility] [address] [place] [address] * (ABNORMAL) URINALYSIS, MICROSCOPIC (06/24/2018 12:10 PM [...] 12:05 AM EST Narrative Resulting Agency Comment [id number] [facility] SAME DAY RESULT Final Result Performing Organization Address [facility] de Phone Number [facility] [address] [place] [address] * HEPATIC FUNCTION PANEL (ALT,AST,ALK PH,BILI'S,TP,ALB) (06/24/2018 [...] 12:05 AM EST Narrative Resulting Agency Comment [id number] us [facility] Final Resu lt Performing Organization Address City/[facility]/ZIP Co de Phone Number [facility] [address] [place] [address] * (ABNORMAL) BASIC METABOLIC PANEL WITH (GFR) (06/24/2018 12:10 PM EST) Pathologist [facility] Glucose 79 65 - 99 mg/dL [facility] Comment:Fasting reference in terval Urea Nitrogen Blood (BUN) 11 7 - 25 mg/dL [facility] Creatinine 0.78 0.50 - 1.05 mg/dL [facility] Comment: For patients >49 years of age, the reference limit for Creatinine is approximately 13% higher for people identified as -Turkmen. EGFR 84 > OR = 60 mL/min/1 [...] needs for GFR calculation. Resulting Agency Comment [id number] [facility] Final Resu lt Performing Organization Address City/[facility]/ZIP Co de Phone Number [facility] [address] [place] [address] * (ABNORMAL) CBC INCLUDES DIFFERENTIAL AND PLATELET [...] 12:05 AM EST Narrative Resulting Agency Comment [id number] [facility] SAME DAY RESULT Final Result Performing Organization Address City/State/[facility] Co de Phone Number [facility] [address] [place] [address] documented in this encounter Visit Diagnoses Diagnosis [...] documented as of this encounter Care Teams Bridge Toll Collector Relationship Specialty Start Date End Date Shantel Kraft MD PCP - General Internal Medicine 05/09/18 09/09/18 Naila Ventura NP [address] [place] [address] PCP - General Internal Medicine 09/10/18 08/04/19 Jannette Amezcua MD [address] [place] [address] PCP - General Internal Medicine 08/05/19 02/28/21 Marleen Vanessa MD [address] [address] PCP - General Internal Medicine 06/27/21 11/19/24 Van Paige MD [address] [address] PCP - General Family Medicine 11/20/24 documented as of this encounter
--- OUTSIDE RECORDS SUMMARY | 2025-03-18 11:19 | XMS_ITS | Encounter Summary ---
Author Organization [facility] Address [address] [place] [address] Care Team Providers Care College Archivist Name Role Phone Shantel Kraft MD Primary Care Provider [phone] Naila Ventura NP Primary Care Provider [phone] Jannette Amezcua MD Primary Care Provider [phone] Marleen Vanessa MD Primary Care Provider [phone] Van Paige MD Primary Care Provider [phone] Encounter Details Date Type Department Care Team (Late st Contact Info) Description 06/24/2018 Orders Only [facility] [address] [place] [phone] Shantel Kraft MD [address] [place] [phone] Social History Tobacco Use Types Packs/Day Years [...] Pressure 122/84(2024 2:52 PM EDT) Maira Beauchamp, [facility] Note: Above is your goal [...] of this encounter Procedures * Due to [place] [employer] law, this organization might not be sharing negative HIV tests. Procedure Name Priority Date/Time Associated Diagnosis Comments VITAMIN D, 25-HYDROXY, TOTAL, IMMUNOASSAY Routine 06/24/2018 12:10 PM EST Vitamin D deficiency documented in this encounter Results * Due to [place] [employer] law, this organization might not be sharing negative HIV tests. * VITAMIN D, 25-HYDROXY, TOTAL, IMMUNOASSAY (06/24/2018 12:10 PM EST) Vitamin D, 25-OH, Total 42 30 - 100 ng/mL [facility] Comment: Vitamin D Status 25-OH Vitamin D: Deficiency: <20 ng/mL Insufficiency: 20 - 29 ng/mL Optimal: > or = 30 ng/mL For 25-OH Vitamin D testing on patients on D2-supplementation and patients for whom quantitation of D2 and D3 fractions is required, the QuestAssureD(TM) 25-OH VIT D, (D2,D3), LC/MS/MS is recommended: order code 69313 (patients >2yrs). For more information on this test, go to: http://education.ReFlow Medical/faq/LDG687 (This link is being provided for informational/educational purposes only.) 06/24/2018 12:1 0 PM EST 06/25/2018 12:05 AM EST Narrative Resulting Agency Comment [id number] us [facility] Final Resu lt [facility] [address] [place] [address] documented in this encounter Visit Diagnoses Diagnosis [...] documented as of this encounter Care Teams College Archivist Relationship Specialty Start Date End Date Shantel Kraft MD PCP - General Internal Medicine 05/09/18 09/09/18 Naila Ventura NP [address] [place] [address] PCP - General Internal Medicine 09/10/18 08/04/19 Jannette Amezcua MD [address] [place] [address] PCP - General Internal Medicine 08/05/19 02/28/21 Marleen Vanessa MD [address] [address] PCP - General Internal Medicine 06/27/21 11/19/24 Van Paige MD [address] [address] PCP - General Family Medicine 11/20/24 documented as of this encounter
--- OUTSIDE RECORDS SUMMARY | 2025-03-18 11:19 | XMS_ITS | Encounter Summary ---
Author Organization [facility] Address [address] [place] [address] Care Team Providers Care Vice President Name Role Phone Shantel Kraft MD Primary Care Provider [phone] Naila Ventura NP Primary Care Provider [phone] Jannette Amezcua MD Primary Care Provider [phone] Marleen Vanessa MD Primary Care Provider [phone] Van Paige MD Primary Care Provider [phone] Reason for Visit * Reason Comments PT-1 Form Encounter Details Date Type Department Care Team (Late st Contact Info) Description 05/14/2018 Telephone [facility] Neurology [address] [phone] Henrik Douglas MD [address] [place] [address] PT-1 Form Social History Tobacco Use Types [...] EST [facility] PT-1 Request PT-1 Form Summary Traffic Line Painter Name: [facility] Tracking #: [id number] Member Name: Angela Hicks Status: Authorized Request Type: New Form Created: 05/14/2018 1:17:00 PM Facility Location: Member Pickup Address: [address] [place] [address] jonokellie douglas md [address] [place] [address] [place] [address] Requested Service: - Neurological Explanation: - Medical [...] documented as of this encounter Care Teams Vice President Relationship Specialty Start Date End Date Shantel Kraft MD PCP - General Internal Medicine 05/09/18 09/09/18 Naila Ventura NP [address] [place] [address] PCP - General Internal Medicine 09/10/18 08/04/19 Jannette Amezcua MD [address] [place] [address] PCP - General Internal Medicine 08/05/19 02/28/21 Marleen Vanessa MD [address] [address] PCP - General Internal Medicine 06/27/21 11/19/24 Van Piage MD [address] [address] PCP - General Family Medicine 11/20/24 documented as of this encounter
--- OUTSIDE RECORDS SUMMARY | 2025-03-18 11:20 | XMS_ITS | Encounter Summary ---
Author Organization [facility] Address [address] [place] [address] Care Team Providers Care Dyeing Machine Back Tender Name Role Phone Jannette Amezcua MD Primary Care Provider [phone] Marleen Vanessa MD Primary Care Provider [phone] Van Paige MD Primary Care Provider [phone] Reason for Visit * Reason Comments Follow Up Encounter Details Date Type Department Care Team (Late st Contact Info) Description 10/16/2019 Telephone [facility] Neurology [address] [phone] Henrik Nelson MD [address] [place] [address] Follow Up Social History Tobacco Use Types [...] she calls back, please inform: I reviewed [facility] admission records. Her (patient) coronavirus PCR [...] has been in the [facility] in [place]. She has been there for 5 1/2 weeks States the doctor is not beliving her that mold can cross the blood - brain barrier and is trying to put her on depakote She is asking that Dr Nelson call the doctor there. She will call back with the phone number She is asking for a referral to a new PCP within [facility]. They are giving her Olansoprine for sleep. [...] due to mold States she was in [facility] with fungal pneumonia caused by mold and they treated her with antibiotic which will not cure the fungal pneumonia- notes are in epic. Her mother is in [facility] with COVID and not doing well. She is upset with this as well. Spent several minutes on the phone with her * Telephone Encounter - Gisell iSmpson RN - 10/21/2019 10:38 AM EDT 2nd Message left for patient to return my call. * Telephone Encounter - Anjali Miller RN - 10/16/2019 4:55 PM EDT LMOM for call back * Telephone Encounter - Francy Maldonado - 10/16/2019 4:30 PM EDT Angela is in a field house in [place] and they are trying to give her psych pills. She's desperate fora call back. Call vikash documented in this encounter Plan of Treatment Not on file documented as of this encounter Goals Goal Patient Goal Type Associated Problems Recent Progress Patient-Stated? Author Blood Pressure < 140/90 Blood Pressure 122/84(2024 2:52 PM EDT) Maira Beauchamp, [facility] Note: Above is your goal for blood [...] documented as of this encounter Care Teams Dyeing Machine Back Tender Relationship Specialty Start Date End Date Jannette Amezcua MD [address] [place] [address] PCP - General Internal Medicine 08/05/19 02/28/21 Marleen Vanessa MD [address] [address] PCP - General Internal Medicine 06/27/21 11/19/24 Van Paige MD [address] [address] PCP - General Family Medicine 11/20/24 documented as of this encounter
--- OUTSIDE RECORDS SUMMARY | 2025-03-18 11:20 | XMS_ITS | Encounter Summary ---
Author Organization [facility] Address [address] [place] [address] Care Team Providers Care Director Insurance Name Role Phone Marleen Vanessa MD Primary Care Provider [phone] Van Paige MD Primary Care Provider [phone] Encounter Details Date Type Department Care Team ([facility] st Contact Info) Description 10/15/2023 Orders Only [facility] Neurology [address] [facility] [address] [place] [address] Henrik Nelson MD [address] [place] [address] Social History Tobacco Use Types Packs/Day Years [...] Pressure 122/84(2024 2:52 PM EDT) Maira Beauchamp, [facility] Note: Above is your goal [...] of this encounter Procedures * Due to [place] [employer] law, this organization might not be sharing [...] in this encounter Results * Due to [place] [employer] law, this organization might not be sharing negative HIV tests. * (ABNORMAL) CULTURE, URINE, ROUTINE (10/15/2023 4:25 PM EDT) Bacteria culture (Urine) SEE NOTE(A) FORMTEK Comment: CULTURE, URINE, ROUTINE Micro Number: [id number] Test Status: Final Specimen Source: Urine Specimen [...] LABORATORY Fin al Result [facility] [address] [place] [address] * (ABNORMAL) URINALYSIS, MICROSCOPIC (10/15/2023 4:25 PM [...] DAY RESULT Final Result Performing Organization Address [facility] de Phone Number [facility] [address] [place] [address] * BASIC METABOLIC PANEL WITH (GFR) (10/15/2023 [...] needs for GFR calculation. Resulting Agency Comment [id number] Henrik Nelson MD LABORATORY Fin al Result Performing Organization Address [facility] Co de Phone Number [facility] [address] [place] [address] * (ABNORMAL) CBC INCLUDES DIFFERENTIAL AND PLATELET [...] - 12.5 fL [facility] Neutrophils # 48054(H) 1500 - 7800 cells/uL [facility] Lymphocytes [...] 2:45 AM EDT Narrative Resulting Agency Comment [id number] Henrik Nelson MD LAB SAME DAY RESULT Final Result Performing Organization Address City/State/[facility] Co de Phone Number [facility] [address] [place] [address] * (ABNORMAL) URINALYSIS DIP W/ REFLEX TO [...] 2:45 AM EDT Narrative Resulting Agency Comment [id number] Henrik Nelson MD LABORATORY Fin al Result Performing Organization Address City/State/[facility] Co de Phone Number [facility] [address] [place] [address] documented in this encounter Visit Diagnoses Diagnosis Abnormal finding on MRI of brain Nonspecific (abnormal) findings on radiological and other examination of skull and head documented in this encounter Care Teams Director Insurance Relationship Specialty Start Date End Date Marleen Vanessa MD [address] [address] PCP - General Internal Medicine 06/27/21 11/19/24 Van Paige MD [address] [address] PCP - General Family Medicine 11/20/24 documented as of this encounter
--- OUTSIDE RECORDS SUMMARY | 2025-03-18 11:20 | XMS_ITS | Encounter Summary ---
Author Organization [facility] Address [address] [place] [address] Care Team Providers Care Lead Auditor Name Role Phone Ary Brunner MD Primary Care Provider [phone] Shantel Kraft MD Primary Care Provider [phone] Naila Ventura NP Primary Care Provider [phone] Jannette Amezcua MD Primary Care Provider [phone] Marleen Vanessa MD Primary Care Provider [phone] Van Paige MD Primary Care Provider [phone] Encounter Details Date Type Department Care Team ([facility] st Contact Info) Description 02/09/2016 Orders Only [facility] Neurology [address] [facility] [address] [place] [address] Henrik Nelson MD [address] [place] [address] Social History Tobacco Use Types Packs/Day Years [...] of this encounter Procedures * Due to [place] [employer] law, this organization might not be sharing [...] this encounter Results * Due to [place] [employer] law, this organization might not be sharing negative HIV tests. * SYPHILIS (FTA) ANTIBODY CASCADING REFLEX TO RPR/TITER (*PREFERRED SCREEN*) (02/09/2016 1:59 PM EDT) Treponema pallidum Ab NEGATIVE NEGATIVE [facility] Comment: {T. PALLIDUM AB {[id number]) No antibodies to T. pallidum (the agent causing syphilis) were detected in the specimen. This result, however, does not exclude very recent T. pallidum infection; testing of a second specimen, collected 2-4 weeks after this specimen, is recommended if the index of suspicion for recent infection is high. 02/09/2016 1:59 PM EDT 02/09/2016 10:34 PM EDT Narrative Resulting Agency Comment [id number] Henrik Nelson MD LABORATORY Fin al Result Performing Organization Address [facility] de Phone Number [facility] [address] [place] [address] * IMMUNOFIXATION, SERUM (02/09/2016 1:59 PM EDT) Interpretation SEE NOTE [facility] Comment: {INTERPRETATION {[id number]) Normal pattern. No monoclonal proteins detected. 02/09/2016 1:59 PM EDT 02/09/2016 10:34 PM EDT Narrative Resulting Agency Comment [id number] Henrik Nelson MD LABORATORY Fin al Result Performing Organization Address [facility] de Phone Number [facility] [address] [place] [address] * (ABNORMAL) THYROID STIMULATING HORMONE (TSH) WITH FREE T4 REFLEX, SERUM (02/09/2016 1:59 PM EDT) FT4 1.4 0.8 - 1.8 ng/dL [facility] Comment:{T4, FREE {[id number]) TSH 0.36(L) 0.40 - 4.50 mIU/L [facility] Comment:{TSH W/REFLEX TO FT4 {[id number]) 02/09/2016 1:59 PM EDT 02/09/2016 10:34 PM EDT Narrative Resulting Agency Comment [id number] Henrik Nelson MD LABORATORY Fin al Result Performing Organization Address [facility]/ZIP Co de Phone Number [facility] [address] [place] [address] * FOLATE, SERUM (02/09/2016 1:59 PM EDT) Folate >24.0 ng/mL [facility] Comment: {FOLATE, SERUM {[id number]) Reference Range Low: <3.4 Borderline: 3.4-5.4 Normal: >5.4 02/09/2016 1:59 PM EDT 02/09/2016 10:34 PM EDT Narrative Resulting Agency Comment [id number] Henrik Nelson MD LABORATORY Fin al Result Performing Organization Address City/[facility] Co de Phone Number [facility] [address] [place] [address] * VITAMIN B12 (CYANOCOBALAMIN), SERUM (02/09/2016 1:59 PM EDT) Vitamin B12 (Cobalamins) 877 200 - 1100 pg/mL [facility] Comment:{VITAMIN B12 {[id number]) 02/09/2016 1:59 PM EDT 02/09/2016 10:34 PM EDT Narrative Resulting Agency Comment [id number] Henrik Nelson MD LABORATORY Fin al Result Performing Organization Address City/[facility] Co de Phone Number [facility] [address] [place] [address] documented in this encounter Visit Diagnoses Diagnosis [...] documented as of this encounter Care Teams Lead Auditor Relationship Specialty Start Date End Date Ary Brunner MD [address] [address] PCP - General Internal Medicine 09/14/15 01/28/18 Shantel Kraft MD [address] [address] PCP - General Internal Medicine 05/09/18 09/09/18 Naila Ventura NP [address] [place] [address] PCP - General Internal Medicine 09/10/18 08/04/19 Jannette Amezcua MD [address] [place] [address] PCP - General Internal Medicine 08/05/19 02/28/21 Marleen Vanessa MD [address] [address] PCP - General Internal Medicine 06/27/21 11/19/24 Van Paige MD [address] [address] PCP - General Family Medicine 11/20/24 documented as of this encounter
--- OUTSIDE RECORDS SUMMARY | 2025-03-18 11:20 | XMS_ITS | Clinical Summary ---
Author Organization [facility] Address [address] [place] [address] Care Team Providers Care Equipment Cleaner And Tester Name Role Phone Van Paige Primary Care Provider [phone] Allergies Active Allergy Reactions Criticality Noted Date Comments Cephalosporins Unknown 05/12/2012 Sdcofpuba-Dmduahnku-Haswz codon Unknown 05/12/2012 Clindamycin Nausea And Vomiting,Abdominal [...] 12:39 AM EDT): 08/10/2020 Patient presents from [facility] for resistant UTI. Patient stated that a few days prior while at [place], she developed dysuria with no associated frequency or abdominal pain. She had a urinalysis performed there and was discharged to [facility]. She states she was called and informed [...] 12:00 AM EDT): 08/09/2020 Patient presents from [facility] for resistant UTI. Patient stated that a few days prior while at [place], she developed dysuria with no associated frequency or abdominal pain. She had a urinalysis performed there and was discharged to [facility]. She states she was called and informed [...] Department Care Team Description 02/06/2025 Orders Only [facility] [address] [place] [address] Henrik Nelson MD 02/06/2025 Orders Only [facility] [address] [facility] [place] [address] Henrik Nelson MD Nontraumatic subarachnoid hemorrhage, unspecified (HCC) 01/13/2025 Orders Only [facility] [address] [facility] [place] [address] Henrik Nelson MD 01/13/2025 Orders Only [facility] [address] [place] [address] Henrik Nelson MD Nontraumatic subarachnoid hemorrhage, unspecified (HCC) 01/13/2025 Orders Only [facility] [address] [facility] [address] [place] [address] Henrik Nelson MD 01/13/2025 Orders Only [facility] [address] [facility] [address] [facility] [address] [place] [address] Henrik Nelson MD Nontraumatic subarachnoid hemorrhage, unspecified (HCC) from Last 3 Months Immunizations Immunization Administration [...] of Health Annual Screening 05/27/2024 COVID-19 Vaccine (3 - season) 2025 06/23/2020, 06/02/2020 Influenza Vaccine (#1) 2025 , 03/29/2021, 04/08/2020 Basic Metabolic Panel 10/27/2025 10/27/2024 , 10/16/2024, 09/28/2024, Additional history exists Hepatitis C Screening Completed 08/25/2018 Hepatitis B Vaccines Aged Out No long er eligible based on patient's age to complete this topic Procedures * Due to [place] [employer] law, this organization might not be sharing negative HIV tests. Procedure Name Priority Date/Time Associated Diagnosis Comments BASIC METABOLIC PANEL STAT 10/27/2024 11:49 PM EDT HEPATITIS C ANTIBODY W/REFLEX TO HCV RNA, QUANTITATIVE PCR STAT 08/25/2018 6:55 PM EDT PAP NO HPV, CONVERSION Routine 01/19/2005 10:40 AM EDT from Last 3 Months or Most Recently Relevant to Health Maintenance Results * Due to [place] [employer] law, this organization might not be sharing negative HIV tests. * (ABNORMAL) Basic Metabolic Panel (10/27/2024 11:49 PM EDT) NA 138 135 - 145 mmol/L 10/28/2024 12:23 AM EDT [facility] [employer] CLINICAL PATHOLOGY LABORATORY K 4.1 3.5 - 5.3 mmol/L [facility]2024 [facility] [employer] [facility] Cl 107 98 - 107 mmol/L 10/28/2024 12:23 AM EDT [facility] [employer] CLINICAL PATHOLOGY LABORATORY CO2 21(L) 22 - 32 mmol/L 10/28[facility]2024 [facility] [employer] [facility] BUN 24(H) 7 - 23 mg/dL 10/28/2024 12:[facility] [employer] [facility] Creatinine 0.83 0.50 - 1.20 mg/dL 10/28/2024 12:23 AM [facility] [employer] CL[facility] PATHOLOG[facility] LABORATORY Glucose 111(H) 65 - 99 mg/dL 10/28/2024 12:23 AM EDT [facility] [employer] CL[facility]ICAL PATHOLOGY LABORATORY Calcium 8.6 8.6 - 10.5 mg/dL 10/28/2024 12:23 AM [facility] [employer] CLINICAL PATHOLOGY LABORATORY Anion Gap 10 5 - 15 10/28/2024 12:23 AM [facility] [employer] CLINICAL PATHOLOGY LABORATORY eGFR 78 >=60 mL/min/1. 73m2 10/28/2024 12:23 AM [facility] [employer] CLINICAL PATHOLOGY LABORATORY Comment:The estimated glomer ular filtration rate (eGFR) is calculated using a new formula developed by the NKF-ASN task force to eliminate race-based correction factors. The new formula uses serum/plasma creatinine, age, and gender to determine eGFR. A value below 60mls/min might indicate kidney disease and will be flagged. For additional information, see John garcia al, Am J Kidney Dis. 2021;79(2):268- 288, A Unifying Approach for GFR estimation: Recommendations of the NKF-ASN Task Force on Reassessing the Inclusion of Race in Diagnosing Kidney Disease . Blood Structure of peripheral vein / Unknown Venipuncture / Unknown 10/27/2024 11:49 PM EDT 10/27/2024 11:49 PM EDT Cecilia Cuellar MD LAB BLOOD ORDERABLES Final Re sult Performing Organization Address City/[facility]/ZIP Co de Phone Number [facility] [address] [place] [address], [place] * Hepatitis C Antibody w/Reflex to HCV RNA, Quantitative PCR (08/25/2018 6:55 PM EDT) Hepatitis C Antibody NON-REACT SANDRA NON-REACT SANDRA 08/26/2018 3:40 PM EDT [employer] [facility] Signal To Cut-Off 0.01 <1.00 08/26/2018 3:40 PM EDT [employer] [facility] Comment: HCV antibody was non-reactive. There is no laboratory evidence of HCV infection. In most cases, no further action is required. However, if recent HCV exposure is suspected, a test for HCV RNA (test code 48611) is suggested. For additional information please refer to http://education.Snipshot/faq/ZBJ94m1 (This link is being provided for informational/ educational purposes only.) Blood specimen (specimen) Structure of peripheral vein / Unknown Venipuncture / Unknown 08/25/2018 6:55 PM EDT 08/25/2018 7:02 PM EDT Narrative [facility] - 08/26/2018 3:40 PM EDT [facility] Received Date: Alden Omer MD LAB BLOOD ORDERABLES Final R esult Performing Organization Address City/[facility]/ZIP Co de Phone Number [facility] [address] [facility] [address]rd [address], [place] [address], [place] [phone] [employer] [facility] [address] [facility] [address] [facility], [place] [address], [place] [phone] * Pap no HPV (01/19/2005 10:40 AM EDT) Path Procedure TPGA ([id number]) 1 Edited by: [id number] [facility] Specimen Labeled As: 1 CERVICAL/ENDOCERVI DIANA CYTO MATERIAL - Edited by: [id number] JOSE-RE [facility] Diagnosis [...] was examined by the [employer] Imaging System, [employer], [place], [place]. This report was signed out at the [facility]. Edited by: [id number] [facility] ANATOMIC PATHOLOGY - [facility] Gynecologic Clinical Data Specimen source:, THINPREP (CERVICAL ONLY) [facility] Gynecologic Clinical Data First date of LMP:, 4 MONTHS [facility] Gynecologic Clinical Data Months/years post menopause:, Y [facility] Marker 1 KFKELECHI [facility]AT[facility] - [facility] Marker 2 NILM,NILM [facility] Cc Results To JODEE BENJAMIN [id number] [facility] Signature REPORT SIGNED: KELECHI ALEMAN 01/24/05 [facility] Sign Out Audit KELECHI ALEMAN [id number] FINAL [place] [id number] [facility] Cytology / Unknown 10:40 AM EDT 01/22/2005 10:40 AM EDT us Gisell Ceballos MD LAB HISTORICAL RESULTS Final Result [facility] from Last 3 Months or Most Recently Relevant to Health Maintenance Additional Health Concerns Infection Onset Date Last Indicated Multidrug resistant organisms ESBL 08/09/2020 08/09/2020 Insurance MEDICARE [employer] MEDICARE Advance Directives Documents on File Type Date Recorded Patient Bingo Clerk Expl anation MOLST/POLST 08/10/2020 8:18 AM 03-25-2020 [...] Agents on File Name Relationship Healthcare Agent [facility] Communication Reynaldo Hicks [facility] Care Agent Care Teams Equipment Cleaner And Tester Relationship Specialty Start Date End Date Van Paige PCP - General Family Medicine 10/18/23
--- OUTSIDE RECORDS SUMMARY | 2025-03-18 11:20 | XMS_ITS | Encounter Summary ---
Author Organization [facility] Address [address] [place] [address] Care Team Providers Care Asset Card Clerk Name Role Phone Naila Ventura NP Primary Care Provider [phone] Jannette Amezcua MD Primary Care Provider [phone] Marleen Vanessa MD Primary Care Provider [phone] Van Paige MD Primary Care Provider [phone] Encounter Details Date Type Department Care Team (Late st Contact Info) Description 02/11/2019 Orders Only [facility] [address] [place] [phone] Dhara Rob MD [address] [place] [address] Social History Tobacco Use Types Packs/Day Years [...] 122/84(2024 2:52 PM EDT) No Maira Kang, COMMUNICATIONS ASSOCIATE Note: Above is your goal for blood [...] of this encounter Procedures * Due to [place] [employer] law, this organization might not be sharing [...] in this encounter Results * Due to [place] [employer] law, this organization might not be sharing negative HIV tests. * CORTISOL, BASELINE SPECIMEN, SERUM (02/11/2019 2:49 PM EDT) Cortisol 8.8 mcg/dL [facility] Comment: Reference Range: For 8 a.m.(7-9 a.m.) Specimen: 4.0-22.0 Reference Range: For 4 p.m.(3-5 p.m.) Specimen: 3.0-17.0 * Please interpret above results accordingly * 02/11/2019 2:49 PM EDT 02/12/2019 12:15 AM EDT Narrative Resulting Agency Comment [id number] Dhara Rob MD LABORATORY Final Result Performing Organization Address City/[facility]/ZIP Co de Phone Number [facility] [address] [place] [address] * THYROID STIMULATING HORMONE (TSH) WITH FREE T4 REFLEX, SERUM (02/11/2019 2:49 PM EDT) Pathologist [facility] TSH 1.99 0.40 - 4.50 mIU/L [facility] 02/11/2019 2:49 PM EDT 02/12/2019 12:15 AM EDT Narrative Resulting Agency Comment [id number] Dhara Rob MD LABORATORY Final Result Performing Organization Address [facility] de Phone Number [facility] [address] [place] [address] * CBC INCLUDES DIFFERENTIAL AND PLATELET COUNT (02/11/2019 2:49 PM EDT) Pathologist [facility] WBC 7.6 3.8 - 10.8 Thousand/u L [...] 12:15 AM EDT Narrative Resulting Agency Comment [id number] Dhara Rob MD LAB SAME DAY RESULT Final Result Performing Organization Address [facility]/ZIP Co de Phone Number [facility] [address] [place] [address] * (ABNORMAL) MAGNESIUM, SERUM (02/11/2019 2:49 PM EDT) Magnesium 2.7(H) 1.5 - 2.5 mg/dL [facility] 02/11/2019 2:49 PM EDT 02/12/2019 12:15 AM EDT Narrative Resulting Agency Comment [id number] Dhara Rob MD LABORATORY Final Result Performing Organization Address [facility] de Phone Number [facility] [address] [place] [address] * BASIC METABOLIC PANEL WITH (GFR) (02/11/2019 2:49 PM EDT) Glucose 92 65 - 99 mg/dL [facility] Comment:Fasting reference in terval Urea Nitrogen Blood (BUN) 21 7 - 25 mg/dL [facility] Creatinine 0.86 0.50 - 1.05 mg/dL [facility] Comment: For patients >49 years of age, the reference limit for Creatinine is approximately 13% higher for people identified as -Ukrainian. EGFR 74 > OR = 60 mL/min/1 [...] needs for GFR calculation. Resulting Agency Comment [id number] Dhara Rob MD LABORATORY Final Result [facility] [address] [place] [address] documented in this encounter Visit Diagnoses Diagnosis [...] documented as of this encounter Care Teams Asset Card Clerk Relationship Specialty Start Date End Date Naila Ventura NP [address] [place] [address] PCP - General Internal Medicine 09/10/18 08/04/19 Jannette Amezcua MD [address] [place] [address] PCP - General Internal Medicine 08/05/19 02/28/21 Marleen Vanessa MD [address] [address] PCP - General Internal Medicine 06/27/21 11/19/24 Van Paige MD [address] [address] PCP - General Family Medicine 11/20/24 documented as of this encounter
--- OUTSIDE RECORDS SUMMARY | 2025-03-18 11:20 | XMS_ITS | Clinical Summary ---
Author Organization [facility] Address [address] [place] [address] Care Team Providers Care Sanitation Engineer Name Role Phone Van Paige MD Primary Care Provider [phone] Allergies Active Allergy Reactions Criticality Noted Date [...] needed. 3 Active Atogepant (Qulipta) 30 MG TabIndications:I ntractable chronic migraine without aura and without status [...] Encounters Date Type Department Care Team Description 02/26/2025 Telephone [facility] Neurology [address] [facility] [address] [place] [address] Henrik Nelson MD Headache 02/09/2025 Telephone [facility] Neurology [address] [place] [id number] Henrik Nelson MD Results (MRI) 02/08/2025 Minor Procedure/Test NON FC SA NON FC UNK Provider, Unknown from Last 3 Months Immunizations Immunization Administration [...] 03/02/2020 03/02/2010 Bone Density 10/06/2024 COVID-19 Vaccine ( season) 2025 06/23/2020, 06/02/2020 Influenza (#1) 2025 04/05/2022, 1107/2020, 04/08/2020 Eye/Retina Exam Discontinued 03/30/2015 Hepatitis C Screening Completed 08/25/2018, 019 LDL Cholesterol Discontinued 08/14/2023, 07/26, 12/19/2022, Additional history exists EKG Discontinued 09/28/2024, 05/28, 07/27/2019, Additional history exists Chest Imaging Discontinued 10/28/2024, 08/2024, 10/28/2024, Additional history exists HPV Vaccine [...] Pressure 122/84(2024 2:52 PM EDT) Maira Beauchamp, [facility] Note: Above is your goal for blood [...] poultry, and nuts. Procedures * Due to [place] 9You law, this organization might not be sharing [...] to Health Maintenance Results * Due to [place] 9You law, this organization might not be sharing [...] LDL-C. Chidi SS et al. HYACINTH. 2013;310(19): 2225-7305 (http://education.Chicory/faq/PKN953) CHOL/HDL Ratio 4.1 <5.0 (calc) [facility] Cholesterol Non-HDL 163(H) <130 mg/dL (calc) [facility] Comment: For patients with diabetes plus 1 major ASCVD risk factor, treating to a non-HDL-C goal of <100 mg/dL (LDL-C of <70 mg/dL) is considered a therapeutic option. 09/30/2020 10:2 0 AM EDT 09/30/2020 5:35 PM EDT Narrative Resulting Agency Comment [id number] us Jannette Amezcua MD LABORATORY Final Result [facility] [address] [place] [address] * XR CHEST PORTABLE 1 VW (03/09/2020 [...] or aspiration/pneumonia in the appropriate clinical context. [id number] Procedure Note [facility], Unknown Provider - 03/09/2020 COMPARISON: 03/08/2020 [...] or aspiration/pneumonia in the appropriate clinical context. [id number] us Unknown Provider [facility] Final Resu lt * HEPATITIS C ANTIBODY W/REFLEX TO HCV RNA, QUANTITATIVE PCR (08/25/2018 6:55 PM EDT) Hepatitis C virus Ab NON-REACTI VE NON-REACT [facility] Hepatitis C virus Ab Signal/Cutoff 0.01 <1.00 [facility] Comment: HCV antibody was non-reactive. There is no laboratory evidence of HCV infection. In most cases, no further action is required. However, if recent HCV exposure is suspected, a test for HCV RNA (test code 81777) is suggested. For additional information please refer to http://education.[employer]/faq/KGC20p1 (This link is being provided for informational/ educational purposes only.) 08/25/2018 6:55 PM EDT Narrative [facility] - 08/26/2018 3:40 PM EDT [facility] Received Date: us Unknown Provider [facility] LABORATORY Final Resu lt [facility] [employer] [address] [place] [address] * EKG-USE ONLY IN READYMED/OCC MED/CARDIO OR [...] EST 06/04/2018 12:38 PM EST us Glenn ANIDU CARDIOVASCULAR-WITH INBSKT RTG F inal Result Performing Organization Address City/[facility]/ZIP Co de Phone Number MUSE EKG SYSTEM from Last 3 Months or Most Recently Relevant to Health Maintenance Insurance MEDICARE PART B MEDICAID MEDICARE PART B Care Teams Sanitation Engineer Relationship Specialty Start Date End Date Van Paige MD [facility] [address] [place] [address] PCP - General Family Medicine 11/20/24
--- OUTSIDE RECORDS SUMMARY | 2025-03-18 11:20 | XMS_ITS | Encounter Summary ---
Author Organization [facility] Address [address] [place] [address] Care Team Providers Care Embossograph Operator Name Role Phone Naila Ventura NP Primary Care Provider [phone] Jannette Amezcua MD Primary Care Provider [phone] Marleen Vanessa MD Primary Care Provider [phone] Van Paige MD Primary Care Provider [phone] Encounter Details Date Type Department Care Team (Late st Contact Info) Description 07/27/2019 Orders Only [facility] [address] [place] [address] Naila Ventura NP [address] [place] [address] Social History Tobacco Use Types Packs/Day Years [...] Pressure 122/84(2024 2:52 PM EDT) Maira Beauchamp, [facility] Note: Above is your goal for blood [...] documented as of this encounter Care Teams Embossograph Operator Relationship Specialty Start Date End Date Naila Ventura NP [address] [place] [address] PCP - General Internal Medicine 09/10/18 08/04/19 Jannette Amezcua MD [address] [place] [address] PCP - General Internal Medicine 08/05/19 02/28/21 Marleen Vanessa MD [address] [address] PCP - General Internal Medicine 06/27/21 11/19/24 Van Paige MD [address] [address] PCP - General Family Medicine 11/20/24 documented as of this encounter
--- OUTSIDE RECORDS SUMMARY | 2025-03-18 11:20 | XMS_ITS | Encounter Summary ---
Author Organization [facility] Address [address] [place] [address] Phone Care Team Providers Care Inspector Integrated Circuits Name Role Phone Marleen Vanessa MD Primary Care Provider [phone] Van Paige MD Primary Care Provider [phone] Van Paige MD Primary Care Provider [phone] Pcp, Not Required Primary Care Provider Unavaila ble Van Paige MD Primary Care Provider [phone] Van Paige MD Unavailable Encounter Details Date Type Department Care Team (Late st Contact Info) Description 07/26/2023 Procedure Pass [facility] Endoscopy Admitting Dept Virtual Department [address] [place] [address] [phone] Social History Tobacco Use Types Packs/Day Years [...] documented as of this encounter Care Teams Inspector Integrated Circuits Relationship Specialty Start Date End Date Marleen Vanessa MD [address] [place], [place] [address]ley [place] [phone] [email or web address] PCP - General Family Medicine 03/21/21 10/28/23 Van Paige MD [address] [place] [address] Lew, [place]ART[place] [address] [email or web address] PCP - General Family Medicine 10/29/23 10/31/23 Van Paige MD [address] [place] [address] Lew [place] [phone] [email or web address] PCP - General Family Medicine 11/05/23 11/18/23 Pcp, Not Required [address] [place] [address] PCP - General 02/15/24 03/26/24 Van Paige MD [address] [place] [address] LewJOSE MARTIN [email or web address] PCP - General Family Medicine 03/27/24 Van Paige MD [address] [place] [address] [place] [address] [email or web address] Insurance Assigned Provider 08/30/24 documented as of this encounter Additional Source Comments The information contained in this document represents components of the legal health record. It is not the complete legal health record.[facility]
--- OUTSIDE RECORDS SUMMARY | 2025-03-18 11:20 | XMS_ITS | Encounter Summary ---
Author Organization [facility] Address [address] [place] [address] Care Team Providers Care Radio Personality Name Role Phone Jannette Amezcua MD Primary Care Provider [phone] Marleen Vanessa MD Primary Care Provider [phone] Van Paige MD Primary Care Provider [phone] Encounter Details Date Type Department Care Team (Late st Contact Info) Description 11/19/2019 Orders Only [facility] Neurology [address] [facility] [address] [place] [address] Henrik Nelson MD [address] [place] [address] Social History Tobacco Use Types Packs/Day Years [...] Pressure 122/84(2024 2:52 PM EDT) Maira Beauchamp, [facility] Note: Above is your goal [...] of this encounter Procedures * Due to [place] state law, this organization might not be sharing negative HIV tests. Procedure Name Priority Date/Time Associated Diagnosis Comments C-REACTIVE PROTEIN (CRP) - INFLAMMATION Routine 11/19/2019 2:04 PM EDT Chronic intractable headache, unspecified headache type ERYTHROCYTE SEDIMENTATION RATE (ESR) Routine 11/19/2019 2:04 PM EDT Chronic intractable headache, unspecified headache type documented in this encounter Results * Due to [place] state law, this organization might not be sharing negative HIV tests. * ERYTHROCYTE SEDIMENTATION RATE (ESR), WESTERGREN (11/19/2019 2:04 PM EDT) Sedimentation Rate [place] (ESR) 14 < OR = 30 mm/h [facility] 11/19/2019 2:04 PM EDT 11/20/2019 1:38 AM EDT Narrative Resulting Agency Comment [id number] Henrik Nelson MD LAB SAME DAY RESULT Final Result [facility] [address] [place] [address] * C-REACTIVE PROTEIN (CRP) - INFLAMMATION (11/19/2019 2:04 PM EDT) C reactive protein 5.0 <8.0 mg/L [facility] 11/19/2019 2:04 PM EDT 11/20/2019 1:38 AM EDT Narrative Resulting Agency Comment [id number] Henrik Nelson MD LABORATORY Fin al Result Performing Organization Address City/[facility]/ZIP Co de Phone Number [facility] [address] [place] [address] documented in this encounter Visit Diagnoses Diagnosis [...] documented as of this encounter Care Teams Radio Personality Relationship Specialty Start Date End Date Jannette Amezcua MD [address] [place] [address] PCP - General Internal Medicine 08/05/19 02/28/21 Marleen Vanessa MD [address] [address] PCP - General Internal Medicine 06/27/21 11/19/24 Van Paige MD [address] [address] PCP - General Family Medicine 11/20/24 documented as of this encounter
--- OUTSIDE RECORDS SUMMARY | 2025-03-18 11:20 | XMS_ITS | Encounter Summary ---
Author Organization [facility] Address [address] [place] [address] Care Team Providers Care Publishing Director Name Role Phone Naila Ventura NP Primary Care Provider [phone] Jannette Amezcua MD Primary Care Provider [phone] Marleen Vanessa MD Primary Care Provider [phone] Van Paige MD Primary Care Provider [phone] Encounter Details Date Type Department Care Team (Late st Contact Info) Description 02/11/2019 Orders Only [facility] [address] [place] [phone] Juli Carey PA Social History Tobacco [...] this encounter Procedures * Due to [place] state law, this organization might not be sharing negative HIV tests. Procedure Name Priority Date/Time Associated Diagnosis Comments POTASSIUM, SERUM Routine 02/11/2019 2:49 PM EDT Hypokalemia documented in this encounter Results * Due to [place] law, this organization might not be sharing negative HIV tests. * POTASSIUM, SERUM (02/11/2019 2:49 PM EDT) Potassium 3.8 3.5 - 5.3 mmol/L [facility] 02/11/2019 2:49 PM EDT 02/12/2019 12:14 AM EDT Narrative Resulting Agency Comment [id number] Juli NAIDU LAB SAME DAY RESULT Final Result [facility] [address] [place] [address] documented in this encounter Visit Diagnoses Diagnosis [...] documented as of this encounter Care Teams Publishing Director Relationship Specialty Start Date End Date Naila Ventura NP [address] [place] [address] PCP - General Internal Medicine 09/10/18 08/04/19 Jannette Amezcua MD [address] [place] [address] PCP - General Internal Medicine 08/05/19 02/28/21 Marleen Vanessa MD [address] [address] PCP - General Internal Medicine 06/27/21 11/19/24 Van Paige MD [address] [address] PCP - General Family Medicine 11/20/24 documented as of this encounter
--- OUTSIDE RECORDS SUMMARY | 2025-03-18 11:20 | XMS_ITS | Encounter Summary ---
Author Organization [facility] Address [address] [place] [address] Care Team Providers Care Operations Liaison Name Role Phone Naila Ventura NP Primary Care Provider [phone] Jannette Amezcua MD Primary Care Provider [phone] Marleen Vanessa MD Primary Care Provider [phone] Van Paige MD Primary Care Provider [phone] Reason for Visit * Reason Comments Sinus Problem Headache Sinusitis Encounter Details Date Type Department Care Team (Late st Contact Info) Description 05/21/2019 Telephone [facility] [address] [place] [phone] Naila Ventura NP [address] [place] [address] Sinus Problem ; Headache ; Sinusitis Social [...] possible sinusproblem Any recent or upcoming visits w/woodworking machine offbearer? No Onset: a few day(s) ago Emergent/urgent: [...] Pressure 122/84(2024 2:52 PM EDT) Maira Beauchamp, [facility] Note: Above is your goal for [...] documented as of this encounter Care Teams Operations Liaison Relationship Specialty Start Date End Date Naila Ventura NP [address] [place] [address] PCP - General Internal Medicine 09/10/18 08/04/19 Jannette Amezcua MD [address] [place] [address] PCP - General Internal Medicine 08/05/19 02/28/21 Marleen Vanessa MD [address] [address] PCP - General Internal Medicine 06/27/21 11/19/24 Van Paige MD [address] [address] PCP - General Family Medicine 11/20/24 documented as of this encounter
--- OUTSIDE RECORDS SUMMARY | 2025-03-18 11:20 | XMS_ITS | Encounter Summary ---
Author Organization [facility] Address [address] [place] [address] Phone Care Team Providers Care Malt Roaster Name Role Phone Marleen Vanessa MD Primary Care Provider [phone] Van Paige MD Primary Care Provider [phone] Van Paige MD Primary Care Provider [phone] Pcp, Not Required Primary Care Provider Unavaila ble Van Paige MD Primary Care Provider [phone] Van Paige MD Unavailable Reason for Visit * Reason Onset Date Comments Medication Refill 04/01/2023 Encounter Details Date Type Department Care Team (Late st Contact Info) Description 04/01/2023 Refill [facility] All[facility] [address] [place], [place] [id number] Opal Boyle MA [email or web address] Medication Refill Social History Tobacco Use [...] 500/50 to be sent to her pharmacy [facility]. Please Advice documented in this encounter Plan [...] documented as of this encounter Care Teams Malt Roaster Relationship Specialty Start Date End Date Marleen Vanessa MD [address] [place] [address] [email or web address] PCP - General Family Medicine 03/21/21 10/28/23 Van Paige MD [address] [place] [address] [email or web address] PCP - General Family Medicine 10/29/23 10/31/23 Van Paige MD [address] [place] [address] [email or web address] PCP - General Family Medicine 11/05/23 11/18/23 Pcp, Not Required [address] [place] [address] PCP - General 02/15/24 03/26/24 Van Paige MD [address] [facility] [address] [place] [address] [email or web address] PCP - General Family Medicine 03/27/24 Van Paige MD [address] [facility] 7 [place], JOSE MARTIN [address] [email or web address] Insurance Assigned Provider 08/30/24 documented as of this encounter Additional Source Comments The information contained in this document represents components of the legal health record. It is not the complete legal health record.[facility]
--- OUTSIDE RECORDS SUMMARY | 2025-03-18 11:20 | XMS_ITS | Clinical Summary ---
Author Organization [facility] Address [address] [place] [address] Care Team Providers Care Sausage Smoker Name Role Phone Van Paige MD Primary Care Provider [phone] Allergies No known active allergies Medications Medication [...] ciclesonide (Omnaris) 50 MCG/ACT nasal spray 0 Active cloNIDine (CATAPRES) tablet 0.1 mg 0 08/27/2023 Active DULoxetine (CYMBALTA) DR capsule 20 mg Take 1 capsule (20 mg total) by mouth. 0 09/18/2023 Active Advair Diskus 500-50 MCG/ACT AEPB 0 08/08/2023 Active gabapentin (NEURONTIN) 300 MG capsule TAKE 1 [...] 4 MG tablet 0 08/19/2023 Active nitrofurantoin, macrocrystal-monohyd rate, (MACROBID) 100 MG capsule Take 1 capsule [...] age to complete this topic Care Teams Sausage Smoker Relationship Specialty Start Date End Date Van Paige MD [address] [place] [address] PCP - General Family Medicine 09/25/23
--- OUTSIDE RECORDS SUMMARY | 2025-03-18 11:21 | XMS_ITS | Clinical Summary ---
Author Organization [facility] Address [address] [place] [address] Care Team Providers Care Hoop Riveting Machine Operator Name Role Phone No, Pcp MD Primary [...] topic Insurance MEDICARE PART A AND B [facility] Care Teams Hoop Riveting Machine Operator Relationship Specialty Start Date End Date NoMaricarmen MD No Address [place] [address] PCP - General Internal Medicine 02/22/24
--- OUTSIDE RECORDS SUMMARY | 2025-03-18 11:22 | XMS_ITS | Encounter Summary ---
Author Organization [facility] Address [address] [place] [address] Care Team Providers Care Cashier Assistant Name Role Phone Van Paige MD Primary Care Provider Reason for Visit * Reason Comments Headache Encounter Details Date Type Department Care Team ([facility] st Contact Info) Description 02/26/2025 Telephone [facility] Neurology [address] [address] Henrik Nelson MD [address] [place] [address] Headache Social History Tobacco Use Types Packs/Day Years [...] encounter Miscellaneous Notes * Telephone Encounter - Ben Jeong MD - 03/01/2025 8:[address] is Dr. Contreras's patient * Telephone Encounter - Gisell Simpson RN - 02/26/2025 4:11 PM EDT Pt [facility] ER [facility] She was given migraine cocktail both day She is not taking any medications for headaches. States the headaches are from lack sleep States she is not sleeping, she has not slept in 11 months, she is trying to get out of her housingsituation it is full of black mold Migraine is constant, getting progressively head, located all over head, described as throbbing + nausea with occasional vomiting States she has no one, she is so lonely, all she does is cry. She wants to get out of her house, she is not able to open her windows, they all smoke cigarettes and pot Denies any allergies to medications - states med list is ancient documented in this encounter Plan of Treatment Not on file documented as of this encounter Goals Goal Patient Goal Type Associated Problems Recent Progress Patient-Stated? Author Blood Pressure < 140/90 Blood Pressure 122/84(2024 2:52 PM EDT) No Maira Kang, [facility] Note: Above is your goal for [...] on filedocumented in this encounter Care Teams Cashier Assistant Relationship Specialty Start Date End Date Van Paige MD [facility] [address] [place] [address] PCP - General Family Medicine 11/20/24 documented as of this encounter
--- OUTSIDE RECORDS SUMMARY | 2025-03-18 11:22 | XMS_ITS | Encounter Summary ---
Author Organization [facility] Address [address] [place] [address] Phone Care Team Providers Care Remote Encoding Center Manager Name Role Phone Marleen Vanessa MD Primary Care Provider [phone] Van Paige MD Primary Care Provider Van Paige MD Primary Care Provider [phone] Pcp, Not Required Primary Care Provider Unavaila ble Van Paige MD Primary Care Provider [phone] Van Paige MD Unavailable Encounter Details Date Type Department Care Team (Late st Contact Info) Description 10/19/2021 Telephone [facility] [address] [place], [place] [phone] Nancy Sotelo MA [email or web address] Social History Tobacco Use Types Packs/Day [...] documented as of this encounter Care Teams Remote Encoding Center Manager Relationship Specialty Start Date End Date Marleen Vanessa MD [address] [facility] 7 [place] [address] PCP - General Family Medicine 03/21/21 10/28/23 Van Paige MD [address] [place] [address] 7 [place] [address] [email or web address] PCP - General Family Medicine 10/29/23 10/31/23 Van Paige MD [address] [place] [address] 7 [place] [address] PCP - General Family Medicine 11/05/23 11/18/23 Pcp, Not Required [address] [place] [address] PCP - General 02/15/24 03/26/24 Van Paige MD [address] [place] [address] 7 [place] [address] PCP - General Family Medicine 03/27/24 Van Paige MD [address] [place] [address] 7 [place] [phone] Insurance Assigned Provider 08/30/24 documented as of this encounter Additional Source Comments The information contained in this document represents components of the legal health record. It is not the complete legal health record.[facility]
--- OUTSIDE RECORDS SUMMARY | 2025-03-18 11:22 | XMS_ITS | Encounter Summary ---
Author Organization [facility] Address [address] [place] [address] Care Team Providers Care Follow Up Manager Name Role Phone Marleen Vanessa MD Primary Care Provider [phone] Van Paige MD Primary Care Provider [phone] Encounter Details Date Type Department Care Team ([facility] st Contact Info) Description 06/19/2021 Telephone [facility] [address] [place] [address] Henrik Nelson MD [address] [place] [address] Social History Tobacco Use Types Packs/Day Years [...] Pressure 122/84(2024 2:52 PM EDT) Maira Beauchamp, [employer] Note: Above is your goal for blood [...] on filedocumented in this encounter Care Teams Follow Up Manager Relationship Specialty Start Date End Date Marleen Vanessa MD [address] [address] PCP - General Internal Medicine 06/27/21 11/19/24 Van Paige MD [address] [address] PCP - General Family Medicine 11/20/24 documented as of this encounter
--- OUTSIDE RECORDS SUMMARY | 2025-03-18 11:22 | XMS_ITS | Encounter Summary ---
Author Organization [facility] Address [address] [place] [address] Care Team Providers Care Regulatory And Compliance Technician Name Role Phone Marleen Vanessa MD Primary Care Provider [phone] Van Paige MD Primary Care Provider [phone] Encounter Details Date Type Department Care Team (Late st Contact Info) Description 06/27/2021 Orders Only CALL CENTER [facility] [address] [place] [address] Henrik Nelson MD [address] [place] [address] Social History Tobacco Use Types Packs/Day Years [...] 2:52 PM EDT) Maira Beauchamp, [facility] Note: Above is your goal for blood [...] this encounter Procedures * Due to [place] [employer] law, this organization might not be sharing negative HIV tests. Procedure Name Priority Date/Time Associated Diagnosis Comments VENIPUNCTURE Routine 06/27/2021 11:22 AM EST Facial pain Chronic idiopathic anal pain documented in this encounter Results * Due to [place] [employer] law, this organization might not be sharing negative HIV tests. * (ABNORMAL) CREATININE WITH GLOMERULAR FILTRATION RATE, ESTIMATED (EGFR) (06/27/2021 11:22 AM EST) Creatinine 1.09(H) 0.50 - 0.99 mg/dL [facility] Comment: For patients >49 years of age, the reference limit for Creatinine is approximately 13% higher for people identified as -Finnish. EGFR 55(L) > OR = 60 mL/min/1. [...] needs for GFR calculation. Resulting Agency Comment [id number] Henrik Nelson MD LAB SAME DAY RESULT Final Result [facility] [address] [place] [address] documented in this encounter Visit Diagnoses Diagnosis Facial pain Headache Chronic idiopathic anal pain Stenosis of rectum and anus documented in this encounter Care Teams Regulatory And Compliance Technician Relationship Specialty Start Date End Date Marleen Vanessa MD [address] [address] PCP - General Internal Medicine 06/27/21 11/19/24 Van Paige MD [address] [address] PCP - General Family Medicine 11/20/24 documented as of this encounter
--- OUTSIDE RECORDS SUMMARY | 2025-03-18 11:22 | XMS_ITS | Encounter Summary ---
Author Organization [facility] Address [address] [place] [address] Care Team Providers Care Sammying Machine Operator Name Role Phone Naila Ventura NP Primary Care Provider [phone] Jannette Amezcua MD Primary Care Provider [phone] Marleen Vanessa MD Primary Care Provider [phone] Van Paige MD Primary Care Provider [phone] Encounter Details Date Type Department Care Team (Late st Contact Info) Description 09/10/2018 Orders Only [facility] [address] [place] [phone] Juli Carey PA Social History Tobacco [...] Pressure 122/84(2024 2:52 PM EDT) Maira Beauchamp, [facility] Note: Above is your goal [...] of this encounter Procedures * Due to [place] [employer] law, this organization might not be sharing negative HIV tests. Procedure Name Priority Date/Time Associated Diagnosis Comments TSH, 3RD GENERATION Routine 09/10/2018 1 2:09 PM EDT Hypothyroidism, unspecified type HEMOGLOBIN A1C Routine 09/10/2018 12:09 PM EDT Elevated glucose Screening for diabetes mellitus documented in this encounter Results * Due to [place] [employer] law, this organization might not be sharing negative HIV tests. * TSH, 3RD GENERATION (09/10/2018 12:09 PM EDT) TSH 0.88 0.40 - 4.50 mIU/L [facility] 09/10/2018 12:0 9 PM EDT 09/10/2018 10:11 PM EDT Narrative Resulting Agency Comment [id number] Juli [facility] Final Resu lt [facility] [address] [place] [address] * HEMOGLOBIN A1C (09/10/2018 12:09 PM EDT) [...] diagnosis of diabetes in children. According to [place] Diabetes Association (ADA) guidelines, hemoglobin A1c <7.0% represents optimal control in non- diabetic patients. Different metrics may apply to specific patient populations. Standards of Medical Care in Diabetes(ADA). Estimated Average Glucose 104 mg/dL (calc) [facility] 09/10/2018 12:0 9 PM EDT 09/10/2018 10:11 PM EDT Narrative Resulting Agency Comment [id number] us Juli [facility] Final Resu lt Performing Organization Address City/State/[facility] Co de Phone Number [facility] [address] [place] [address] documented in this encounter Visit Diagnoses Diagnosis [...] documented as of this encounter Care Teams Sammying Machine Operator Relationship Specialty Start Date End Date Naila Ventura NP [address] [place] [address] PCP - General Internal Medicine 09/10/18 08/04/19 Jannette Amezcua MD [address] [place] [address] PCP - General Internal Medicine 08/05/19 02/28/21 Marleen Vanessa MD [address] [address] PCP - General Internal Medicine 06/27/21 11/19/24 Van Paige MD [address] [address] PCP - General Family Medicine 11/20/24 documented as of this encounter
--- OUTSIDE RECORDS SUMMARY | 2025-03-18 11:22 | XMS_ITS | Encounter Summary ---
Author Organization [facility] Address [address] [place] [address] [place] [address] Phone Care Team Providers Care Manufacturing Maintenance Technician Name Role Phone Van Paige MD Primary Care Provider [phone] Van Paige MD Unavailable Reason for Visit * Reason Onset Date Comments Leg Pain 03/27/2024 Red Call Encounter Details Date Type Department Care Team (Late st Contact Info) Description 03/27/2024 Nurse Triage [facility] [address] [place] [address] Van Paige MD [address] [facility] [address] [place] [address] [email or web address] Leg Pain (Red Call) Social History Tobacco [...] - 03/30/2024 3:28 PM EST Please see water quality manager note in chart from November 20, 2023 informing patient that I will not be her PCP moving forward. It should have been switched in the computer at that time (and it was) but itlooks like somebody switched it back to me without my knowledge on March 27. Please advise. * Alanna Myers, RN - 03/30/2024 2:53 PM EST Nurse [...] advice?: Yes, plans to follow advice Leg [id number] Alanan Myers RN Mon Mar 30, 2024 03:09 [...] acetaminophen, ibuprofen, or naproxen. * They are plxc-tyk-biwqmmw (OTC) pain drugs. You can buy them [...] acetaminophen, ibuprofen, or naproxen. * They are aacd-hgz-qayadmt (OTC) pain drugs. You can buy them [...] or if symptoms change or worsen Alanna Myers, NICOLAS Reason for Disposition and Assessment Reason for Disposition MODERATE pain (e.g., interferes with normal activities, limping) and present > 3 days Protocols used: Leg [id number]-[id number]-LH * Jennifer Madera - 03/30/2024 12:28 PM EST Pt reached out please call pt at [phone]. Central Support Tie Mill Operator (Please do not reply to this user; [...] a temporary phone, and is reachable at [phone]. Pt requested a call back and disconnected. Central Support Tie Mill Operator (Please do not reply to this user; [...] needs other paperwork completed. Patient Request: Appt [facility] CSS Agent (Please do not [...] documented as of this encounter Care Teams Manufacturing Maintenance Technician Relationship Specialty Start Date End Date Van Paige MD 234 [facility] [address] [place] [address] [email or web address] PCP - General Family Medicine 03/27/24 Van Paige MD [address] [facility] [address] [place] [address] [email or web address] Insurance Assigned Provider 08/30/24 documented as of this encounter Additional Source Comments The information contained in this document represents components of the legal health record. It is not the complete legal health record.[facility]
--- OUTSIDE RECORDS SUMMARY | 2025-03-18 11:22 | XMS_ITS | Clinical Summary ---
Author Organization [facility] Address [address] [place] [address] Care Team Providers Care Foreign Banknote Teller Trader Name Role Phone Unavailable Primary Care Provider [...] 6 season) 2025 06/23/2020, 06/02/2020 RSV Vaccine 50 years and older and Patients (1 - 1-dose 75+ series) 10/06/2034 Hepatitis B Vaccines Aged Out No long er eligible based on patient's age to complete this topic Insurance MEDICARE PART A & B
--- OUTSIDE RECORDS SUMMARY | 2025-03-18 11:22 | XMS_ITS | Encounter Summary ---
Author Organization [facility] Address [address] [place] [address] Care Team Providers Care Supervisor Metal Furniture Assembly Name Role Phone Jannette Amezcua MD Primary Care Provider [phone] Marleen Vanessa MD Primary Care Provider [phone] Van Paige MD Primary Care Provider [phone] Encounter Details Date Type Department Care Team (Late st Contact Info) Description 09/30/2020 Orders Only [facility] [address] [place] [address] Jannette Amezcua MD [address] [place] [address] Social History Tobacco Use Types Packs/Day Years [...] EDT) Maira Beauchamp, [facility] Note: Above is your goal for blood [...] this encounter Procedures * Due to [place] [employer] law, this organization might not be sharing [...] this encounter Results * Due to [place] [employer] law, this organization might not be sharing [...] 5:35 PM EDT Narrative Resulting Agency Comment [id number] Jannette Amezcua MD LAB SAME DAY RESULT Final Re sult [facility] [address] [place] [address] * COMPREHENSIVE METABOLIC PANEL WITH GFR (09/30/2020 10:20 AM EDT) Glucose 98 65 - 99 mg/dL [facility] Comment:Fasting reference in terval Urea Nitrogen Blood (BUN) 14 7 - 25 mg/dL [facility] Creatinine 0.83 0.50 - 0.99 mg/dL [facility] Comment: For patients >49 years of age, the reference limit for Creatinine is approximately 13% higher for people identified as -Greenlandic. EGFR 77 > OR = 60 mL/min/1 [...] needs for GFR calculation. Resulting Agency Comment [id number] Jannette Amezcua MD LABORATORY Final Result Performing Organization Address City/State/[facility] Co de Phone Number [facility] [address] [place] [address] * (ABNORMAL) LIPID PANEL WITH REFLEX TO [...] LDL-C. Chidi SS et al. HYACINTH. 2013;310(19): 5852-4483 (http://education.InforSense/faq/MJL185) CHOL/HDL Ratio 4.1 <5.0 (calc) [facility] Cholesterol Non-HDL 163(H) <130 mg/dL (calc) [facility] Comment: For patients with diabetes plus 1 major ASCVD risk factor, treating to a non-HDL-C goal of <100 mg/dL (LDL-C of <70 mg/dL) is considered a therapeutic option. 09/30/2020 10:2 0 AM EDT 09/30/2020 5:35 PM EDT Narrative Resulting Agency Comment [id number] Jannette Amezcua MD LABORATORY Final Result Performing Organization Address [facility] de Phone Number [facility] [address] [place] [address] * HEMOGLOBIN A1C (09/30/2020 10:20 AM EDT) Hemoglobin A1C 4.9 <5.7 % of total Hgb [facility] Comment: For the purpose of screening for the presence of diabetes: <5.7% Consistent with the absence of diabetes 5.7-6.4% Consistent with increased risk for diabetes (prediabetes) > or =6.5% Consistent with diabetes This assay result is consistent with a decreased risk of diabetes. Currently, no consensus exists regarding use of hemoglobin A1c for diagnosis of diabetes in children. According to [place] Diabetes Association (ADA) guidelines, hemoglobin A1c <7.0% represents optimal control in non- diabetic patients. Different metrics may apply to specific patient populations. Standards of Medical Care in Diabetes(ADA). Estimated Average Glucose 97 mg/dL (calc) [facility] 09/30/2020 10:2 0 AM EDT 09/30/2020 5:35 PM EDT Narrative Resulting Agency Comment [id number] Jannette Amezcua MD LABORATORY Final Result [facility] [address] [place] [address] * THYROID STIMULATING HORMONE (TSH) WITH FREE T4 REFLEX, SERUM (09/30/2020 10:20 AM EDT) TSH 2.62 0.40 - 4.50 mIU/L [facility] 09/30/2020 10:2 0 AM EDT 09/30/2020 5:35 PM EDT Narrative Resulting Agency Comment [id number] Jannette Amezcua MD LABORATORY Final Result Performing Organization Address [facility] Co de Phone Number [facility] [address] [place] [address] * (ABNORMAL) VITAMIN D, 25-HYDROXY, TOTAL, IMMUNOASSAY (09/30/2020 10:20 AM EDT) Pathologist [facility] Vitamin D, 25-OH, Total 27(L) 30 - 100 ng/mL [facility] Comment: Vitamin D Status 25-OH Vitamin D: Deficiency: <20 ng/mL Insufficiency: 20 - 29 ng/mL Optimal: > or = 30 ng/mL For 25-OH Vitamin D testing on patients on D2-supplementation and patients for whom quantitation of D2 and D3 fractions is required, the QuestAssureD(TM) 25-OH VIT D, (D2,D3), LC/MS/MS is recommended: order code [id number] (patients >2yrs). COMMENT SEE NOTE [facility] Comment: See Note 1 Note 1 For additional information, please refer to http://education.InforSense/faq/BGV836 (This link is being provided for informational/ educational purposes only.) 09/30/2020 10:2 0 AM EDT 09/30/2020 5:35 PM EDT Narrative Resulting Agency Comment [id number] Jannette Amezcua MD LABORATORY Final Result Performing Organization Address [facility] Co de Phone Number [facility] [address] [place] [address] * VITAMIN B12 (CYANOCOBALAMIN), SERUM (09/30/2020 10:20 [...] 5:35 PM EDT Narrative Resulting Agency Comment [id number] Jannette Amezcua MD LABORATORY Final Result Performing Organization Address [facility] Co de Phone Number [facility] [address] [place] [address] * B-TYPE NATRIURETIC PEPTIDE (BNP) ([facility]) (09/30/2020 10:20 AM EDT) Pathologist [facility] Natriuretic peptide.B 13 <100 pg/mL [facility] Comment: BNP levels increase with age in the general population with the highest values seen in individuals greater than 75 years of age. Reference: J. Am. Salvador. Cardiol. 2002; 40:976-982. 09/30/2020 10:2 0 AM EDT 09/30/2020 5:35 PM EDT Narrative Resulting Agency Comment [id number] Jannette Amezcua MD LAB SAME DAY RESULT Final Re sult Performing Organization Address City/[facility] Co de Phone Number [facility] [address] [place] [address] documented in this encounter Visit Diagnoses Diagnosis Leg swelling Swelling of limb Closed fracture of left ankle with routine healing, subsequent encounter Calcification of aorta Atherosclerosis of aorta Acquired hypothyroidism Unspecified hypothyroidism documented in this encounter Care Teams Supervisor Metal Furniture Assembly Relationship Specialty Start Date End Date Jannette Amezcua MD [address] [place] [address] PCP - General Internal Medicine 08/05/19 02/28/21 Marleen Vanessa MD [address] [address] PCP - General Internal Medicine 06/27/21 11/19/24 Van Paige MD [address] [address] PCP - General Family Medicine 11/20/24 documented as of this encounter
--- OUTSIDE RECORDS SUMMARY | 2025-03-18 11:22 | XMS_ITS | Encounter Summary ---
Author Organization [facility] Address [address] [place] [address] [place] [address] Phone Care Team Providers Care Cctv Technician Name Role Phone Marleen Vanessa MD Primary Care Provider [phone] Laureen Richards [facility] Unavailable [phone] Van Paige MD Primary Care Provider Van Paige MD Primary Care Provider [phone] Pcp, Not Required Primary Care Provider Unavaila ble Van Paige MD Primary Care Provider Van Paige MD Unavailable Encounter Details Date Type Department Care Team (Late st Contact Info) Description 08/16/2021 Transcribe Orders [facility] [address] [place] [address] Marleen Vanessa MD [address] [place] [address], [address] [place] [address] Social History Tobacco Use Types Packs/Day Years [...] documented as of this encounter Care Teams Cctv Technician Relationship Specialty Start Date End Date Marleen Vanessa MD [address] [place] [address] JOSE MARTIN [place] [phone] [email or web address] PCP - General Family Medicine 03/21/21 10/28/23 Van Paige MD [address] [place] [address] JOSE MARTIN [place] [address] [email or web address] PCP - General Family Medicine 10/29/23 10/31/23 Van Paige MD [address] [place] [address] [place] JOSE MARTIN [address] [email or web address] PCP - General Family Medicine 11/05/23 11/18/23 Pcp, Not Required [address] [place] [address] PCP - General 02/15/24 03/26/24 Van Paige MD [address] [place] [address] [place] JOSE M[place]IN [address] PCP - General Family Medicine 03/27/24 Laureen Richards, METAL STAMPING MACHINE OPERATOR [address] [place] [address] [email or web address] PHCM Radius Corner Machine Operator 08/30/21 09/24/21 Van Paige MD [address] [place] [address] [place], JOSE MARTIN [address] [email or web address] Insurance Assigned Provider 08/30/24 documented as of this encounter Additional Source Comments The information contained in this document represents components of the legal health record. It is not the complete legal health record.[facility]
--- OUTSIDE RECORDS SUMMARY | 2025-03-18 11:22 | XMS_ITS | Encounter Summary ---
Author Organization [facility] Address [address] [place] [address] [place] [address] Phone Care Team Providers Care Delivery Coordinator Name Role Phone Marleen Vanessa MD Primary Care Provider [phone] Laureen Richards [facility] Unavailable [phone] Van Paige MD Primary Care Provider Van Paige MD Primary Care Provider [phone] Pcp, Not Required Primary Care Provider Unavaila ble Van Paige MD Primary Care Provider [phone] Van Paige MD Unavailable Encounter Details Date Type Department Care Team (Late st Contact Info) Description 08/17/2021 Ancillary Orders [address] [address] Marleen Vanessa MD [address] [facility], [address] [place] [address] [email or web address] Chronic bronchitis, unspecified chronic bronchitis type Social [...] documented as of this encounter Care Teams Delivery Coordinator Relationship Specialty Start Date End Date Marleen Vanessa MD [address] [place] [address] [address] [place] [address] [email or web address] PCP - General Family Medicine 03/21/21 10/28/23 Van Paige MD [address] [place] [address] JOSE MARTIN [place] [address] [email or web address] PCP - General Family Medicine 10/29/23 10/31/23 Van Paige MD [address] [place] [address] JOSE MARTIN [place] [address] [email or web address] PCP - General Family Medicine 11/05/23 11/18/23 Pcp, Not Required [address] [place] [address] PCP - General 02/15/24 03/26/24 Van Paige MD [address] [place], [place] [address]JOSE MARTIN [email or web address] [address] [email or web address] PCP - General Family Medicine 03/27/24 Laureen Richards, BURR SANDER [address] [place] [address] [email or web address] PHCM Sports Information Director 08/30/21 09/24/21 Van Paige MD [address] [place] [address] [place] JOSE MARTIN [address] [email or web address] Insurance Assigned Provider 08/30/24 documented as of this encounter Additional Source Comments The information contained in this document represents components of the legal health record. It is not the complete legal health record.[facility]
--- OUTSIDE RECORDS SUMMARY | 2025-03-18 11:22 | XMS_ITS | Encounter Summary ---
Author Organization [facility] Address [address] [place] [address] Care Team Providers Care Laboratory Technologist Name Role Phone Marleen Vanessa MD Primary Care Provider [phone] Van Paige MD Primary Care Provider [phone] Encounter Details Date Type Department Care Team (Late st Contact Info) Description 08/15/2021 Orders Only [facility] [address] [facility] [address] [place] [address] Henrik Nelson MD [address] [place] [address] Social History Tobacco Use Types Packs/Day Years [...] of this encounter Procedures * Due to [employer] law, this organization might not be sharing negative HIV tests. Procedure Name Priority Date/Time Associated Diagnosis Comments VENIPUNCTURE Routine 08/15/2021 3:02 PM EDT Leg pain, bilateral documented in this encounter Results * Due to [place] [employer] law, this organization might not be sharing negative HIV tests. * (ABNORMAL) CREATINE KINASE (CK), SERUM (08/15/2021 3:02 PM EDT) CPK 188(H) 29 - 143 U/L [facility] 08/15/2021 3:02 PM EDT 08/16/2021 2:56 AM EDT Narrative Resulting Agency Comment [id number] Henrik Nelson MD LAB SAME DAY RESULT Final Result [facility] [address] [place] [address] documented in this encounter Visit Diagnoses Diagnosis Leg pain, bilateral Pain in limb documented in this encounter Care Teams Laboratory Technologist Relationship Specialty Start Date End Date Marleen Vanessa MD [address] [address] PCP - General Internal Medicine 06/27/21 11/19/24 Van Paige MD [address] [address] PCP - General Family Medicine 11/20/24 documented as of this encounter
--- OUTSIDE RECORDS SUMMARY | 2025-03-18 11:22 | XMS_ITS | Encounter Summary ---
Author Organization [facility] Address [address] [place] [address] Care Team Providers Care Burn Center Nurse Name Role Phone Marleen Vanessa MD Primary Care Provider [phone] Van Paige MD Primary Care Provider [phone] Encounter Details Date Type Department Care Team ([facility] st Contact Info) Description 06/19/2021 Telephone CALL CENTER [facility] [address] [place] [address] Henrik Nelson MD [address] [place] [address] Social History Tobacco Use Types Packs/Day Years [...] 122/84(2024 2:52 PM EDT) No Maira Kang, BOWLING PIN SETTERS INSTALLER Note: Above is your goal for blood [...] on filedocumented in this encounter Care Teams Burn Center Nurse Relationship Specialty Start Date End Date Marleen Vanessa MD [address] [address] PCP - General Internal Medicine 06/27/21 11/19/24 Van Paige MD [address] [address] PCP - General Family Medicine 11/20/24 documented as of this encounter
--- OUTSIDE RECORDS SUMMARY | 2025-03-18 11:22 | XMS_ITS | Encounter Summary ---
Author Organization [facility] Address [address] [place] [address] Phone Care Team Providers Care Field Worker Name Role Phone Van Paige MD Primary Care Provider [phone] Van Paige MD Unavailable Encounter Details Date Type Department Care Team ([facility] st Contact Info) Description 04/09/2024 Telephone [facility] [address] [place], [place] [phone] Dustin Garcia [place] [address] [place] [address] [email or web address] Social History Tobacco Use Types Packs/Day Years [...] documented as of this encounter Care Teams Field Worker Relationship Specialty Start Date End Date Van Paige MD [address] [facility] 7 [place] [address] [email or web address] PCP - General Family Medicine 03/27/24 Van Paige MD [address] [facility] [address] [place] [address] [email or web address] Insurance Assigned Provider 08/30/24 documented as of this encounter Additional Source Comments The information contained in this document represents components of the legal health record. It is not the complete legal health record.[facility]
--- OUTSIDE RECORDS SUMMARY | 2025-03-18 11:23 | XMS_ITS | Encounter Summary ---
Author Organization [facility] Address [address] [place] [address] Care Team Providers Care Public Health Educator Name Role Phone Jannette Amezcua MD Primary Care Provider [phone] Marleen Vanessa MD Primary Care Provider [phone] Van Paige MD Primary Care Provider [phone] Encounter Details Date Type Department Care Team (Late st Contact Info) Description 01/24/2021 Orders Only CALL [facility]ENTER [facility] [address] [place] [address] Henrik Nelson MD [address] [place] [address] Social History Tobacco Use Types Packs/Day Years [...] Pressure 122/84(2024 2:52 PM EDT) Maira Beauchamp, [facility] Note: Above is your goal for [...] of this encounter Procedures * Due to [place] Pint Please law, this organization might not be sharing negative HIV tests. Procedure Name Priority Date/Time Associated Diagnosis Comments VENIPUNCTURE Routine 01/24/2021 10:56 AM EDT Chronic intractable headache, unspecified headache type documented in this encounter Results * Due to [place] Pint Please law, this organization might not be sharing negative HIV tests. * CREATINE KINASE (CK), SERUM (01/24/2021 10:56 AM EDT) CPK 139 29 - 143 U/L [facility] 01/24/2021 10:5 6 AM EDT 01/24/2021 11:06 PM EDT Narrative Resulting Agency Comment [id number] Henrik Nelson MD LAB SAME DAY RESULT Final Result Performing Organization Address City/State/[facility] Co de Phone Number [facility] [address] [place] [address] documented in this encounter Visit Diagnoses Diagnosis Chronic intractable headache, unspecified headache type documented in this encounter Care Teams Public Health Educator Relationship Specialty Start Date End Date Jannette Amezcua MD [address] [place] [address] PCP - General Internal Medicine 08/05/19 02/28/21 Marleen Vanessa MD [address] [address] PCP - General Internal Medicine 06/27/21 11/19/24 Van Paige MD [address] [address] PCP - General Family Medicine 11/20/24 documented as of this encounter
--- OUTSIDE RECORDS SUMMARY | 2025-03-18 11:23 | XMS_ITS | Encounter Summary ---
Author Organization [facility] Address [address] [place] [address] Care Team Providers Care Partition Setter Name Role Phone Jannette Amezcua MD Primary Care Provider [phone] Marleen Vanessa MD Primary Care Provider [phone] Van Paige MD Primary Care Provider [phone] Reason for Visit * Reason Onset Date Comments Labs/orders 01/20/2021 Creatinine Order for Radiology with Contrast Encounter Details Date Type Department Care Team (Late st Contact Info) Description 01/20/2021 Telephone CALL CENTER [facility] [address] [place] [address] Henrik Nelson MD [address] [place] [address] Labs/orders (Creatinine Order for Radiology with Contrast) [...] 122/84(2024 2:52 PM EDT) Maira Beauchamp, [facility] Note: Above is your goal for [...] of this encounter Results * Due to [place] state law, this organization might not be sharing negative HIV tests. * CREATINE KINASE (CK), SERUM (01/24/2021 10:56 AM EDT) CPK 139 29 - 143 U/L [facility] 01/24/2021 10:5 6 AM EDT 01/24/2021 11:06 PM EDT Narrative Resulting Agency Comment [id number] us Henrik Nelson MD LAB SAME DAY RESULT Final Result [facility] [address] [place] [address] documented in this encounter Visit Diagnoses Diagnosis Chronic intractable headache, unspecified headache type- Primary documented in this encounter Care Teams Partition Setter Relationship Specialty Start Date End Date Jannette Amezcua MD [address] [place] [address] PCP - General Internal Medicine 08/05/19 02/28/21 Marleen Vanessa MD [address] [address] PCP - General Internal Medicine 06/27/21 11/19/24 Van Paige MD [address] [address] PCP - General Family Medicine 11/20/24 documented as of this encounter
--- OUTSIDE RECORDS SUMMARY | 2025-03-18 11:23 | XMS_ITS | Encounter Summary ---
Author Organization [facility] Address [address] [place] [address] Care Team Providers Care Reducing System Operator Name Role Phone Marleen Vanessa MD Primary Care Provider [phone] Van Paige MD Primary Care Provider [phone] Reason for Visit * Reason Comments Imaging Study Encounter Details Date Type Department Care Team (Late st Contact Info) Description 01/07/2023 [facility] Neurology [address] [facility] [address] [place] [address] Henrik Nelson MD [address] [place] [address] Imaging Study Social History Tobacco Use Types [...] filled out Last Saturday she went to [facility] in [facility] for migraine tx The treatment dulled the [...] in EPIC * Telephone Encounter - More Quiros NP - 01/21/2023 4:48 PM EDT Patient [...] Jennifer Dial Radiology Benefit Coordinator Referral Management [id number] * Telephone Encounter - Concepcion Marsh LPN - 01/21/2023 12:06 PM EDT Not a patient at [facility] * Telephone Encounter - Delmy Estrada LPN - 01/07/2023 11:46 AM EDT Please send to pcp. This is not a [facility] Pt. * Telephone Encounter - Jennifer Velásquez - 01/07/2023 11:36 AM EDT This patient has missed two scheduled appointments for an MRI due to the missing PT1 form being completed and sent for her transportation. Her next MRI is scheduled for 01/22/2023 at 11:15 for a 11:00 arrival. Thank you, Jennifer Dial Radiology Benefit Coordinator Referral Management [id number] documented in this encounter Plan of Treatment Not on file documented as of this encounter Goals Goal Patient Goal Type Associated Problems Recent Progress Patient-Stated? Author Blood Pressure < 140/90 Blood Pressure 122/84(2024 2:52 PM EDT) Maira Beauchamp, [facility] Note: Above is your goal for [...] on filedocumented in this encounter Care Teams Reducing System Operator Relationship Specialty Start Date End Date Marleen Vanessa MD [address] [address] PCP - General Internal Medicine 06/27/21 11/19/24 Van Paige MD [address] [address] PCP - General Family Medicine 11/20/24 documented as of this encounter
--- OUTSIDE RECORDS SUMMARY | 2025-03-18 11:23 | XMS_ITS | Encounter Summary ---
Author Organization [facility] Address [address] [place] [address] Care Team Providers Care Hospital Social Worker Name Role Phone Naila Ventura NP Primary Care Provider [phone] Jannette Amezcua MD Primary Care Provider [phone] Marleen Vanessa MD Primary Care Provider [phone] Van Paige MD Primary Care Provider [phone] Reason for Visit * Reason Comments E-prescribing Refill Request Encounter Details Date Type Department Care Team (Late st Contact Info) Description 11/09/2018 Refill [facility] [address] [place] [phone] Naila Ventura NP [address] [place] [address] E-prescribing Refill Request Social History Tobacco Use [...] for Angela Hicks 58 y.o. female received [employer]. Verified and Confirmed pharmacy for patient. Last CPE with this specialty: 10/02/2018 Last OV with this specialty: 10/02/2018 Next OV: Future Appointments Date Time Provider Department Phone 12/22/18 1:00 PM Maira Aguilar MD [facility] Neurology [address] 04/03/19 10:45 AM Henrik Nelson MD [facility] Neurology [address] Pertinent lab results: No [...] 122/84(2024 2:52 PM EDT) No Maira Kang, [facility] Note: Above is your goal for [...] documented as of this encounter Care Teams Hospital Social Worker Relationship Specialty Start Date End Date Naila Ventura NP [address] [place] [address] PCP - General Internal Medicine 09/10/18 08/04/19 Jannette Amezcua MD [address] [place] [address] PCP - General Internal Medicine 08/05/19 02/28/21 Marleen Vanessa MD [address] [address] PCP - General Internal Medicine 06/27/21 11/19/24 Van Paige MD [address] [address] PCP - General Family Medicine 11/20/24 documented as of this encounter
--- OUTSIDE RECORDS SUMMARY | 2025-03-18 11:23 | XMS_ITS | Encounter Summary ---
Author Organization [facility] Address [address] [place] [address] Care Team Providers Care Distribution Superintendent Name Role Phone Marleen Vanessa MD Primary Care Provider [phone] Van Paige MD Primary Care Provider [phone] Encounter Details Date Type Department Care Team (Late st Contact Info) Description 11/29/2022 Orders Only [facility] Neurology [address] [facility] [address] [place] [address] Henrik Nelson MD [address] [place] [address] Social History Tobacco Use Types Packs/Day Years [...] Pressure 122/84(2024 2:52 PM EDT) Maira Beauchamp, [facility] Note: Above is your goal for [...] this encounter Procedures * Due to [place] state law, this organization might not be [...] this encounter Results * Due to [place] state law, this organization might not be sharing negative HIV tests. * (ABNORMAL) CREATINE KINASE (CK), SERUM (11/29/2022 3:19 PM EDT) CPK 180(H) 29 - 143 U/L [facility] 11/29/2022 3:19 PM EDT 11/29/2022 9:47 PM EDT Narrative Resulting Agency Comment [id number] Henrik Nelson MD LAB SAME DAY RESULT Final Result Performing Organization Address [facility] de Phone Number [facility] [address] [place] [address] * ALDOLASE (11/29/2022 3:19 PM EDT) Aldolase 6.0 <=8.1 U/L [facility] 11/29/2022 3:19 PM EDT 11/29/2022 9:47 PM EDT Narrative Resulting Agency Comment [id number] Henrik Nelson MD LABORATORY Fin al Result Performing Organization Address [facility] de Phone Number [facility] [address] [place] [address] * (ABNORMAL) CBC INCLUDES DIFFERENTIAL AND PLATELET [...] 9:47 PM EDT Narrative Resulting Agency Comment [id number] Henrik Nelson MD LAB SAME DAY RESULT Final Result [facility] [address] [place] [address] * (ABNORMAL) COMPREHENSIVE METABOLIC PANEL WITH GFR [...] needs for GFR calculation. Resulting Agency Comment [id number] us Henrik Nelson MD LABORATORY Fin al Result [facility] [address] [place] [address] documented in this encounter Visit Diagnoses Diagnosis Paresthesia Disturbance of skin sensation Elevated CPK Other nonspecific abnormal serum enzyme levels documented in this encounter Care Teams Distribution Superintendent Relationship Specialty Start Date End Date Marleen Vanessa MD [address] [address] PCP - General Internal Medicine 06/27/21 11/19/24 Van Paige MD [address] [address] PCP - General Family Medicine 11/20/24 documented as of this encounter
== END 2025-03-18 11:10 | disposition home or self-care (01) ==
PROVIDERS: Emergency Provider Emergency Medicine
DX: R51.9 Headache, unspecified (principal); I10 Essential (primary) hypertension
CPT/HCPCS: 96372; 99283; 99284; J1885

== ENCOUNTER 2025-03-23 10:45 | Emergency (ER) | payer MEDICARE, MEDICAID, SELFPAY ==
[2025-03-23 10:56] VITALS: BP 150/84; PULSE 88; RESP 16; TEMP 36.2; O2SAT 99; BMI 36.0
--- NOTE | 2025-03-23 11:24 | ED_ITS ---
HPI - Headache General Chief Complaint: Headache Stated Complaint: PAYNE,WEAK X1Y, WORSE TODAY PER EMS Time Seen by Provider: 03/23/25 11:13 History of Present Illness ED Provider: Anurag Lees MD HPI Narrative: [age] female with? Schizophrenia chronic headache says it is going on for years relatively unchanged. She looks well is smiling and laughing making jokes with me. Reports bifrontal headache no trauma had recently no visual symptoms denies neck pain or stiffness or fever Related Data Previous Rx's ?Medication ?Instructions ?Recorded ketorolac 10 mg tablet 10 mg PO Q6H PRN pain #20 ta bs 02/24/25 prochlorperazine maleate 10 mg 10 mg PO Q8H PRN nausea and 02/24/25 tablet (Compazine) vomiting #10 tabs ketorolac 10 mg tablet 10 mg PO Q6H PRN headache #2 0 tabs 03/18/25 prochlorperazine maleate 10 mg 10 mg PO Q8H PRN nausea and 03/18/25 tablet (Compazine) vomiting #10 tabs Allergies Allergy/AdvReac Type Severity Reaction Status Date / Time No Known Allergies Allergy Verified 03/23/25 10:56 Physical Exam Exam: Exam: EXAM: Gen: Alert, awake, well appearing, well hydrated. Head: Atraumatic Eyes: Anicteric, Normal conjunctiva. ENT: Moist mucosa, no pallor. ? Neck: Supple. Skin: ?No observable rash or bruising on exposed or examined skin Respiratory: Breathing comfortably, No distress.Clear to auscultation bilaterally, symmetric chest expansion, No wheeze, rales, ronchi. Cardiovascular: Regular rate and rhythm. No murmurs or rub. Well perfused periphery, warm extremities. No edema. ? Abdominal: No focal tenderness. Soft, no objective distension. No palpable masses or obvious organomegaly. ?No guarding, no rebound tenderness or other peritoneal findings. : No flank tenderness. Neuro: Alert. Gross movement of all extremities intact. ? Psych: Calm. Cooperative. MSK: No grossly visible deformity. Vital signs: See flowsheet Vital Signs: Vital Signs: Last Vital Signs Temp 97.3 F 03/23/25 11:55 Pulse 88 03/23/25 11:55 Resp 16 03/23/25 11:55 BP 151/99 H 03/23/25 11:55 Pulse Ox 97 03/23/25 11:55 O2 Del Method Room Air 03/23/25 10:56 BMI result Body Mass Index 36.0 Medications Administered Discontinued Medications Generic Name Dose Route Start Last Admin Trade Name Freq PRN Reason Stop Dose Admin Ibuprofen 600 mg 03/23/25 11:30 03/23/25 11:49 Ibuprofen 600 Mg Tablet PO 03/23/25 11:31 600 mg ONCE ONE Administration Metoclopramide HCl 10 mg 03/23/25 11:30 03/23/25 11:49 Metoclopramide Hcl 10 Mg Tablet PO 03/23/25 11:31 10 mg ONCE ONE Administration Medical Decision Making Medical Decision Making MDM Narrative: Medical Decision Making: [age] female with chronic headaches unchanged reassuring neuro exam laughing smiling looks well. No indication for any advanced imaging or other additional testing. Reassurance try to ensure that she would follow up with Neurology and had extensive discussions with her Preliminary Favored Differential Diagnosis: Chronic headache, tension, migraine among additional considered etiologies Testing Interpreted Independently: ?See below for details Radiology or Lab testing Results Reviewed: ?See below for details Consults: ?See below for details Independent Historians/External Chart Reviews: ?See below for details Social Determinants of Health Impacting MDM/Planning: ?See below for details Discharge Plan Discharge Clinical Impression: Headache Patient Disposition: Home, Self-Care Instructions: Acute Headache (ED) Additional Instructions: In the emergency department today he had a reassuring physical examination we did not feel there was any acute emergent indications to do any additional testing or admit you to the hospital however you may need outpatient follow up with neurology. Call the clinic for follow up. 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 The patient received an intramuscular dose of Toradol here in the emergency room Referrals: [facility] [Provider Group] [facility] [Provider Group, Neurology] Interventions: ED Discharge Assessment Last Done: 03/23/25 11:55 Discharge Date/Time: 03/23/25 12:02 Print Language: Dominican
[2025-03-23 11:50] VITALS: BP 151/99; PULSE 88; RESP 16; TEMP 36.3; O2SAT 97
[2025-03-23 11:55] VITALS: BP 151/99; PULSE 88; RESP 16; TEMP 36.3; O2SAT 97
--- OUTSIDE RECORDS SUMMARY | 2025-03-23 14:31 | XMS_ITS | Data Portability ---
Author Organization [facility] [place], [facility], [facility] Address [address] [place] [address] Care Team Providers Care Patient Clerical Assistant Name Role Phone GLADYS BRADLEY Primary Care Provider GLADYS BRADLEY Referring Provider JAYSON HOLLOWAY Primary Care Provider Assessment No assessment recorded. Plan of Treatment [...] By Organization Details Last Modified Time 09/30/2023 [id number] I reviewed my findings with this pleasant [...] answered. [email or web address] Not available 09/30/2023 14:54:49 10/15/2023 [id number] ingrown toenail: care instructions [email or web address] Not available 10/15/2023 12:25:24 Reason for Referral None Reported. Problems Name Problem SNOMED Code Status Onset Date Resolution Date Notes Provider Name and Address Organization Details Recorded Time Arthritis 4289895 Active 2018 Tara mcelroy MA - [facility], [facility] 9 10:56:31 Asthma 741560044 Active 2018 Tara mcelroy, [place] - [facility], [facility] 9 10:56:36 Blood coagulation disorder 77030379 Active 2018 Tara mcelroy, [place] - [facility], [facility] 9 10:56:54 Blood pressure above reference range 97343805 Active 2018 Tara mcelroy, [place] - [facility], [facility] 9 10:57:03 Cholesterol/hi gh density lipoprotein ratio above reference range 039614084 Active 2018 Tara mcelroy MA - [facility], [facility] 9 10:57:12 Migraine 92167997 Active 2018 Tarakellie mcelroy, [place] - [facility], [facility] 9 10:57:18 Fibromyalgia 124335270 Active 2018 Tara mcelroy, [place] - [facility], [facility] 9 10:57:26 Problem Notes None recorded. Procedures Surgical History Date Name Laterality Status Provider Name and Address Organization Details Recorded Time 4 Nail Debridement completed BOBBY GRONDIN DPM [address], [address], [facility], [facility] 10/15/2023 12:25:06 4 Temporary Nail Removal completed BOBBY GRONDIN DPM [address], [address], [facility], [facility] 10/15/2023 12:23:44 4 Nail Debridement completed BOBBY GRONDIN DPM [address], [address], [facility], [facility] 08/09/2023 13:58:19 3 Nail Debridement completed BOBBY GRONDIN DPM [address], [address], [facility], [facility] 05/22/2023 13:25:20 3 Nail Debridement completed BOBBY GRONDIN DPM [address], [address], [facility] [place], [facility] 03/20/2023 13:51:22 3 Nail Debridement completed BOBBY GRONDIN DPM [address], [address], [facility] [place], [facility] 01/11/2023 13:48:38 3 Temporary Nail Removal completed BOBBY GRONDIN DPM [address], [address], [facility] [place], [facility] 01/11/2023 13:51:10 3 Nail Debridement completed BOBBY GRONDIN DPM [address], [address], [facility] [place], [facility] 11/02/2022 13:35:07 3 Nail Debridement completed BOBBY GRONDIN DPM [address], [address], [facility] [place], [facility] 08/15/2022 13:21:34 2 Nail Debridement completed BOBBY GRONDIN DPM [address], [address], [facility] [place], [facility] 04/06/2022 14:11:11 2 Nail Debridement completed BOBBY GRONDIN DPM [address], [address], [facility] [place], [facility] 12/26/2021 10:01:57 2 Nail Debridement completed BOBBY GRONDIN DPM [address], [address], [facility] [place], [facility] 07/25/2021 11:07:51 1 Nail Debridement completed BOBBY GRONDIN DPM [address], [address], [facility] [place], [facility] 05/16/2021 12:07:07 1 Nail Debridement completed BOBBY GRONDIN DPM [address], [address], [facility] [place], [facility] 01/16/2021 11:06:12 0 Nail Debridement completed BOBBY GRONDIN DPM [address], [address], [facility] [place], [facility] 12/21/2019 12:07:09 0 Nail Debridement completed BOBBY GRONDIN DPM [address], [address], [facility] [place], [facility] 07/03/2019 11:58:50 9 Nail Debridement completed BOBBYSHIVAM ZELAYANDIN DPM [address], [address], [facility] [place], [facility] 04/22/2019 11:10:38 9 Nail Debridement completed BOBBYSHIVAM ZEALYANDIN DPM [address], [address], [facility] [place], [facility] 01/27/2019 11:49:56 9 Temporary Nail Removal completed BOBBYSHIVAM ZELAYANDIN DPM [address], [address], [facility] [place], [facility] 01/27/2019 11:52:52 open reduction of nasal fracture completed Tara Mueller [facility] [place], [facility] 01/27/2019 10:58:42 Ankle arthroscopy/patience christopher completed Tara Mueller [facility] [place], [facility] 01/27/2019 10:58:55 repair of uterus completed Tara Mueller [facility] [place], [facility] 01/27/2019 10:59:16 Imaging Results None recorded. Procedure Notes None recorded. Medical Equipment None Reported. Allergies Allergen ID Allergen Name Allergen Category Reaction Reaction Severity Criticality Documentation Date Start Date Code Code System Note Provider Name and Address Organization Details Recorded Time 66695 codeine medicatio n Not available Not available Not available 01/27/2019 2670 RxNorm Tara mcelroy [facility] 9 10:55:40 51227 Substance with sulfonami de structure and antibacte rial mechanism of action (substanc e) medicatio n Not available Not available Not available 01/27/2019 41028 8003 SNOMED Tara mcelroy [facility] 9 10:55:48 95761 epinephri ne medicatio n chest pain Not available Not available 01/27/2019 3992 RxNorm Tara mcelroy [facility] 9 10:56:14 Medications Name Sig Start Date [...] active Not Available Not Available Not Available [facility] ODT 75 mg disintegrat ing tablet active [...] Updated DateTime 10/15/2023 160.02 cm 42.5 kg/m2 161124.17 g Magaly Lima MA [employer] [facility] [place] 10/15/2023 11:34:31 Date Recorded Body height Body mass index (BMI) Body weight Provider Name and Address Organization Details Last Updated DateTime 03/20/2023 160.02 cm 42.5 kg/m2 405757.17 g Magaly Lima [facility] [place] 03/20/2023 13:27:08 Social History Question Answer Notes LastModified by [employer] Details LastModified Time Tobacco Smoking Status Never Smoker Tara mcelroy [place] - [facility] [place], [facility] 01/27/2019 10:58:20 Which Illicit Or Recreational Drugs Have You Used? None Information not available 01/11/2020 Marital Status Single [email or web address] Informatio n not available 01/27/2019 What Was The Date Of Your Most Recent Tobacco Screening? 01/11/2020 Information not available 01/11/2020 How Much Tobacco Do You Smoke? No [email or web address] Information not available 01/27/2019 How Many Years Have You Smoked Tobacco? 0 Information not available 12/21/2019 Sex: Unknown Functional Status Question Answer Note LastModified by [employer] Details LastModified Time What is your level of alcohol consumption? None [email or web address] Information not available 01/27/2019 Do you or have you ever used smokeless tobacco? Never used smokeless tobacco Information not available 01/27/2019 What is your occupation? disabled [email or web address] Information not available 01/27/2019 Do you or have you ever used e-cigarettes or vape? Never used electronic cigarettes [email or web address] Information not available 01/27/2019 Mental Status None recorded. Family History Relationship Description Onset Age of this Age Resolved Age Notes LastModified by Organization Details LastModified Time Mother Arthritis [email or web address] Not availa ble 01/27/2019 10:57:37 Maternal Grandmother Stroke in the puer[place] [email or web address] Not available 07/2018 10:57:47 Paternal Grandmother Heart disease [email or web address] Not available 01/27 10:58:00 Paternal Grandmother Blood pressure outside reference range [email or web address] Not available 01/27 10:58:14 Medical History Condition Response Coronary Artery Disease N Dyslipidemia N Gout N Hernia N Artificial Joints N Thyroid Problems N Lung Disease N Pacemaker N Edema N Anemia N Back Pain N Deep Vein Thrombosis N Diabetes N Varicose Veins N Bleeding Disorder Y Arthritis Y Seizures/Epilepsy N Blood Clot N Tuberculosis N AIDS/HIV N Lino Bite N Cancer N Stroke N Asthma Y Leg or Foot Ulcers N Raynaud's Disease N Substance Abuse N Peripheral Vascular Disease N Polio N Hepatitis N Liver Disease N Heart Disease N Organ Transplant N Rheumatoid Arthritis N Pulmonary Embolism N Dialysis N Foot Deformity N Fibromyalgia Y Headaches Y Hypertension N Osteoporosis N Kidney Disease N Gynecological HistoryNo gynecological history recorded. Obstetrics History GPAL:G 0 P 0 0 0 0 Past Encounters Encounter ID Performer Location Encounter Start Date Encounter Closed Date Diagnosis/Indication Diagnosis SNOMED-CT Code Diagnosis ICD10 Code Diagnosis IMO Codes Diagnosis Note [id number] BOBBY WILLIAM DPM [facility]_Main_ Office [address] [place] [address] 01/27/2019 10:02:24 01/27/2019 13:29:09 Ingrowing toenail 848661473 L60.0 Peripheral vascular disease 498399710 I70.91 Onychomycosis 487380674 B35.1 Pain in toe 090397058 M7 9.674 M79.675 [id number] BOBBY WILLIAM DPM [facility]_Main_ Office [address] [place] [id number] 04/22/2019 10:42:58 04/22/2019 11:08:32 Peripheral vascular disease 981230584 I70.91 Onychomycosis 176431128 B35.1 Pain in toe 056016157 M7 9.674 M79.675 [id number] [facility] [address] [place] [address] 07/03/2019 11:09:27 07/03/2019 12:00:52 Peripheral vascular disease 043277526 I70.91 Onychomycosis 086740317 B35.1 Pain in toe 521852224 M7 9.674 M79.675 [id number] [facility] [address] [place] [address] 07/24/2019 10:31:06 07/24/2019 11:21:28 Peripheral vascular disease 107017287 I70.91 Onychomycosis 956384378 B35.1 Pain in toe 615281760 M7 9.674 M79.675 [id number] [facility] [address] [place] [address] 12/21/2019 11:05:09 12/21/2019 11:38:50 Peripheral vascular disease 296874488 I70.91 Onychomycosis 195016971 B35.1 Pain in toe 505194792 M7 9.674 M79.675 Ingrowing toenail 419789 009 L60.0 [id number] [facility] [address] [place] [address] 01/11/2020 11:06:22 01/11/2020 11:26:59 Peripheral vascular disease 569681064 I70.91 Pain in toe 394941563 M7 9.674 M79.675 Ingrowing toenail 553340 009 L60.0 [id number] [address] 01/16/2021 10:42:18 01/16/2021 11:29:32 Peripheral vascular disease 543119519 I70.91 Onychomycosis 047717538 B35.1 Pain in toe 456533485 M7 9.674 M79.[id number] [address] 02/17/2021 14:04:46 02/17/2021 17:23:57 Peripheral vascular disease 722249699 I70.91 Plantar fa sciitis of left foot 6694160988 3162066 M72.2 Pain in left foot 614490 8709 33819 M79.672 [id number] [address] 05/16/2021 11:52:04 05/16/2021 18:44:48 Peripheral vascular disease 368170727 I70.91 Onychomycosis 598299145 B35.1 Pain in toe 040684542 M7 9.674 M79.675 [id number] [address] 06/14/2021 13:54:08 06/14/2021 14:44:43 Ingrowing toenail 371413487 L60.0 Peripheral vascular disease 094578157 I70.91 Pain in toe 123309838 M7 9.675 [id number] BOBBY GARCIANDIN DPM [facility] [address] [place] [address] 07/25/2021 10:27:32 07/25/2021 11:03:23 Peripheral vascular disease 508027813 I70.91 Onychomycosis 553317260 B35.1 Pain in toe 487197771 M7 9.674 M79.675 [id number] BOBBY GARCIANDIN DPM [facility] [address] [place] [address] 6 12/26/2021 09:30:35 12/26/2021 21:09:52 Peripheral vascular disease 933129595 I70.91 Onychomycosis 987408341 B35.1 Pain in toe 038580341 M7 9.674 M79.675 [id number] BOBBY GARCIANDIN DPM [facility] [address] [place] [address] 6 04/06/2022 13:37:55 04/06/2022 16:13:52 Peripheral vascular disease 443059678 I70.91 Onychomycosis 270918297 B35.1 Pain in toe 511892717 M7 9.674 M79.675 [id number] BOBBY GARCIANDIN DPM [facility] [address] [place] [address] 05/01/2022 11:34:13 05/01/2022 18:08:25 Ingrowing toenail 267293297 L60.0 Peripheral vascular disease 405366148 I70.91 Pain in toe 911841000 M7 9.675 [id number] BOBBY GARCIANDIN DPM [facility] [address] [place] [address] 06/08/2022 09:20:11 06/08/2022 14:26:20 Ingrowing toenail 813100156 L60.0 Mild ingrown second digit nails, distal medial nail borders. Peripheral vascular disease 218186336 I70.91 Pain in toe 119368747 M7 9.675 [id number] BOBBY GARCIANDIN DPM [facility] [address] [place] [address] 08/15/2022 12:46:28 08/15/2022 16:25:19 Peripheral vascular disease 837111490 I70.91 Onychomycosis 540617501 B35.1 Pain in toe 139376780 M7 9.674 M79.675 [id number] [address] [address] 09/05/2022 15:10:34 09/05/2022 16:13:47 Ingrowing toenail 018625787 L60.0 Mild ingrown left second digit nail, distal medial nail border. Pain of to e of left foot 5981874386 84527 M79.675 Open wound of foot 15395 3008 S91.312A [id number] [address] 09/19/2022 14:08:19 09/19/2022 15:31:58 Contusion of right foot 0321779630 7477038 S90.31XA Pain of to e of right foot 6192689920 32511 M79.[id number] [address] 10/08/2022 10:43:57 10/08/2022 15:00:36 Contusion of right foot 0790487623 0831518 S90.31XA Pain of to e of right foot 9071397397 22144 M79.674 Pain of to e of left foot 8510060295 59351 M79.[id number] [address] 11/02/2022 13:10:42 11/02/2022 14:07:01 Peripheral vascular disease 980986260 I70.91 Onychomycosis 055817121 B35.1 Pain in toe 078474092 M7 9.674 M79.675 [id number] [facility] [address] [address] 12/21/2022 11:09:15 12/21/2022 17:37:46 Ingrowing toenail 661242811 L60.0 Mild ingrown left second digit nail, distal medial nail border. Pain of to e of left foot 6755340698 19235 M79.675 [id number] BOBBY WILLIAM [facility] Office [address] [place] [address] 6 01/11/2023 13:16:32 01/11/2023 17:09:22 Peripheral vascular disease 507863941 I70.91 Onychomycosis 466455826 B35.1 Pain in toe 934482876 M7 9.674 M79.675 Ingrowing toenail 230429 009 L60.0 Ingrown bilateral second digit nail, distal medial nail border. [id number] BOBBY LADDIN [address] [address] 03/20/2023 13:06:18 03/20/2023 17:49:23 Pain in toe 349398890 M79.674 M79.675 Peripheral vascular disease 570067980 I70.91 Onychomycosis 805698933 B35.1 [id number] BOBBY LADDIN [address] [address] 05/22/2023 13:04:12 05/22/2023 18:08:28 Peripheral vascular disease 596488278 I70.91 Onychomycosis 386285156 B35.1 Pain in toe 658981025 M7 9.674 M79.675 [id number] BOBBY LADDIN [facility] Office [address] [place] [address] 08/09/2023 13:25:44 08/09/2023 16:10:58 Peripheral vascular disease 296358635 I70.91 Onychomycosis 060453701 B35.1 Pain in toe 244151045 M7 9.674 M79.675 [id number] BOBBY LADDIN [address] [address] 09/30/2023 14:23:45 09/30/2023 17:44:08 Ingrowing toenail 505513077 L60.0 Ingrown bilateral second digit nail, distal medial nail border. Pain in toe 681406494 M7 9.674 M79.675 Peripheral vascular disease 341262184 I70.91 Onychomycosis 328840775 B35.1 [id number] BOBBY WILLIAM DPM [facility] [address] [facility] [address] [place] [address] 10/15/2023 11:21:14 10/15/2023 19:50:00 Peripheral vascular disease 419078863 I70.91 Onychomycosis 666602505 B35.1 Pain in toe 281211072 M7 9.674 M79.675 Ingrowing toenail 587782 009 L60.0 Ingrown bilateral second digit nail medial nail borders. Health Concerns Section Related Observation LastModified by Organization Detai ls LastModified Time None Recorded Concern Status LastModified by Organization Details LastModified Time None Recorded Advance Directives Directive None Recorded Payers Insurance Date Sequence Insurance Name Policy Number Policy Sotelo Covered Member ID Sotelo Member ID Guarantor Name 08/08/[address] [facility] (MEDICARE REPLACEMENT /ADVANTAGE - PPO) [id number] Angela Hicks [id number] Angela Hicks 01/30/2025 1 [place] [employer] Angela Neves Kurt [id number] Angela Hicks 12/30/2021 1 [place] Angela M Kurt [id number] Angela Hicks 01/30/2025 2 [place] [facility] Angela Neves Kurt [id number] Angela Hicks Notes Date Note Type Note Provider Name and Address Organization Details Recorded Time 03/20/2023 text/html ROS as noted in the HPI Angela presents today for her foot exam and nail care. She states that both of her second digit nails have been bothering her. BOBBY WILLIAM DPM [address] [place] [address], [address], [facility] - [facility], [facility] 03/20/2023 13:51:51 05/22/2023 text/html ROS as noted in the HPI Angela presents today for her foot evaluation and nail care. She states that she has been having some pain in both of her second digit nails. BOBBY WILLIAM DPM [address], [address], [employer] [place], [facility] 05/22/2023 13:25:46 08/09/2023 text/html ROS as noted in the [facility] Angela presents today for her foot evaluation and nail care. She states that she has been doing well but both of her second digit nails have been sore. BOBBY WILLIAM DPM [address], [address], [facility] [place], [facility] 08/09/2023 13:58:44 09/30/2023 text/html Ingrown NailReported by [...] at this time. BOBBY WILLIAM DPM [address], [address], [facility] [place], [employer] 09/30/2023 14:55:05 10/15/2023 text/html ROS as noted in the [facility] Angela presents today for her foot exam and nail care. She states that both of her second digit nails have been sore. She is requesting that both second digits are anesthetized to have the medial nail borders full removed today. BOBBY WILLIAM DPM [address], [address], [facility] [place], [facility] 10/15/2023 12:26:37 OBGyn Episode No OBEpisode recorded.
--- OUTSIDE RECORDS SUMMARY | 2025-03-23 14:31 | XMS_ITS | Clinical Summary ---
Author Organization [facility] Address [address] [place] [address] Care Team Providers Care Show Dog Trainer Name Role Phone Van Paige MD Primary Care Provider [phone] Allergies No known active allergies Medications Medication [...] age to complete this topic Care Teams Show Dog Trainer Relationship Specialty Start Date End Date Van Paige MD [address] [place] [address] PCP - General Family Medicine 09/25/23
--- OUTSIDE RECORDS SUMMARY | 2025-03-23 14:31 | XMS_ITS | Data Portability ---
Author Organization [facility], [facility] Address [address] [place] [address] Assessment No assessment recorded. Plan of Treatment Reminders Order Date Submit Date Provider Last Modified By Organization Details Last Modified Time Details Appointments None recorded . Lab None recorded . Referral physical therapis t referral - [facility] 2023 024 [email or web address] [facility] (Pawan Murillo), [address], [place], [address], 4 14:10:48 Procedures None recorded . Surgeries None recorded . Imaging None recorded . Medication Orders None recorded . Patient TargetsNo targets recorded. Patient InstructionsNo instructions recorded. Reason for Referral Physical Therapist Referral for Peroneal tendinitis bilateral ankle rehab Referring Physician: Lucita Aparicio, Orthopedic Surgery, [id number] Encounter Date: 09/30/2023 Problems Name Problem SNOMED Code Status Onset Date Resolution Date Notes Provider Name and Address Organization Details Recorded Time No complaints 323418794 Active Status : 'A'; Not Available [facility] 4 09:25:48 Osteoarthriti s of knee 750120021 Active 2023 Jacobo Armenta DPT [address], [place], [address] , [facility] - [facility] 4 09:16:02 Problem Notes None recorded. Procedures Surgical History Date Name Laterality Status Provider Name and Address Organization Details Recorded Time 4 Ankle Lidocaine 1% Injection, Bilateral completed Lucita Aparicio PA-C [address], [place], [address], [facility] 09/30/2023 12:21:56 4 40251 Therapeutic Exercise (1:1) cancelled Jacobo Geovany, DPT [address], [place], [address], [facility] 09/11/2023 09:12:36 4 75368: Low complexity PT Eval cancelled Jacobowayne Armenta, DPT [address], [place], [address], [facility] 09/11/2023 09:12:40 4 G8417 BMI Above Upper Parameters, F/U Documented cancelled Jacobo Catlinda, DPT [address], [place], [address], [facility] 09/11/2023 09:12:25 4 G8427 Current Medication Documented cancelled Jacobo Geovany, DPT [address], [place], [address], [facility] 09/11/2023 09:12:33 Imaging Results None recorded. Procedure Notes None recorded. Medical Equipment None Reported. Allergies Allergen ID Allergen Name Allergen Category Reaction Reaction Severity Criticality Documentation Date Start Date Code Code System Note Provider Name and Address Organization Details Recorded Time 858548 erythromy zuleyka medicatio n Not available Not available Not available 01/01/2024 4053 RxNorm LIOR mcelroy [facility] 4 11:22:54 787686 Flagyl medicatio n Not available Not available Not available 01/01/202405067 6 RxNorm LIOR mcelroy [facility] 4 11:23:08 98638 codeine sulfate medicatio n Not available Not available Not available 07/29/20232022 11176 RxNorm Not Available [facility] 12:08:45 33203 Substance with sulfonami de structure and antibacte rial mechanism of action (substanc e) medicatio n Not available Not available Not available 07/29/20232022 60237 8003 SNOMED Not Available [facility] 12:08:45 Medications Name Sig Start Date Stop [...] Not Available Not Available No t Available [facility] 100,000 unit/gram topical powder active Not Available [...] Updated DateTime 08/29/2023 160.02 cm 41.6 kg/m2 866683.21 g Christiano Bermeo PA-C [address] [place] [address], [address], [facility] 08/29/2023 15:29:16 Date Recorded Body height Body mass index (BMI) Body weight Provider Name and Address Organization Details Last Updated DateTime 09/11/2023 160.02 cm 41.6 kg/m2 348578.21 g Jacobo Armenta DPT [address], [address], [facility] 09/11/2023 09:11:16 Date Recorded Body height Body mass index (BMI) Body weight Provider Name and Address Organization Details Last Updated DateTime 09/30/2023 160.02 cm 41.6 kg/m2 254218.21 g Bita hernandez [facility] 09/30/2023 11:23:39 Social History None recorded. Functional Status None recorded. Mental Status None recorded. Family History Nothing Reported. Medical History No medical history recorded. Gynecological HistoryNo gynecological history recorded. Obstetrics History GPAL:G 0 P 0 0 0 0 Past Encounters Encounter ID Performer Location Encounter Start Date Encounter Closed Date Diagnosis/Indication Diagnosis SNOMED-CT Code Diagnosis ICD10 Code Diagnosis IMO Codes Diagnosis Note [id number] SONAL Holt [address] [place] [address] 08/29/2023 15:19:27 08/29/2023 15:57:37 Bilateral osteoarthritis of knees 3359372677 27371 M17.0 [id number] SONAL Patel [address] [place] [address] 09/30/2023 10:52:56 10/22/2023 15:43:05 Peroneal tendinitis 28661803 M76.70 Health Concerns Section Related Observation LastModified by Organization Detai ls LastModified Time None Recorded Concern Status LastModified by Organization Details LastModified Time None Recorded Advance Directives Directive None Recorded Payers Insurance Date Sequence Insurance Name Policy Number Policy Sotelo Covered Member ID Sotelo Member ID Guarantor Name 12/29/2023 1 [place] [employer] Angela Hicks [id number] Angela Hicks 12/29/2023 2 [place] [facility] Angela Hicks [id number] Angela Hicks Notes Date Note Type Note [...] up as needed. Christiano Bermeo PA-C [address] [facility] [address], [place], [address], [facility] - [facility] 08/29/2023 15:56:59 09/30/2023 text/html I am seeing [...] arranged 3 months. Lucita [facility]paricio [facility]-C [address] [facility] [address], [place], [address], [facility] - [facility] 09/30/2023 12:29:52 OBGyn Episode No OBEpisode recorded.
--- OUTSIDE RECORDS SUMMARY | 2025-03-23 14:31 | XMS_ITS | Clinical Summary ---
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
== END 2025-03-23 12:02 | disposition home or self-care (01) ==
PROVIDERS: Emergency Provider Emergency Medicine
DX: R51.9 Headache, unspecified (principal)
CPT/HCPCS: 99283